=== PATIENT | male | born 1940 | race Caucasian/White ===

== ENCOUNTER 2019-01-10 16:59 | Inpatient (IN) | payer OTHER ==
--- NOTE | 2019-01-10 18:16 | RAD REPORT ---
EXAM DESCRIPTION: CT - Head Brain Wo Cont - 01/10/2019 5:53 pm CLINICAL HISTORY: declining state/confusion COMPARISON: None TECHNIQUE: Computed axial tomography of the head was obtained. IV contrast was not requested. All CT scans are performed using dose optimization technique as appropriate and may include automated exposure control or mA/KV adjustment according to patient size. FINDINGS: An intracranial bleed is not seen . The ventricles are normal in caliber. Low-density within the left caudate/left internal capsule is co mpatible with an old lacunar infarct. No extra-axial fluid collection is noted. Mild to moderate low-density areas within periventricular, deep and subcortical white matter likely represent ischemic changes secondary to small vessel disease . Fluid within the sinuses/ mastoids is not seen. IMPRESSION: No acute intracranial abnormality is seen. If patient's symptoms persist MRI of the bra in would be recommended.
[2019-01-10] MEDS ORDERED: ASPIRIN EC 81 MG TAB PO ONE (18:43)
[2019-01-10 18:45] LABS: Absolute Lymphocytes (CBC) 0.3 K/uL (0.7-4.9); Absolute Monocytes 0.6 K/uL (0.1-1.3); Absolute Neutrophil 5.7 K/uL (1.8-8.0); Basophils % 0.4 % (0-1.3); Eosinophils % 0.1 % (0-4.4); Hematocrit 42.5 % (39.6-49.0); Lymphocytes % 4.5 % (15.3-44.8); MPV 9.5 fL (7.6-11.3); Monocytes % 9.6 % (3.3-12.3); RBC Red Blood Cell Count 4.77 M/uL (4.33-5.43)
--- NOTE | 2019-01-10 18:48 | EDPHYS ---
Physician Documentation [facility] Name: Kevin Pascual Age: 78 yrs Sex: Male : 1940 Arrival Date: 01/10/2019 Time: 17:07 Bed 28 Private MD: ED Physician Alessandro Arnold HPI: 01/10 17:20 This 78 yrs old Male presents to ER via Unassigned with complaints of snw confusion. 17:20 The patient's problem is reported as dysphasia, expressive aphasia. Onset: The snw symptoms/episode began/occurred at an unknown time. Duration: unknown. Context: the episode(s) was witnessed, unknown, symptoms became apparent at an unknown time, occurred at home, occurred while the patient was unknown. Possible contributing factors include: Pt arrives per EMS, EMS states pt is having a hard time with finding words. Pt can tell me his name. No slurred speech. Follows directions. Pt cannot come up with the words he wants. Difficulty naming objects but is able to tell a story and can read and tell me the uses of different objects.. The symptoms are alleviated by nothing. Severity of symptoms: At their worst the symptoms were moderate severe. Patient's baseline: unknown. Unable to obtain HPI due to altered mental status. It is unknown whether or not the patient has had similar symptoms in the past. It is unknown whether or not the patient has recently seen a physician. Historical: - Allergies: 17:36 No Known Allergies; mg2 - Home Meds: 22:11 amlodipine 2.5 mg tab 1 tab once daily [Active]; potassium chloride 10 mEq Oral cpER 1 mg2 cap once daily [Active]; folic acid 1 mg Oral tab 1 tab once daily [Active]; donepezil HCL 10 mg 1 tab once a day [Active]; vit B12 1000 mcg once a day [Active]; aspirin 81 mg Oral chew 1 tab once daily [Active]; Fish Oil oral oral [Active]; - PMHx: 22:11 Hypertension; mg2 - PSHx: 17:36 Unable to obtain; mg2 - Immunization history:: Flu vaccine status is unknown. - Social history:: Smoking status: unknown. - Ebola Screening: : No symptoms or risks identified at this time. ROS: 17:20 Eyes: Negative for injury, pain, redness, and discharge, ENT: Negative for injury, snw pain, and discharge, Neck: Negative for injury, pain, and swelling, Cardiovascular: Negative for chest pain, palpitations, and edema, Respiratory: Negative for shortness of breath, cough, wheezing, and pleuritic chest pain, Abdomen/GI: Negative for abdominal pain, nausea, vomiting, diarrhea, and constipation, Back: Negative for injury and pain, : Negative for injury, bleeding, discharge, and swelling, MS/Extremity: Negative for injury and deformity, Skin: Negative for injury, rash, and discoloration. 17:20 Constitutional: Positive for malaise. 17:20 Neuro: Positive for speech changes. Exam: 17:20 Head/Face: Normocephalic, atraumatic. Eyes: Pupils equal round and reactive to light, snw extra-ocular motions intact. Lids and lashes normal. Conjunctiva and sclera are non-icteric and not injected. Cornea within normal limits. Periorbital areas with no swelling, redness, or edema. ENT: Nares patent. No nasal discharge, no septal abnormalities noted. Tympanic membranes are normal and external auditory canals are clear. Oropharynx with no redness, swelling, or masses, exudates, or evidence of obstruction, uvula midline. Mucous membranes moist. Neck: Trachea midline, no thyromegaly or masses palpated, and no cervical lymphadenopathy. Supple, full range of motion without nuchal rigidity, or vertebral point tenderness. No Meningismus. Chest/axilla: Normal chest wall appearance and motion. Nontender with no deformity. No lesions are appreciated. Cardiovascular: Regular rate and rhythm with a normal S1 and S2. No gallops, murmurs, or rubs. Normal PMI, no JVD. No pulse deficits. Respiratory: Lungs have equal breath sounds bilaterally, clear to auscultation and percussion. No rales, rhonchi or wheezes noted. No increased work of breathing, no retractions or nasal flaring. Abdomen/GI: Soft, non-tender, with normal bowel sounds. No distension or tympany. No guarding or rebound. No evidence of tenderness throughout. Back: No spinal tenderness. No costovertebral tenderness. Full range of motion. Skin: Warm, dry with normal turgor. Normal color with no rashes, no lesions, and no evidence of cellulitis. MS/ Extremity: Pulses equal, no cyanosis. Neurovascular intact. Full, normal range of motion. Psych: Awake, alert, with orientation to person, place and time. Behavior, mood, and affect are within normal limits. 17:20 Constitutional: The patient appears alert, awake, unkempt. 17:20 Neuro: Orientation: to person, Mentation: able to follow commands, Cranial nerves: extraocular movements are intact, Facial palsy and sensory deficits are absent. Nystagmus is absent. Cerebellar function: heel to gongora testing is normal, Motor: is normal, Sensation: is normal, Gait: not tested. Babinski testing is normal, seizure activity, is not displayed by the patient. 18:48 Radiologist reports: old infarcts and chronic ischemic disease, no acute snw Vital Signs: 17:34 BP 159 / 77; Pulse 62; Resp 18; Temp 98(O); Pulse Ox 100% on R/A; Pain 0/10; mg2 18:56 BP 184 / 57; Pulse 80; Resp 18; Pulse Ox 100% on R/A; Pain 0/10; mg2 22:11 BP 154 / 103; Pulse 103; Resp 18; Pulse Ox 100% on R/A; Pain 0/10; mg2 NIH Stroke Scale Scores: 17:20 NIHSS Score: 2 snw 19:00 NIHSS Score: 2 mg2 MDM: 17:27 Data reviewed: vital signs, nurses notes. Data interpreted: Pulse oximetry: on room air snw is 99 %. Interpretation: normal. Counseling: I had a detailed discussion with the patient and/or guardian regarding: the historical points, exam findings, and any diagnostic results supporting the discharge/admit diagnosis. ED course: pt not a candidate for TPA, unable to get hx of last known normal. 17:29 Patient medically screened. snw 01/10 17:12 Order name: Troponin (emerg Dept Use Only); Complete Time: 19:07 snw 01/10 17:12 Order name: Basic Metabolic Panel; Complete Time: 19: snw 01/10 17:12 Order name: CT Head Brain wo Cont; Complete Time: 18:21 snw 01/10 17:12 Order name: CBC with Diff; Complete Time: 19:41 snw 01/10 17:12 Order name: Protime (+inr); Complete Time: 19:07 snw 01/10 17:12 Order name: Ptt, Activated; Complete Time: 19:07 snw 01/10 17:12 Order name: Stroke CXR 1 View snw 01/10 17:12 Order name: EKG; Complete Time: 17:23 snw 01/10 17:12 Order name: Accucheck; Complete Time: 17:25 snw 01/10 17:12 Order name: Cardiac monitoring; Complete Time: 17:25 snw 01/10 17:12 Order name: EKG - Nurse/Tech; Complete Time: 17:25 snw 01/10 18:57 Order name: RAD; Complete Time: 19:07 EDMS 01/10 17:12 Order name: IV Saline Lock; Complete Time: 17:51 snw 01/10 17:12 Order name: Labs collected and sent; Complete Time: 17:25 snw 01/10 17:12 Order name: NPO; Complete Time: 17:26 snw 01/10 17:12 Order name: O2 Per Protocol; Complete Time: 17:26 snw 01/10 17:12 Order name: O2 Sat Monitoring; Complete Time: 17:51 snw 01/10 17:12 Order name: Stroke Swallow Screen; Complete Time: 17:51 snw 01/10 18:06 Order name: Labs - recollect needed; Complete Time: 18:39 bd Administered Medications: 18:39 Drug: Aspirin 81 mg Route: PO; mg2 22:17 Follow up: Response: No adverse reaction mg2 Point of Care Testing: Blood Glucose: 18:05 Blood Glucose: 99 mg/dL; mg2 Ranges: Critical Glucose Levels:Adult <50 mg/dl or >400 mg/dl <40 mg/dl or >180 mg/dl Disposition: 01/11 06:58 Co-signature as Attending Physician, Alessandro Arnold MD I agree with the assessment and kdr plan of care. Disposition: 01/10/19 18:47 Hospitalization ordered by Mitiz King for Observation. Preliminary diagnosis are Altered mental status, unspecified, Expressive language disorder, Renal insufficiency. - Bed requested for Telemetry/MedSurg (observation). - Status is Observation. mg2 - Condition is Stable. - Problem is new. - Symptoms are unchanged. UTI on Admission? No NIH Stroke Scale - NIH Stroke Score Date: 01/10/2019 Time: 17:20 Total Score = 2 1a. Level of Consciousness (LOC) - 0(Alert) 1b. Level of Consciousness (LOC) (Year \T\ Age) - 1(One) 1c. LOC Commands (Open \T\ Closes Eyes/Recreation Facility Attendant) - 0(Both) 2. Best Gaze (Lateral Gaze Paresis) - 0(Normal) 3. Visual Field Loss - 0(No visual loss) 4. Facial Palsy - 0(Normal) 5a. Left Arm: Motor (10-second hold) - 0(No drift) 5b. Right Arm: Motor (10-second hold) - 0(No drift) 6a. Left Leg: Motor (5-second hold - always test supine) - 0(No drift) 6b. Right Leg: Motor (5-second hold - always test supine) - 0(No drift) 7. Limb Ataxia (finger/nose \T\ heel/gongora - test with eyes open) - 0(Absent) 8. Sensory Loss (pinprick arms/legs/face) - 0(Normal) 9. Best Language: Aphasia (description/naming/reading) - 1(Mild to moderate aphasia) 10. Dysarthria (speech clarity - read or repeat words) - 0(Normal) 11. Extinction and Inattention (visual/tactile/auditory/spatial/personal) - 0(No abnormality) Initials: [facility] NIH Stroke Scale - NIH Stroke Score Date: 01/10/2019 Time: 19:00 Total Score = 2 1a. Level of Consciousness (LOC) - 0(Alert) 1b. Level of Consciousness (LOC) (Year \T\ Age) - 1(One) 1c. LOC Commands (Open \T\ Closes Eyes/Recreation Facility Attendant) - 0(Both) 2. Best Gaze (Lateral Gaze Paresis) - 0(Normal) 3. Visual Field Loss - 0(No visual loss) 4. Facial Palsy - 0(Normal) 5a. Left Arm: Motor (10-second hold) - 0(No drift) 5b. Right Arm: Motor (10-second hold) - 0(No drift) 6a. Left Leg: Motor (5-second hold - always test supine) - 0(No drift) 6b. Right Leg: Motor (5-second hold - always test supine) - 0(No drift) 7. Limb Ataxia (finger/nose \T\ heel/gongora - test with eyes open) - 0(Absent) 8. Sensory Loss (pinprick arms/legs/face) - 0(Normal) 9. Best Language: Aphasia (description/naming/reading) - 1(Mild to moderate aphasia) 10. Dysarthria (speech clarity - read or repeat words) - 0(Normal) 11. Extinction and Inattention (visual/tactile/auditory/spatial/personal) - 0(No abnormality) Initials: mg2 Signatures: Dispatcher [employer] EDMS Lady Watkins Kimberly, LEON RN kl Alessandro Arnold MD MD kdr Therrien, Shelly, NEIGHBORHOOD COORDINATOR-C NEIGHBORHOOD COORDINATOR-Csnw Ethan Smith, LEON RN mg2 Corrections: (The following items were deleted from the chart) 01/10 17:27 17:23 Head Brain Wo Cont+CT.RAD.BRZ ordered. EDMS EDMS 19:08 18:47 Hospitalization Ordered by Mitzi King MD for Observation. Preliminary snw diagnosis is Altered mental status, unspecified; Expressive language disorder. Bed requested for Telemetry/MedSurg (observation). Status is Observation. Condition is Stable. Problem is new. Symptoms are unchanged. UTI on Admission? No. snw 22:02 19:08 01/10/2019 18:47 Hospitalization Ordered by Mitzi King MD for kl Observation. Preliminary diagnosis is Altered mental status, unspecified; Expressive language disorder; Renal insufficiency. Bed requested for Telemetry/MedSurg (observation). Status is Observation. Condition is Stable. Problem is new. Symptoms are unchanged. UTI on Admission? No. snw 22:11 17:36 Home Meds: Unable to obtain; mg2 mg2 22:11 17:36 PMHx: Unable to obtain; mg2 mg2 23:06 22:02 01/10/2019 18:47 Hospitalization Ordered by Mitzi King MD for mg2 Observation. Preliminary diagnosis is Altered mental status, unspecified; Expressive language disorder; Renal insufficiency. Bed requested for Telemetry/MedSurg (observation). Status is Observation. Condition is Stable. Problem is new. Symptoms are unchanged. UTI on Admission? No. kl
--- NOTE | 2019-01-10 18:48 | ER ---
Nurse's Notes [facility] Name: Kevin Pascual Age: 78 yrs Sex: Male : 1940 Arrival Date: 01/10/2019 Time: 17:07 Bed 28 Private MD: Diagnosis: Altered mental status, unspecified;Expressive language disorder;Renal insufficiency Presentation: 01/10 17:31 Presenting complaint: EMS states: patient had sudden onset of slurred speech and mg2 confusion 30 mins REFERENCE ASSISTANT probably around 1650. stroke test was done he had equal metal sprayer protective coating, no arm or leg drift, oriented to his name, birthday but no to situation, age and place. Transition of care: patient was not received from another setting of care. Onset of symptoms was January 10, 2019 at 16:40. Risk Assessment: Do you want to hurt yourself or someone else? Patient reports no desire to harm self or others. Initial Sepsis Screen: Does the patient meet any 2 criteria? No. Patient's initial sepsis screen is negative. Does the patient have a suspected source of infection? No. Patient's initial sepsis screen is negative. Care prior to arrival: None. 17:31 Method Of Arrival: EMS: [facility] mg2 17:31 Acuity: HILARY 2 mg2 Triage Assessment: 18:43 General: Appears in no apparent distress. comfortable, Behavior is calm, cooperative. mg2 Pain: Denies pain. EENT: No deficits noted. Neuro: Level of Consciousness is awake, confused, Oriented to person. Cardiovascular: Capillary refill < 3 seconds Patient's skin is warm and dry. Respiratory: Airway is patent Respiratory effort is even, unlabored, Respiratory pattern is regular, symmetrical. GI: No signs and/or symptoms were reported involving the gastrointestinal system. : No signs and/or symptoms were reported regarding the genitourinary system. Derm: Skin is intact, is healthy with good turgor, Skin is pink, warm \T\ dry. normal. Musculoskeletal: Circulation, motion, and sensation intact. Capillary refill < 3 seconds. Historical: - Allergies: 17:36 No Known Allergies; mg2 - Home Meds: 22:11 amlodipine 2.5 mg tab 1 tab once daily [Active]; potassium chloride 10 mEq Oral cpER 1 mg2 cap once daily [Active]; folic acid 1 mg Oral tab 1 tab once daily [Active]; donepezil HCL 10 mg 1 tab once a day [Active]; vit B12 1000 mcg once a day [Active]; aspirin 81 mg Oral chew 1 tab once daily [Active]; Fish Oil oral oral [Active]; - PMHx: 22:11 Hypertension; mg2 - PSHx: 17:36 Unable to obtain; mg2 - Immunization history:: Flu vaccine status is unknown. - Social history:: Smoking status: unknown. - Ebola Screening: : No symptoms or risks identified at this time. Screenin:40 Patient has been NPO before screening. The patient is alert, able to follow commands. mg2 The patient does not exhibit slurred or garbled speech The patient is not exhibiting difficulty speaking. The patient does not exhibit difficulty understanding words. The patient is able to swallow own secretions with no drooling or need for suction. Patient tolerated one teaspoon of water. No drooling, immediate coughing, gurgling, or clearing of the throat was noted. The patient tolerated 90mL of water. No drooling, immediate coughing, gurgling, or clearing of the throat was noted. The patient passed the bedside swallow screening. Oral medications may be given as ordered. Contact Physician for further diet orders. Provider notified of bedside swallow screening results: Chelly JANSEN. 18:04 Abuse screen: Denies threats or abuse. Denies injuries from another. Nutritional mg2 screening: No deficits noted. Tuberculosis screening: No symptoms or risk factors identified. Fall Risk IV access (20 points). Assessment: 18:05 Reassessment: pls see triage assessment. mg2 22:20 Reassessment: floor nurse will call me back to receive the report. mg2 22:49 Reassessment: Elian Tillman (friend) number- [phone]. mg2 22:50 Reassessment: Dr. Estrada- [phone]. mg2 Vital Signs: 17:34 BP 159 / 77; Pulse 62; Resp 18; Temp 98(O); Pulse Ox 100% on R/A; Pain 0/10; mg2 18:56 BP 184 / 57; Pulse 80; Resp 18; Pulse Ox 100% on R/A; Pain 0/10; mg2 22:11 BP 154 / 103; Pulse 103; Resp 18; Pulse Ox 100% on R/A; Pain 0/10; mg2 NIH Stroke Scale Scores: 17:20 NIHSS Score: 2 snw 19:00 NIHSS Score: 2 mg2 ED Course: 17:07 Patient arrived in ED. mg2 17:11 Ethan Smith RN is Primary Nurse. mg2 17:12 Chelly Jimenez FNP-C [facility] snw 17:12 Alessandro Arnold MD is Attending Physician. snw 17:34 Triage completed. mg2 17:35 Arm band placed on. mg2 17:52 CT Head Brain wo Cont In Process Unspecified. EDMS 18:04 No provider procedures requiring assistance completed. Maintain EMS IV. Dressing mg2 intact. Good blood return noted. Site clean \T\ dry. Gauge \T\ site: 20 \T\ LHand. 18:09 EKG done, by layout technician. reviewed by Chelly JANSEN. sm3 18:30 Radiology exam delayed due to IV insertion attempt and/or patient not having ls3 appropriate IV at this time. 18:47 Mitzi King MD is Hospitalizing Provider. snw 18:57 Placed in gown. Bed in low position. Pulse ox on. NIBP on. Door closed. Warm blanket mg2 given. 22:11 Patient admitted, IV remains in place. mg2 Administered Medications: 18:39 Drug: Aspirin 81 mg Route: PO; mg2 22:17 Follow up: Response: No adverse reaction mg2 Point of Care Testing: Blood Glucose: 18:05 Blood Glucose: 99 mg/dL; mg2 Ranges: Outcome: 18:47 Decision to Hospitalize by Provider. snw 23:05 Admitted to Tele accompanied by gokul, via wheelchair, room 412, with chart, Report mg2 called to LEON Gore 23:05 Condition: stable 23:05 Instructed on the need for admit, Demonstrated understanding of instructions. 23:06 Patient left the ED. mg2 NIH Stroke Scale - NIH Stroke Score Date: 01/10/2019 Time: 17:20 Total Score = 2 1a. Level of Consciousness (LOC) - 0(Alert) 1b. Level of Consciousness (LOC) (Year \T\ Age) - 1(One) 1c. LOC Commands (Open \T\ Closes Eyes/Aviation Electrical Technician) - 0(Both) 2. Best Gaze (Lateral Gaze Paresis) - 0(Normal) 3. Visual Field Loss - 0(No visual loss) 4. Facial Palsy - 0(Normal) 5a. Left Arm: Motor (10-second hold) - 0(No drift) 5b. Right Arm: Motor (10-second hold) - 0(No drift) 6a. Left Leg: Motor (5-second hold - always test supine) - 0(No drift) 6b. Right Leg: Motor (5-second hold - always test supine) - 0(No drift) 7. Limb Ataxia (finger/nose \T\ heel/gongora - test with eyes open) - 0(Absent) 8. Sensory Loss (pinprick arms/legs/face) - 0(Normal) 9. Best Language: Aphasia (description/naming/reading) - 1(Mild to moderate aphasia) 10. Dysarthria (speech clarity - read or repeat words) - 0(Normal) 11. Extinction and Inattention (visual/tactile/auditory/spatial/personal) - 0(No abnormality) Initials: [facility] NIH Stroke Scale - NIH Stroke Score Date: 01/10/2019 Time: 19:00 Total Score = 2 1a. Level of Consciousness (LOC) - 0(Alert) 1b. Level of Consciousness (LOC) (Year \T\ Age) - 1(One) 1c. LOC Commands (Open \T\ Closes Eyes/Aviation Electrical Technician) - 0(Both) 2. Best Gaze (Lateral Gaze Paresis) - 0(Normal) 3. Visual Field Loss - 0(No visual loss) 4. Facial Palsy - 0(Normal) 5a. Left Arm: Motor (10-second hold) - 0(No drift) 5b. Right Arm: Motor (10-second hold) - 0(No drift) 6a. Left Leg: Motor (5-second hold - always test supine) - 0(No drift) 6b. Right Leg: Motor (5-second hold - always test supine) - 0(No drift) 7. Limb Ataxia (finger/nose \T\ heel/gongora - test with eyes open) - 0(Absent) 8. Sensory Loss (pinprick arms/legs/face) - 0(Normal) 9. Best Language: Aphasia (description/naming/reading) - 1(Mild to moderate aphasia) 10. Dysarthria (speech clarity - read or repeat words) - 0(Normal) 11. Extinction and Inattention (visual/tactile/auditory/spatial/personal) - 0(No abnormality) Initials: mg2 Signatures: Dispatcher [employer] EDMS Chelly Jimenez, CAN MACHINE OPERATOR-C CAN MACHINE OPERATOR-Csnw Ethan Smith, RN RN mg2 Rossana Romero sm3 Cindy Andrews ls3 Corrections: (The following items were deleted from the chart) 17:36 Home Meds: Unable to obtain; mg2 mg2 : 17:36 PMHx: Unable to obtain; mg2 mg2
[2019-01-10 18:53] LABS: Protime INR 0.99
--- NOTE | 2019-01-10 18:57 | RAD REPORT ---
EXAM DESCRIPTION: Aaron Single View01/10/2019 6:39 pm CLINICAL HISTORY: Chest pain COMPARISON: none FINDINGS: Small nodular opacities overlying each lung base. Upper lobes appear clear Heart is normal size IMPRESSION: Small nodular opacity overlying each lung base probably representing nipple shadows. As pulmonary nodules could have this appearance it is recommended that the patient have frontal obliq ue views of the chest with nipple markers for further evaluation
[2019-01-10 19:04] LABS: Potassium 4.6 mmol/L (3.5-5.1); Troponin (Emerg Dept Use Only) 0.03 ng/mL (0.0-0.045)
[2019-01-10 19:31] LABS: Blood Morphology Comment NOTED (NOT SEEN); Hypochromasia 1+; Platelet Estimate ADEQ; Urine White Blood Cell Casts OK
--- NOTE | 2019-01-10 23:08 | P.HP ---
Certification for Inpatient Patient admitted to: Inpatient With expected LOS: >2 Midnights Practitioner: I am a practitioner with admitting privileges, knowledge of patient current condition, hospital course, and medical plan of care. Services: Services provided to patient in accordance with Admission requirements found in Title 42 Section 412.3 of the Code of Federal Regulations Patient History Date of Service: 01/10/19 Reason for admission: CVA History of Present Illness: Mr Pascual is a 78 years old male who was brought by EMS due to expressive aphasia. There is no previous admission of this patient in this facility, he is by himself. Unknown when symptoms start. He has no weakness. The patient seems very frustrated because is not able to communicate. At physical exam there are no other neurologic deficit than his aphasia. BP 184/57. CT head shows no acute abnormalities, but has old lacunar infarct on left internal capsule and caudate. Home medications list reviewed: Yes - Past Medical/Surgical History Past Medical History: Unable to obtain Past Surgical History: Unable to obtain - Family History Family History: Reviewed- Non-Contributory - Social History Smoking Status: Unknown if ever smoked Alcohol use: No Place of Residence: Home Review of Systems 10-point ROS is otherwise unremarkable Physical Examination - Physical Exam General: Alert, In no apparent distress HEENT: Atraumatic, PERRLA, Mucous membr. moist/pink, EOMI, Sclerae nonicteric Neck: Supple, 2+ carotid pulse no bruit, No LAD, Without JVD or thyroid abnormality Respiratory: Clear to auscultation bilaterally, Normal air movement Cardiovascular: Regular rate/rhythm, Normal S1 S2 Gastrointestinal: Normal bowel sounds, No tenderness Musculoskeletal: No tenderness Integumentary: No rashes Neurological: Normal strength at 5/5 x4 extr, Normal tone, Normal affect, Abnormal speech (expressive aphasia) Lymphatics: No axilla or inguinal lymphadenopathy - Studies Laboratory Data (last 24 hrs) 01/10/19 18:15: PT 11.7, INR 0.99, APTT 25.0 01/10/19 18:15: WBC 6.6, Hgb 14.4, Hct 42.5, Plt Count 125 L Assessment and Plan - Problems (Diagnosis) (1) CVA (cerebral vascular accident) Current Visit: Yes Status: Acute Qualifiers: CVA mechanism: unspecified Qualified Code(s): I63.9 - Cerebral infarction, unspecified (2) Expressive aphasia Current Visit: Yes Status: Acute (3) HTN (hypertension) Current Visit: Yes Status: Acute Qualifiers: Hypertension type: unspecified Qualified Code(s): I10 - Essential (primary ) hypertension - Plan The patient will be admitted to the hospital due to CVA. He has expressive aphasia without other focal deficit. The time of beginning of his symptoms in unkown, for that reason he did not receive TPA. Will continue with stroke protocol orders, including brain MRI, ECHO, carotid doppler, consult speech and physical therapy. Consult neurologist. Start ASA, Statins, lovenox for DVT prophylaxis. - Advance Directives Does patient have a Living Will: No Does patient have a Durable POA for Healthcare: No - Code Status/Comfort Care Code Status Assessed: Yes Code Status: Full Code
[2019-01-10] MEDS ORDERED: NA CHLORIDE 0.9% 1,000 ML IV SCH (23:15)
[2019-01-10] MEDS ORDERED: ONDANSETRON 4 MG/2 ML VIAL IV PRN (23:15)
[2019-01-11 00:16] VITALS: BMI 24.0
--- NOTE | 2019-01-11 05:50 | EKG ---
Test Date: 2019-01-10 Test Time: 17:40:17 Machine Operator Slitter Technician: ARTHUR MEASUREMENT RESULTS: Intervals: Rate: 104 PA: 120 QRSD: 74 QT: 324 QTc: 426 [place]: P: 31 PA: 120 QRS: -68 T: 35 INTERPRETIVE STATEMENTS: Sinus tachycardia Left axis deviation Nonspecific ST abnormality Abnormal ECG No previous ECG available for comparison Electronically Signed On 01-11-19 05:49:29 PHOTOGRAPHY MANAGER by Wai Gramajo
[2019-01-11 06:42] LABS: Absolute Lymphocytes (CBC) 0.4 K/uL (0.7-4.9); Absolute Monocytes 0.6 K/uL (0.1-1.3); Absolute Neutrophil 3.6 K/uL (1.8-8.0); Basophils % 0.3 % (0-1.3); Eosinophils % 0.1 % (0-4.4); Hematocrit 40.8 % (39.6-49.0); Lymphocytes % 8.8 % (15.3-44.8); MPV 9.5 fL (7.6-11.3); Monocytes % 12.9 % (3.3-12.3); RBC Red Blood Cell Count 4.62 M/uL (4.33-5.43)
[2019-01-11 07:25] LABS: Potassium 3.7 mmol/L (3.5-5.1)
[2019-01-11 08:17] LABS: Thyroid Stimulating Hormone 0.674 uIU/mL (0.360-3.740)
--- NOTE | 2019-01-11 08:41 | RAD REPORT ---
EXAM DESCRIPTION: US - CP - 01/11/2019 8:30 am CLINICAL HISTORY: cva Headache, CVA COMPARISON: No comparisons TECHNIQUE: Real-time sonographic evaluation of both carotid systems was performed. Doppler interroga tion was performed with waveform tracing bilaterally. FINDINGS: Normal high resistance waveforms are noted in both external carotid arteries. The common c arotid arteries and internal carotid arteries show normal low resistance waveforms. Mild hard plaquing is seen in both proximal internal carotid arteries. Peak systolic and end diastoli c velocity values and the ICA/CCA ratios are in the non-hemodynamically significant range. Antegrade flow seen in both vertebral arteries. IMPRESSION: Mild hard plaquing is seen in both proximal internal carotid arteries. No evidence of a hemodynamically significant stenosis.
--- NOTE | 2019-01-11 08:43 | RAD REPORT ---
EXAM DESCRIPTION: US - Renal Ultrasound-Complete - 01/11/2019 8:30 am CLINICAL HISTORY: Evaluate for CRD Flank pain COMPARISON: No comparisons FINDINGS: Both kidneys are quite echogenic and small in size. The right kidney measures 9.7 x 4.9 x 4.9 cm. No hydronephrosis. Small benign cysts are present. The left kidney measures 10.7 x 6.1 x 4.6 cm. No hydronephrosis. Small benign cysts noted. The urinary bladder is incompletely distended without gross abnormality seen. Prostatomegaly is suspe cted. IMPRESSION: Both kidneys are small in size and highly echogenic, compatible with medical renal disea se.
[2019-01-11] MEDS ORDERED: ENOXAPARIN 40 MG/0.4 ML SQ SCH (09:00)
[2019-01-11] MEDS: ASPIRIN EC 81 MG TAB PO SCH (09:22)
[2019-01-11] MEDS: AMLODIPINE 2.5 MG TAB PO SCH (09:22)
[2019-01-11] MEDS: NACHLORIDE 0.45% 1,000 ML IV SCH (09:22)
[2019-01-11] MEDS: ENOXAPARIN 30 MG/0.3 ML SQ SCH (09:23)
[2019-01-11] MEDS: FOLIC ACID 1 MG TABLET PO SCH (09:23)
[2019-01-11] MEDS ORDERED: POTASSIUM 25 MEQ EFFERV TAB PO ONE (11:33)
[2019-01-11] MEDS: TRIAMCINOLONE 0.1% CREAM 15GM TOP SCH ×2 (11:50→20:39)
--- NOTE | 2019-01-11 11:55 | P.PN ---
Subjective Date of Service: 01/11/19 Primary Care Provider: [facility]([place], [place]) Chief Complaint: CVA Subjective: Improving (Patient appears improved. No aphasia noted.) Physical Examination - Vital Signs Temperature: 99.7 F Blood Pressure: 161/89 Pulse: 83 Respirations: 16 Pulse Ox (%): 93 - Physical Exam General: Alert, In no apparent distress, Oriented x3, Cooperative, Demented ( Mild), Other (Patient not well kept) HEENT: Atraumatic Neck: Supple Respiratory: Clear to auscultation bilaterally, Normal air movement Cardiovascular: Normal pulses, Regular rate/rhythm Gastrointestinal: Normal bowel sounds, Soft and benign, Non-distended, No masses , No rebound, No guarding Integumentary: No tenderness/swelling, No erythema, No warmth, No cyanosis Neurological: Normal speech, Normal strength at 5/5 x4 extr, Normal tone, Normal affect - Studies Laboratory Data (last 24 hrs) 01/10/19 18:15: PT 11.7, INR 0.99, APTT 25.0 01/10/19 18:15: WBC 6.6, Hgb 14.4, Hct 42.5, Plt Count 125 L 01/10/19 18:15: Sodium 138, Potassium 4.6, BUN 17, Creatinine 2.69 H, Glucose 100 Medications List Reviewed: Yes Assessment & Plan Discharge Plan: Other (nursing home facility placement) Plan to discharge in: Greater than 2 days Physician Review Additional Text: Impression: Expressive aphasia likely acute CVA Hypertension Hyperlipidemia Dementia Chronic renal disease, stage IV Poor social situation Plan: Expressive aphasia likely acute CVA: Patient to have MRI, carotid Doppler and echocardiogram. Await findings. Neurology consulted to further assess. Physical therapy, occupational therapy and speech therapy to assess. Patient is not well kept. Patient would benefit with inpatient rehab if positive for CVA. If negative patient would benefit with skilled placement. Case discussed with web content & social media manager. Await CVA workup. Hypertension: Restart home medication. Will maintain blood pressures around 160-180 systolic. Hyperlipidemia: Continue medication Dementia: Restart home medication. Chronic renal disease, stage IV: This appears chronic. Will monitor closely. Continue IV fluids at low dose. Nephrology consulted. Poor social situation: Social work to investigate home situation. Patient would benefit with inpatient rehab if CVA positive. If CVA negative then the patient would require skilled placement. Time Spent Managing Pts Care (In Minutes): 55
--- NOTE | 2019-01-11 14:32 | ECHO ---
HEIGHT: 5 ft 7 in WEIGHT: 153 lb 11.2 oz DATE OF STUDY: 01/11/[address]: Mitzi Robertson MD 2-DIMENSIONAL: YES M.MODE: YES DOPPLER: YES COLOR FLOW: YES TDS: PORTABLE: DEFINITY: BUBBLE STUDY: DIAGNOSIS: STROKE CARDIAC HISTORY: CATHERIZATION: SURGERY: PROSTHETIC VALVE: NO PACEMAKER: NO MEASUREMENTS (cm) DIASTOLIC (NORMALS) SYSTOLIC (NORMALS) IVSd 1.0 (0.6-1.2) LVIDs 2.6 (2.0-3.5) LVEF 55% LVIDd 3.5 (3.5-5.7) %FS 28% LVPWd 1.2 (0.6-1.2) Ao Diam 3.2 (2.0-3.7) 2 DIMENSIONAL ASSESSMENT: RIGHT ATRIUM: NORMAL LEFT ATRIUM: NORMAL RIGHT VENTRICLE: NORMAL LEFT VENTRICLE: NORMAL TRICUSPID VALVE: NORMAL MITRAL VALVE: NORMAL PULMONIC VALVE: NORMAL AORTIC VALVE: NORMAL PERICARDIAL EFFUSION: NONE AORTIC ROOT: NORMAL LEFT VENTRICULAR WALL MOTION: NORMAL DOPPLER/COLOR FLOW: MILD TRICUSPID REGURGITATION. NORMAL RIGHT VENTRICULAR SYSTOLIC PRESSURE. COMMENTS: NORMAL TWO DIMENSIONAL ECHOCARDIOGRAM. MILD TRICUSPID REGURGITATION. TECHNOLOGIST: CHRISTINA LYLES
[2019-01-11] MEDS: DONEPEZIL HCL 5 MG TAB PO SCH (20:38)
[2019-01-11] MEDS: ATORVASTATIN 20 MG TAB PO SCH (20:38)
[2019-01-11 21:08] LABS: Urine Appearance CLEAR; Urine Bilirubin NEGATIVE (NEG); Urine Blood 2+ (NEG); Urine Color YELLOW; Urine Glucose NEGATIVE (NEG); Urine Protein 1+ (NEG); Urine Urobilinogen 0.2 mg/dL (0.2-1.0)
[2019-01-11 21:16] LABS: Urine Protein/Creatinine Ratio 0.84 ratio (<0.15)
[2019-01-11 21:38] LABS: Urine Bacteria <20 /HPF (NONE SEEN); Urine RBC <5 /HPF (NONE SEEN)
[2019-01-11 21:39] LABS: Urine Culture Reflex Order NOT NEEDED
--- NOTE | 2019-01-11 21:47 | P.CNS ---
Date of Consult: 01/11/19 Reason for Consult: CKD Primary Care Provider: [facility]([place], [place]) Chief Complaint: CVA History of Present Illness: Pt is AAOx1, no avilable family members, Hx obtained from chart A 78 years old male with unknown past medical Hx, presented to the ER with speech difficulty pt stated he didnt see a doctor for a long time , cant provide further detalis currently asymptomatic , ambulate freely no chest pain, palpitation, nausea or vomiting Allergies No Known Allergies Allergy (Unverified 01/10/19 22:16) Home Medications: Amlodipine [Norvasc*] 2.5 mg PO DAILY 01/11/19 Donepezil HCl 10 mg PO DAILY 01/11/19 Folic Acid 1 mg PO DAILY 01/11/19 Potassium Oral Tab [Klor-Con 10 mEq Tab*] 10 meq PO DAILY 01/11/19 Triamcinolone 0.1% Crm [Kenalog 0.1% Cream*] 1 roma TOP BID 01/11/19 - Past Medical/Surgical History Diabetic: No - Family History Father History Unknown: Yes Mother History Unknown: Yes - Social History Smoking Status: Unknown if ever smoked Alcohol use: No CD- Drugs: No Caffeine use: No Place of Residence: Home Physical Examination Temp Pulse Resp BP Pulse Ox 99.2 F 77 18 173/82 H 96 01/11/19 20:00 01/11/19 20:00 01/11/19 20:00 01/11/19 20:00 01/11/19 20:00 General: In no apparent distress, Oriented x1 HEENT: Atraumatic Neck: Supple, Without JVD or thyroid abnormality Respiratory: Clear to auscultation bilaterally, Normal air movement Cardiovascular: No edema, Normal pulses, Regular rate/rhythm, No rubs, No murmurs Gastrointestinal: Normal bowel sounds, Soft and benign Musculoskeletal: No swelling Integumentary: No rashes Laboratory Data (last 24 hrs) 01/10/19 18:15: WBC 6.6, Hgb 14.4, Hct 42.5, Plt Count 125 L 01/10/19 18:15: Sodium 138, Potassium 4.6, BUN 17, Creatinine 2.69 H, Glucose 100 - Problems (1) CVA (cerebral vascular accident) Current Visit: Yes Status: Acute Qualifiers: CVA mechanism: unspecified Qualified Code(s): I63.9 - Cerebral infarction, unspecified (2) HTN (hypertension) Current Visit: Yes Status: Chronic Qualifiers: Hypertension type: unspecified Qualified Code(s): I10 - Essential (primary ) hypertension Conclusions/Impression: ESVIN vs Esvin on CKD Unkown baseline Cr US: echogenic kidneys pt likely to have US finding are compatible with CKD CKD likely due to HTN nephrosclerosis and atherosclerotic disease real dose meds will order UA and UPC CVA Cont PT/OT asa and statin Dc IVF , if able to swallow HTN IV hydralazine if BP >210/110 in the first 24hrs will start BP meds tomorrow Thrombocytopenia stable
[2019-01-12] MEDS: NACHLORIDE 0.45% 1,000 ML IV SCH (03:01)
--- NOTE | 2019-01-12 03:50 | CON ---
Reason For Consultation: Called for evaluation of a possible stroke versus transient ischemic attack . History Of Present Illness: Mr. Kevin Pascual is a 78-year-old patient who lives alone. The patient reports having difficulty with ability to express himself and came into [facility] for an ev aluation. His head CT scan showed a low density area in the left caudate, left internal capsule comp atible with an old ischemic infarct. No acute findings were identified and there was mild to moderat e small-vessel ischemic disease in the periventricular region. The patient did have a urinalysis vivian wing 2+ blood but no nitrites, esterase, normal bacteria. 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 He had no evidence of systemic infections or abnormal white count. The patient's expressive aphasia has not changed significantly since his admission though yareli ntaining some difficulty with his ability to express himself. He comprehends well. He was treated w ith aspirin 162 mg daily and put on DVT prophylaxis with Norvasc and folate 1 mg daily. Continued on his donepezil. Past Medical History: Hypertension. Allergies: NO KNOWN DRUG ALLERGIES. Medications: At home amlodipine 2.5 mg daily, potassium chloride 10 mEq daily, folic acid 1 mg daily , donepezil 10 mg daily, vitamin B12 of 1000 mcg daily, fish oil daily, aspirin 81 mg daily. Family History: Unknown. Surgical History: Unknown. Social History: No recent alcohol, tobacco, or IV drug abuse. Review of Systems: No recent fevers, chills, nausea, vomiting, myalgias or arthralgias, rash, headache, weight change or psychiatric issues. Physical Examination: Vital Signs: Blood pressure up to 173/82 to 87, pulse 74 to 80, respiratory rate 16 to 20, temperatu re 99.2, oxygen saturation 96%, weight 153 pounds, height 5 feet 7 inches, BMI 24.1. Neurologic: Mr. Pascual is resting in bed. He does have some difficulty getting his thoughts out. He has mild difficulty with his labial, lingual and guttural sounds but they are heard very clearly. In terms of the rest of his cranial nerve examination, he has no obvious focal deficits there. On jean r examination, he has mild increased tone in the upper and lower extremities. Some difficulty with i nitiation of movement. No focal weakness noted in the upper and lower extremities. Sensory exam; st ocking-glove loss to light touch, temperature. Reflexes are depressed. Coordination, he has mild dy smetria in upper and lower extremities. Assessment: Mr. Pascual is a 78-year-old patient with evidence of chronic stroke and renal insufficien cy on chronic renal disease. 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 However, the patient does not have a brain MRI and cannot rule o ut an ischemic stroke as a contributing factor to his expressive aphasia. Plan: The patient to have brain MRI once he is available to be done. He should be continued on the a spirin and continued on high dose statin for stroke risk reduction. Also, continue with folate 1 mg daily and mild permissive hypertension the next 3 to 5 days. He should be evaluated by physical, occ upational and speech therapy for potential transfer to inpatient rehabilitation for aggressive rehabi litation. PARAS/LASHANDA Voice ID: [id number] Report ID: [id number]
[2019-01-12 06:24] LABS: Absolute Lymphocytes (CBC) 0.3 K/uL (0.7-4.9); Absolute Monocytes 0.5 K/uL (0.1-1.3); Absolute Neutrophil 3.1 K/uL (1.8-8.0); Basophils % 0.4 % (0-1.3); Eosinophils % 1.2 % (0-4.4); Hematocrit 39.8 % (39.6-49.0); Lymphocytes % 6.6 % (15.3-44.8); MPV 9.7 fL (7.6-11.3); Monocytes % 12.1 % (3.3-12.3); RBC Red Blood Cell Count 4.48 M/uL (4.33-5.43)
[2019-01-12 06:44] LABS: Potassium 3.6 mmol/L (3.5-5.1)
--- NOTE | 2019-01-12 08:14 | RAD REPORT ---
EXAM DESCRIPTION: MRI - Brain Wo Cont - 01/12/2019 12:21 am CLINICAL HISTORY: CVA, confusion, aphasia COMPARISON: CT head January 10 TECHNIQUE: Sagittal T1-weighted images were obtained along with axial PD, heavily T2-weighted and T2 -FLAIR images. Axial DWI and ADC mapping sequences were also obtained along with coronal heavily T2-w eighted images. FINDINGS: No intracranial hemorrhage, mass or acute infarction. There is no edema or shift of midlin e structures. No extra-axial fluid collections. Lozoya-matter/white matter junction is preserved. Signa l voids are seen as a normal finding in the major intracranial vessels. Prominent for age atrophy and moderate severity chronic ischemic changes are present. Ventricles are in proportion to the amount o f volume loss. No globe or orbital content abnormality. No sella or supra sella abnormality. Mastoid air cells and paranasal sinuses are clear. IMPRESSION: No acute infarction changes. No hemorrhage, mass or acute intracranial finding seen. Prominent for age atrophy and chronic ischemic change. Ventricles are in proportion.
[2019-01-12] MEDS: AMLODIPINE 2.5 MG TAB PO SCH (09:00)
[2019-01-12] MEDS ORDERED: POTASSIUM 25 MEQ EFFERV TAB PO ONE (11:00)
[2019-01-12] MEDS: ENOXAPARIN 30 MG/0.3 ML SQ SCH (11:13)
[2019-01-12] MEDS: AMLODIPINE 10 MG TAB PO SCH (11:14)
[2019-01-12] MEDS: ASPIRIN EC 81 MG TAB PO SCH (11:16)
[2019-01-12] MEDS: FOLIC ACID 1 MG TABLET PO SCH (11:17)
[2019-01-12] MEDS: TRIAMCINOLONE 0.1% CREAM 15GM TOP SCH ×2 (11:17→21:51)
--- NOTE | 2019-01-12 13:17 | P.PN ---
Subjective Date of Service: 01/12/19 Primary Care Provider: [facility]([place], [place]) Chief Complaint: CVA Subjective: Doing well Physical Examination - Vital Signs Temperature: 98.4 F Blood Pressure: 154/84 Pulse: 79 Respirations: 20 Pulse Ox (%): 94 - Physical Exam General: Alert, In no apparent distress, Oriented x3, Cooperative HEENT: Atraumatic Neck: Supple Respiratory: Clear to auscultation bilaterally, Normal air movement Cardiovascular: Normal pulses, Regular rate/rhythm Gastrointestinal: Normal bowel sounds, Soft and benign, Non-distended Integumentary: No cyanosis Neurological: Normal speech, Normal strength at 5/5 x4 extr, Normal tone, Normal affect - Studies Medications List Reviewed: Yes Assessment & Plan Discharge Plan: Other (Skilled placement facility) Plan to discharge in: 48 Hours Physician Review Additional Text: Impression: Expressive aphasia likely secondary to TIA Hypertension Hyperlipidemia Dementia Chronic renal disease, stage IV Poor social situation Plan: Expressive aphasia likely secondary to TIA: MRI he negative for acute stroke. Patient likely had TIA. Will continue with physical, occupational and speech therapy. Patient not well kept. Will recommend skilled placement. Patient agreeable to this. Continue with aspirin, folic acid and statin medication. Continue DVT prophylaxis. Hypertension: Medication Norvasc started Hyperlipidemia: Continue medication Dementia: Continue the medication Chronic renal disease, stage IV: This appears chronic. Will monitor closely. Will discontinue IV fluids. Nephrology added blood pressure medication. Poor social situation: Social work to investigate home situation. Patient would benefit skilled placement. Patient agreeable. Will have public health social worker look in to placement. Time Spent Managing Pts Care (In Minutes): 55
--- NOTE | 2019-01-12 16:02 | PN ---
Date of Progress Note: 01/12/2019 Subjective: The patient doing well. Still blood pressure not controlled. Physical Examination: Vital Signs: Blood pressure 180/87, pulse of 79. The patient had good urine output. Chest: Clear to auscultation. Heart: S1, S2 regular. Abdomen: Soft, nontender. Extremities: No edema. Laboratory Data: H and H 13.3/39.8. Sodium 143, potassium 3.6, bicarb 26, BUN 28, creatinine down t o 2.4. GFR is 96, calcium 7.9, magnesium of 2. Current Medications: 1.Aspirin. 2.Amlodipine. 3.Atorvastatin. 4.Zofran. 5.IV fluid normal saline 50 per hour. Assessment And Plan: 1.Acute kidney injury secondary to prerenal, recovered, trending down. The patient with good p.o. i ntake. I am going to discontinue IV fluid and we will continue to monitor the patient. 2.Hypertension, not controlled in the presence of transient ischemic attack. I going to go ahead an d increase his Norvasc to 10 mg and we will discontinue IV fluid. We will monitor. 3.Transient ischemic attack as by primary. PINEDA/LASHANDA Voice ID: [id number] Report ID: [id number]
[2019-01-12] MEDS: ATORVASTATIN 20 MG TAB PO SCH (21:49)
[2019-01-12] MEDS: DONEPEZIL HCL 5 MG TAB PO SCH (21:50)
[2019-01-12] MEDS: JUVEN PACKET PO SCH (21:51)
[2019-01-13 06:39] LABS: Magnesium 2.1 mg/dL (1.8-2.4)
[2019-01-13 06:44] LABS: Absolute Lymphocytes (CBC) 0.4 K/uL (0.7-4.9); Absolute Monocytes 0.4 K/uL (0.1-1.3); Absolute Neutrophil 2.3 K/uL (1.8-8.0); Basophils % 0.2 % (0-1.3); Eosinophils % 0.2 % (0-4.4); Hematocrit 39.3 % (39.6-49.0); Lymphocytes % 12.6 % (15.3-44.8); MPV 9.6 fL (7.6-11.3); Monocytes % 13.8 % (3.3-12.3); RBC Red Blood Cell Count 4.45 M/uL (4.33-5.43)
[2019-01-13] MEDS: AMLODIPINE 10 MG TAB PO SCH (08:56)
[2019-01-13] MEDS: ASPIRIN EC 81 MG TAB PO SCH (08:57)
[2019-01-13] MEDS: ENOXAPARIN 30 MG/0.3 ML SQ SCH (08:58)
[2019-01-13] MEDS: FOLIC ACID 1 MG TABLET PO SCH (08:58)
[2019-01-13] MEDS: TRIAMCINOLONE 0.1% CREAM 15GM TOP SCH ×2 (08:59→21:00)
[2019-01-13] MEDS: JUVEN PACKET PO SCH ×2 (09:00→21:18)
--- NOTE | 2019-01-13 10:30 | P.PN ---
Subjective Date of Service: 01/13/19 Primary Care Provider: [facility]([place], [place]) Chief Complaint: CVA Subjective: Demented Physical Examination - Vital Signs Temperature: 98.5 F Blood Pressure: 176/88 Pulse: 70 Respirations: 17 Pulse Ox (%): 94 - Physical Exam General: Alert, Cooperative, Demented (Moderate to severe) HEENT: Atraumatic Neck: Supple Respiratory: Clear to auscultation bilaterally, Normal air movement Cardiovascular: Normal pulses, Regular rate/rhythm Gastrointestinal: Normal bowel sounds, Soft and benign, Non-distended Neurological: Normal speech, Normal strength at 5/5 x4 extr, Normal tone, Dementia - Studies Medications List Reviewed: Yes Assessment & Plan Discharge Plan: Other (shelter facility) Plan to discharge in: 24 Hours Physician Review Additional Text: Impression: Expressive aphasia likely secondary to TIA complicated with moderate to severe Alzheimer's dementia Hypertension Hyperlipidemia Chronic renal disease, stage IV Poor social situation Plan: Expressive aphasia likely secondary to TIA complicated with moderate to severe Alzheimer's dementia: MRI negative for acute stroke. Patient likely had TIA. Continue with current medication including aspirin, folic acid and statin medication. Patient now on blood pressure medication-Norvasc. Will add thiamine. Patient on dementia medication. Will try to get a hold of medical power of patent attorney to discuss plan of care. Continue with physical, occupational and speech therapy for skilled placement. Patient may require long -term care but will discuss with [facility]. Will need to confirm advanced directives as well. I will turn the service over to Dr. Thornton tomorrow. I will go over the plan of care with her. Continue with DVT prophylaxis Hypertension: Patient currently on Norvasc 10 mg daily. Will provide hydralazine IV as needed. May need second agent. Hyperlipidemia: Continue medication Chronic renal disease, stage IV: This appears chronic. Nephrology added blood pressure medication. Poor social situation: Social work to investigate home situation. Patient would benefit skilled placement verses long-term care. Patient appears agreeable but with moderate dementia. Patient apparently has medical power of patent attorney. Will need to set up family meeting to discuss plan of care. Time Spent Managing Pts Care (In Minutes): 55
[2019-01-13] MEDS: THIAMINE HCL 100 MG TABLET PO SCH (12:24)
[2019-01-13] MEDS: CARVEDILOL 6.25 MG TAB PO SCH ×2 (13:33→21:17)
--- NOTE | 2019-01-13 17:29 | PN ---
Date of Progress Note: 01/13/2019 Subjective: The patient was admitted with TIA. Treated, recovered. No residual. The patient found to have elevated BUN and creatinine. Creatinine stable. No changes. Ultrasound showing chronic ch mary jo. Physical Examination: Vital Signs: Blood pressure of 176/88, pulse of 70, afebrile. The patient had good urine output of 600. Chest: Clear to auscultation. Heart: S1, S2. Regular. Abdomen: Soft, nontender. Extremities: No edema. Laboratory Data: WBC 3.1, H and H 13.5/39.3, platelets of 100. Sodium 145, potassium 4, bicarb 28, BUN 40, creatinine 2.4, GFR of 26, calcium 8.2, magnesium of 2. Medications: Current medications the patient is on include: 1.Aspirin. 2.Donepezil. 3.Amlodipine. 4.Folic acid. 5.Zofran. Renal ultrasound showing normal size kidney 9.7 x 10.7. Assessment And Plan: 1.Chronic kidney disease, mostly secondary to hypertension, nephrosclerosis, proteinuric, nonnephrot ic. I am going to go ahead and send for PTH to evaluate the chronicity of the disease. We will cont inue to monitor and keep holding any IV fluids. 2.Hypertension, not controlled given the presence of recent stroke, and he passed 48 hours. I am go ing to add Coreg to his prescription to have better control on his blood pressure, and we will follow up. 3.Cerebrovascular accident, transient ischemic attack by the primary. Continue current care, PT/OT. PINEDA/LASHANDA Voice ID: [id number] Report ID: [id number]
[2019-01-13] MEDS: DONEPEZIL HCL 5 MG TAB PO SCH (21:17)
[2019-01-13] MEDS: ATORVASTATIN 20 MG TAB PO SCH (21:18)
[2019-01-14 04:28] LABS: Absolute Lymphocytes (CBC) 0.3 K/uL (0.7-4.9); Absolute Monocytes 0.3 K/uL (0.1-1.3); Absolute Neutrophil 3.2 K/uL (1.8-8.0); Basophils % 1.3 % (0-1.3); Eosinophils % 2.3 % (0-4.4); Hematocrit 41.2 % (39.6-49.0); MPV 10.3 fL (7.6-11.3); Monocytes % 8.1 % (3.3-12.3); RBC Red Blood Cell Count 4.63 M/uL (4.33-5.43)
[2019-01-14 04:47] LABS: Magnesium 1.9 mg/dL (1.8-2.4); Phosphorus 2.2 mg/dL (2.5-4.9); Potassium 3.7 mmol/L (3.5-5.1)
[2019-01-14] MEDS: TRIAMCINOLONE 0.1% CREAM 15GM TOP SCH ×2 (09:00→21:00)
[2019-01-14] MEDS ORDERED: POTASSIUM 25 MEQ EFFERV TAB PO ONE (09:00)
[2019-01-14] MEDS: FOLIC ACID 1 MG TABLET PO SCH (09:33)
[2019-01-14] MEDS: THIAMINE HCL 100 MG TABLET PO SCH (09:33)
[2019-01-14] MEDS: ENOXAPARIN 30 MG/0.3 ML SQ SCH (09:33)
[2019-01-14] MEDS: CARVEDILOL 6.25 MG TAB PO SCH ×2 (09:33→20:59)
[2019-01-14] MEDS: AMLODIPINE 10 MG TAB PO SCH (09:33)
[2019-01-14] MEDS: JUVEN PACKET PO SCH ×2 (09:34→21:00)
[2019-01-14] MEDS: ASPIRIN EC 81 MG TAB PO SCH (09:34)
--- NOTE | 2019-01-14 18:30 | PN ---
Date of Progress Note: 01/14/2019 Subjective: The patient is seen and examined. Chart reviewed and case discussed with RN. The patie nt is confused, unable to tell us family number for his medical power of attorney recruiter. No family members present at the bedside. Code Status: Full. Medications: List reviewed. Physical Examination: Vital Signs: Temperature 97.5, heart rate 62, blood pressure 130/72, respirations 18, O2 94% on room air. General: Awake, alert, and oriented x3. Some mild confusion, elderly male. CV: S1, S2. Peripheral pulses present. Respiratory: Moving air well bilaterally. No wheezing. Gastrointestinal: Abdomen is soft, nontender, nondistended. Positive bowel sounds. Extremities: No clubbing, cyanosis, or edema. Neurologic: Nonfocal. Laboratory Data: Sodium 146, potassium 3.7, chloride 109, CO2 29, BUN 39, creatinine 2.28, glucose 1 05, calcium 7.8, phosphorus 2.2, magnesium 1.9, albumin 3, PTH 216. WBC 3.9, H and H 13.7 and 41.2, platelets 101, neutrophils 80%. Assessment And Plan: A 78-year-old male with: 1.Expressive aphasia, likely secondary to TIA, complicated with [id number] Alzheimer's demen tia. MRI was negative for acute stroke, possible TIA. Appreciate Dr. Jorgensen's input. We will con tinue with aspirin stroke guidelines. Continue thiamine. Unable to contact medical power of attorne y. The patient has given us incorrect phone number. We will discuss with social work to reach out. Continue PT, OT, likely the patient will need skilled placement. 2.Alzheimer dementia, severe, early onset without behavioral disturbance. 3.Essential hypertension, stable. We will continue to monitor. 4.Hyperlipidemia. Continue medication. 5.Chronic kidney disease, stage 4. Appreciate Nephrology input. We will continue to monitor creati nine. 6.DVT prophylaxis addressed. Plan: The patient will likely benefit from shelter facility placement or long-term placement at long-term. He has moderate dementia, has a medical power of attorney recruiter. His family apparently not available, are estranged from him. We will discuss further with Case Management. /LASHANDA Voice ID: [id number] Report ID: [id number]
[2019-01-14] MEDS: ATORVASTATIN 20 MG TAB PO SCH (20:58)
[2019-01-14] MEDS: DONEPEZIL HCL 5 MG TAB PO SCH (20:59)
--- NOTE | 2019-01-15 02:20 | PN ---
Date of Progress Note: 01/14/2019 Chief Complaint: Chronic kidney disease. The patient has multiple medical problems. He is admitted because of TIA. He was found to have elev ated BUN and creatinine. Ultrasound showed chronic changes related to chronic kidney disease. The p atient has history of hypertension, chronic kidney disease likely secondary to benign nephrosclerotic hypertensive kidney disease. There is nonnephrotic range proteinuria. Review of Systems: The patient denies complaints. Physical Examination: Lungs: Few crackles at bases. Heart: S1, S2. Abdomen: Soft, benign, nontender. Extremities: No edema. Laboratory Data: BUN 40, creatinine 2.4, calcium 8.2, magnesium 2.0, sodium 145. Impression And Plan: 1.Chronic kidney disease. Continue adequate hydration and avoid nonsteroidal anti-inflammatory medi cation. 2.Hypertension. Blood pressure is in acceptable control. Continue low-sodium diet and current bloo d pressure medication. 3.Proteinuria. The patient will need to have workup to rule out monoclonal gammopathy of unknown si gnificance. 4.Hypertensive heart and kidney disease. Continue low-sodium diet. Avoid nonsteroidal anti-inflamm atory medication. 5.Mild hypernatremia. Sodium level of 146. Advance p.o. intake and check daily weight. 6.Hyperparathyroid. His intact PTH is 216. Recommend to check vitamin D level and plan treatment a ccordingly. KE/LASHANDA Voice ID: [id number] Report ID: [id number]
[2019-01-15 05:23] LABS: Absolute Lymphocytes (CBC) 0.6 K/uL (0.7-4.9); Absolute Monocytes 0.3 K/uL (0.1-1.3); Absolute Neutrophil 2.1 K/uL (1.8-8.0); Basophils % 0.4 % (0-1.3); Eosinophils % 3.7 % (0-4.4); Hematocrit 38.1 % (39.6-49.0); Lymphocytes % 17.7 % (15.3-44.8); MPV 10.3 fL (7.6-11.3); Monocytes % 10.8 % (3.3-12.3); RBC Red Blood Cell Count 4.31 M/uL (4.33-5.43)
[2019-01-15 05:35] LABS: Albumin 2.7 g/dL (3.4-5.0); Bilirubin Total 0.3 mg/dL (0.2-1.0); Phosphorus 2.4 mg/dL (2.5-4.9); Potassium 3.7 mmol/L (3.5-5.1); Protein, Total 6.1 g/dL (6.4-8.2)
[2019-01-15] MEDS ORDERED: POTASSIUM CL SA 10 MEQ TAB PO ONE (05:39)
[2019-01-15] MEDS: TRIAMCINOLONE 0.1% CREAM 15GM TOP SCH ×3 (09:00→21:00)
[2019-01-15] MEDS: JUVEN PACKET PO SCH ×2 (09:00→21:00)
[2019-01-15] MEDS: AMLODIPINE 10 MG TAB PO SCH (09:00)
[2019-01-15] MEDS: FOLIC ACID 1 MG TABLET PO SCH (09:00)
[2019-01-15] MEDS: THIAMINE HCL 100 MG TABLET PO SCH (09:00)
[2019-01-15] MEDS: ASPIRIN EC 81 MG TAB PO SCH (09:00)
[2019-01-15] MEDS: ENOXAPARIN 30 MG/0.3 ML SQ SCH (09:00)
[2019-01-15] MEDS: CARVEDILOL 6.25 MG TAB PO SCH ×2 (09:00→21:47)
--- NOTE | 2019-01-15 18:41 | PN ---
Date of Progress Note: 01/15/2019 Subjective: The patient admitted with TIA, recovered. Physical Examination: Vital Signs: Blood pressure 155/85, pulse of 63. Chest: Clear to auscultation. Heart: S1, S2. Regular. Abdomen: Soft and nontender. Extremity: No edema. Laboratory Data: WBC 3.1, H and H 12.8/38.1. Sodium 147, potassium 3.7, bicarb 27, BUN 38, creatini ne 2.1, calcium 7.9, phosphorus 2.4. PTH 216. Current Medications: The patient on it includes: 1.Aspirin. 2.Donepezil. 3.Norvasc. 4.Atorvastatin. 5.Carvedilol 6.25. 6.Folic acid. 7.Januvia. Assessment And Plan: 1.Chronic kidney disease stage 3B, stable on baseline, normal volume. Continue current medication. 2.Hypertension, controlled. We just started the patient on carvedilol. We will follow up response for further control. 3.Transient ischemic attack. Continue supportive care. 4.Secondary hyperpara. I do not see the need to start calcitriol for the time being. MELYSSA Voice ID: [id number] Report ID: [id number]
--- NOTE | 2019-01-15 20:12 | P.PN ---
Subjective Date of Service: 01/15/19 Primary Care Provider: [facility]([place], [place]) Chief Complaint: CVA Subjective: No C/O voiced Patient seen and examined at bedside. No family at bedside. Case discussed with nursing staff. Chart reviewed Review of Systems 10-point ROS is otherwise unremarkable Physical Examination - Vital Signs Temperature: 97.3 F Blood Pressure: 139/83 Pulse: 68 Respirations: 18 Pulse Ox (%): 100 - Physical Exam General: Alert, In no apparent distress, Oriented x1 HEENT: Atraumatic, PERRLA, EOMI Neck: Supple, JVD not distended Respiratory: Clear to auscultation bilaterally, Normal air movement Cardiovascular: Regular rate/rhythm, Normal S1 S2 Gastrointestinal: Normal bowel sounds, No tenderness Musculoskeletal: No tenderness Integumentary: No rashes Neurological: Normal speech, Normal tone, Normal affect Lymphatics: No axilla or inguinal lymphadenopathy - Studies Medications List Reviewed: Yes Assessment And Plan - Plan Expressive aphasia, likely secondary to TIA, complicated with moderate-to- severe Alzheimer's dementia. MRI was negative for acute stroke, possible TIA. Appreciate Dr. Jorgensen's input. We will continue with aspirin stroke guidelines. Continue thiamine. Unable to contact medical power of environmental attorney. The patient has given us incorrect phone number. [employer] working on reaching him. Continue PT, OT, likely the patient will need skilled placement. 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 Essential hypertension, stable. We will continue to monitor. Hyperlipidemia. Continue medication. Chronic kidney disease, stage 4. Appreciate Nephrology input. We will continue to monitor creatinine. Plan: The patient will likely benefit from half-way facility placement or long-term placement at skilled nursing. He has moderate dementia, has a medical power of environmental attorney. His family apparently not available, are estranged from him. Case management involved.
[2019-01-15] MEDS: DONEPEZIL HCL 5 MG TAB PO SCH (21:47)
[2019-01-15] MEDS: ATORVASTATIN 20 MG TAB PO SCH (21:47)
[2019-01-16 04:32] LABS: Albumin 3.1 g/dL (3.4-5.0); Phosphorus 2.4 mg/dL (2.5-4.9); Potassium 3.6 mmol/L (3.5-5.1)
[2019-01-16] MEDS ORDERED: POTASSIUM CL SA 10 MEQ TAB PO ONE (04:34)
[2019-01-16] MEDS: FOLIC ACID 1 MG TABLET PO SCH (08:10)
[2019-01-16] MEDS: THIAMINE HCL 100 MG TABLET PO SCH (08:10)
[2019-01-16] MEDS: AMLODIPINE 10 MG TAB PO SCH (08:10)
[2019-01-16] MEDS: CARVEDILOL 6.25 MG TAB PO SCH (08:11)
[2019-01-16] MEDS: ASPIRIN EC 81 MG TAB PO SCH (08:11)
[2019-01-16] MEDS: ENOXAPARIN 30 MG/0.3 ML SQ SCH (08:12)
[2019-01-16] MEDS: JUVEN PACKET PO SCH (08:12)
[2019-01-16] MEDS: TRIAMCINOLONE 0.1% CREAM 15GM TOP SCH (08:12)
[2019-01-16 08:20] VITALS: O2SAT 97
[2019-01-16] MEDS ORDERED: CALCITROL 0.25 MCG CAP PO SCH (12:00)
[2019-01-16 14:40] VITALS: BP 162/83; TEMP 98.7
--- NOTE | 2019-01-16 14:42 | PN ---
Date of Progress Note: 01/16/2019 Subjective: The patient was admitted with TIA. Doing well. No nausea. No vomiting. Waiting for p lacement. Physical Examination: Vital Signs: Blood pressure 162/92, pulse of 75. Chest: Clear to auscultation. Heart: S1, S2. Regular. Abdomen: Soft, nontender. Extremities: No edema. Laboratory Data: H and H 12.8/38.1. Sodium 146, potassium 3.6, bicarb 26, BUN 35, creatinine 2.2, c alcium 8.2, phosphorus 2.4. Current Medications: The patient on include aspirin, Donepezil, Lovenox, amlodipine, atorvastatin, c arvedilol 6.25, folic acid, Zofran, KCl. Assessment And Plan: 1.Chronic kidney disease stage 4, stable, on baseline, normal volume. Continue current medication. 2.Hypertension, controlled, optimal, continue Norvasc. Increase carvedilol to 12.5 for better blood pressure control. 3.Secondary hyperparathyroidism, calcium and phosphorus are on the normal limit. I can start calcit riol every other day. We will follow up. 4.Transient ischemic attack. Continue supportive care. Continue PT, OT. PINEDA/LASHANDA Voice ID: [id number] Report ID: [id number]
[2019-01-16] MEDS ORDERED: CARVEDILOL 12.5 MG TAB PO SCH (21:00)
== END 2019-01-16 14:58 | DRG 69 ==
LOC: ER 16:59 → ERHOLD 21:40 → 4TH 22:08
PROVIDERS: ADMIT Internal Medicine; ATTEND Family Medicine
DX: G45.9 Transient cerebral ischemic attack, unspecified (principal); N18.4 Chronic kidney disease, stage 4 (severe); N17.9 Acute kidney failure, unspecified; E87.0 Hyperosmolality and hypernatremia; N25.81 Secondary hyperparathyroidism of renal origin; F80.1 Expressive language disorder; E78.5 Hyperlipidemia, unspecified; I12.9 Hypertensive chronic kidney disease with stage 1 through stage 4 chronic kidney disease, or unspecified chronic kidney disease; D69.6 Thrombocytopenia, unspecified; Z60.9 Problem related to social environment, unspecified; F02.80 Dementia in other diseases classified elsewhere, unspecified severity, without behavioral disturbance, psychotic disturbance, mood disturbance, and anxiety; G30.0 Alzheimer's disease with early onset; R80.9 Proteinuria, unspecified
CPT/HCPCS: 36415; 70450; 70551; 71045; 76770; 80048; 80053; 80061; 80069; 81001; 82570; 82962; 83735; 83970; 84156; 84439; 84443; 84484; 85025; 85610; 85730; 92526; 92610; 93005; 93306; 93880; 97116; 97163; 97166; 97530; 99285; J1650; J7030

== ENCOUNTER 2020-08-11 12:28 | Emergency (ER) | payer OTHER ==
[2020-08-11 13:13] LABS: Absolute Lymphocytes (CBC) 0.4 K/uL (0.7-4.9); Basophils % 0.3 % (0-1.3); Hematocrit 36.6 % (39.6-49.0); Lymphocytes % 7.5 % (15.3-44.8); MPV 8.3 fL (7.6-11.3); RBC Red Blood Cell Count 4.05 M/uL (4.33-5.43)
[2020-08-11 13:24] LABS: Potassium 4.3 mmol/L (3.5-5.1)
--- NOTE | 2020-08-11 13:24 | RAD REPORT ---
EXAM DESCRIPTION: CT - CTHCSPWOC - 08/11/2020 1:10 pm CLINICAL HISTORY: fall, head injury COMPARISON: No comparisons TECHNIQUE: Axial 5 mm thick images of the head were obtained. Axial 2 mm thick images of the cervic al spine were obtained with sagittal and coronal reconstruction images generated and reviewed. All CT scans are performed using dose optimization technique as appropriate and may include automated exposure control or mA/KV adjustment according to patient size. FINDINGS: No intracranial hemorrhage, mass, edema or acute intracranial finding. No suspicion for ac dilma infarction. No cortical edema or sulcal effacement. Moderate severity atrophy change with moderat e chronic ischemic change. Ventricles are in proportion to volume loss. Arterial tree calcifications are present. Mastoid air cells and paranasal sinuses are clear. No globe or orbit abnormality seen. Cervical body height and alignment are normal. C5-6 and C6-7 disc space narrowing seen with endplate spurring. No fracture or acute bony abnormality. No pathologic bone process. Mild left-side and moder ate right-sided bony foraminal encroachment at C5-6 with mild right-side and moderate left-sided fora khalif stenosis at C6-7. Central canal detail is inherently limited. No paraspinal mass or hematoma. IMPRESSION: Prominent atrophy and chronic ischemic changes are present. No acute intracranial findin g. Moderate severity C5-6 and C6-7 level degenerative change. No acute cervical spine finding.
--- NOTE | 2020-08-11 14:56 | EDPHYS ---
Physician Documentation [facility] Name: Kevin Pascual Age: 79 yrs Sex: Male : 1940 Arrival Date: 08/11/2020 Time: 12:35 Bed 20 Private MD: ED Physician Renard Peraza HPI: 08/11 13:27 This 79 yrs old Male presents to ER via EMS with complaints of Fall Injury, rn Altered Mental Status. 13:27 Details of fall: The patient fell from an upright position. Onset: The symptoms/episode rn began/occurred just prior to arrival. Associated injuries: The patient sustained injury to the head. Severity of symptoms: At their worst the symptoms were mild, in the emergency department the symptoms are unchanged. The patient has not experienced similar symptoms in the past. Family reports fell while on porch, hit head, no LOC, no seizure noticed, + bump and scrapes to left scalp, no other injury reported. Had difficulty standing up. No extremity injury. . Historical: - Allergies: 12:41 No Known Allergies; ph - Home Meds: 12:41 amlodipine 2.5 mg tab 1 tab once daily [Active]; aspirin 81 mg Oral chew 1 tab once ph daily [Active]; donepezil HCL 10 mg 1 tab once a day [Active]; Fish Oil Oral [Active]; Trazodone Oral [Active]; - PMHx: 12:41 Hypertension; Dementia; Kidney failure; CVA; ph - PSHx: 12:41 Unable to obtain; ph - Immunization history: Last tetanus immunization: unknown. - Family history:: not pertinent. - Social history:: Smoking status: Patient denies any tobacco usage or history of. - Hospitalizations: : No recent hospitalization is reported. ROS: 13:27 Constitutional: Negative for fever, chills, and weight loss, Eyes: Negative for injury, rn pain, redness, and discharge, Cardiovascular: Negative for chest pain, palpitations, and edema, Respiratory: Negative for shortness of breath, cough, wheezing, and pleuritic chest pain, Abdomen/GI: Negative for abdominal pain, nausea, vomiting, diarrhea, and constipation, MS/Extremity: Negative for injury and deformity, Skin: + scalp abrasions Neuro: Negative for weakness, numbness, tingling, and seizure. Exam: 13:27 Constitutional: This is a well developed, well nourished patient who is awake, alert, rn and in no acute distress. Head/Face: + small superficial hematoma left parietal region with small abrasions Neck: No midline tenderness Cardiovascular: Regular rate and rhythm. No pulse deficits. Respiratory: No increased work of breathing, no retractions or nasal flaring. Abdomen/GI: Soft, non-tender MS/ Extremity: Pulses equal, no cyanosis. Neuro: Awake and alert, Cranial nerves II-XII grossly intact. Motor strength 4/5 in all extremities. Sensory grossly intact. Cerebellar exam normal. Vital Signs: 12:42 BP 157 / 73; Pulse 68; Resp 18; Temp 97.8; Pulse Ox 98% on R/A; ph 13:55 BP 154 / 85; Pulse 68; Resp 18; Pulse Ox 98% on R/A; ph 14:43 BP 150 / 81; Pulse 84; Resp 18; Pulse Ox 100% on R/A; ph 15:13 BP 146 / 83 LA (auto/reg); Pulse 66; Pulse Ox 99% on R/A; jp3 [place] Coma Score: 12:42 Eye Response: spontaneous(4). Verbal Response: confused(4). Motor Response: obeys ph commands(6). Total: 14. 13:55 Eye Response: spontaneous(4). Verbal Response: confused(4). Motor Response: obeys ph commands(6). Total: 14. 14:43 Eye Response: spontaneous(4). Verbal Response: confused(4). Motor Response: obeys ph commands(6). Total: 14. Trauma Score (Adult): 12:42 Eye Response: spontaneous(1); Verbal Response: confused(1); Motor Response: obeys ph commands(2); Systolic BP: > 89 mm Hg(4); Respiratory Rate: 10 to 29 per min(4); Yvon Score: 14; Trauma Score: 12 13:55 Eye Response: spontaneous(1); Verbal Response: confused(1); Motor Response: obeys ph commands(2); Systolic BP: > 89 mm Hg(4); Respiratory Rate: 10 to 29 per min(4); Yvon Score: 14; Trauma Score: 12 14:43 Eye Response: spontaneous(1); Verbal Response: confused(1); Motor Response: obeys ph commands(2); Systolic BP: > 89 mm Hg(4); Respiratory Rate: 10 to 29 per min(4); Yvon Score: 14; Trauma Score: 12 MDM: 12:39 Patient medically screened. rn 14:46 Differential diagnosis: abrasion, closed head injury. rn 14:54 Data reviewed: vital signs, nurses notes, lab test result(s), EKG, radiologic studies, rn CT scan, and as a result, I will discharge patient. Counseling: I had a detailed discussion with the patient and/or guardian regarding: the historical points, exam findings, and any diagnostic results supporting the discharge/admit diagnosis, lab results, radiology results, the need for outpatient follow up, to return to the emergency department if symptoms worsen or persist or if there are any questions or concerns that arise at home. Special discussion: Based on the patient's history, exam and DX evaluation, there is no indication for emergent intervention or inpatient [place]. It is understood by the patient/guardian that if the SXs persist or worsen they need to return immediately for re-evaluation. I discussed with the patient/guardian in detail that at this point there is no indication for admission to the hospital. It is understood, however, that if the symptoms persist or worsen the patient needs to return immediately for re-evaluation. ED course: Pt ambulatory to bathroom, at baseline per family, ct head and cspine no acute findings, will dc home with return precautions.. 08/11 12:48 Order name: CBC with Diff; Complete Time: 13:26 rn 08/11 12:48 Order name: Basic Metabolic Panel; Complete Time: 13:26 rn 08/11 12:48 Order name: CT Head C Spine; Complete Time: 13:26 rn 08/11 12:48 Order name: IV Start; Complete Time: 13:10 rn 08/11 12:48 Order name: EKG; Complete Time: 12:49 rn 08/11 12:48 Order name: EKG - Nurse/Tech; Complete Time: 13:47 rn Administered Medications: No medications were administered Disposition: 08/11/20 14:56 Discharged to Home. Impression: Superficial injury of head. - Condition is Stable. - Discharge Instructions: Head Injury, Adult. - Medication Reconciliation Form, Thank You Letter, Antibiotic Education, Prescription Opioid Use form. - Follow up: Private Physician; When: As needed; Reason: Recheck today's complaints, Re-evaluation by your physician. - Problem is new. - Symptoms have improved. Signatures: Dispatcher [employer] Cristine Gates RN RN iw Nieto, Roman, MD MD rn Hall, LEON Cordero RN ph Corrections: (The following items were deleted from the chart) 15:15 14:56 08/11/2020 14:56 Discharged to Home. Impression: Superficial injury of head. iw Condition is Stable. Forms are Medication Reconciliation Form, Thank You Letter, Antibiotic Education, Prescription Opioid Use. Follow up: Private Physician; When: As needed; Reason: Recheck today's complaints, Re-evaluation by your physician. Problem is new. Symptoms have improved. rn
--- NOTE | 2020-08-11 14:56 | ER ---
Nurse's Notes [facility] Name: Kevin Pascual Age: 79 yrs Sex: Male : 1940 Arrival Date: 08/11/2020 Time: 12:35 Bed 20 Private MD: Diagnosis: Superficial injury of head Presentation: 08/11 12:35 Chief complaint: EMS states: Family reports witnessed fall from standing position, ph stated that pt did not attempt to get up and had to be assisted to stand back up, no LOC, does not take blood thinners, pt hx of dementia, family reports that pt is at baseline mental status but seems "slower to respond". Pitting edema noted to bilateral ankles, pt denies pain. Care prior to arrival: None. Mechanism of Injury: Fall from standing position. Trauma event details: Injury occurred in the [facility], Injury occurred: at home. Injury occurred: August 11, 2020. 12:35 Acuity: HILARY 3 ph 12:35 Method Of Arrival: EMS: [facility] ph 12:43 Coronavirus screen: Client denies travel out of the [place] in the last 14 days. At this ph time, the client does not indicate any symptoms associated with coronavirus-19. Ebola Screen: No symptoms or risks identified at this time. Initial Sepsis Screen: Does the patient meet any 2 criteria? No. Patient's initial sepsis screen is negative. Does the patient have a suspected source of infection? No. Patient's initial sepsis screen is negative. Risk Assessment: Do you want to hurt yourself or someone else? Patient reports no desire to harm self or others. Onset of symptoms was August 11, 2020. Trauma Activation: Not Applicable Physician: ED Physician; Name: ; Notified At: ; Arrived At: Physician: General Surgeon; Name: ; Notified At: ; Arrived At: Physician: Radiology; Name: ; Notified At: ; Arrived At: Physician: Respiratory; Name: ; Notified At: ; Arrived At: Physician: Lab; Name: ; Notified At: ; Arrived At: Historical: - Allergies: 12:41 No Known Allergies; ph - Home Meds: 12:41 amlodipine 2.5 mg tab 1 tab once daily [Active]; aspirin 81 mg Oral chew 1 tab once ph daily [Active]; donepezil HCL 10 mg 1 tab once a day [Active]; Fish Oil Oral [Active]; Trazodone Oral [Active]; - PMHx: 12:41 Hypertension; Dementia; Kidney failure; CVA; ph - PSHx: 12:41 Unable to obtain; ph - Immunization history: Last tetanus immunization: unknown. - Family history:: not pertinent. - Social history:: Smoking status: Patient denies any tobacco usage or history of. - Hospitalizations: : No recent hospitalization is reported. Screenin:38 Abuse screen: Denies threats or abuse. Denies injuries from another. Nutritional ph screening: No deficits noted. Tuberculosis screening: No symptoms or risk factors identified. Fall Risk Fall in past 12 months (25 points). Secondary diagnosis (15 points) dementia, IV access (20 points). Ambulatory Aid- None/Bed Rest/Nurse Assist (0 pts). Gait- Normal/Bed Rest/Wheelchair (0 pts) Mental Status- Overestimates/Forgets Limitations (15 pts.). Total Brantley Fall Scale indicates High Risk Score (45 or more points). Fall prevention measures have been instituted. Side Rails Up X 2 Placed Close to Nursing Station Frequent Obs/Assessments Occuring Family Present and informed to notify staff if the need to leave the bedside As available patient and family educated on Fall Prevention Program and Strategies. Primary Survey: 12:39 NO uncontrolled hemorrhage observed. A: The patient is alert. Airway: patent, No ph supplemental oxygen in use on arrival. Oral cavity: clear, Trachea midline. Breathing/Chest: Respiratory pattern: regular, Respiratory effort: spontaneous, unlabored, Chest inspection: symmetrical rise and fall of the chest. Circulation: Skin color: pink, Skin temperature: warm, dry. Disability Alert. Exposure/Environment: There is no evidence of uncontrolled external bleeding. No obvious injuries are noted at this time. 15:14 Reassessment Breathing/Chest Respiratory pattern. iw Assessment: 12:41 General: Appears in no apparent distress. comfortable, slender, Behavior is calm, ph cooperative, appropriate for age, quiet. Pain: Denies pain. Neuro: Level of Consciousness is awake, alert, obeys commands, Oriented to person. Cardiovascular: Capillary refill < 3 seconds in bilateral fingers Patient's skin is warm and dry. Edema is 2+ to left ankle and right ankle pitting to left ankle and right ankle. Respiratory: Airway is patent Respiratory effort is even, unlabored, Respiratory pattern is regular, symmetrical. GI: No signs and/or symptoms were reported involving the gastrointestinal system. Derm: Skin is fragile, is thin, Skin is pink, warm \\T\\ dry. Musculoskeletal: Circulation, motion, and sensation intact. Range of motion: intact in all extremities. 13:55 Reassessment: Patient appears in no apparent distress at this time. Patient and/or ph family updated on plan of care and expected duration. Pain level reassessed. Pt resting quietly, family at bedside, VSS. 14:38 Reassessment: Patient appears in no apparent distress at this time. Patient and/or ph family updated on plan of care and expected duration. Pain level reassessed. Pt awake and alert, oriented to person and place, respirations even and unlabored, provider wishes to monitor pt longer to assess for any changes in mental status. Vital Signs: 12:42 BP 157 / 73; Pulse 68; Resp 18; Temp 97.8; Pulse Ox 98% on R/A; ph 13:55 BP 154 / 85; Pulse 68; Resp 18; Pulse Ox 98% on R/A; ph 14:43 BP 150 / 81; Pulse 84; Resp 18; Pulse Ox 100% on R/A; ph 15:13 BP 146 / 83 LA (auto/reg); Pulse 66; Pulse Ox 99% on R/A; jp3 Yvon Coma Score: 12:42 Eye Response: spontaneous(4). Verbal Response: confused(4). Motor Response: obeys ph commands(6). Total: 14. 13:55 Eye Response: spontaneous(4). Verbal Response: confused(4). Motor Response: obeys ph commands(6). Total: 14. 14:43 Eye Response: spontaneous(4). Verbal Response: confused(4). Motor Response: obeys ph commands(6). Total: 14. Trauma Score (Adult): 12:42 Eye Response: spontaneous(1); Verbal Response: confused(1); Motor Response: obeys ph commands(2); Systolic BP: > 89 mm Hg(4); Respiratory Rate: 10 to 29 per min(4); [place] Score: 14; Trauma Score: 12 13:55 Eye Response: spontaneous(1); Verbal Response: confused(1); Motor Response: obeys ph commands(2); Systolic BP: > 89 mm Hg(4); Respiratory Rate: 10 to 29 per min(4); [place] Score: 14; Trauma Score: 12 14:43 Eye Response: spontaneous(1); Verbal Response: confused(1); Motor Response: obeys ph commands(2); Systolic BP: > 89 mm Hg(4); Respiratory Rate: 10 to 29 per min(4); Yvon Score: 14; Trauma Score: 12 ED Course: 12:35 Patient arrived in ED. ph 12:38 Triage completed. ph 12:39 Renard Peraza MD is Attending Physician. rn 12:43 Arm band placed on. ph 12:43 Patient has correct armband on for positive identification. Bed in low position. Call ph light in reach. Side rails up X2. Pulse ox on. NIBP on. Door closed. Noise minimized. 12:44 Patient maintains SpO2 saturation greater than 95% on room air. Thermoregulation: warm ph blanket given to patient. 12:50 Consuelo Aguila RN is Primary Nurse. ph 13:00 Inserted saline lock: 20 gauge in right antecubital area, using aseptic technique. jp3 Blood collected. 13:00 Initial lab(s) drawn, by me, sent to lab. jp3 13:10 CT Head C Spine In Process Unspecified. EDMS 13:10 Placed in gown. Warm blanket given. Pillow given. Verbal reassurance given. jp3 13:46 EKG done, by ED staff, reviewed by Renard Peraza MD. jp3 15:13 Removal of peripheral IV. Catheter intact, dressing applied. jp3 15:14 No provider procedures requiring assistance completed. IV discontinued, intact, iw bleeding controlled, No redness/swelling at site. Pressure dressing applied. Administered Medications: No medications were administered Intake: 12:42 PO: 0ml; Total: 0ml. ph Output: 12:42 Urine: 0ml; Total: 0ml. ph Outcome: 14:56 Discharge ordered by . rn 15:14 Discharged to home ambulatory, with family. iw 15:14 Condition: good 15:14 Patient's length of stay in the Emergency Department was greater than 2 hours. 15:14 Discharge instructions given to patient, Instructed on discharge instructions, follow iw up and referral plans. Demonstrated understanding of instructions, follow-up care. 15:15 Patient left the ED. iw Signatures: Dispatcher [employer] Cristine Gates RN RN iw Nieto, Roman, MD MD rn Hall, Patricia, RN RN ph Pisarski, Jacob jp3
[2020-08-11 15:48] VITALS: TEMP 97.8
[2020-08-11 15:56] VITALS: BP 146/83; O2SAT 99
--- NOTE | 2020-08-12 05:57 | EKG ---
Test Date: 2020-08-11 Test Time: 13:46:30 Mat Linker: DELPHINE MEASUREMENT RESULTS: Intervals: Rate: 63 AR: 176 QRSD: 94 QT: 444 QTc: 454 [place]: P: 42 AR: 176 QRS: -47 T: 14 INTERPRETIVE STATEMENTS: Normal sinus rhythm Left anterior fascicular block Abnormal ECG Compared to ECG 01/10/2019 17:40:17 Left anterior fascicular block now present Sinus tachycardia no longer present Left-axis deviation no longer present ST (T wave) deviation no longer present Electronically Signed On 08-12-20 05:55:32 CDT by Bharat Burroughs
--- OUTSIDE RECORDS SUMMARY | 2020-08-13 14:48 | XMS REPORT ---
:1940 Author Organization [employer] Care Team Providers Name Role Phone Edward Bindu Provider Role Unavailable Allergies, Adverse Reactions, Alerts Substance Reaction Event Type N.K.D.A. Info Not Available Non Drug Allergy Problems Problem Type Condition Code Onset Dates Condition Statu s Assessment Dementia without behavioral F03.90 Active disturbance, unspecified dementia type Assessment Onychomycosis B35.1 Active Assessment Abnormal CBC R79.89 Active Problem History of CVA (cerebrovascular Z86.73 Active accident) Assessment History of CVA (cerebrovascular Z86.73 Active accident) Problem Depression F32.9 Active Assessment Stage 4 chronic kidney disease N18.4 Active Problem Essential hypertension I10 Activ e Problem Hyperglycemia R73.9 Active Problem Hypokalemia E87.6 Active Problem Runny nose R09.89 Active Problem Onychomycosis B35.1 Active Assessment Hyperglycemia R73.9 Active Assessment Elevated vitamin B12 level R74.8 A ctive Problem Skin lesions L98.9 Active Assessment Abnormal laboratory test R89.9 Act amari Problem Elevated vitamin B12 level R74.8 A ctive Problem Abnormal laboratory test R89.9 Act amari Problem Abnormal CBC R79.89 Active Problem Stage 4 chronic kidney disease N18.4 Active Assessment Essential hypertension I10 Activ e Assessment Hypokalemia E87.6 Active Assessment Skin lesions L98.9 Active Problem Bipolar disorder F31.9 Active Problem Dementia without behavioral F03.90 Active disturbance, unspecified dementia type Problem Medication monitoring encounter Z51.81 Active Problem Memory problem R41.3 Active Medications Medication Code Code Instructions Start End Status Dosage System Date Date Fish Oil ND 89017942936 1000 MG Orally Active 1 ca psule Once a day Donepezil HCl ND 18759909305 10 MG Orally Active 1 tablet at Once a day bedtime Metoprolol ND 11906410126 25 MG Orally Active 1 ca psule Succinate Once a day for high blood pressure Potassium ND 62805747525 10 MEQ Orally Active 1 ta blet with Chloride ER Twice a day food Aspirin 81 [facility] 64949976830 81 MG Orally Active 1 ta blet Once a day Amlodipine [facility] 08348343129 10 MG Orally Active 1 ta blet Besylate Once a day Betamethasone [facility] 48339199323 0.05 % Jun 30Jul Active 1 appl ication Dipropionate Jun topically Twice 2019, to affected a day 2019 area(s) Folic Acid [facility] 01552387174 1 MG Orally Active 1 tab let Once a day Vitamin B-1 [facility] 46009524782 100 MG Orally Active 1 tablet Once a day Results No Known Results Summary Purpose eClinicalWorks Submission
--- OUTSIDE RECORDS SUMMARY | 2020-08-13 14:48 | XMS REPORT | Continuity of Care Document ---
:1940 Author Organization [facility] t Address [address] [place] [address] Care Team Providers Name Role Phone Jeannette Estrada MD Attending Clinician Doctor Unassigned, Name Attending Clinician Unavailable Problems Condition Condition Condition Status Onset Resolution Last Treating Co mments Source Name Details Category Date Date Treatment Clinician Date Essential Essential Problem Active [facility] hypertensi hypertensi Alicia kes - on on [facility] Medication Medication Problem Active [facility] monitoring monitoring Alicia kes - encounter encounter Pito nupur l Outpati ent Clinics Dementia Dementia Problem [facility] - behavioral behavioral Me moria disturbanc disturbanc l e, e, Outpati unspecifie unspecifie en t d dementia d dementia Cl inics type type History of History of Problem Active [facility] CVA CVA [facility] - (cerebrova (cerebrova Me moria scular scular l accident) accident) Outp ati ent Clinics Depression Depression Problem Active [facility] Bipolar Bipolar Problem Active [facility] disorder disorder [facility] Memory Memory Problem Active [facility] problem problem [facility] Hypokalemi Hypokalemi Problem Active [facility] Abnormal Abnormal Problem Active [facility] laboratory laboratory Alicia kes - test test [facility] Clin[facility] Hyperglyce Hyperglyce Problem Active [facility] gillian gillian [facility] Elevated Elevated Problem Active [facility] vitamin vitamin [facility] - B12 level B12 level Pito nupur l Outpati ent Clinics Abnormal Abnormal Problem Active [facility] Stage 4 Stage [address] [facility] [address] chronic chronic [facility] - kidney kidney Memoria disease disease l [facility] ent Clinics Runny nose Runny nose Problem Active [facility] kes - Memoria l [facility] ent Clinics Onychomyco Onychomyco Problem Active [facility] sis sis [facility] ent Clinics Skin Skin Problem Active [facility] lesions lesions [facility] ent Clinics Allergies, Adverse Reactions, Alerts This patient has no known allergies or adverse reactions. Medications Ordered Filled Start Stop Current Ordering Indication Dosage Frequency Signature Comments Components Source Medication Medication Date Date Medication? Clinician (SIG) Name Name Trazodone Trazodone Yes Bindu 1-[address] HCl HCl 9-02 Millender tablets at [facility] - 00:00: bedtime as Memoria 00 needed l [facility] ent Clinics Betamethaso Betamethaso 2019- Yes Bindu [address] [facility] [facility] ne ne 8 09-24 Millender applicatio Paulette es - Dipropionat Dipropionat 00:00: 00:00 n to e Jun e Jun 00 :00 affected l area(s) [facility] Metoprolol Metoprolol 2018-11 Yes Bindu [address] [facility] Succinate Succinate 0-16 Millender [facility] - 00:[facility]: Memoria 00 l [facility] ent Clinics Fish Oil Fish Oil Yes Bindu [address] Millender [facility][1] l [facility] ent Clinics Donepezil Donepezil Yes Bindu [address] [facility] HCl HCl Millender at bedtime [facility] - Memoria l [facility] ent Clinics Potassium Potassium Yes Bindu [address] Chloride ER Chloride ER Millender with food [facility][1] l [facility] ent Clinics Vitamin B-1 Vitamin B-1 Yes Bindu [address] Millender [facility] ent Clinics Aspirin 81 Aspirin 81 Yes Bindu [address] Millender [facility] ent Clinics Amlodipine Amlodipine Yes Bindu [address] [facility] [address] Besylate Besylate Millender Alicia kes - [facility] l [facility] ent Clinics Folic Acid Folic Acid Yes Binud [address] Millender [facility] l [facility] ent Clinics Immunizations Ordered Filled Immunization Date Status Comments [facility] e Immunization Name Name FLUZONE HIGH DOSE FLUZONE HIGH DOSE 2019-08-[address] [facility] OVER [facility] Procedures This patient has no known procedures. Encounters Start End Encounter Admission Attending Care Care Encounter Source Date/Time Date/Time Type Type Clinicians Facility Department ID 2020-07-06 2020-07-06 Outpatient Anderson Barront [id number] [facility] 13:00:00 13:00:00 [facility] Outpati ent Clinics 2020-07-03 2020-07-03 Outpatient [facility] [id number] 10:14:00 10:14:00 [facility] 2020-07-01 2020-07-01 [place] [id number] [address] 23:09:00 23:09:00 [facility] Outpati ent [facility] 2020-06-30 2020-06-30 [facility] [id number] [address] 15:40:00 15:40:00 [facility] 2020-04-23 2020-04-23 Telephone Bonifacio Estrada [facility] [id number] 00:00:00 00:00:00 HEALTH [id number] FAMILY [id number] MEDICINE [phone] [facility] [address] [place] [address] 2020-04-21 2020-04-21 Refill Bonifacio Estrada [facility] [id number] 00:00:00 00:00:00 HEALTH [id number] FAMILY [id number] MEDICINE [id number] [facility] 044 CLINIC 2020-04-16 2020-04-16 [facility] [id number] 13:42:00 13:42:00 [facility] Outpati ent [facility] 2020-04-08 2020-04-08 Outpatient [facility] [id number] [address] 16:20:00 16:20:00 [facility] Medicine Outpati ent Clinics 2020-04-06 2020-04-06 [facility] [id number] [address] 01:09:00 01:09:00 [facility] Outpati ent Clinics 2020-03-31 2020-03-31 [facility] [id number] [address] 16:00:00 16:00:00 [facility] Outpati ent Clinics 2020-01-23 2020-01-23 [facility] [id number] 11:28:00 11:28:00 [facility] ent Clinics 2020-01-16 2020-01-16 Pre Visit Bonifacio Estrada [facility] [id number] 00:00:00 00:00:00 [facility] [id number] [facility] [id number] [facility] [id number] [address] 2020-01-01 2020-01-01 [facility] [id number] 16:45:00 16:45:00 [facility] Outpati ent Clinics 2019 2019 [facility] [id number] 13:40:00 13:40:00 [facility] Outpati ent Clinics 2019-08-21 2019-08-21 [facility] [id number] 14:00:00 14:00:00 [facility] Outpati ent Clinics 2019-05-27 2019-05-27 Orders Doctor ALEXI [id number] 00:00:00 00:00:00 Only Unassigned, MARILIN [id number] [place] [id number] Results This patient has no known results.
--- OUTSIDE RECORDS SUMMARY | 2020-08-13 14:49 | XMS REPORT ---
:1940 Author Organization [employer] Care Team Providers Name Role Phone Edward Bindu Provider Role Unavailable Allergies, Adverse Reactions, Alerts Substance Reaction Event Type N.K.D.A. Info Not Available Non Drug Allergy Problems Problem Type Condition Code Onset Dates Condition Statu s Problem Essential hypertension I10 Activ e Problem Hyperglycemia R73.9 Active Problem Hypokalemia E87.6 Active Problem Runny nose R09.89 Active Problem Onychomycosis B35.1 Active Problem Skin lesions L98.9 Active Problem Elevated vitamin B12 level R74.8 A ctive Problem Abnormal laboratory test R89.9 Act amari Problem Abnormal CBC R79.89 Active Problem Stage 4 chronic kidney disease N18.4 Active Assessment Medicare annual wellness visit, Z00.00 Active subsequent Problem Bipolar disorder F31.9 Active Problem Dementia without behavioral F03.90 Active disturbance, unspecified dementia type Problem Medication monitoring encounter Z51.81 Active Problem History of CVA (cerebrovascular Z86.73 Active accident) Problem Memory problem R41.3 Active Problem Depression F32.9 Active Medications Medication Code Code Instructions Start End Status Dosage System Date Date Fish Oil [facility] 24927039818 1000 MG Orally Active 1 ca psule Once a day Metoprolol ND 97023234583 25 MG Orally Active 1 ca psule Succinate Once a day for high blood pressure Vitamin B-1 ND 34706643692 100 MG Orally Active 1 tablet Once a day Donepezil HCl ND 00673163161 10 MG Orally Active 1 tablet at Once a day bedtime Aspirin 81 ND 39733147743 81 MG Orally Active 1 ta blet Once a day Folic Acid [facility] 91125482119 1 MG Orally Active 1 tab let Once a day Potassium ND 40867664664 10 MEQ Orally Active 1 ta blet with Chloride ER Twice a day food Amlodipine ND 36670979417 10 MG Orally Active 1 ta blet Besylate Once a day Betamethasone [facility] 41054504202 0.05 % Aug 25, Sept Active 1 appl ication Dipropionate Aug topically Twice 2019 24, to affected a day 2019 area(s) Results No Known Results Summary Purpose [employer]Works Submission
--- OUTSIDE RECORDS SUMMARY | 2020-08-13 14:49 | XMS REPORT ---
:1940 Author Organization [employer] Care Team Providers Name Role Phone Bindu Leon Provider Role Unavailable Allergies No Known Allergies Problems Problem Type Condition Code Onset Dates [...] 4 chronic kidney disease N18.4 Active Problem Bipolar disorder F31.9 Active Problem Dementia without behavioral F03.90 Active disturbance, unspecified dementia type Problem Medication monitoring encounter Z51.81 Active Problem History of CVA (cerebrovascular Z86.73 Active accident) Problem Memory problem R41.3 Active Problem Depression F32.9 Active Medications No Known Medications Results No Known Results Summary Purpose [employer]ClinicalWorks Submission
--- OUTSIDE RECORDS SUMMARY | 2020-08-13 14:49 | XMS REPORT ---
[...] Dosage System Date Date Fish Oil ND 32126071837 1000 MG Orally Active 1 ca psule Once a day Aspirin 81 ND 33847171064 81 MG Orally Active 1 ta blet Once a day Metoprolol ND 52543396432 25 MG Orally Active 1 ca psule Succinate Once a day for high blood pressure Potassium ND 12269607613 10 MEQ Orally Active 1 ta blet with Chloride ER Twice a day food Betamethasone ND 57513933774 0.05 % Jun 30Jul Active 1 appl ication Dipropionate Aug topically Twice 2019 24, to affected a day 2020 area(s) Trazodone HCl ND 06937399368 50 MG Orally Sept Active 1 -2 tablets Once a day 02, at bedtime as 2020 needed Folic Acid ND 42389699698 1 MG Orally Active 1 tab let Once a day Amlodipine ND 36755240022 10 MG Orally Active 1 ta blet Besylate Once a day Vitamin B-1 ND 90739220479 100 MG Orally Active 1 tablet Once a day Donepezil HCl ND 60772985648 10 MG Orally Active 1 tablet at Once a day bedtime Results No Known Results Summary Purpose eClinicalWorks Submission
== END 2020-08-11 15:15 | disposition home or self-care (01) ==
LOC: ER 12:28
DX: S00.90XA Unspecified superficial injury of unspecified part of head, initial encounter (principal); W19.XXXA Unspecified fall, initial encounter; Y93.9 Activity, unspecified; Y92.89 Other specified places as the place of occurrence of the external cause; Z79.82 Long term (current) use of aspirin; Z86.73 Personal history of transient ischemic attack (TIA), and cerebral infarction without residual deficits; I10 Essential (primary) hypertension; F03.90 Unspecified dementia, unspecified severity, without behavioral disturbance, psychotic disturbance, mood disturbance, and anxiety; N19 Unspecified kidney failure
CPT/HCPCS: 36415; 70450; 72125; 80048; 85025; 93005; 99284

== ENCOUNTER 2021-01-04 12:45 | Inpatient (IN) | payer OTHER ==
--- OUTSIDE RECORDS SUMMARY | 2021-01-04 12:47 | XMS REPORT | Continuity of Care Document ---
:1940 Author Organization [facility] t Address [address] [place] [address] Care Team Providers Name Role Phone Natalie KHAN, K Attending Clinician Doctor Unassigned, Name Attending Clinician Unavailable Problems This patient has no known problems. Allergies, Adverse Reactions, Alerts This patient has no known allergies or adverse reactions. Medications Ordered Filled Start Stop Current Ordering Indication Dosage Frequency Signature Comments Components Source Medication Medication Date Date Medication? Clinician (SIG) Name Name Trazodone Trazodone 2019-0 Yes Bindu 1-[address] HCl HCl 9-02 Millender tablets at [facility] - 00:00: bedtime as Memoria 00 needed l Outpati ent Clinics Betamethaso Betamethaso 2020- No Bindu [address] [facility] [facility] ne ne 06-30 09-24 Millender applicatio Paulette es - Dipropionat Dipropionat 00:00: 00:00 n to Memoria e Jun e Jun 00 :00 affected l area(s) Outpati ent Clinics Metoprolol Metoprolol 2018-11 Yes Bindu [address] [facility] Succinate Succinate 0-16 Millender [facility] Memoria [facility] l Outpati ent Clinics Fish Oil Fish Oil Yes Bindu [address] [facility] Donepezil Donepezil Yes Bindu [address] HCl HCl Millender at bedtime [facility] Potassium Potassium Yes Bindu [address] Chloride ER Chloride ER Millender with food [facility] Vitamin B-1 Vitamin B-1 Yes Bindu [address] Millender [facility] Aspirin 81 Aspirin 81 Yes Bindu [address] Millender [facility] Clinics Amlodipine Amlodipine Yes Bindu [address] Besylate Besylate Millender Alicia kes - [facility] Folic Acid Folic Acid Yes Bindu [address] Millender [facility] Immunizations Ordered Filled Immunization Date Status Comments [facility] e Immunization Name Name FLUZONE HIGH DOSE FLUZONE HIGH DOSE 2019-08-[address] [facility] OVER [facility] 00:[facility]00 [facility] Procedures This patient has no known procedures. Encounters Start End Encounter Admission Attending Care Care Encounter Source Date/Time Date/Time Type Type Clinicians Facility Department ID 2020-12-24 2020-12-24 Outpatient [facility] [id number] [facility] 2020-10-09 2020-10-09 Outpatient [facility] [id number] [facility] 2020-09-25 2020-09-25 Outpatient [facility] [id number] [facility] 2020-09-24 2020-09-24 Outpatient [facility] [id number] [facility] 2020-09-10 2020-09-10 Outpatient [facility] [id number] [facility] 2020-09-08 2020-09-08 Outpatient [facility] [id number] [facility] 2020-08-04 2020-08-04 Outpatient [facility] [id number] [facility] 2020-07-06 2020-07-06 [facility] [id number] 13:00:00 13:00:00 [facility] Medicine Outpati ent Clinics 2020-07-03 2020-07-[address] [facility] [id number] 10:14:00 10:14:00 . [facility] Outpati ent Clinics 2020-07-01 2020-07-01 [facility] [id number] 23:09:00 23:09:00 [facility] Medicine Outpati ent Clinics 2020-06-30 2020-06-30 [facility] [id number] [address] 15:40:00 15:40:00 [facility] Medicine Outpati ent Clinics 2020-04-23 2020-04-23 [place] Bonifacio Estrada [facility] [id number] 00:00:00 00:00:00 HEALTH [id number] FAMILY [id number] MEDICINE [id number] [facility] CLINIC 2020-04-21 2020-04-21 Refill Bonifacio Estrada [facility] [id number] 00:00:00 00:00:00 HEALTH [id number] FAMILY [id number] MEDICINE [id number] [facility] CLINIC 2020-04-16 2020-04-16 [facility] [id number] 13:42:00 13:42:00 [facility] Medicine Medicine Outpati ent Clinics 2020-04-08 2020-04-08 [facility] [id number] [facility] 16:20:00 16:20:00 [facility] Medicine Medicine Outpati ent Clinics 2020-04-06 2020-04-06 [facility] [id number] 01:09:00 01:09:00 [facility] 2020-03-31 2020-03-31 [facility] [id number] 16:00:00 16:00:00 [facility] Outpati ent [facility] 2020-01-23 2020-01-23 [facility] [id number] 11:28:00 11:28:00 [facility] ent [facility] 2020-01-16 2020-01-16 Pre Visit Bonifacio Estrada [facility] [id number] 00:00:00 00:00:00 [facility] [id number] [facility] [id number] [facility] [id number] [address] 2020-01-01 2020-01-01 [facility] [id number] 16:45:00 16:45:00 [facility] ent [facility] 2019 2019 [facility] [id number] 13:40:00 13:40:00 [facility] 2019-08-21 2019-08-21 [facility] [id number] 14:00:00 14:00:00 [facility] ent [facility] 2019-05-27 2019-05-27 Orders Doctor TRUONG [id number] 00:00:00 00:00:00 Only Unassigned, MARILIN [id number] [place] [id number] [id number] Results This patient has no known results.
[2021-01-04 13:34] LABS: Absolute Lymphocytes (CBC) 0.6 K/uL (0.7-4.9); Basophils % 0.4 % (0-1.3); Hematocrit 36.2 % (39.6-49.0); Lymphocytes % 10.7 % (15.3-44.8); MPV 8.7 fL (7.6-11.3); RBC Red Blood Cell Count 4.09 M/uL (4.33-5.43)
[2021-01-04 13:43] LABS: Potassium 4.5 mmol/L (3.5-5.1)
--- NOTE | 2021-01-04 13:57 | RAD REPORT ---
EXAM DESCRIPTION: CT - CTHCSPWOC - 01/04/2021 1:27 pm CLINICAL HISTORY: Trauma, head and neck injury. fall COMPARISON: Head C Spine Mpr Wo Con dated 08/11/2020 TECHNIQUE: Axial 5 mm thick images of the head were obtained. Axial 2 mm thick images of the cervical spine were obtained with sagittal and coronal reconstruction images generated and reviewed. All CT scans are performed using dose optimization technique as appropriate and may include automated exposure control or mA/KV adjustment according to patient size. FINDINGS: CT HEAD WITHOUT CONTRAST: No acute hemorrhage, hydrocephalus or extra-axial collection is identified.Mild generalized brain atr ophy is present with mild periventricular and deep white matter chronic microvascular ischemic change s.No areas of brain edema or midline shift. The paranasal sinuses and mastoids are clear except for a small mucous retention cyst or polyp in inf erior maxillary antrum.The calvarium is intact. CT CERVICAL SPINE WITHOUT CONTRAST: No fracture or subluxation.Mild lower cervical degenerative changes are seen.No prevertebral soft tis sues swelling is identified. The upper lung pacheco are emphysematous. Spiculated lesion is present in the posterior right upper lo be measuring 14 x 9 mm. IMPRESSION: No acute intracranial or cervical spine findings.Mild lower cervical degenerative change s. Spiculated mass lesion suspected in the posterior right upper lobe measuring 14 x 9 mm. Neoplasia is a possibility. Nonemergent follow-up CT chest assessment would be recommended.
--- NOTE | 2021-01-04 14:00 | RAD REPORT ---
EXAM DESCRIPTION: RAD - Pelvis - 01/04/2021 1:54 pm CLINICAL HISTORY: BLUNT TRAUMA, pelvic and hip pain COMPARISON: No comparisonsdelete select TECHNIQUE: AP imaging of the pelvis was obtained. FINDINGS: Lower lumbar degenerative change present only partially imaged. SI joints and pubic symphy sis show no suspicious findings. No fracture of the bony pelvis. Multiple phleboliths are seen along the pelvic floor. Bilateral hip joint degenerative changes are present. Right femur finding is separately detailed. IMPRESSION: No fracture or acute finding of the pelvis. Bilateral hip joint degenerative changes are present.
--- NOTE | 2021-01-04 14:01 | RAD REPORT ---
EXAM DESCRIPTION: RAD - Hip Right 2 View - 01/04/2021 1:54 pm CLINICAL HISTORY: PAIN, trauma, hip pain COMPARISON: No comparisons FINDINGS: AP and cross-table lateral views obtained. Intertrochanteric fracture is present shortening the femoral neck- shaft angle. No pathologic bone ch mary jo seen. Lesser trochanter appears to remain attached to the main femur fracture fragment. Femoral neck does not appear to be involved. There are degenerative changes in the femoral head and joint spa ce. AVN is not suspected. No significant soft tissue finding. IMPRESSION: Right intertrochanteric hip fracture as detailed.
--- NOTE | 2021-01-04 14:02 | RAD REPORT ---
EXAM DESCRIPTION: RAD - Femur Right - 01/04/2021 1:54 pm CLINICAL HISTORY: PAIN, leg pain, trauma COMPARISON: No comparisons FINDINGS: Intertrochanteric fracture is present detailed on the hip report. No pathologic changes se en. The remainder of the femur shows no fracture or acute finding. Degenerative change at the knee joint is minimal. IMPRESSION: Right femur intertrochanteric fracture detailed on the right hip report. Remainder the femur without acute finding.
--- NOTE | 2021-01-04 14:05 | RAD REPORT ---
EXAM DESCRIPTION: RAD - Chest Single View - 01/04/2021 1:54 pm CLINICAL HISTORY: fall, tachypnea Chest pain. COMPARISON: Chest Single View dated 01/10/2019 FINDINGS: Portable technique limits examination quality. COPD is present. Ill-defined opacity is noted in the right apex, poorly visualized. Mild linear opaci ties also present in left lung base probably atelectasis. The heart is mildly enlarged in size.
[2021-01-04 14:30] LABS: Protime INR 0.97
--- NOTE | 2021-01-04 14:31 | ER ---
Nurse's Notes [facility] Name: Kevin Pascual Age: 80 yrs Sex: Male : 1940 Arrival Date: 01/04/2021 Time: 12:50 Bed 8 Private MD: Diagnosis: Intertrochanteric fracture of femur-Right;Right lung mass Presentation: 01/04 12:53 Chief complaint: EMS states: PT from home, witnessed fall, right leg pain. Pt has hx of CVA. Coronavirus screen: Client denies travel out of the [place] in the last 14 days. At this time, the client does not indicate any symptoms associated with coronavirus-19. Ebola Screen: No symptoms or risks identified at this time. Initial Sepsis Screen: Does the patient meet any 2 criteria? No. Patient's initial sepsis screen is negative. Does the patient have a suspected source of infection? No. Patient's initial sepsis screen is negative. Risk Assessment: Do you want to hurt yourself or someone else? Patient reports no desire to harm self or others. Onset of symptoms was January 04, 2021 at 12:15. Care prior to arrival: Glucose check: 120. Mechanism of Injury: Fall from standing position. 12:53 Method Of Arrival: EMS: [facility] 12:53 Acuity: HILARY 3 13:00 Trauma event details:. Trauma event details: Injury occurred: at home. Injury occurred: January 04, 2021 Injury occurred at: 12:15. Triage Assessment: 13:00 General: Appears in no apparent distress. uncomfortable, Behavior is cooperative, bw anxious. Pain: Complains of pain in right leg Unable to use pain scale. FLACC scale score is 5 out of 10. Neuro: Level of Consciousness is awake, alert, obeys commands, Oriented to person, Speech is normal, Facial symmetry appears normal. Cardiovascular: Denies chest pain, Patient's skin is warm and dry. Edema is 2+ to left ankle, left foot, right ankle and right foot pitting to left ankle, left foot, right ankle and right foot. Respiratory: Respiratory effort is even, unlabored, Respiratory pattern is tachypnea. GI: No deficits noted. No signs and/or symptoms were reported involving the gastrointestinal system. : No deficits noted. No signs and/or symptoms were reported regarding the genitourinary system. Derm: Skin is pink, warm \\T\\ dry. Musculoskeletal: Range of motion: limited in right knee and right ankle. Trauma Activation: Not Applicable Physician: ED Physician; Name: ; Notified At: ; Arrived At: Physician: General Surgeon; Name: ; Notified At: ; Arrived At: Physician: Radiology; Name: ; Notified At: ; Arrived At: Physician: Respiratory; Name: ; Notified At: ; Arrived At: Physician: Lab; Name: ; Notified At: ; Arrived At: Historical: - Allergies: 13:00 No Known Allergies; bw - Home Meds: 13:00 amlodipine 2.5 mg tab 1 tab once daily [Active]; aspirin 81 mg Oral chew 1 tab once bw daily [Active]; donepezil HCL 10 mg 1 tab once a day [Active]; Lasix Oral [Active]; quetiapine oral oral [Active]; Spironolactone Oral [Active]; - PMHx: 13:00 CVA; Dementia; Hypertension; kidney failure; bw - PSHx: 18:32 Unable to obtain; bw - Immunization history: Last tetanus immunization: unknown. - Family history:: not pertinent. - Social history:: Smoking status: unknown. - Hospitalizations: : No recent hospitalization is reported. Screenin:07 Abuse screen: Denies threats or abuse. Nutritional screening: No deficits noted. bw Tuberculosis screening: No symptoms or risk factors identified. Fall Risk Fall in past 12 months (25 points). Secondary diagnosis (15 points) dementia, CVA, IV access (20 points). Gait- Weak (10 pts.). Mental Status- Overestimates/Forgets Limitations (15 pts.). Total Brantley Fall Scale indicates High Risk Score (45 or more points). Fall prevention measures have been instituted. Side Rails Up X 2 Placed Close to Nursing Station Frequent Obs/Assessments Occuring As available patient and family educated on Fall Prevention Program and Strategies. Primary Survey: 13:00 NO uncontrolled hemorrhage observed. A: The patient is alert. Airway: patent, No bw supplemental oxygen in use on arrival. Oral cavity: clear, Trachea midline. Breathing/Chest: Respiratory pattern: tachypnea, Respiratory effort: spontaneous, unlabored, Breath sounds: clear, diminished, bilaterally. Breathing/Chest: Chest inspection: symmetrical rise and fall of the chest. Circulation: Cardiac rhythm: sinus rhythm Heart tones present. Pulses: palpable right posterior tibial artery and right leg. Disability Alert. Exposure/Environment: All clothing and personal items were removed. There is no evidence of uncontrolled external bleeding. Obvious injury(ies) are noted at this time: Right leg/knee pain A warming method has been applied: A warm blanket has been provided to the patient. Reassessment Airway Airway Patent Oxygen No O2 Oral cavity Clear Trachea Midline. Secondary Survey: 13:00 Musculoskeletal: Range of motion: limited in right knee and right leg Swelling present bw in right ankle and left ankle. Injury Description: Fall, witnessed. Right leg pain. Assessment: 13:07 General: See triage assessment. bw Vital Signs: 12:53 BP 161 / 93; Pulse 72; Resp 18; Temp 97.9; Pulse Ox 100% ; bw 13:57 BP 154 / 68; Pulse 79; Resp 20; Pulse Ox 99% on R/A; mh5 18:22 BP 156 / 84; Pulse 101; Resp 25; Pulse Ox 100% ; Height 6 ft. 3 in. (190.50 cm); bw Yvon Coma Score: 13:00 Eye Response: spontaneous(4). Verbal Response: confused(4). Motor Response: obeys bw commands(6). Total: 14. Trauma Score (Adult): 13:00 Eye Response: spontaneous(1); Verbal Response: confused(1); Motor Response: obeys bw commands(2); Systolic BP: > 89 mm Hg(4); Respiratory Rate: 10 to 29 per min(4); [place] Score: 14; Trauma Score: 12 ED Course: 12:50 Patient arrived in ED. ds1 12:52 Erinn Vidales, RN is Primary Nurse. bw 12:55 Renard Peraza MD is Attending Physician. rn 12:57 Triage completed. bw 13:00 Arm band placed on right wrist. bw 13:00 Patient maintains SpO2 saturation greater than 95% on room air. Thermoregulation: warm bw blanket given to patient. 13:07 Patient has correct armband on for positive identification. Placed in gown. Bed in low bw position. Call light in reach. Side rails up X2. telemetry monitor on. Pulse ox on. NIBP on. Warm blanket given. 13:23 Initial lab(s) drawn, sent to lab. Inserted saline lock: 20 gauge in right antecubital sr5 area, using aseptic technique. Blood collected. 13:27 CT Head C Spine In Process Unspecified. EDMS 13:54 XRAY Pelvis In Process Unspecified. EDMS 13:54 XRAY Hip RIGHT 2 view In Process Unspecified. EDMS 13:54 XRAY Femur RIGHT In Process Unspecified. EDMS 13:54 XRAY Chest (1 view) In Process Unspecified. EDMS 14:28 CORONAVIRUS Sent. 5 14:28 COVID-19 : Document "Date of Symptom Onset" if Symptomatic. Sent. 5 14:28 COVID swab sent to lab. [facility] 14:29 Bubba Peraza MD is Hospitalizing Provider. rn 16:07 IV discontinued, intact, bleeding controlled, No redness/swelling at site. Pressure bw dressing applied. 16:07 Inserted saline lock: 20 gauge in right forearm, using aseptic technique. bw 16:07 Story cath inserted, using sterile technique, 16 Fr., by me, by ED staff, balloon bw inflated, to gravity drainage, Patient tolerated well. 18:47 No provider procedures requiring assistance completed. jl7 Administered Medications: 14:30 Drug: morphine 2 mg Route: IVP; Site: right antecubital; bw 14:30 Drug: Zofran (Ondansetron) 4 mg Route: IVP; Site: right antecubital; bw 15:40 Drug: morphine 2 mg Route: IVP; Site: right forearm; bw Output: 18:22 Urine: 850ml (Story); Total: 850ml. bw Outcome: 14:30 Decision to Hospitalize by Provider. rn 18:22 Admitted to Med/surg accompanied by tech, family with patient, via stretcher, room 211, bw with chart, Report called to 2nd floor RN 18:22 Condition: unchanged 18:22 Patient's length of stay in the Emergency Department was greater than 2 hours. delay in avail room Patient's length of stay extended due to 18:47 Discharge instructions given to patient, family, Instructed on the need for admit, jl7 Demonstrated understanding of instructions. 18:47 Patient left the ED. jl7 Signatures: Dispatcher [facility] Kennedi Broderick ds1 Renard Peraza MD MD rn Resecker, Shad RN RN sr5 Jolie Bains5 Karla Neville RN RN jl7 Erinn Vidales, RN RN bw
--- NOTE | 2021-01-04 14:31 | EDPHYS ---
Physician Documentation [facility] Name: Kevin Pascual Age: 80 yrs Sex: Male : 1940 Arrival Date: 01/04/2021 Time: 12:50 Bed 8 Private MD: ED Physician Renard Peraza HPI: 01/04 14:01 This 80 yrs old Male presents to ER via EMS with complaints of Fall Injury. rn 14:01 Details of fall: The patient fell from an upright position. Onset: The symptoms/episode rn began/occurred just prior to arrival. Associated injuries: The patient sustained right leg. Severity of symptoms: At their worst the symptoms were moderate, in the emergency department the symptoms are unchanged. It is unknown whether or not the patient has had similar symptoms in the past. EMS reports witnessed fall, appears to have right leg pain, has severe dementia. . Historical: - Allergies: 13:00 No Known Allergies; bw - Home Meds: 13:00 amlodipine 2.5 mg tab 1 tab once daily [Active]; aspirin 81 mg Oral chew 1 tab once bw daily [Active]; donepezil HCL 10 mg 1 tab once a day [Active]; Lasix Oral [Active]; quetiapine oral oral [Active]; Spironolactone Oral [Active]; - PMHx: 13:00 CVA; Dementia; Hypertension; kidney failure; bw - PSHx: 18:32 Unable to obtain; bw - Immunization history: Last tetanus immunization: unknown. - Family history:: not pertinent. - Social history:: Smoking status: unknown. - Hospitalizations: : No recent hospitalization is reported. ROS: 14:01 Constitutional: Negative for fever, chills, and weight loss, Eyes: Negative for injury, rn pain, redness, and discharge, Neck: Negative for injury, pain, and swelling, Cardiovascular: Negative for chest pain, palpitations, and edema, Respiratory: Negative for shortness of breath, cough, wheezing, and pleuritic chest pain, Abdomen/GI: Negative for abdominal pain, nausea, vomiting, diarrhea, and constipation, Back: Negative for injury and pain, MS/Extremity: + right leg pain Skin: Negative for injury, rash, and discoloration, Neuro: Negative for headache, weakness, numbness, tingling, and seizure. Exam: 14:01 Constitutional: This is a well developed, well nourished patient who is awake, alert, rn and in no acute distress. Head/Face: Normocephalic, atraumatic. Neck: No cervical tenderness Chest/axilla: Normal chest wall appearance and motion. Nontender with no deformity. Cardiovascular: Regular rate and rhythm. No pulse deficits. Respiratory: Mild tachypnea, no retractions. Abdomen/GI: soft, non-tender Back: No spinal tenderness. MS/ Extremity: Pulses equal, no cyanosis. FROm left hip and knee. + painful ROM right hip, no knee tenderness. 1+ edema bilateral lower ext. Neuro: Awake and alert, not oriented to place or time. + oriented to person. moves all 4 ext. Vital Signs: 12:53 BP 161 / 93; Pulse 72; Resp 18; Temp 97.9; Pulse Ox 100% ; bw 13:57 BP 154 / 68; Pulse 79; Resp 20; Pulse Ox 99% on R/A; mh5 18:22 BP 156 / 84; Pulse 101; Resp 25; Pulse Ox 100% ; Height 6 ft. 3 in. (190.50 cm); bw Yvon Coma Score: 13:00 Eye Response: spontaneous(4). Verbal Response: confused(4). Motor Response: obeys bw commands(6). Total: 14. Trauma Score (Adult): 13:00 Eye Response: spontaneous(1); Verbal Response: confused(1); Motor Response: obeys bw commands(2); Systolic BP: > 89 mm Hg(4); Respiratory Rate: 10 to 29 per min(4); [place] Score: 14; Trauma Score: 12 MDM: 12:55 Patient medically screened. rn 14:21 Differential diagnosis: contusion, fracture, sprain, strain. Data reviewed: vital rn signs, nurses notes, lab test result(s), radiologic studies, CT scan, plain films, and as a result, I will admit patient. Counseling: I had a detailed discussion with the patient and/or guardian regarding: the historical points, exam findings, and any diagnostic results supporting the discharge/admit diagnosis, lab results, radiology results, the need for further work-up and treatment in the hospital. Response to treatment: the patient's symptoms have mildly improved after treatment, and as a result, I will admit patient. Admission orders: after a detailed discussion of the patient's condition and case, the admit orders are written by me. ED course: Pt with right intertrochanteric fx, will admit to Dr. Peraza and consult Dr. Barr, aspirin taken last night. + CKD. Will need cardiac clearance. . 14:28 ED course: Family notified of hip fracture as well as incidental right lung mass, ornament stitcher member states had a mass in lung before that was biopsied but not sure if the same one.. 01/04 13:03 Order name: CBC with Diff; Complete Time: 14:06 rn 01/04 13:03 Order name: Basic Metabolic Panel; Complete Time: 14:06 rn 01/04 13:03 Order name: Protime (+inr) rn 01/04 13:03 Order name: Ptt, Activated rn 01/04 14:19 Order name: COVID-19 : Document "Date of Symptom Onset" if Symptomatic. rn 01/04 14:19 Order name: CORONAVIRUS EDVT 01/04 13:03 Order name: CT Head C Spine; Complete Time: 14:06 rn 01/04 13:03 Order name: XRAY Pelvis; Complete Time: 14:06 rn 01/04 13:03 Order name: XRAY Hip RIGHT 2 view; Complete Time: 14:06 rn 01/04 13:03 Order name: XRAY Femur RIGHT; Complete Time: 14:06 rn 01/04 13:03 Order name: XRAY Chest (1 view); Complete Time: 14:06 rn 01/04 16:07 Order name: Liver (Hepatic) Function EDVT 01/04 16:07 Order name: NT PRO-BNP EDVT 01/04 17:10 Order name: SARS-COV-2 RT PCR EDVT 01/04 13:03 Order name: IV Start; Complete Time: 13:23 rn 01/04 15:16 Order name: CONS Physician Consult EDVT Administered Medications: 14:30 Drug: morphine 2 mg Route: IVP; Site: right antecubital; bw 14:30 Drug: Zofran (Ondansetron) 4 mg Route: IVP; Site: right antecubital; bw 15:40 Drug: morphine 2 mg Route: IVP; Site: right forearm; bw Disposition: 01/04/21 14:30 Hospitalization ordered by Bubba Peraza for Inpatient Admission. Preliminary diagnosis are Intertrochanteric fracture of femur - Right, Right lung mass. - Bed requested for Telemetry/MedSurg (Inpatient). - Status is Inpatient Admission. jl7 - Condition is Stable. - Problem is new. - Symptoms have improved. Signatures: Dispatcher [employer] EDMS Renard Peraza MD MD rn Calderon, Audri, RN RN aa5 Karla Neville RN RN jl7 Erinn Vidales RN RN Corrections: (The following items were deleted from the chart) 17:36 14:30 Hospitalization Ordered by Bubba Peraza MD for Inpatient Admission. Preliminary aa5 diagnosis is Intertrochanteric fracture of femur - Right; Right lung mass. Bed requested for Telemetry/MedSurg (Inpatient). Status is Inpatient Admission. Condition is Stable. Problem is new. Symptoms have improved. rn 18:47 17:36 01/04/2021 14:30 Hospitalization Ordered by Bubba Peraza MD for Inpatient jl7 Admission. Preliminary diagnosis is Intertrochanteric fracture of femur - Right; Right lung mass. Bed requested for Telemetry/MedSurg (Inpatient). Status is Inpatient Admission. Condition is Stable. Problem is new. Symptoms have improved. aa5
[2021-01-04] MEDS ORDERED: ONDANSETRON 4 MG/2 ML VIAL ONE (14:36)
[2021-01-04] MEDS ORDERED: MORPHINE 2 MG/ML SYR ONE ×2 (14:36→15:53)
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
[2021-01-04] MEDS ORDERED: LIDOCAINE VISCOUS 2% SOLN 15 ML UDC ONE (16:04)
[2021-01-04 16:07] LABS: Albumin 3.7 g/dL (3.4-5.0); Bilirubin Direct 0.1 mg/dL (0-0.2); Bilirubin Total 0.5 mg/dL (0.2-1.0); Protein, Total 7.4 g/dL (6.4-8.2)
[2021-01-04] MEDS ORDERED: NA CHLORIDE 0.9% 1,000 ML IV SCH (18:50)
[2021-01-04] MEDS: NACHLORIDE 0.45% 1,000 ML IV SCH (20:28)
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
[2021-01-04] MEDS: TAMSULOSIN 0.4 MG SR CAP PO SCH (21:00)
[2021-01-04] MEDS: DOCUSATE NA 100 MG CAP PO SCH (21:00)
[2021-01-04 22:04] VITALS: BMI 23.8
[2021-01-05] MEDS: ACETAMINOPHEN 650MG/RECT SUPP PR PRN ×3 (00:58→15:24)
[2021-01-05 04:48] LABS: Urine Appearance CLEAR; Urine Bilirubin NEGATIVE (NEG); Urine Blood 1+ (NEG); Urine Color YELLOW; Urine Glucose NEGATIVE (NEG); Urine Protein 1+ (NEG); Urine Specific Gravity <=1.005 (1.005-1.030); Urine Urobilinogen 0.2 mg/dL (0.2-1.0); Urine pH 7.5 (5.0-7.0)
[2021-01-05 04:49] LABS: Urine Microscopic Reflex ORDER UMIC
[2021-01-05 05:27] LABS: Urine Bacteria <20 /HPF (NONE SEEN); Urine RBC <5 /HPF (NONE SEEN)
[2021-01-05] MEDS: NACHLORIDE 0.45% 1,000 ML IV SCH ×3 (05:47→17:00)
[2021-01-05 05:56] LABS: Absolute Lymphocytes (CBC) 0.6 K/uL (0.7-4.9); Basophils % 0.2 % (0-1.3); Hematocrit 37.6 % (39.6-49.0); Lymphocytes % 7.5 % (15.3-44.8); MPV 8.6 fL (7.6-11.3)
[2021-01-05 06:21] LABS: Albumin 3.4 g/dL (3.4-5.0); Bilirubin Total 0.7 mg/dL (0.2-1.0); Magnesium 2.1 mg/dL (1.8-2.4); Phosphorus 3.1 mg/dL (2.5-4.9); Potassium 4.4 mmol/L (3.5-5.1); Protein, Total 7.1 g/dL (6.4-8.2); Uric Acid 6.7 mg/dL (3.5-7.2)
[2021-01-05] MEDS: DOCUSATE NA 100 MG CAP PO SCH ×2 (08:37→20:41)
[2021-01-05] MEDS: VITAMIN D 5,000 UNIT CAP PO SCH (08:37)
[2021-01-05] MEDS: MORPHINE 2 MG/ML SYR IV PRN ×3 (08:50→21:53)
[2021-01-05] MEDS ORDERED: ENOXAPARIN 30 MG/0.3 ML SQ SCH (09:00)
[2021-01-05] MEDS ORDERED: CEFTRIAXONE 1 GM/NS 50 ML 1 GM/50 ML BAG IV SCH (09:00)
[2021-01-05] MEDS ORDERED: CEFTRIAXONE/SWI 1gm 1 GM/10 ML SYR IV SCH (09:00)
--- NOTE | 2021-01-05 09:16 | CON ---
Date of Consultation: 01/05/2021 History Of Present Illness: This is my first time seeing this patient to my knowledge. He is a 80-y ear-old male, who unfortunately suffers from fairly significant dementia, although according to ER no arnav, they feel that he may be having more confusion than normal. He apparently was found on the floo r of his kitchen and brought to the emergency department where x-rays were taken, which demonstrated an intertrochanteric fracture on the right. Physical Examination: Today, he is really not a good historian. He is not able to say why he is in the hospital. Asked wh ere he hurts, he is not able to give a consistently detailed answer. Palpation of all his long bones and joints does not reveal any discomfort; however, he does have grimacing with movement of his righ t hip. Diagnostic Studies: Review of x-rays do reveal a slightly displaced right intertrochanteric fracture . Assessment: This is a 80-year-old male, who apparently injured his right hip. He does have a power of document review attorney. We will fill out the consent and place on the chart. I spoke with the nurse. We are g oing to have him n.p.o. Hopefully, power of document review attorney will be able to speak with this or early permis kamala for surgery. We will see if we can get this done around noon; however, at the latest, we need t o do this today with a plan being closed reduction with intramedullary juwan fixation. /LASHANDA Voice ID: [id number] Report ID: [id number]
--- NOTE | 2021-01-05 12:26 | P.PN ---
Subjective Date of Service: 01/05/21 Primary Care Provider: Dr. Leone Chief Complaint: Fall, trochanteric fracture Subjective: No new changes (febrile this morning to 104. Patient without specific complaints, but remains confused in addition to baseline dementia. AAOx1) Review of Systems is unable to be obtained Physical Examination - Vital Signs Temperature: 104 F Blood Pressure: 166/88 Pulse: 87 Respirations: 19 Pulse Ox (%): 95 - Studies Laboratory Data (last 24 hrs) 01/04/21 13:18: Total Bilirubin 0.5, AST 20, ALT 13, Alkaline Phosphatase 85 01/04/21 13:18: PT 11.1, INR 0.97, APTT 32.0 01/04/21 13:18: Sodium 141, Potassium 4.5, BUN 34 H, Creatinine 2.58 H, Glucose 103 01/04/21 13:18: WBC 6.00, Hgb 12.0 L, Hct 36.2 L, Plt Count 182 Assessment & Plan Physician Review Additional Text: Problem list: Right intertrochanteric fracture Alzheimer dementia CKD4 Febrile, ?cystitis Reported a history of heart failure, unknown type Hypertension Bipolar/depression -Dr. Barr consulted for fracture, pt will be NPO, gentle IVF given h/o possible CHF - for OR today -Cardiology consulted for cardiac clearance / optimization, echo ordered; last TTE in EMR: 2019: normal function -lovenox for DVT Prophylaxis held today for surgery; prophylaxis per ortho -patient is a poor historian and confused / severe dementia, unable to recall events -CT Head ok, nonfocal neuro exam, do not suspect stroke at this time; -failed bedside wall eval, speech consulted for further evaluation, will discuss with daughter moving forward -CKD4 - nephrology consulted, daughter states patient follows with Dr. Jade -obtain home medications and restart as appropriate after surgery -high risk for post-op delirium -febrile this morning, UA suggestive of UTI, and daughter reported recent urinary incontinence last week which was new to her knowledge -started rocephin, added flagyl to cover anaerobes - for possible aspiration pneumonia - CXR not consistent, but patient failed initial swallow screen -f/u blood/urine cultures VTE: lovenox Code: DNR per daughter Dispo: anticipate dc to SNF rehab. pt lives alone in [address] [facility] with minimal to no assistance Time Spent Managing Pts Care (In Minutes): 35
[2021-01-05] MEDS: METRONIDAZOLE 500mg IVPB 500 MG/100 ML BAG IV SCH ×2 (12:27→16:01)
--- NOTE | 2021-01-05 14:05 | ECHO ---
HEIGHT: 5 ft 11 in WEIGHT: 164 lb 11.2 oz DATE OF STUDY: 01/05/[address]: Bubba Peraza MD 2-DIMENSIONAL: YES M.MODE: YES DOPPLER: YES COLOR FLOW: YES TDS: PORTABLE: DEFINITY: BUBBLE STUDY: DIAGNOSIS: EVALUATE CARDIAC FUNCTION CARDIAC HISTORY: CATHERIZATION: SURGERY: PROSTHETIC VALVE: PACEMAKER: MEASUREMENTS (cm) DIASTOLIC (NORMALS) SYSTOLIC (NORMALS) IVSd 1.0 (0.6-1.2) LA Diam 3.9 (1.9-4.0) LVEF 64% LVIDd 4.0 (3.5-5.7) LVIDs 2.6 (2.0-3.5) %FS 35% LVPWd 0.9 (0.6-1.2) Ao Diam 3.6 (2.0-3.7) 2 DIMENSIONAL ASSESSMENT: RIGHT ATRIUM: NORMAL LEFT ATRIUM: NORMAL RIGHT VENTRICLE: NORMAL LEFT VENTRICLE: NORMAL TRICUSPID VALVE: NORMAL MITRAL VALVE: NORMAL PULMONIC VALVE: NORMAL AORTIC VALVE: NORMAL PERICARDIAL EFFUSION: NONE AORTIC ROOT: NORMAL LEFT VENTRICULAR WALL MOTION: NORMAL DOPPLER/COLOR FLOW: NORMAL COMMENTS: NORMAL 2-DIMENSIONAL ECHOCARDIOGRAM WITH DOPPLER. NO WALL MOTION ABNORMALITY. NO EFFUSION. TECHNOLOGIST: CHRISTINA LYLES
--- NOTE | 2021-01-05 15:09 | RAD REPORT ---
EXAM DESCRIPTION: RAD - Chest Single View - 01/05/2021 2:47 pm CLINICAL HISTORY: SOB COMPARISON: January 04 TECHNIQUE: AP portable chest image was obtained 01/05/2021 2:47 pmin supine position . FINDINGS: No dense mass or consolidation. Ill-defined right apex opacification is not substantially different. Left base patchy opacification has improved but not fully resolved. No developing failure or volume overload. Heart and vasculature are normal. No measurable pleural effusion and no pneumotho rax. No acute bony abnormality seen. No acute aortic findings suspected. IMPRESSION: Left lung base is slightly better aerated. Minimal right apex stranding not significantl y different.
[2021-01-05] MEDS ORDERED: Ringers Lactate 1,000 ML IV ONE (16:30)
[2021-01-05] MEDS ORDERED: TRANEXAMIC ACID 1,000 MG in NA CHLORIDE 0.9% 50 ML IV ONE (16:45)
[2021-01-05] MEDS ORDERED: CEFAZOLIN/SWI 1gm 1 GM/10 ML SYR ONE (16:57)
[2021-01-05] MEDS ORDERED: KETAMINE HCL 500 MG/5 ML VIAL ONE (17:08)
[2021-01-05] MEDS ORDERED: LIDOCAINE 2% MPF 5 ML VIAL ONE (17:08)
[2021-01-05] MEDS ORDERED: propofoL 200 MG/20 ML VIAL IV ONE (17:08)
[2021-01-05] MEDS ORDERED: ROCURONIUM 50 MG/5 ML VIAL IV ONE (17:10)
[2021-01-05] MEDS ORDERED: Phenylephrine HCl 10 MG/ML 1 ML VIAL ONE (17:36)
[2021-01-05] MEDS ORDERED: FENTANYL CITR 100 MCG/2 ML ONE (17:46)
[2021-01-05] MEDS ORDERED: ONDANSETRON 4 MG/2 ML VIAL ONE (17:57)
[2021-01-05] MEDS ORDERED: dexAMETHasone 10 MG/ML VIAL ONE (17:57)
--- NOTE | 2021-01-05 18:12 | P.BOP ---
Preoperative diagnosis: right IT fracture Postoperative diagnosis: same Primary procedure: right [place] juwan Estimated blood loss: 50 Anesthesia: General Complications: None Transferred to: Recovery Room Condition: Good
[2021-01-05] MEDS: LABETALOL 20 MG/4ML SYRINGE IV ONE ×3 (18:37→18:53)
[2021-01-05] MEDS ORDERED: MEPERIDINE HCL 25 MG/ML SYR ONE (18:41)
--- NOTE | 2021-01-05 19:19 | RAD REPORT ---
EXAM DESCRIPTION: RAD - Fluoroscopy <1 Hour - 01/05/2021 6:25 pm FINDINGS: There were 12 portable C-arm views obtained during fluoroscopic assisted placement of righ t femur fracture fixation hardware. No suspicious or unexpected bone or hardware finding. Fluoro time was 1.8 minutes with an 11.5 mGy cumulative dose.
--- NOTE | 2021-01-05 20:14 | P.PN ---
Date of Service: 01/05/21 Vital Signs Temp Pulse Resp BP Pulse Ox 98.6 F 71 16 169/83 H 95 01/05/21 18:57 01/05/21 18:57 01/05/21 18:57 01/05/21 18:57 01/05/21 15:57 Medications Acetaminophen (Acetaminophen 650mg/Rect Supp) 650 mg RI Q6H PRN PRN Reason: TEMP > 101' F Last Admin: 01/05/21 15:24 Dose: 650 mg Documented by: Cholecalciferol (Vitamin D 5,000 Unit Cap) 5,000 unit PO DAILY [facility] Last Admin: 01/05/21 08:37 Dose: Not Given Documented by: Docusate Sodium (Docusate Na 100 Mg Cap) 100 mg PO BID [facility] Last Admin: 01/05/21 08:37 Dose: Not Given Documented by: Sodium Chloride (Sodium Chloride 0.45%) 1,000 mls @ 100 mls/hr IV .Q10H [facility] Last Admin: 01/05/21 17:00 Dose: Not Given Documented by: Ceftriaxone Sodium/Sodium Chloride (Rocephin 1 Gm/10 Ml Swi Ivp) 1 gm in 10 mls @ 100 mls/hr IV DAILY [facility] Last Admin: 01/05/21 08:50 Dose: 10 mls Documented by: Metronidazole/Sodium Chloride (Flagyl 500mg/100 Ml Iv Premix) 500 mg in 100 mls @ 200 mls/hr IV Q8HR [facility]; Protocol Last Admin: 01/05/21 16:01 Dose: 100 mls Documented by: Morphine Sulfate (Morphine 2 Mg/Ml Syr) 2 mg IV Q4H PRN PRN Reason: Pain scale 5-7 (Moderate) Last Admin: 01/05/21 15:27 Dose: 2 mg Documented by: Sodium Chloride (Flush Normal Saline 10 Ml) 10 ml IV BID [facility] Last Admin: 01/05/21 08:59 Dose: Not Given Documented by: Tamsulosin HCl (Tamsulosin 0.4 Mg Sr Cap) 0.4 mg PO BEDTIME [facility] Last Admin: 01/04/21 21:00 Dose: Not Given Documented by: Assessment/ Plan: Nephrology No acute cardiac or pulmonary complaints. No CP or SOB. Limited IH/ ROS due to dementia. No acute events overnight. Vitals, medications, blood work and imaging reviewed in the chart. Physical Examination General: In no apparent distress, Cooperative HEENT: Atraumatic Neck: Supple Respiratory: Clear to auscultation bilaterally Cardiovascular: Regular rate/rhythm, Edema Gastrointestinal: Soft and benign, Non-distended Musculoskeletal: No clubbing, No contractures Integumentary: No rashes, No cyanosis Neurological: Abnormal speech Laboratory Data (last 24 hrs) 01/04/21 13:18: Total Bilirubin 0.5, AST 20, ALT 13, Alkaline Phosphatase 85 01/04/21 13:18: PT 11.1, INR 0.97, APTT 32.0 01/04/21 13:18: Sodium 141, Potassium 4.5, BUN 34 H, Creatinine 2.58 H, Glucose 103 01/04/21 13:18: WBC 6.00, Hgb 12.0 L, Hct 36.2 L, Plt Count 182 Imagings Data: EXAM DESCRIPTION: RAD - Chest Single View - 01/04/2021 1:54 pm CLINICAL HISTORY: fall, tachypnea Chest pain. COMPARISON: Chest Single View dated 01/10/2019 FINDINGS: Portable technique limits examination quality. COPD is present. Ill-defined opacity is noted in the right apex, poorly visualized. Mild linear opacities also present in left lung base probably atelectasis. The heart is mildly enlarged in size. Conclusions/Impression: A/P: Continue the current POC and Medications other than the changes listed. AM Labs PRN. Recommend daily weight. Please see the orders for complete details. CKD IV -No NSAIDs -Change IVF to D5W and reevaluate in the morning Hypernatremia -Start D5W HTN with CKD -Start IV Metoprolol q6h Anemia in chronic illness -Monitor H&H BPH with LUTS -Continue tamsulosin Alz Dementia Right IT Fracture -Ortho evaluation peding -Continue Vitamin D3
[2021-01-05] MEDS: D5W 1,000 ML IV SCH (20:40)
[2021-01-05] MEDS: TAMSULOSIN 0.4 MG SR CAP PO SCH (20:41)
[2021-01-05] MEDS ORDERED: CEFAZOLIN/SWI 1gm 1 GM/10 ML SYR IV ONE (22:30)
[2021-01-06] MEDS: METRONIDAZOLE 500mg IVPB 500 MG/100 ML BAG IV SCH ×3 (00:24→17:52)
[2021-01-06] MEDS: METOPROLOL TARTRATE 5 MG/5 ML INJ IV SCH ×3 (00:26→13:23)
--- NOTE | 2021-01-06 00:50 | OP ---
Date of Procedure: 01/05/2021 Surgeon: Sergio Barr MD Preoperative Diagnosis: Right displaced intertrochanteric fracture. Postoperative Diagnosis: Right displaced intertrochanteric fracture. Procedure: Right intertrochanteric closed reduction with intramedullary juwan fixation. Estimated Blood Loss: 50 cc. Complications: No complications. No pathology specimens sent. Indications For Operation: Mr. Pascual is a 80-year-old male who unfortunately was found on the floor in his kitchen, unable to ambulate. He was brought to the emergency department where he was ruled ou t for other injuries, however x-rays demonstrated a displaced intertrochanteric femur fracture on the right. I was then consulted to see him and I saw him this morning. I have also spoken with his fam shakira regarding risks, benefits, and alternatives of surgery. Family state they understand things as p resented and wished to proceed. Procedure In Detail: The patient was to taken to the operating room and placed in supine position. General anesthesia was obtained by staff. Following this, he was then transferred to the fracture ta ble. All his bony prominences were checked and he was properly positioned. Two good C-arm views wer e then made of the right hip to ensure good views. The right hip was then prepped and draped in usua l sterile fashion. A vertical incision was made above the greater trochanter down carefully through skin and soft tissues. The fascia was then split. A finger was placed to allow for palpation of the intraportal. Starting awl was then used and the guide pin was then placed easily. After this, a aguilar nd reamer was used to widen the entry portal down to the lesser trochanter. This was followed by ester cement of a size 9 x 125 mm Biomet nail. The guide pin was then removed and cephalomedullary screw w as then placed using biplanar C-arm radiography for appropriate positioning. This was followed by pl acement of a derotation screw. The distal interlocking screw was then placed without difficulty and the guide was removed. Wounds were irrigated. The fascia was closed in a watertight fashion and the skin was closed using Vicryl followed by shirley. The patient was then placed in Aquacel dressing, awakened and taken to recovery room in good condition. No complications. SE/MODL Voice ID: [id number] Report ID: [id number]
[2021-01-06] MEDS ORDERED: CEFAZOLIN/SWI 1gm 1 GM/10 ML SYR ONE (01:51)
[2021-01-06] MEDS: CEFAZOLIN/SWI 1gm 1 GM/10 ML SYR IV SCH ×3 (01:57→17:56)
[2021-01-06] MEDS ORDERED: CEFAZOLIN/SWI 1gm 1 GM/10 ML SYR IV SCH ×2 (02:00→09:00)
[2021-01-06] MEDS ORDERED: CEFAZOLIN/NS 1gm 1 GM/50 ML BAG IVPB SCH (02:00)
[2021-01-06 05:41] LABS: Absolute Lymphocytes (CBC) 0.3 K/uL (0.7-4.9); Basophils % 0.1 % (0-1.3); Hematocrit 33.8 % (39.6-49.0); Lymphocytes % 3.1 % (15.3-44.8); MPV 8.9 fL (7.6-11.3); RBC Red Blood Cell Count 3.81 M/uL (4.33-5.43)
[2021-01-06 05:58] LABS: Phosphorus 4.2 mg/dL (2.5-4.9); Potassium 4.5 mmol/L (3.5-5.1); Uric Acid 6.7 mg/dL (3.5-7.2)
[2021-01-06] MEDS ORDERED: D50W 25 GM/50 ML SYRINGE IV PRN (06:09)
[2021-01-06] MEDS ORDERED: GLUCAGON 1 MG/VIAL IM PRN (06:09)
[2021-01-06] MEDS: D5W 1,000 ML IV SCH ×2 (06:27→20:38)
[2021-01-06] MEDS: INSULIN -REGULAR HUMAN 50 UNIT/0.5 ML ML SQ SCH ×4 (07:30→20:38)
[2021-01-06 08:14] LABS: Blood Morphology Comment NOT SEEN (NOT SEEN); Platelet Estimate ADEQ; White Blood Cell Scan OK (OK)
[2021-01-06] MEDS: DOCUSATE NA 100 MG CAP PO SCH ×2 (09:00→20:35)
[2021-01-06] MEDS: VITAMIN D 5,000 UNIT CAP PO SCH (09:00)
--- NOTE | 2021-01-06 12:26 | P.PN ---
Subjective Date of Service: 01/06/21 Primary Care Provider: Dr. Leone Chief Complaint: Fall, trochanteric fracture Subjective: No new changes (s/p OR yesterday. no acute events overnight. remains confused. AAO to self only. generalized weakness, responds inappropriately to my questions intermittently. follows commands, denies any SOB. pointed to right hip when asked if any pain) Review of Systems is unable to be obtained Physical Examination - Vital Signs Temperature: 98.3 F Blood Pressure: 134/85 Pulse: 83 Respirations: 18 Pulse Ox (%): 93 Assessment & Plan Physician Review Additional Text: Physical Exam Gen: NAD, laying in bed, AAO to self only HEENT: PERRL, sclera anicteric, normal conjuctiva CV: RRR, no edema Pulm: diminished at bases, otherwise clear Abd: soft, NTND Ext: R surgical dressing in place - c/d/i, mild tenderness, no swelling intact distal sensation, wiggles toes bilaterally Problem list: Right intertrochanteric fracture Alzheimer dementia CKD4 Febrile, ?cystitis Reported a history of heart failure, unknown type Hypertension Bipolar/depression -Dr. Barr consulted for fracture, underwent surgical fixation on 01/05 - recommended 3 weeks anticoagulation, followed by 3 weeks aspirin -Cardiology consulted for cardiac clearance / optimization, echo ok -patient is a poor historian and confused / severe dementia, unable to recall events -failed bedside wall eval, speech consulted for further evaluation, will discuss with daughter moving forward - ok with dobhoff if needed, unsure of PEG tube at this time -CT Head ok, nonfocal neuro exam, will obtain MRI -CKD4 - nephrology consulted -high risk for post-op delirium -febrile on 01/05, UA suggestive of UTI, Urine culture no growth, daughter reported recent urinary incontinence last week which was new to her knowledge -continue rocephin / flagyl (to cover anaerobes) for possible aspiration pneumonia - CXR not consistent, but patient failed initial swallow screen, questionable R apical opacity -f/u blood cultures VTE: lovenox 1mg/kg BID Code: DNR per daughter Dispo: anticipate dc to SNF rehab. given severity of dementia and postop delirium, anticipate hospitalization >2-3 more days pt lives alone in 1 bedroom apartment at [facility] with minimal to no assistance Time Spent Managing Pts Care (In Minutes): 35
[2021-01-06] MEDS: MORPHINE 2 MG/ML SYR IV PRN ×2 (12:41→21:49)
[2021-01-06] MEDS ORDERED: ALBUTEROL 2.5 MG/3 ML NEB SOL NEB PRN (15:18)
--- NOTE | 2021-01-06 17:19 | RAD REPORT ---
EXAM DESCRIPTION: MRI - Brain Wo Cont - 01/06/2021 5:02 pm CLINICAL HISTORY: Confusion/alteration of consciousness COMPARISON: Head CT January 04, 2021 TECHNIQUE: Axial, sagittal, and coronal magnetic images of the brain were obtained. Contrast was not requested FINDINGS: No abnormal signal is present within the brain. Diffusion-weighted/ADC mapping demonstrate an 8 millimeter area of abnormal signal within the posteri or limb left internal capsule compatible with acute infarction. Mild to moderate signal within periventricular, deep and subcortical white matter likely ischemic wilfrid nges secondary to small vessel disease. 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 Cerebral atrophy is noted. . The ventricles are normal caliber. 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 Referring physician notifie d 5 p.m. January 06, 2021
[2021-01-06] MEDS ORDERED: ASPIRIN EC 81 MG TAB PO ONE (18:00)
[2021-01-06] MEDS ORDERED: CLOPIDOGREL 75 MG TABLET PO ONE (18:00)
[2021-01-06] MEDS: ENOXAPARIN 30 MG/0.3 ML SQ SCH (19:00)
--- NOTE | 2021-01-06 19:50 | P.PN ---
Date of Service: 01/06/21 Vital Signs Temp Pulse Resp BP Pulse Ox 97.9 F 81 18 127/88 94 01/06/21 16:00 01/06/21 16:00 01/06/21 16:00 01/06/21 16:00 01/06/21 16:00 Medications Acetaminophen (Acetaminophen 650mg/Rect Supp) 650 mg IA Q6H PRN PRN Reason: TEMP > 101' F Last Admin: 01/05/21 15:24 Dose: 650 mg Documented by: Cholecalciferol (Vitamin D 5,000 Unit Cap) 5,000 unit PO DAILY [facility] Last Admin: 01/06/21 09:00 Dose: Not Given Documented by: Dextrose (D50w 25 Gm/50 Ml Syringe) 12.5 gm IV PRN PRN PRN Reason: HYPOGLYCEMIA Docusate Sodium (Docusate Na 100 Mg Cap) 100 mg PO BID [facility] Last Admin: 01/06/21 09:00 Dose: Not Given Documented by: Glucagon (Glucagon 1 Mg/Vial) 1 mg IM 1X PRN PRN Reason: HYPOGLYCEMIA Metronidazole/Sodium Chloride (Flagyl 500mg/100 Ml Iv Premix) 500 mg in 100 mls @ 200 mls/hr IV Q8HR [facility]; Protocol Last Admin: 01/06/21 17:52 Dose: 100 mls Documented by: Dextrose/Water (Dextrose In Water (1-Liter)) 1,000 mls @ 100 mls/hr IV .Q10H [facility] Last Admin: 01/06/21 06:27 Dose: 1,000 mls Documented by: Cefazolin Sodium (Ancef 1 Gm/10 Ml Swi Ivp) 1 gm in 10 mls @ 100 mls/hr IV 0200,1000,1800 [facility] Stop: 01/06/21 18:05 Last Admin: 01/06/21 17:56 Dose: Not Given Documented by: Insulin Human Regular (Insulin -Regular Human 50 Unit/0.5 Ml Ml) 0 unit SQ ACHS [facility]; Protocol Last Admin: 01/06/21 16:30 Dose: Not Given Documented by: Metoprolol Tartrate (Metoprolol Tartrate 5 Mg/5 Ml Inj) 5 mg IV Q6HR [facility] Last Admin: 01/06/21 13:23 Dose: 5 mg Documented by: Morphine Sulfate (Morphine 2 Mg/Ml Syr) 2 mg IV Q4H PRN PRN Reason: Pain scale 5-7 (Moderate) Last Admin: 01/06/21 12:41 Dose: 2 mg Documented by: Sodium Chloride (Flush Normal Saline 10 Ml) 10 ml IV BID [facility] Last Admin: 01/06/21 09:00 Dose: 10 ml Documented by: Tamsulosin HCl (Tamsulosin 0.4 Mg Sr Cap) 0.4 mg PO BEDTIME [facility] Last Admin: 01/05/21 20:41 Dose: Not Given Documented by: Assessment/ Plan: Nephrology No acute cardiac or pulmonary complaints. No CP or SOB. Limited IH/ ROS due to dementia. No acute events overnight. Vitals, medications, blood work and imaging reviewed in the chart. Physical Examination General: In no apparent distress, Cooperative HEENT: Atraumatic Neck: Supple Respiratory: Clear to auscultation bilaterally Cardiovascular: Regular rate/rhythm, Edema Gastrointestinal: Soft and benign, Non-distended Musculoskeletal: No clubbing, No contractures Integumentary: No rashes, No cyanosis Neurological: Abnormal speech Laboratory Data (last 24 hrs) 01/04/21 13:18: Total Bilirubin 0.5, AST 20, ALT 13, Alkaline Phosphatase 85 01/04/21 13:18: PT 11.1, INR 0.97, APTT 32.0 01/04/21 13:18: Sodium 141, Potassium 4.5, BUN 34 H, Creatinine 2.58 H, Glucose 103 01/04/21 13:18: WBC 6.00, Hgb 12.0 L, Hct 36.2 L, Plt Count 182 Imagings Data: EXAM DESCRIPTION: RAD - Chest Single View - 01/04/2021 1:54 pm CLINICAL HISTORY: fall, tachypnea Chest pain. COMPARISON: Chest Single View dated 01/10/2019 FINDINGS: Portable technique limits examination quality. COPD is present. Ill-defined opacity is noted in the right apex, poorly visualized. Mild linear opacities also present in left lung base probably atelectasis. The heart is mildly enlarged in size. Conclusions/Impression: A/P: Continue the current POC and Medications other than the changes listed. AM Labs PRN. Recommend daily weight. Please see the orders for complete details. CKD IV -No NSAIDs -Continue D5W Hypernatremia -Continue D5W HTN with CKD -Change to oral Metoprolol 25mg BID Anemia in chronic illness -Monitor H&H BPH with LUTS -Continue tamsulosin Alz Dementia Right IT Fracture -Follow up with ortho -Continue Vitamin D3
[2021-01-06] MEDS: DONEPEZIL HCL 5 MG TAB PO SCH (20:25)
[2021-01-06] MEDS: METOPROLOL TAR 25 MG TAB PO SCH (20:25)
[2021-01-06] MEDS: TAMSULOSIN 0.4 MG SR CAP PO SCH (20:34)
[2021-01-06] MEDS ORDERED: ENOXAPARIN 80 MG/0.8 ML SQ SCH (21:00)
[2021-01-06] MEDS: ACETAMINOPHEN 650MG/RECT SUPP PR PRN (23:07)
[2021-01-07] MEDS: METRONIDAZOLE 500mg IVPB 500 MG/100 ML BAG IV SCH ×3 (00:56→16:08)
[2021-01-07] MEDS: MORPHINE 2 MG/ML SYR IV PRN ×3 (02:15→17:02)
[2021-01-07 05:33] LABS: Absolute Lymphocytes (CBC) 0.7 K/uL (0.7-4.9); Basophils % 0.2 % (0-1.3); Lymphocytes % 6.7 % (15.3-44.8); RBC Red Blood Cell Count 3.83 M/uL (4.33-5.43)
[2021-01-07 05:55] LABS: Magnesium 1.9 mg/dL (1.8-2.4); Potassium 3.6 mmol/L (3.5-5.1)
[2021-01-07] MEDS: INSULIN -REGULAR HUMAN 50 UNIT/0.5 ML ML SQ SCH ×4 (07:30→21:00)
[2021-01-07] MEDS: D5W 1,000 ML IV SCH ×4 (07:39→22:00)
[2021-01-07] MEDS ORDERED: HOME MED 1 EA UNK (Budesonide/Formoterol Fumarate [Symbicort 160-4.5 Mcg Inhaler] 10.2 GM IH SCH (09:00)
[2021-01-07] MEDS: AMLODIPINE 10 MG TAB PO SCH (09:00)
[2021-01-07] MEDS ORDERED: POTASSIUM 25 MEQ EFFERV TAB PO ONE (09:00)
[2021-01-07] MEDS: CLOPIDOGREL 75 MG TABLET PO SCH (10:15)
[2021-01-07] MEDS: VITAMIN D 5,000 UNIT CAP PO SCH (10:16)
[2021-01-07] MEDS: ASPIRIN EC 81 MG TAB PO SCH (10:16)
[2021-01-07] MEDS: SPIRONOLACTONE 25 MG TABLET PO SCH (10:16)
[2021-01-07] MEDS: METOPROLOL TAR 25 MG TAB PO SCH (10:16)
[2021-01-07] MEDS: DOCUSATE NA 100 MG CAP PO SCH ×2 (10:16→21:59)
--- NOTE | 2021-01-07 12:08 | P.PN ---
Subjective Date of Service: 01/07/21 Primary Care Provider: Dr. Leone Chief Complaint: Fall, trochanteric fracture Subjective: Other (patient reports feeling ok today, confused, more conversive but doesn't seem to understand / retain information. At times, frustrated/upset and not wanting to answer my questions / cooperate. MRI yesterday consistent with acute CVA) Review of Systems 10-point ROS is otherwise unremarkable Physical Examination - Vital Signs Temperature: 99.1 F Blood Pressure: 176/81 Pulse: 81 Respirations: 20 Pulse Ox (%): 97 Assessment & Plan Physician Review Additional Text: Physical Exam Gen: NAD, sitting up in bed, more alert, oriented to self only HEENT: PERRL, sclera anicteric, normal conjuctiva CV: RRR, trace edema Pulm: diminished at bases, otherwise clear Abd: soft, NTND Ext: R surgical dressing in place - c/d/i, mild tenderness, no swelling Neuro: oriented to self, noncompliant with neuro exam, moving upper extremities without issue. diminished vision, reported intact sensation throughout b/l upper/lower extremities Problem list: Right intertrochanteric fracture s/p repair Alzheimer dementia CKD4 Febrile, ?cystitis Reported a history of heart failure, unknown type Hypertension Bipolar/depression -Dr. 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 Jorgensen - recommended aspirin, plavix, in addition to VTE dose lovenox - started 01/06 -difficult to obtain accurate neuro exam - pt refuses several components of exam -stating he doesn't see the purpose of such tests, despite my explanation of him having a stroke ("I've had strokes in the past, what's the difference") -CKD4 - nephrology consulted -febrile on 01/05, UA suggestive of UTI, Urine culture no growth, daughter reported recent urinary incontinence last week which was new to her knowledge -continue rocephin / flagyl (to cover anaerobes) for possible aspiration pneumonia - CXR not consistent, but patient failed initial swallow screen, questionable R apical opacity -f/u blood cultures - no growth so far -restarted home antihypertensives on 01/06 VTE: lovenox Code: DNR per daughter Dispo: anticipate dc to SNF rehab. given severity of dementia, stroke, and postop deliium, anticipate hospitalization ~2 more days pt lives alone in 1 bedroom apartment at [facility] with minimal to no assistance per daughter Time Spent Managing Pts Care (In Minutes): 35
[2021-01-07] MEDS ORDERED: HYDRALAZINE HCL 20 MG/ML VIAL IV PRN (14:34)
[2021-01-07] MEDS ORDERED: WATER FOR INJ,STERILE 10 ML IM PRN (15:37)
[2021-01-07] MEDS: CEFTRIAXONE/SWI 1gm 1 GM/10 ML SYR IVP SCH (16:09)
[2021-01-07] MEDS: ENOXAPARIN 30 MG/0.3 ML SQ SCH (16:18)
[2021-01-07] MEDS ORDERED: D50W 25 GM/50 ML VIAL IV PRN (17:00)
[2021-01-07] MEDS: ZIPRASIDONE MESYLA 20 MG/VIAL IM PRN (17:40)
[2021-01-07] MEDS ORDERED: POTASSIUM 25 MEQ EFFERV TAB FT ONE ×2 (18:22→18:32)
--- NOTE | 2021-01-07 18:29 | P.PN ---
Date of Service: 01/07/21 Vital Signs Temp Pulse Resp BP Pulse Ox 99.1 F 92 H 22 H 171/77 H 97 01/07/21 16:00 01/07/21 16:00 01/07/21 17:32 01/07/21 16:00 01/07/21 17:32 Medications Acetaminophen (Acetaminophen 650mg/Rect Supp) 650 mg [place] Q6H PRN PRN Reason: TEMP > 101' F Last Admin: 01/06/21 23:07 Dose: 650 mg Documented by: Albuterol Sulfate (Albuterol 2.5 Mg/3 Ml Neb Nancy) 2.5 mg NEB Q4H PRN PRN Reason: SHORTNESS OF BREATH Amlodipine Besylate (Amlodipine 10 Mg Tab) 10 mg PO DAILY [facility] Last Admin: 01/07/21 09:00 Dose: 10 mg Documented by: Aspirin (Aspirin Ec 81 Mg Tab) 81 mg PO DAILY [facility] Last Admin: 01/07/21 10:16 Dose: 81 mg Documented by: Carvedilol (Carvedilol 12.5 Mg Tab) 12.5 mg PO BID [facility] Cholecalciferol (Vitamin D 5,000 Unit Cap) 5,000 unit PO DAILY [facility] Last Admin: 01/07/21 10:16 Dose: 5,000 unit Documented by: Clopidogrel Bisulfate (Clopidogrel 75 Mg Tablet) 75 mg PO DAILY [facility] Last Admin: 01/07/21 10:15 Dose: 75 mg Documented by: Dextrose (D50w 25 Gm/50 Ml Vial) 12.5 gm IV PRN PRN PRN Reason: HYPOGLYCEMIA Docusate Sodium (Docusate Na 100 Mg Cap) 100 mg PO BID [facility] Last Admin: 01/07/21 10:16 Dose: 100 mg Documented by: Donepezil HCl (Donepezil Hcl 5 Mg Tab) 10 mg PO BEDTIME [facility] Last Admin: 01/06/21 20:25 Dose: 10 mg Documented by: Enoxaparin Sodium (Enoxaparin 30 Mg/0.3 Ml) 30 mg SQ DAILY 5 PM [facility] Last Admin: 01/07/21 16:18 Dose: 30 mg Documented by: Glucagon (Glucagon 1 Mg/Vial) 1 mg IM 1X PRN PRN Reason: HYPOGLYCEMIA Home Med (Budesonide/Formoterol Fumarate [Symbicort 160-4.5 Mcg Inhaler]) 2 puff IH DAILY [facility] Hydralazine HCl (Hydralazine Hcl 20 Mg/Ml Vial) 5 mg IV Q6HP PRN PRN Reason: FOR SBP>160 OR DBP>100 [facility] Last Admin: 01/07/21 16:10 Dose: 5 mg Documented by: Metronidazole/Sodium Chloride (Flagyl 500mg/100 Ml Iv Premix) 500 mg in 100 mls @ 200 mls/hr IV Q8HR [facility]; Protocol Last Admin: 01/07/21 16:08 Dose: 100 mls Documented by: Dextrose/Water (Dextrose In Water (1-Liter)) 1,000 mls @ 100 mls/hr IV .Q10H [facility] Last Admin: 01/07/21 07:39 Dose: 1,000 mls Documented by: Ceftriaxone Sodium/Sodium Chloride (Rocephin 1 Gm/10 Ml Swi Ivp) 1 gm in 10 mls @ 600 mls/hr IVP DAILY [facility]; Protocol Last Admin: 01/07/21 16:09 Dose: 10 mls Documented by: Insulin Human Regular (Insulin -Regular Human 50 Unit/0.5 Ml Ml) 0 unit SQ ACHS [facility]; Protocol Last Admin: 01/07/21 16:18 Dose: Not Given Documented by: Metoprolol Tartrate (Metoprolol Tar 25 Mg Tab) 25 mg PO BID [facility] Last Admin: 01/07/21 10:16 Dose: 25 mg Documented by: Morphine Sulfate (Morphine 2 Mg/Ml Syr) 2 mg IV Q4H PRN PRN Reason: Pain scale 5-7 (Moderate) Last Admin: 01/07/21 17:02 Dose: 2 mg Documented by: Potassium Bicarbonate (Potassium 25 Meq Efferv Tab) 25 meq FT 1X ONE Stop: 01/07/21 18:23 Sodium Chloride (Flush Normal Saline 10 Ml) 10 ml IV BID [facility] Last Admin: 01/07/21 09:00 Dose: 10 ml Documented by: Spironolactone (Spironolactone 25 Mg Tablet) 25 mg PO DAILY [facility] Last Admin: 01/07/21 10:16 Dose: 25 mg Documented by: Sterile Water (Water For Inj,Sterile 10 Ml) 1.2 ml IM UD PRN PRN Reason: DILUTION OF MED Tamsulosin HCl (Tamsulosin 0.4 Mg Sr Cap) 0.4 mg PO BEDTIME [facility] Last Admin: 01/06/21 20:34 Dose: 0.4 mg Documented by: Ziprasidone (Ziprasidone Mesyla 20 Mg/Vial) 10 mg IM Q6H PRN PRN Reason: AGITATION Last Admin: 01/07/21 17:40 Dose: 10 mg Documented by: Assessment/ Plan: Nephrology No acute cardiac or pulmonary complaints. No CP or SOB. Limited IH/ ROS due to dementia. No acute events overnight. Vitals, medications, blood work and imaging reviewed in the chart. Physical Examination General: In no apparent distress, Cooperative HEENT: Atraumatic Neck: Supple Respiratory: Clear to auscultation bilaterally Cardiovascular: Regular rate/rhythm, Edema Gastrointestinal: Soft and benign, Non-distended Musculoskeletal: No clubbing, No contractures Integumentary: No rashes, No cyanosis Neurological: Abnormal speech Laboratory Data (last 24 hrs) 01/04/21 13:18: Total Bilirubin 0.5, AST 20, ALT 13, Alkaline Phosphatase 85 01/04/21 13:18: PT 11.1, INR 0.97, APTT 32.0 01/04/21 13:18: Sodium 141, Potassium 4.5, BUN 34 H, Creatinine 2.58 H, Glucose 103 01/04/21 13:18: WBC 6.00, Hgb 12.0 L, Hct 36.2 L, Plt Count 182 Imagings Data: EXAM DESCRIPTION: RAD - Chest Single View - 01/04/2021 1:54 pm CLINICAL HISTORY: fall, tachypnea Chest pain. COMPARISON: Chest Single View dated 01/10/2019 FINDINGS: Portable technique limits examination quality. COPD is present. Ill-defined opacity is noted in the right apex, poorly visualized. Mild linear opacities also present in left lung base probably atelectasis. The heart is mildly enlarged in size. Conclusions/Impression: A/P: Continue the current POC and Medications other than the changes listed. AM Labs PRN. Recommend daily weight. Please see the orders for complete details. CKD IV -No NSAIDs -Continue D5W -Check a Renal US and Urine studies Hypernatremia -Continue D5W -Agree with spironolactone Hypokalemia -Replete potassium HTN with CKD -Discontinue Metoprolol and start Coreg Anemia in chronic illness -Monitor H&H BPH with LUTS -Continue tamsulosin -Check Bladder US to evaluate for obstruction Alz Dementia Right IT Fracture -Follow up with ortho -Continue Vitamin D3
[2021-01-07] MEDS ORDERED: carvediloL 12.5 MG TAB PO SCH (21:00)
[2021-01-07] MEDS: DONEPEZIL HCL 5 MG TAB PO SCH (21:57)
[2021-01-07] MEDS: carvediloL 12.5 MG TAB PO SCH (21:57)
[2021-01-07] MEDS: TAMSULOSIN 0.4 MG SR CAP PO SCH (21:59)
[2021-01-08] MEDS: METRONIDAZOLE 500mg IVPB 500 MG/100 ML BAG IV SCH ×3 (00:10→16:40)
[2021-01-08] MEDS: D5W 1,000 ML IV SCH (05:13)
[2021-01-08 05:56] LABS: Absolute Lymphocytes (CBC) 0.6 K/uL (0.7-4.9); Basophils % 0.4 % (0-1.3); Hematocrit 37.5 % (39.6-49.0); Lymphocytes % 6.8 % (15.3-44.8); MPV 9.2 fL (7.6-11.3); RBC Red Blood Cell Count 4.18 M/uL (4.33-5.43)
[2021-01-08 06:23] LABS: Magnesium 2.1 mg/dL (1.8-2.4); Potassium 3.6 mmol/L (3.5-5.1); Uric Acid 6.3 mg/dL (3.5-7.2)
[2021-01-08 06:26] LABS: Urine Appearance CLEAR; Urine Bilirubin NEGATIVE (NEG); Urine Blood 1+ (NEG); Urine Color YELLOW; Urine Glucose NEGATIVE (NEG); Urine Protein 2+ (NEG); Urine Urobilinogen 0.2 mg/dL (0.2-1.0)
--- NOTE | 2021-01-08 07:06 | RAD REPORT ---
EXAM DESCRIPTION: US - Renal Ultrasound-Complete - 01/07/2021 10:11 pm CLINICAL HISTORY: MALLORY/ CKD. BPH/ LUTS. COMPARISON: Renal ultrasound May 2020 FINDINGS: Bilateral cortical thinning and increased cortical echogenicity noted matching prior imagi ng. Right kidney is approximately 9 x 4 x 3 cm. Left kidney is approximately 10 x 6 x 4 cm. Similar s ize asymmetry noted on prior imaging. Size measurements are approximation. Visualization of the kidne ys was limited. Bilateral renal cyst pattern is present with no suspicious characteristics. Cyst pattern is not clear ly different from May 2020. No hydronephrosis or solid mass identifiable in either kidney. Bladder is evaluated separately requested study. IMPRESSION: Bilateral medical renal disease and bilateral renal cyst pattern similar to May 2020. No hydronephrosis or solid mass lesion identifiable in either kidney.
--- NOTE | 2021-01-08 07:07 | RAD REPORT ---
EXAM DESCRIPTION: US - Urinary Bladder - 01/07/2021 10:11 pm CLINICAL HISTORY: MALLORY/ CKD. BPH/ LUTS. Check PVR. COMPARISON: Renal ultrasound same date FINDINGS: Urinary bladder is fully contracted around a Story catheter. This substantially limits the ability to detect bladder stones or small masses of the bladder wall. IMPRESSION: Urinary bladder fully contracted around a Story catheter.
[2021-01-08] MEDS: INSULIN -REGULAR HUMAN 50 UNIT/0.5 ML ML SQ SCH ×4 (07:30→21:00)
[2021-01-08 07:58] LABS: Urine Bacteria <20 /HPF (NONE SEEN)
[2021-01-08] MEDS ORDERED: D5W 1,000 ML IV SCH (08:07)
[2021-01-08] MEDS: MORPHINE 2 MG/ML SYR IV PRN (08:16)
[2021-01-08] MEDS: SPIRONOLACTONE 25 MG TABLET PO SCH (08:17)
[2021-01-08] MEDS: CLOPIDOGREL 75 MG TABLET PO SCH (08:17)
[2021-01-08] MEDS: AMLODIPINE 10 MG TAB PO SCH (08:18)
[2021-01-08] MEDS: VITAMIN D 5,000 UNIT CAP PO SCH (08:18)
[2021-01-08] MEDS: carvediloL 12.5 MG TAB PO SCH ×2 (08:18→22:01)
[2021-01-08] MEDS: DOCUSATE NA 100 MG CAP PO SCH ×2 (08:18→22:02)
[2021-01-08] MEDS: ASPIRIN EC 81 MG TAB PO SCH (08:18)
[2021-01-08] MEDS: CEFTRIAXONE/SWI 1gm 1 GM/10 ML SYR IVP SCH (08:19)
[2021-01-08] MEDS ORDERED: POTASSIUM PHOS IN 0.9 % NACL 15 MMOL/250 ML BAG IV ONE (09:00)
--- NOTE | 2021-01-08 11:24 | P.PN ---
Subjective Date of Service: 01/08/21 Primary Care Provider: Dr. Leone Chief Complaint: Fall, trochanteric fracture Subjective: No new changes (pt with some restlessness, yesterday attempting to get out of bed. does not remember he had a fracture/surgery or a stroke. diffic ult to obtain ROS from patient, he will change subject or talk about somethin different. Daughter believes patient is "seeing people not there" and talking to them) Review of Systems is unable to be obtained Physical Examination - Vital Signs Temperature: 98.4 F Blood Pressure: 127/93 Pulse: 84 Respirations: 19 Pulse Ox (%): 95 Assessment & Plan Physician Review Additional Text: Physical Exam Gen: NAD, Neuro: sitting up in bed, alert, oriented to self, noncompliant, easily startled, not willing to follow my finger with his eyes, nor count how many i have up, denies other parts of exam as well moves b/l lower extremities, L>R, appears able to move b/l upper extremities without significant issue. mumbles at times, some of his speech / matter of his speech is not sensible at times HEENT: PERRL, sclera anicteric, normal conjuctiva CV: RRR, trace edema Pulm: diminished at bases, otherwise clear Abd: soft, NTND Ext: R dressing in place - c/d/i, mild tenderness Problem list: Right intertrochanteric fracture s/p repair (01/05) Acute, Post-op delirium Alzheimer dementia CKD4 Febrile, ?cystitis Reported a history of heart failure, unknown type Hypertension Bipolar/depression -Dr. 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 Jorgensen - recommended aspirin, plavix, in addition to VTE dose lovenox - started 01/06 -CKD4 - nephrology consulted, on IVF -febrile on 01/05, UA suggestive of UTI, however urine culture had no growth, daughter reported recent urinary incontinence last week which was new to her knowledge -continue rocephin / flagyl (to cover anaerobes) for possible aspiration pneumonia - CXR not consistent (patient failed initial swallow screen, questionable R apical opacity) -repeat CXR today -f/u blood cultures - no growth so far -restarted home antihypertensives on 01/06 VTE: lovenox Code: DNR per daughter Dispo: working on dc to SNF rehab. given severity of dementia, stroke, and postop deliium, anticipate hospitalization ~2 more days pt lived alone in 1 bedroom apartment at [facility] with minimal to no assistance per daughter Time Spent Managing Pts Care (In Minutes): 35
--- NOTE | 2021-01-08 11:43 | DS ---
Hospital Course: The patient is seen today. He has a family with him. His dressing is clean, dry, and intact. He is moving into bed somewhat. He does not appear to be in significant ongoing pain; h owever, he definitely still has some degree of dementia and inability to communicate. He has Story i n place. Assessment: At this time, if discharged usually we continue with anticoagulation for 3 weeks, then t ransition to aspirin for 3 weeks. J Carlos to be removed on day 10-14. Touchdown weightbearing if po ssible. However, he cannot achieve touchdown weightbearing because of mental status, then mobility i s encouraged, however, walking distances is discouraged if he is unable to protect it. However, defi nitely transfers and [id number] are beneficial for the patient. Change dressing only as needed and he can follow up with me when desired. Would not advance his weightbearing status until 6 weeks aft er surgery. If he is placed at the facility, which is probably likely, if he is to follow up with me , would need x-rays taken at the facility, brought with him. He would like the catheter removed as s oon as possible but this is left to the hospitalist as he does have some degree of renal dysfunction and definitely may be tracking that quite closely. /IVETTL Voice ID: [id number] Report ID: [id number]
--- NOTE | 2021-01-08 12:06 | RAD REPORT ---
EXAM DESCRIPTION: RAD - Chest Single View - 01/08/2021 11:18 am CLINICAL HISTORY: cough, opacity seen on prior COMPARISON: Portable January 05, 2021, January 04, 2021 TECHNIQUE: AP portable chest image was obtained 01/08/2021 11:18 am . FINDINGS: Right apex parenchymal stranding is still present favored to be scarring and first rib sum mation. Left lung base is better aerated. Left base interstitial pattern matches the mid and lower as pects of each lung field. Heart and vasculature are normal. No measurable pleural effusion and no pne umothorax. No acute bony abnormality seen. No acute aortic findings suspected. IMPRESSION: Further clearing of left base opacification. No progressive left lung field finding. Stranding in the right apex is probably a combination of scarring and overlying first rib. No new or progressive process.
--- NOTE | 2021-01-08 14:04 | CON ---
Date of Consultation: 01/05/2021 Reason For Consultation: Cardiac clearance for right hip surgery. History Of Present Illness: Mr. Pascual is a 80-year-old white male, who is a do not resuscitate, has a history of hypertension, dementia, chronic renal disease, and CVA. Daughter had mentioned that he may have a history of congestive heart failure as well. Echocardiogram, however, that was done revea led normal ejection fraction, no wall motion abnormalities, no evidence of any congestive heart failu re. The patient denied any cardiac symptoms. He denied any chest pain, nausea, vomiting, diaphoresi s, PND, orthopnea, pedal edema, palpitations, or syncope. Past Medical History: As stated above. Allergies: NONE. Review of Systems: Negative. Social History: Negative. Family History: Noncontributory. Medications: At home include Norvasc, aspirin, Lasix, Aldactone, and benazepril. Physical Examination: Vital Signs: Stable, afebrile. HEENT: Negative. Neck: Supple with no bruit. Chest: Clear to auscultation and percussion. Cardiac: Revealed regular rhythm and rate. No murmurs, gallops, or rubs. Abdomen: Benign. Extremities: Revealed no clubbing, cyanosis, or edema. Diagnostic Data: Unremarkable. His creatinine is 2.68. His EKG is unremarkable. Chest x-ray was n egative. Echocardiogram and carotids were normal in 2019. Echocardiogram today is normal. Impression And Plan: Mr. Pascual is a patient, who has history of dementia, cerebrovascular accident, hypertension, chronic renal disease, who has a normal echocardiogram. From a cardiac standpoint, he should be clear to undergo a hip surgery. aspirin, Norvasc, Lasix, Aldactone, and benazep ril. His renal function needs to be followed carefully. I would definitely hold his Lasix unless it is absolutely indicated, maybe even hold the Aldactone temporarily and see how his kidney function d oes. Nephrology consultation may be reasonable. We will continue to follow him along. TRAY/LASHANDA Voice ID: [id number] Report ID: [id number]
[2021-01-08] MEDS: FOLIC ACID 1 MG TABLET PO SCH (16:36)
[2021-01-08] MEDS: ENOXAPARIN 30 MG/0.3 ML SQ SCH (17:00)
--- NOTE | 2021-01-08 20:46 | CON ---
Reason For Consultation: Consultation called because of the stroke. History Of Present Illness: Mr. Pascual is a 80-year-old right-handed patient, who fell on M arch 2020 with injury to his right hip and it was determined that he had a fracture after he was n ot able to bear weight. He was seen by Dr. Barr of the Orthopedic service and had a right intra medullary juwan placed addressing the fracture. However, the patient did have more than expected right -sided weakness following surgery and a brain MRI done on the 06 of January identified an 8 mm acute i nfarct in the left internal capsule. There was also an old infarct in the left internal capsule and moderate small-vessel ischemic disease noted and this is throughout. Given the patient's more advanc ed dementia, it was difficult to determine how much of his weakness was related to the fracture and h is postop state along with his stroke. He has had some actual episodes of delirium with disorientati on, confusion, and inability to clearly follow instructions and even track objects. He has remained afebrile throughout and has had a normal white count throughout his hospitalization with stable hemog lobin around 12.3. Kidney function is chronically elevated with creatinine around 2.5. Earlier toda y, blood sugars ranged 110s to low 130s. Procalcitonin was slightly elevated today at 0.21 with no o ther significant evidence of infection. His chest x-ray showed further clearing of a left base opaci ty and there was stranding noted in the right apex, probably due to scarring and overlying first rib. The patient was evaluated by physical therapy; however, he was maximum assistance with sit to stand , maximum assistance with the inability to maintain static standing for more than 20 seconds, unstead y on his feet, and had significant difficulty following instructions, very lethargic, and was appeari ng confused and not able to follow visually. Past Medical History: Hypertension, dyslipidemia in addition to advanced Alzheimer's disease. Allergies: NO KNOWN DRUG ALLERGIES. Medications: At home, amlodipine 2.5 mg daily, donepezil 10 mg daily, folic acid 1 mg daily, potassi um 10 mEq daily, Kenalog cream apply topically twice daily, Lipitor 80 mg at bedtime, thiamine 100 mg daily, Coreg 12.5 mg twice daily. Past Surgical History: Right hip intertrochanteric fracture repair. Family History: Noncontributory. Social History: He has smoked in the past. No recent alcohol, tobacco, or IV drug use. Review of Systems: Unable to give a reliable review of systems. Physical Examination: Vital Signs: Blood pressure 143/86, pulse 79, respiratory rate 16, temperature 98.6, oxygen saturati on 94%. Weight 165 pounds, height 5 feet 11 inches, BMI 23. General: Mr. Pascual is resting in bed. He appears to be in no significant distress. HEENT: He is normocephalic and atraumatic. His sclerae are anicteric. He does have poor dentition, however, and his oropharynx does appear to be pink and moist. Neck: Supple. Chest: Clear. Abdomen: Soft. Extremities: Some trace to moderate edema in the right lower extremity compared to the left. Neurological: He has difficulty following instructions and actually did not get him to follow instru ctions. When he was asked to count fingers and I held up 1 finger, he counted his own fingers 1 thro ugh 5. He did track my face visually, but did not track fingers. He did move both upper extremities equally well. He did move the lower extremities, but less so on the right compared to the left side . His reflexes were depressed in the extremities. Coordination in the upper extremities was smooth and he requires maximal assistance to stand and transfer and highly unstable with his balance. Assessment: Mr. 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 He is not able to withstand a cute inpatient rehabilitation. Plan: He may benefit from his prolonged stay at a assisted to allow him to recover both his s trength and from the standpoint of his fracture. While he also should be on DVT prophylaxis in addit ion to stroke risk reduction, medication for his dyslipidemia should be continued, hypertension shoul d be managed aggressively, and his nutrition should be addressed as well as his slight anemia. The p atient again may be discharged to a long-term facility for his recovery. LB/MODL Voice ID: [id number] Report ID: [id number]
[2021-01-08] MEDS: DONEPEZIL HCL 5 MG TAB PO SCH (22:00)
[2021-01-08] MEDS: TAMSULOSIN 0.4 MG SR CAP PO SCH (22:01)
--- NOTE | 2021-01-08 22:17 | P.PN ---
Date of Service: 01/08/21 Vital Signs Temp Pulse Resp BP Pulse Ox 97.5 F 78 18 149/80 H 96 01/08/21 20:00 01/08/21 20:00 01/08/21 20:00 01/08/21 20:00 01/08/21 20:00 Medications Acetaminophen (Acetaminophen 650mg/Rect Supp) 650 mg [place] Q6H PRN PRN Reason: TEMP > 101' F Last Admin: 01/06/21 23:07 Dose: 650 mg Documented by: Albuterol Sulfate (Albuterol 2.5 Mg/3 Ml Neb Nancy) 2.5 mg NEB Q4H PRN PRN Reason: SHORTNESS OF BREATH Amlodipine Besylate (Amlodipine 10 Mg Tab) 10 mg PO DAILY [facility] Last Admin: 01/08/21 08:18 Dose: 10 mg Documented by: Aspirin (Aspirin Ec 81 Mg Tab) 81 mg PO DAILY [facility] Last Admin: 01/08/21 08:18 Dose: 81 mg Documented by: Carvedilol (Carvedilol 12.5 Mg Tab) 25 mg PO BID [facility] Last Admin: 01/08/21 22:01 Dose: 25 mg Documented by: Cholecalciferol (Vitamin D 5,000 Unit Cap) 5,000 unit PO DAILY [facility] Last Admin: 01/08/21 08:18 Dose: 5,000 unit Documented by: Clopidogrel Bisulfate (Clopidogrel 75 Mg Tablet) 75 mg PO DAILY [facility] Last Admin: 01/08/21 08:17 Dose: 75 mg Documented by: Dextrose (D50w 25 Gm/50 Ml Vial) 12.5 gm IV PRN PRN PRN Reason: HYPOGLYCEMIA Docusate Sodium (Docusate Na 100 Mg Cap) 100 mg PO BID [facility] Last Admin: 01/08/21 22:02 Dose: 100 mg Documented by: Donepezil HCl (Donepezil Hcl 5 Mg Tab) 10 mg PO BEDTIME [facility] Last Admin: 01/08/21 22:00 Dose: 10 mg Documented by: Enoxaparin Sodium (Enoxaparin 30 Mg/0.3 Ml) 30 mg SQ DAILY 5 PM [facility] Last Admin: 01/08/21 17:00 Dose: 30 mg Documented by: Folic Acid (Folic Acid 1 Mg Tablet) 1 mg PO DAILY [facility] Last Admin: 01/08/21 16:36 Dose: 1 mg Documented by: Glucagon (Glucagon 1 Mg/Vial) 1 mg IM 1X PRN PRN Reason: HYPOGLYCEMIA Home Med (Budesonide/Formoterol Fumarate [Symbicort 160-4.5 Mcg Inhaler]) 2 puff IH DAILY [facility] Last Admin: 01/08/21 09:00 Dose: Not Given Documented by: Home Med (Fluticasone Furoate [Arnuity Ellipta]) 50 mcg IH DAILY [facility] Home Med (Clobetasol/Niacinamide [Clobetasol 0.05%-Niacinamid 4%]) 1 appl TOP DAILY [facility] Hydralazine HCl (Hydralazine Hcl 20 Mg/Ml Vial) 5 mg IV Q6HP PRN PRN Reason: FOR SBP>160 OR DBP>100 MMHG Last Admin: 01/07/21 16:10 Dose: 5 mg Documented by: Metronidazole/Sodium Chloride (Flagyl 500mg/100 Ml Iv Premix) 500 mg in 100 mls @ 200 mls/hr IV Q8HR [facility]; Protocol Last Admin: 01/08/21 16:40 Dose: 100 mls Documented by: Dextrose/Water (Dextrose In Water (1-Liter)) 1,000 mls @ 125 mls/hr IV .Q8H [facility] Ceftriaxone Sodium/Sodium Chloride (Rocephin 1 Gm/10 Ml Swi Ivp) 1 gm in 10 mls @ 600 mls/hr IVP DAILY [facility]; Protocol Insulin Human Regular (Insulin -Regular Human 50 Unit/0.5 Ml Ml) 0 unit SQ ACHS [facility]; Protocol Last Admin: 01/08/21 21:00 Dose: Not Given Documented by: Sodium Chloride (Flush Normal Saline 10 Ml) 10 ml IV BID [facility] Last Admin: 01/08/21 21:00 Dose: 10 ml Documented by: Spironolactone (Spironolactone 25 Mg Tablet) 25 mg PO DAILY [facility] Last Admin: 01/08/21 08:17 Dose: 25 mg Documented by: Sterile Water (Water For Inj,Sterile 10 Ml) 1.2 ml IM UD PRN PRN Reason: DILUTION OF MED Tamsulosin HCl (Tamsulosin 0.4 Mg Sr Cap) 0.4 mg PO BEDTIME [facility] Last Admin: 01/08/21 22:01 Dose: 0.4 mg Documented by: Tramadol HCl (Tramadol Hcl 50 Mg Tab) 50 mg PO Q6H PRN PRN Reason: Pain scale 5-7 (Moderate) Ziprasidone (Ziprasidone Mesyla 20 Mg/Vial) 10 mg IM Q6H PRN PRN Reason: AGITATION Last Admin: 01/07/21 17:40 Dose: 10 mg Documented by: Assessment/ Plan: Nephrology No acute cardiac or pulmonary complaints. No CP or SOB. Limited IH/ ROS due to dementia. No acute events overnight. Vitals, medications, blood work and imaging reviewed in the chart. Physical Examination General: In no apparent distress, Cooperative HEENT: Atraumatic Neck: Supple Respiratory: Clear to auscultation bilaterally Cardiovascular: Regular rate/rhythm, Edema Gastrointestinal: Soft and benign, Non-distended Musculoskeletal: No clubbing, No contractures Integumentary: No rashes, No cyanosis Neurological: Abnormal speech Laboratory Data (last 24 hrs) 01/04/21 13:18: Total Bilirubin 0.5, AST 20, ALT 13, Alkaline Phosphatase 85 01/04/21 13:18: PT 11.1, INR 0.97, APTT 32.0 01/04/21 13:18: Sodium 141, Potassium 4.5, BUN 34 H, Creatinine 2.58 H, Glucose 103 01/04/21 13:18: WBC 6.00, Hgb 12.0 L, Hct 36.2 L, Plt Count 182 Imagings Data: EXAM DESCRIPTION: RAD - Chest Single View - 01/04/2021 1:54 pm CLINICAL HISTORY: fall, tachypnea Chest pain. COMPARISON: Chest Single View dated 01/10/2019 FINDINGS: Portable technique limits examination quality. COPD is present. Ill-defined opacity is noted in the right apex, poorly visualized. Mild linear opacities also present in left lung base probably atelectasis. The heart is mildly enlarged in size. Conclusions/Impression: A/P: Continue the current POC and Medications other than the changes listed. AM Labs PRN. Recommend daily weight. Please see the orders for complete details. CKD IV -No NSAIDs -Increase D5W -Renal and Bladder US reviewed. Hypernatremia -Continue D5W -Continue spironolactone Hypokalemia -Replete potassium HypoPO4 -Encourage nutrition HTN with CKD -Continue Coreg Anemia in chronic illness -Monitor H&H BPH with LUTS -Continue tamsulosin Alz Dementia Right IT Fracture -Follow up with ortho -Continue Vitamin D3
[2021-01-09] MEDS: METRONIDAZOLE 500mg IVPB 500 MG/100 ML BAG IV SCH ×2 (00:03→09:56)
[2021-01-09] MEDS: ZIPRASIDONE MESYLA 20 MG/VIAL IM PRN (01:48)
[2021-01-09 05:56] LABS: Urine Protein/Creatinine Ratio 1.96 ratio (<0.15)
[2021-01-09 06:04] LABS: Magnesium 1.8 mg/dL (1.8-2.4); Phosphorus 2.7 mg/dL (2.5-4.9); Potassium 3.4 mmol/L (3.5-5.1)
[2021-01-09] MEDS: INSULIN -REGULAR HUMAN 50 UNIT/0.5 ML ML SQ SCH ×4 (07:30→21:00)
[2021-01-09] MEDS ORDERED: MAGNESIUM SULFATE 1 gm IVPB 1 GM/100 ML BAG IV ONE (07:48)
[2021-01-09] MEDS: AMLODIPINE 10 MG TAB PO SCH (08:27)
[2021-01-09] MEDS: FOLIC ACID 1 MG TABLET PO SCH (08:28)
[2021-01-09] MEDS: VITAMIN D 5,000 UNIT CAP PO SCH (08:28)
[2021-01-09] MEDS: CLOPIDOGREL 75 MG TABLET PO SCH (08:28)
[2021-01-09] MEDS: SPIRONOLACTONE 25 MG TABLET PO SCH (08:28)
[2021-01-09] MEDS: carvediloL 12.5 MG TAB PO SCH ×2 (08:28→20:18)
[2021-01-09] MEDS: ASPIRIN EC 81 MG TAB PO SCH (08:28)
[2021-01-09] MEDS: DOCUSATE NA 100 MG CAP PO SCH ×2 (08:29→20:18)
[2021-01-09] MEDS: FLUTICASONE FUROATE 50 MCG IH SCH (08:29)
[2021-01-09] MEDS: NIACINAMIDE TOP SCH (08:29)
[2021-01-09] MEDS: CLOBETASOL TOP SCH (08:29)
[2021-01-09] MEDS ORDERED: CEFTRIAXONE/SWI 1gm 1 GM/10 ML SYR IVP SCH (09:00)
[2021-01-09] MEDS ORDERED: POTASSIUM 25 MEQ EFFERV TAB PO ONE ×2 (09:00→18:27)
[2021-01-09] MEDS: TRAMADOL HCL 50 MG TAB PO PRN ×2 (09:56→17:17)
--- NOTE | 2021-01-09 11:00 | P.PN ---
Subjective Date of Service: 01/10/21 Primary Care Provider: Dr. Leone Chief Complaint: Fall, trochanteric fracture Subjective: Improving (more alert/oriented, not as confused today, making more sense, responding more appropriately today) Review of Systems 10-point ROS is otherwise unremarkable Physical Examination - Vital Signs Temperature: 97.6 F Blood Pressure: 157/82 Pulse: 73 Respirations: 20 Pulse Ox (%): 96 Assessment & Plan Physician Review Additional Text: Physical Exam Gen: NAD, AAO x1 Neuro: moves b/l lower extremities, L>R, appears able to move b/l upper extremities without significant issue. EOMI - tracks me across room, speaking more clearly today HEENT: sclera anicteric, normal conjuctiva CV: RRR, trace edema bilaterally Pulm: diminished at bases, otherwise clear Abd: soft, NTND Ext: R dressing in place - c/d/i, minimal tenderness Problem list: Right intertrochanteric fracture s/p repair (01/05) Acute, Post-op delirium Alzheimer dementia CKD4 Febrile, ?cystitis Reported a history of heart failure, unknown type Hypertension Bipolar/depression -Dr. 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 Jorgensen - recommended aspirin, plavix, in addition to VTE dose lovenox - started 01/06 -CKD4 - nephrology consulted, on IVF -Febrile on 01/05, UA suggestive of UTI, however urine culture had no growth, daughter reported recent urinary incontinence last week which was new to her knowledge. possible atelectasis -will discontinue antibiotics was on rocephin/flagyl for possible aspiration pneumonia - CXR not consistent (patient failed initial swallow screen, questionable R apical opacity) -f/u blood cultures - no growth so far -restarted home antihypertensives on 01/06 VTE: lovenox Code: DNR per daughter Dispo: dc to SNF rehab. likely dc in 1-2 days pt lived alone in 1 bedroom apartment at [facility] with minimal to no assistance per daughter Time Spent Managing Pts Care (In Minutes): 35
--- NOTE | 2021-01-09 11:38 | P.PN ---
Subjective Date of Service: 01/09/21 Primary Care Provider: Dr. Leone Chief Complaint: Fall, trochanteric fracture seen/examined. discussed with RN, Linn, and hospitalist, Dr. Peraza. sodium improved. patient is more alert but still confused. creatinine stablilizing. bp fluctuates but reasonable at 140s/low 150s systolic. no edema. skin dry. vs stable lungs cta cvs regular abd soft ext no edema Labs reviewed. a/p: ckd/maki/hypernatremia: improving. more alert. creatinine seems to be stable. continue d5w at 75 ccs /hour for 1 more litre. bmp in am. supportive care. seems to be comfortable with breathing. Physical Examination - Vital Signs Temperature: 97.6 F Blood Pressure: 157/82 Pulse: 73 Respirations: 20 Pulse Ox (%): 96 Assessment And Plan Physician Review Additional Text: Physical Exam Gen: NAD, AAO x1 Neuro: moves b/l lower extremities, L>R, appears able to move b/l upper extremities without significant issue. EOMI - tracks me across room, speaking more clearly today HEENT: sclera anicteric, normal conjuctiva CV: RRR, trace edema bilaterally Pulm: diminished at bases, otherwise clear Abd: soft, NTND Ext: R dressing in place - c/d/i, minimal tenderness Problem list: Right intertrochanteric fracture s/p repair (01/05) Acute, Post-op delirium Alzheimer dementia CKD4 Febrile, ?cystitis Reported a history of heart failure, unknown type Hypertension Bipolar/depression -Dr. 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 Jorgensen - recommended aspirin, plavix, in addition to VTE dose lovenox - started 01/06 -CKD4 - nephrology consulted, on IVF -Febrile on 01/05, UA suggestive of UTI, however urine culture had no growth, daughter reported recent urinary incontinence last week which was new to her knowledge. possible atelectasis -continue rocephin / flagyl (to cover anaerobes) for possible aspiration pneumonia - CXR not consistent (patient failed initial swallow screen, questionable R apical opacity) -repeat CXR today -f/u blood cultures - no growth so far -restarted home antihypertensives on 01/06 VTE: lovenox Code: DNR per daughter Dispo: working on dc to SNF rehab. given severity of dementia, stroke, and postop deliium, anticipate hospitalization ~2 more days pt lived alone in 1 bedroom apartment at [facility] with minimal to no assistance per daughter
[2021-01-09] MEDS: D5W 1,000 ML IV SCH (12:12)
[2021-01-09] MEDS: ENOXAPARIN 30 MG/0.3 ML SQ SCH (16:11)
[2021-01-09] MEDS: TAMSULOSIN 0.4 MG SR CAP PO SCH (20:18)
[2021-01-09] MEDS: DONEPEZIL HCL 5 MG TAB PO SCH (20:18)
[2021-01-10 06:30] LABS: Absolute Lymphocytes (CBC) 0.7 K/uL (0.7-4.9); Basophils % 0.3 % (0-1.3); Hematocrit 32.3 % (39.6-49.0); Lymphocytes % 9.1 % (15.3-44.8); MPV 9.1 fL (7.6-11.3); RBC Red Blood Cell Count 3.67 M/uL (4.33-5.43)
[2021-01-10 06:39] LABS: Magnesium 2.1 mg/dL (1.8-2.4); Potassium 3.9 mmol/L (3.5-5.1)
[2021-01-10] MEDS: INSULIN -REGULAR HUMAN 50 UNIT/0.5 ML ML SQ SCH ×4 (07:30→21:00)
[2021-01-10] MEDS: FLUTICASONE FUROATE 50 MCG IH SCH (09:00)
[2021-01-10] MEDS: NIACINAMIDE TOP SCH (09:00)
[2021-01-10] MEDS: CLOBETASOL TOP SCH (09:00)
--- NOTE | 2021-01-10 09:34 | P.PN ---
Subjective Date of Service: 01/10/21 Primary Care Provider: Dr. Leone Chief Complaint: Fall, trochanteric fracture Subjective: Improving (no acute events overnight. patient reports feeling ok, no pain, no SOB ,no chest pain. remains with confusion / dementia. alert, oriented x1. more calm/pleasant this morning) Review of Systems 10-point ROS is otherwise unremarkable Physical Examination - Vital Signs Temperature: 97.6 F Blood Pressure: 157/82 Pulse: 73 Respirations: 20 Pulse Ox (%): 96 Assessment & Plan Physician Review Additional Text: Physical Exam Gen: NAD, AAO x1 Neuro: moves b/l upper/lower extremities, wiggles b/l toes HEENT: sclera anicteric, normal conjuctiva CV: RRR, trace edema bilateral lower extremities Pulm: diminished at bases, otherwise clear Abd: soft, NTND Ext: R dressing in place - c/d/i, nontender. R foot warm, perfused Problem list: Right intertrochanteric fracture s/p repair (01/05) Acute encephalopathy secondary to Post-op delirium Alzheimer dementia CKD4 Reported a history of heart failure, unknown type, possibly diastolic Hypertension Bipolar/depression -Dr. 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 Jorgensen - recommended aspirin, plavix, in addition to VTE dose lovenox - started 01/06 -CKD4 - nephrology consulted, on IVF, improving slightly, caldera catheter for accurate I/Os, possible removal today/tomorrow. mild acidosis -Febrile on 01/05, Ur Cx negative, CXR: initially with questionable apical opacity, was covered with antibiotics, however pro calcitonin has remained low, afebrile. Antibiotics discontinued on 01/09 -restarted home antihypertensives on 01/06 VTE: lovenox Code: DNR per daughter Dispo: dc to SNF rehab. likely tomorrow, improving prior to admission pt lived alone in 1 bedroom apartment at [facility] with minimal to no assistance per daughter, baseline is AAOx1 sometimes x2 Time Spent Managing Pts Care (In Minutes): 35
[2021-01-10] MEDS: carvediloL 12.5 MG TAB PO SCH ×2 (11:15→22:23)
[2021-01-10] MEDS: FOLIC ACID 1 MG TABLET PO SCH (11:15)
[2021-01-10] MEDS: SPIRONOLACTONE 25 MG TABLET PO SCH (11:15)
[2021-01-10] MEDS: DOCUSATE NA 100 MG CAP PO SCH ×2 (11:15→21:00)
[2021-01-10] MEDS: ASPIRIN EC 81 MG TAB PO SCH (11:15)
[2021-01-10] MEDS: VITAMIN D 5,000 UNIT CAP PO SCH (11:15)
[2021-01-10] MEDS: CLOPIDOGREL 75 MG TABLET PO SCH (11:16)
[2021-01-10] MEDS: AMLODIPINE 10 MG TAB PO SCH (11:16)
[2021-01-10] MEDS: D5W 1,000 ML IV SCH ×2 (11:19→14:52)
[2021-01-10] MEDS ORDERED: POTASSIUM CL SA 10 MEQ TAB PO ONE (14:00)
[2021-01-10] MEDS: ENOXAPARIN 30 MG/0.3 ML SQ SCH (17:13)
[2021-01-10] MEDS: DONEPEZIL HCL 5 MG TAB PO SCH (22:23)
[2021-01-10] MEDS: TAMSULOSIN 0.4 MG SR CAP PO SCH (22:24)
[2021-01-11 05:43] LABS: Magnesium 2.3 mg/dL (1.8-2.4); Phosphorus 3.1 mg/dL (2.5-4.9); Potassium 4.2 mmol/L (3.5-5.1)
[2021-01-11] MEDS: INSULIN -REGULAR HUMAN 50 UNIT/0.5 ML ML SQ SCH ×4 (07:30→21:00)
[2021-01-11] MEDS: CLOBETASOL TOP SCH (09:00)
[2021-01-11] MEDS: FLUTICASONE FUROATE 50 MCG IH SCH (09:00)
[2021-01-11] MEDS: NIACINAMIDE TOP SCH (09:00)
[2021-01-11] MEDS: AMLODIPINE 10 MG TAB PO SCH (11:16)
[2021-01-11] MEDS: TRAMADOL HCL 50 MG TAB PO PRN (11:16)
[2021-01-11] MEDS: carvediloL 12.5 MG TAB PO SCH ×2 (11:17→21:42)
[2021-01-11] MEDS: ASPIRIN EC 81 MG TAB PO SCH (11:17)
[2021-01-11] MEDS: CLOPIDOGREL 75 MG TABLET PO SCH (11:17)
[2021-01-11] MEDS: DOCUSATE NA 100 MG CAP PO SCH ×2 (11:17→21:42)
[2021-01-11] MEDS: VITAMIN D 5,000 UNIT CAP PO SCH (11:17)
[2021-01-11] MEDS: FOLIC ACID 1 MG TABLET PO SCH (11:17)
[2021-01-11] MEDS: SPIRONOLACTONE 25 MG TABLET PO SCH (11:17)
--- NOTE | 2021-01-11 12:28 | PN ---
Date of Progress Note: 01/06/2021 Subjective: Mr. Pascual is a 80-year-old male. Has had a history of dementia, chronic renal disease, CVA, and hypertension. He is a do not resuscitate. I cleared him for hip surgery by Dr. Barr. He underwent a right intertrochanteric closed reduction with intramedullary juwan fixation on 01/07/20 21. Postoperatively, he does not have any arrhythmia. No signs of congestive heart failure. No kita st pain. Physical Examination: Vital Signs: Stable. He is afebrile. Chest: Clear. He remains in sinus rhythm. Abdomen: Benign. Extremities: Revealed no clubbing, cyanosis, or edema. Assessment And Plan: He is presently on Norvasc, aspirin, Coreg, and Plavix. I will continue his pr esent regimen. No further input from my standpoint. I will see him as needed. TRAY/LASHANDA Voice ID: [id number] Report ID: [id number]
--- NOTE | 2021-01-11 16:25 | P.PN ---
Subjective Date of Service: 01/11/21 Primary Care Provider: Dr. Leone Chief Complaint: Fall, trochanteric fracture Subjective: No new changes (doing well, alert/oriented x1-2, pleasant, appetite improved, voiding without issue) Review of Systems 10-point ROS is otherwise unremarkable Physical Examination - Vital Signs Temperature: 98.4 F Blood Pressure: 118/84 Pulse: 91 Respirations: 20 Pulse Ox (%): 99 Assessment & Plan Physician Review Additional Text: Physical Exam Gen: NAD, AAO x1 Neuro: moves b/l upper/lower extremities, wiggles b/l toes HEENT: sclera anicteric, normal conjuctiva CV: RRR, trace edema bilateral lower extremities Pulm: clear to auscultation bilaterally Abd: soft, NTND Ext: R dressing in place - c/d/i, nontender. R foot warm, perfused Problem list: Right intertrochanteric fracture s/p repair (01/05) Acute encephalopathy secondary to Post-op delirium Alzheimer dementia CKD4 Reported a history of heart failure, unknown type, possibly diastolic Hypertension Bipolar/depression -Dr. 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 Jorgensen - recommended aspirin, plavix, in addition to VTE dose lovenox - started 01/06 -CKD4 - nephrology consulted, improved with IVF, dc'd 01/10, Cr stable, voiding without issue -Febrile on 01/05, Ur Cx negative, CXR: initially with questionable apical opacity, was covered with antibiotics, however pro calcitonin has remained low, afebrile. Antibiotics discontinued on 01/09 -restarted home antihypertensives on 01/06 VTE: lovenox Code: DNR per daughter Dispo: dc to SNF rehab. pending insurance approval prior to admission pt lived alone in 1 bedroom apartment at [facility] with minimal to no assistance per daughter, baseline is AAOx1 sometimes x2 Time Spent Managing Pts Care (In Minutes): 35
[2021-01-11] MEDS: ENOXAPARIN 30 MG/0.3 ML SQ SCH (17:03)
--- NOTE | 2021-01-11 21:19 | P.PN ---
Date of Service: 01/11/21 Vital Signs Temp Pulse Resp BP Pulse Ox 98.4 F 91 H 20 118/84 99 01/11/21 16:24 01/11/21 16:24 01/11/21 16:24 01/11/21 16:24 01/11/21 16:24 Medications Acetaminophen (Acetaminophen 650mg/Rect Supp) 650 mg [place] Q6H PRN PRN Reason: TEMP > 101' F Last Admin: 01/06/21 23:07 Dose: 650 mg Documented by: Albuterol Sulfate (Albuterol 2.5 Mg/3 Ml Neb Nancy) 2.5 mg NEB Q4H PRN PRN Reason: SHORTNESS OF BREATH Amlodipine Besylate (Amlodipine 10 Mg Tab) 10 mg PO DAILY [facility] Last Admin: 01/11/21 11:16 Dose: 10 mg Documented by: Aspirin (Aspirin Ec 81 Mg Tab) 81 mg PO DAILY [facility] Last Admin: 01/11/21 11:17 Dose: 81 mg Documented by: Carvedilol (Carvedilol 12.5 Mg Tab) 25 mg PO BID [facility] Last Admin: 01/11/21 11:17 Dose: 25 mg Documented by: Cholecalciferol (Vitamin D 5,000 Unit Cap) 5,000 unit PO DAILY [facility] Last Admin: 01/11/21 11:17 Dose: 5,000 unit Documented by: Clopidogrel Bisulfate (Clopidogrel 75 Mg Tablet) 75 mg PO DAILY [facility] Last Admin: 01/11/21 11:17 Dose: 75 mg Documented by: Dextrose (D50w 25 Gm/50 Ml Vial) 12.5 gm IV PRN PRN PRN Reason: HYPOGLYCEMIA Docusate Sodium (Docusate Na 100 Mg Cap) 100 mg PO BID [facility] Last Admin: 01/11/21 11:17 Dose: 100 mg Documented by: Donepezil HCl (Donepezil Hcl 5 Mg Tab) 10 mg PO BEDTIME [facility] Last Admin: 01/10/21 22:23 Dose: 10 mg Documented by: Enoxaparin Sodium (Enoxaparin 30 Mg/0.3 Ml) 30 mg SQ DAILY 5 PM [facility] Last Admin: 01/11/21 17:03 Dose: 30 mg Documented by: Folic Acid (Folic Acid 1 Mg Tablet) 1 mg PO DAILY [facility] Last Admin: 01/11/21 11:17 Dose: 1 mg Documented by: Glucagon (Glucagon 1 Mg/Vial) 1 mg IM 1X PRN PRN Reason: HYPOGLYCEMIA Home Med (Budesonide/Formoterol Fumarate [Symbicort 160-4.5 Mcg Inhaler]) 2 puff IH DAILY [facility] Last Admin: 01/11/21 11:18 Dose: 2 puff Documented by: Home Med (Fluticasone Furoate [Arnuity Ellipta]) 50 mcg IH DAILY [facility] Last Admin: 01/11/21 09:00 Dose: Not Given Documented by: Home Med (Clobetasol/Niacinamide [Clobetasol 0.05%-Niacinamid 4%]) 1 appl TOP DAILY [facility] Last Admin: 01/11/21 09:00 Dose: Not Given Documented by: Hydralazine HCl (Hydralazine Hcl 20 Mg/Ml Vial) 5 mg IV Q6HP PRN PRN Reason: FOR SBP>160 OR DBP>100 MMHG Last Admin: 01/07/21 16:10 Dose: 5 mg Documented by: Insulin Human Regular (Insulin -Regular Human 50 Unit/0.5 Ml Ml) 0 unit SQ [facility]; Protocol Last Admin: 01/11/21 16:30 Dose: Not Given Documented by: Sodium Chloride (Flush Normal Saline 10 Ml) 10 ml IV BID [facility] Last Admin: 01/11/21 11:19 Dose: 10 ml Documented by: Spironolactone (Spironolactone 25 Mg Tablet) 25 mg PO DAILY [facility] Last Admin: 01/11/21 11:17 Dose: 25 mg Documented by: Sterile Water (Water For Inj,Sterile 10 Ml) 1.2 ml IM UD PRN PRN Reason: DILUTION OF MED Tamsulosin HCl (Tamsulosin 0.4 Mg Sr Cap) 0.4 mg PO BEDTIME [facility] Last Admin: 01/10/21 22:24 Dose: 0.4 mg Documented by: Tramadol HCl (Tramadol Hcl 50 Mg Tab) 50 mg PO Q6H PRN PRN Reason: Pain scale 5-7 (Moderate) Last Admin: 01/11/21 11:16 Dose: 50 mg Documented by: Ziprasidone (Ziprasidone Mesyla 20 Mg/Vial) 10 mg IM Q6H PRN PRN Reason: AGITATION Last Admin: 01/09/21 01:48 Dose: 10 mg Documented by: Assessment/ Plan: Nephrology No acute cardiac or pulmonary complaints. No CP or SOB. Limited IH/ ROS due to dementia. No acute events overnight. Vitals, medications, blood work and imaging reviewed in the chart. Physical Examination General: In no apparent distress, Cooperative HEENT: Atraumatic Neck: Supple Respiratory: Clear to auscultation bilaterally Cardiovascular: Regular rate/rhythm, Edema Gastrointestinal: Soft and benign, Non-distended Musculoskeletal: No clubbing, No contractures Integumentary: No rashes, No cyanosis Neurological: Abnormal speech Laboratory Data (last 24 hrs) 01/04/21 13:18: Total Bilirubin 0.5, AST 20, ALT 13, Alkaline Phosphatase 85 01/04/21 13:18: PT 11.1, INR 0.97, APTT 32.0 01/04/21 13:18: Sodium 141, Potassium 4.5, BUN 34 H, Creatinine 2.58 H, Glucose 103 01/04/21 13:18: WBC 6.00, Hgb 12.0 L, Hct 36.2 L, Plt Count 182 Imagings Data: EXAM DESCRIPTION: RAD - Chest Single View - 01/04/2021 1:54 pm CLINICAL HISTORY: fall, tachypnea Chest pain. COMPARISON: Chest Single View dated 01/10/2019 FINDINGS: Portable technique limits examination quality. COPD is present. Ill-defined opacity is noted in the right apex, poorly visualized. Mild linear opacities also present in left lung base probably atelectasis. The heart is mildly enlarged in size. Conclusions/Impression: A/P: Continue the current POC and Medications other than the changes listed. AM Labs PRN. Recommend daily weight. Please see the orders for complete details. CKD IV -No NSAIDs Hypernatremia -Continue spironolactone Hypokalemia -Replete potassium prn -Continue spironolactone HypoPO4 -Encourage nutrition HTN with CKD -Continue Coreg Anemia in chronic illness -Monitor H&H BPH with LUTS -Continue tamsulosin Alz Dementia Right IT Fracture -Follow up with ortho -Continue Vitamin D3
[2021-01-11] MEDS: TAMSULOSIN 0.4 MG SR CAP PO SCH (21:42)
[2021-01-11] MEDS: DONEPEZIL HCL 5 MG TAB PO SCH (21:42)
[2021-01-12 05:33] LABS: Absolute Lymphocytes (CBC) 0.8 K/uL (0.7-4.9); Basophils % 0.5 % (0-1.3); Lymphocytes % 11.9 % (15.3-44.8); MPV 9.4 fL (7.6-11.3); RBC Red Blood Cell Count 3.91 M/uL (4.33-5.43)
[2021-01-12 05:46] LABS: Magnesium 2.3 mg/dL (1.8-2.4); Potassium 4.3 mmol/L (3.5-5.1)
[2021-01-12] MEDS: INSULIN -REGULAR HUMAN 50 UNIT/0.5 ML ML SQ SCH ×4 (07:30→20:27)
[2021-01-12] MEDS ORDERED: D5W 1,000 ML IV SCH (08:00)
[2021-01-12] MEDS: carvediloL 12.5 MG TAB PO SCH ×2 (08:45→20:45)
[2021-01-12] MEDS: ASPIRIN EC 81 MG TAB PO SCH (08:45)
[2021-01-12] MEDS: AMLODIPINE 10 MG TAB PO SCH (08:46)
[2021-01-12] MEDS: VITAMIN D 5,000 UNIT CAP PO SCH (08:46)
[2021-01-12] MEDS: FOLIC ACID 1 MG TABLET PO SCH (08:46)
[2021-01-12] MEDS: SPIRONOLACTONE 25 MG TABLET PO SCH (08:46)
[2021-01-12] MEDS: DOCUSATE NA 100 MG CAP PO SCH ×2 (08:47→20:27)
[2021-01-12] MEDS: CLOPIDOGREL 75 MG TABLET PO SCH (08:47)
[2021-01-12] MEDS: TRAMADOL HCL 50 MG TAB PO PRN (08:48)
[2021-01-12] MEDS: FLUTICASONE FUROATE 50 MCG IH SCH (09:00)
[2021-01-12] MEDS: NIACINAMIDE TOP SCH (09:00)
[2021-01-12] MEDS: CLOBETASOL TOP SCH (09:00)
--- NOTE | 2021-01-12 14:03 | P.PN ---
Subjective Date of Service: 01/12/21 Primary Care Provider: Dr. Leone Chief Complaint: Fall, trochanteric fracture No new complain. Patient is awake, he obeys commands. He is tolerating pureed diet. Physical Examination - Vital Signs Temperature: 96.7 F Blood Pressure: 158/80 Pulse: 80 Respirations: 18 Pulse Ox (%): 99 - Physical Exam General: In no apparent distress, Other (Awake) HEENT: Atraumatic Neck: Supple Respiratory: Clear to auscultation bilaterally, Normal air movement Cardiovascular: No edema, Regular rate/rhythm, Normal S1 S2 Gastrointestinal: Normal bowel sounds, Soft and benign Musculoskeletal: No clubbing, No tenderness Neurological: Other (Patient moves all extremities.) Assessment And Plan Physician Review Additional Text: Physical Exam Gen: NAD, AAO x1 Neuro: moves b/l upper/lower extremities, wiggles b/l toes HEENT: sclera anicteric, normal conjuctiva CV: RRR, trace edema bilateral lower extremities Pulm: clear to auscultation bilaterally Abd: soft, NTND Ext: R dressing in place - c/d/i, nontender. R foot warm, perfused Problem list: Right intertrochanteric fracture s/p repair (01/05) Acute encephalopathy secondary to Post-op delirium Alzheimer dementia CKD4 Reported a history of heart failure, unknown type, possibly diastolic Hypertension Bipolar/depression -Dr. 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 Jorgensen -who recommended aspirin, plavix, in addition to VTE dose lovenox - started 01/06 -CKD4 - nephrology consulted, patient treated briefly with IV fluid. Cr stable, patient voiding without issue -Febrile on 01/05, Ur Cx negative, CXR: initially with questionable apical opacity, was covered with antibiotics, however pro calcitonin has remained low, afebrile. Antibiotics discontinued on 01/09 -restarted home antihypertensives on 01/06. Continue home antihypertensives. VTE: lovenox Code: DNR per daughter Dispo: dc to SNF rehab. pending insurance approval prior to admission pt lived alone in 1 bedroom apartment at [facility] with minimal to no assistance per daughter, baseline is AAOx1.
[2021-01-12] MEDS: ENOXAPARIN 30 MG/0.3 ML SQ SCH (17:12)
--- NOTE | 2021-01-12 18:12 | P.PN ---
Date of Service: 01/12/21 Vital Signs Temp Pulse Resp BP Pulse Ox 96.7 F L 80 18 158/80 H 99 01/12/21 16:00 01/12/21 16:00 01/12/21 16:00 01/12/21 16:00 01/12/21 16:00 Medications Acetaminophen (Acetaminophen 650mg/Rect Supp) 650 mg [place] Q6H PRN PRN Reason: TEMP > 101' F Last Admin: 01/06/21 23:07 Dose: 650 mg Documented by: Albuterol Sulfate (Albuterol 2.5 Mg/3 Ml Neb Nancy) 2.5 mg NEB Q4H PRN PRN Reason: SHORTNESS OF BREATH Aspirin (Aspirin Ec 81 Mg Tab) 81 mg PO DAILY [facility] Last Admin: 01/12/21 08:45 Dose: 81 mg Documented by: Carvedilol (Carvedilol 12.5 Mg Tab) 25 mg PO BID [facility] Last Admin: 01/12/21 08:45 Dose: 25 mg Documented by: Cholecalciferol (Vitamin D 5,000 Unit Cap) 5,000 unit PO DAILY [facility] Last Admin: 01/12/21 08:46 Dose: 5,000 unit Documented by: Clopidogrel Bisulfate (Clopidogrel 75 Mg Tablet) 75 mg PO DAILY [facility] Last Admin: 01/12/21 08:47 Dose: 75 mg Documented by: Dextrose (D50w 25 Gm/50 Ml Vial) 12.5 gm IV PRN PRN PRN Reason: HYPOGLYCEMIA Docusate Sodium (Docusate Na 100 Mg Cap) 100 mg PO BID [facility] Last Admin: 01/12/21 08:47 Dose: Not Given Documented by: Donepezil HCl (Donepezil Hcl 5 Mg Tab) 10 mg PO BEDTIME [facility] Last Admin: 01/11/21 21:42 Dose: 10 mg Documented by: Enoxaparin Sodium (Enoxaparin 30 Mg/0.3 Ml) 30 mg SQ DAILY 5 PM [facility] Last Admin: 01/12/21 17:12 Dose: 30 mg Documented by: Enteral Nutritional Formula (Ensure Surgery 237 Ml Can) 237 ml PO BID [facility] Folic Acid (Folic Acid 1 Mg Tablet) 1 mg PO DAILY [facility] Last Admin: 01/12/21 08:46 Dose: 1 mg Documented by: Glucagon (Glucagon 1 Mg/Vial) 1 mg IM 1X PRN PRN Reason: HYPOGLYCEMIA Home Med (Budesonide/Formoterol Fumarate [Symbicort 160-4.5 Mcg Inhaler]) 2 puff IH DAILY [facility] Last Admin: 01/12/21 12:01 Dose: 2 puff Documented by: Home Med (Fluticasone Furoate [Arnuity Ellipta]) 50 mcg IH DAILY [facility] Last Admin: 01/12/21 09:00 Dose: Not Given Documented by: Home Med (Clobetasol/Niacinamide [Clobetasol 0.05%-Niacinamid 4%]) 1 appl TOP DAILY [facility] Last Admin: 01/12/21 09:00 Dose: Not Given Documented by: Hydralazine HCl (Hydralazine Hcl 20 Mg/Ml Vial) 5 mg IV Q6HP PRN PRN Reason: FOR SBP>160 OR DBP>100 MMHG Last Admin: 01/07/21 16:10 Dose: 5 mg Documented by: Insulin Human Regular (Insulin -Regular Human 50 Unit/0.5 Ml Ml) 0 unit SQ ACHS [facility]; Protocol Last Admin: 01/12/21 16:30 Dose: Not Given Documented by: Sodium Chloride (Flush Normal Saline 10 Ml) 10 ml IV BID [facility] Last Admin: 01/12/21 09:00 Dose: 10 ml Documented by: Spironolactone (Spironolactone 25 Mg Tablet) 25 mg PO DAILY [facility] Last Admin: 01/12/21 08:46 Dose: 25 mg Documented by: Sterile Water (Water For Inj,Sterile 10 Ml) 1.2 ml IM UD PRN PRN Reason: DILUTION OF MED Tamsulosin HCl (Tamsulosin 0.4 Mg Sr Cap) 0.4 mg PO BEDTIME [facility] Last Admin: 01/11/21 21:42 Dose: 0.4 mg Documented by: Tramadol HCl (Tramadol Hcl 50 Mg Tab) 50 mg PO Q6H PRN PRN Reason: Pain scale 5-7 (Moderate) Last Admin: 01/12/21 08:48 Dose: 50 mg Documented by: Ziprasidone (Ziprasidone Mesyla 20 Mg/Vial) 10 mg IM Q6H PRN PRN Reason: AGITATION Last Admin: 01/09/21 01:48 Dose: 10 mg Documented by: Assessment/ Plan: Nephrology No acute cardiac or pulmonary complaints. No CP or SOB. Limited IH/ ROS due to dementia. No acute events overnight. Vitals, medications, blood work and imaging reviewed in the chart. Physical Examination General: In no apparent distress, Cooperative HEENT: Atraumatic Neck: Supple Respiratory: Clear to auscultation bilaterally Cardiovascular: Regular rate/rhythm, Edema Gastrointestinal: Soft and benign, Non-distended Musculoskeletal: No clubbing, No contractures Integumentary: No rashes, No cyanosis Neurological: Abnormal speech Laboratory Data (last 24 hrs) 01/04/21 13:18: Total Bilirubin 0.5, AST 20, ALT 13, Alkaline Phosphatase 85 01/04/21 13:18: PT 11.1, INR 0.97, APTT 32.0 01/04/21 13:18: Sodium 141, Potassium 4.5, BUN 34 H, Creatinine 2.58 H, Glucose 103 01/04/21 13:18: WBC 6.00, Hgb 12.0 L, Hct 36.2 L, Plt Count 182 Imagings Data: EXAM DESCRIPTION: RAD - Chest Single View - 01/04/2021 1:54 pm CLINICAL HISTORY: fall, tachypnea Chest pain. COMPARISON: Chest Single View dated 01/10/2019 FINDINGS: Portable technique limits examination quality. COPD is present. Ill-defined opacity is noted in the right apex, poorly visualized. Mild linear opacities also present in left lung base probably atelectasis. The heart is mildly enlarged in size. Conclusions/Impression: A/P: Continue the current POC and Medications other than the changes listed. AM Labs PRN. Recommend daily weight. Please see the orders for complete details. CKD IV -No NSAIDs Hypernatremia -Continue spironolactone -Give a liter of D5W today. -Encourage water intake at the bedside Hypokalemia -Replete potassium prn -Continue spironolactone HypoPO4 -Encourage nutrition HTN with CKD -Continue Coreg -Change Amlodipine to Nifedipine ER 30 BID Anemia in chronic illness -Monitor H&H BPH with LUTS -Continue tamsulosin Alz Dementia Right IT Fracture -Follow up with ortho -Continue Vitamin D3
[2021-01-12] MEDS: NIFEDIPINE XL 30 MG TABLET PO SCH (20:26)
[2021-01-12] MEDS: TAMSULOSIN 0.4 MG SR CAP PO SCH (20:27)
[2021-01-12] MEDS: ENSURE SURGERY 237 ML CAN PO SCH (20:27)
[2021-01-12] MEDS: ZIPRASIDONE MESYLA 20 MG/VIAL IM PRN (20:27)
[2021-01-12] MEDS: DONEPEZIL HCL 5 MG TAB PO SCH (20:27)
[2021-01-12] MEDS ORDERED: LORazepam 2 MG/ML VIAL IV ONE (22:49)
[2021-01-13] MEDS ORDERED: ZIPRASIDONE MESYLA 20 MG/VIAL IM ONE (00:27)
[2021-01-13] MEDS ORDERED: WATER FOR INJ,STERILE 10 ML IM PRN (00:27)
[2021-01-13] MEDS ORDERED: DIPHENOX/ATROP SULF 1 TAB PO PRN (00:32)
[2021-01-13 06:57] LABS: Potassium 4.5 mmol/L (3.5-5.1)
[2021-01-13] MEDS: INSULIN -REGULAR HUMAN 50 UNIT/0.5 ML ML SQ SCH ×4 (07:30→20:49)
[2021-01-13] MEDS: CLOBETASOL TOP SCH (09:00)
[2021-01-13] MEDS: NIACINAMIDE TOP SCH (09:00)
[2021-01-13] MEDS: FLUTICASONE FUROATE 50 MCG IH SCH (09:00)
[2021-01-13] MEDS: ENSURE SURGERY 237 ML CAN PO SCH ×2 (09:00→20:49)
[2021-01-13] MEDS: carvediloL 12.5 MG TAB PO SCH ×2 (09:21→20:48)
[2021-01-13] MEDS: CLOPIDOGREL 75 MG TABLET PO SCH (09:22)
[2021-01-13] MEDS: FOLIC ACID 1 MG TABLET PO SCH (09:22)
[2021-01-13] MEDS: NIFEDIPINE XL 30 MG TABLET PO SCH ×2 (09:22→20:49)
[2021-01-13] MEDS: SPIRONOLACTONE 25 MG TABLET PO SCH (09:22)
[2021-01-13] MEDS: VITAMIN D 5,000 UNIT CAP PO SCH (09:22)
[2021-01-13] MEDS: ASPIRIN EC 81 MG TAB PO SCH (09:22)
--- NOTE | 2021-01-13 11:33 | P.PN ---
Subjective Date of Service: 01/13/21 Primary Care Provider: Dr. Leone Chief Complaint: Fall, trochanteric fracture No new complain. Patient to be more confused today. He is tolerating pureed diet. Physical Examination - Vital Signs Temperature: 97.3 F Blood Pressure: 163/80 Pulse: 81 Respirations: 20 Pulse Ox (%): 97 - Physical Exam General: In no apparent distress, Confused HEENT: Mucous membr. moist/pink Neck: Supple Respiratory: Clear to auscultation bilaterally, Normal air movement Cardiovascular: No edema, Regular rate/rhythm, Normal S1 S2 Gastrointestinal: Normal bowel sounds, Soft and benign, Non-distended, No tenderness Musculoskeletal: No swelling, No tenderness Integumentary: No rashes Neurological: Other (Patient moves all extremities.) Assessment And Plan Physician Review Additional Text: Problem list: Right intertrochanteric fracture s/p repair (01/05) Acute encephalopathy secondary to Post-op delirium Alzheimer dementia CKD4 Reported a history of heart failure, unknown type, possibly diastolic Hypertension Bipolar/depression -Dr. 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 Jorgensen -who recommended aspirin, plavix, in addition to VTE dose lovenox - started 01/06 -CKD4 - nephrology consulted, patient treated briefly with IV fluid. Cr stable, patient voiding without issue -Febrile on 01/05, Ur Cx negative, CXR: initially with questionable apical opacity, was covered with antibiotics, however pro calcitonin has remained low, afebrile. Antibiotics discontinued on 01/09 -restarted home antihypertensives on 01/06. Continue home antihypertensives. -Haldol p.r.n. for agitation VTE: lovenox Code: DNR per daughter Dispo: dc to SNF rehab. pending insurance approval prior to admission pt lived alone in 1 bedroom apartment at [facility] with minimal to no assistance per daughter, baseline is AAOx1.
--- NOTE | 2021-01-13 13:16 | PN ---
Date of Progress Note: 01/13/2021 Subjective: The patient was seen and examined at bedside. He is doing well. Denies any complaints. He is very confused. Physical Examination: Vital Signs: Have been reviewed and are stable. General: He appears in no acute distress. HEENT: Atraumatic head. Lungs: Clear to auscultation. Extremities: Showed no evidence of edema. Laboratory Data: Showing creatinine of 2.3, which is overall improving from before. Other electroly arnav showing acidosis with a bicarb of 19. CBC showing stable hemoglobin, hematocrit, and platelet co unt. Current Medications: Have been reviewed in detail. Impression: 1.Acute on chronic renal insufficiency secondary to possibly from acute tubular necrosis and dehydra tion, currently improving. We will continue the same. 2.Right intertrochanteric fracture, status post repair. 3.Encephalopathy and postop delirium. 4.Underlying Alzheimer dementia. 5.History of congestive heart failure, currently with stable volume status. Plan: Overall, the patient is doing okay at this time. Renal function is improving and stable. Ove rall, we are holding off any further IV fluid administration because of concern for volume overload. Continue all other medications the same and we will follow up closely. VV/MODL Voice ID: [id number] Report ID: [id number]
[2021-01-13] MEDS: ENOXAPARIN 30 MG/0.3 ML SQ SCH (17:51)
[2021-01-13] MEDS: ZIPRASIDONE MESYLA 20 MG/VIAL IM PRN (19:27)
[2021-01-13] MEDS: DONEPEZIL HCL 5 MG TAB PO SCH (20:48)
[2021-01-13] MEDS: TAMSULOSIN 0.4 MG SR CAP PO SCH (20:49)
[2021-01-14] MEDS ORDERED: LORazepam 2 MG/ML VIAL IV ONE (00:24)
[2021-01-14] MEDS ORDERED: LORazepam 2 MG/ML VIAL ONE (00:43)
[2021-01-14] MEDS: ZIPRASIDONE MESYLA 20 MG/VIAL IM PRN (02:38)
[2021-01-14 06:41] LABS: Potassium 4.3 mmol/L (3.5-5.1)
[2021-01-14] MEDS: INSULIN -REGULAR HUMAN 50 UNIT/0.5 ML ML SQ SCH ×4 (07:30→21:00)
[2021-01-14] MEDS: DOCUSATE NA 100 MG CAP PO SCH ×2 (09:00→21:25)
[2021-01-14] MEDS: NIACINAMIDE TOP SCH (09:00)
[2021-01-14] MEDS: FLUTICASONE FUROATE 50 MCG IH SCH (09:00)
[2021-01-14] MEDS ORDERED: D5W 1,000 ML IV SCH (09:00)
[2021-01-14] MEDS: CLOBETASOL TOP SCH (09:00)
[2021-01-14] MEDS: ENSURE SURGERY 237 ML CAN PO SCH ×2 (09:00→21:00)
--- NOTE | 2021-01-14 11:19 | P.PN ---
Subjective Date of Service: 01/14/21 Primary Care Provider: Dr. Leone Chief Complaint: Fall, trochanteric fracture No new complain. Patient appear confused He is tolerating pureed diet. Physical Examination - Vital Signs Temperature: 96.7 F Blood Pressure: 140/72 Pulse: 86 Respirations: 20 Pulse Ox (%): 96 - Physical Exam General: Confused HEENT: Mucous membr. moist/pink Neck: Supple Respiratory: Clear to auscultation bilaterally, Normal air movement Cardiovascular: No edema, Regular rate/rhythm, Normal S1 S2 Gastrointestinal: Soft and benign, Non-distended Musculoskeletal: No swelling, No tenderness Integumentary: No rashes Neurological: Other (No focal motor deficit) Assessment And Plan Physician Review Additional Text: Problem list: Right intertrochanteric fracture s/p repair (01/05) Acute encephalopathy secondary to Post-op delirium Alzheimer dementia CKD4 Reported a history of heart failure, unknown type, possibly diastolic Hypertension Bipolar/depression -patient underwent surgical fixation on 01/[address] 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 Jorgensen -who recommended aspirin, plavix, in addition to VTE dose lovenox - started 01/06 -CKD4 - nephrology consulted, patient treated briefly with IV fluid. Cr stable, patient voiding without issue -Febrile on 01/05, Ur Cx negative, CXR: initially with questionable apical opacity, was covered with antibiotics, however pro calcitonin has remained low, afebrile. Antibiotics discontinued on 01/09 -restarted home antihypertensives on 01/06. Continue home antihypertensives. -Haldol p.r.n. for agitation -patient participating in physical therapy with bed mobility for now. VTE: lovenox Code: DNR per daughter Dispo: dc to SNF rehab. pending insurance approval prior to admission pt lived alone in 1 bedroom apartment at [facility] with minimal to no assistance per daughter, baseline is AAOx1.
[2021-01-14] MEDS: carvediloL 12.5 MG TAB PO SCH ×2 (12:03→21:24)
[2021-01-14] MEDS: FOLIC ACID 1 MG TABLET PO SCH (12:04)
[2021-01-14] MEDS: CLOPIDOGREL 75 MG TABLET PO SCH (12:04)
[2021-01-14] MEDS: SPIRONOLACTONE 25 MG TABLET PO SCH (12:04)
[2021-01-14] MEDS: ASPIRIN EC 81 MG TAB PO SCH (12:05)
[2021-01-14] MEDS: NIFEDIPINE XL 30 MG TABLET PO SCH ×2 (12:05→21:25)
[2021-01-14] MEDS: VITAMIN D 5,000 UNIT CAP PO SCH (12:07)
--- NOTE | 2021-01-14 17:24 | P.PN ---
Date of Service: 01/14/21 Vital Signs Temp Pulse Resp BP Pulse Ox 96.9 F 85 20 142/90 H 99 01/14/21 12:00 01/14/21 12:05 01/14/21 12:00 01/14/21 12:05 01/14/21 12:00 Medications Acetaminophen (Acetaminophen 650mg/Rect Supp) 650 mg [place] Q6H PRN PRN Reason: TEMP > 101' F Last Admin: 01/06/21 23:07 Dose: 650 mg Documented by: Albuterol Sulfate (Albuterol 2.5 Mg/3 Ml Neb Nancy) 2.5 mg NEB Q4H PRN PRN Reason: SHORTNESS OF BREATH Aspirin (Aspirin Ec 81 Mg Tab) 81 mg PO DAILY [facility] Last Admin: 01/14/21 12:05 Dose: 81 mg Documented by: Carvedilol (Carvedilol 12.5 Mg Tab) 25 mg PO BID [facility] Last Admin: 01/14/21 12:03 Dose: 25 mg Documented by: Cholecalciferol (Vitamin D 5,000 Unit Cap) 5,000 unit PO DAILY [facility] Last Admin: 01/14/21 12:07 Dose: 5,000 unit Documented by: Clopidogrel Bisulfate (Clopidogrel 75 Mg Tablet) 75 mg PO DAILY [facility] Last Admin: 01/14/21 12:04 Dose: 75 mg Documented by: Dextrose (D50w 25 Gm/50 Ml Vial) 12.5 gm IV PRN PRN PRN Reason: HYPOGLYCEMIA Diphenoxylate HCl/Atropine (Diphenox/Atrop Sulf 1 Tab) 1 tab PO QID PRN PRN Reason: DIARRHEA Docusate Sodium (Docusate Na 100 Mg Cap) 100 mg PO BID [facility] Last Admin: 01/14/21 09:00 Dose: Not Given Documented by: Donepezil HCl (Donepezil Hcl 5 Mg Tab) 10 mg PO BEDTIME [facility] Last Admin: 01/13/21 20:48 Dose: 10 mg Documented by: Enoxaparin Sodium (Enoxaparin 30 Mg/0.3 Ml) 30 mg SQ DAILY 5 PM [facility] Last Admin: 01/13/21 17:51 Dose: 30 mg Documented by: Enteral Nutritional Formula (Ensure Surgery 237 Ml Can) 237 ml PO BID [facility] Last Admin: 01/14/21 09:00 Dose: Not Given Documented by: Folic Acid (Folic Acid 1 Mg Tablet) 1 mg PO DAILY [facility] Last Admin: 01/14/21 12:04 Dose: 1 mg Documented by: Glucagon (Glucagon 1 Mg/Vial) 1 mg IM 1X PRN PRN Reason: HYPOGLYCEMIA Home Med (Budesonide/Formoterol Fumarate [Symbicort 160-4.5 Mcg Inhaler]) 2 puff IH DAILY [facility] Last Admin: 01/13/21 09:00 Dose: Not Given Documented by: Home Med (Fluticasone Furoate [Arnuity Ellipta]) 50 mcg IH DAILY [facility] Last Admin: 01/13/21 09:00 Dose: Not Given Documented by: Home Med (Clobetasol/Niacinamide [Clobetasol 0.05%-Niacinamid 4%]) 1 appl TOP DAILY [facility] Last Admin: 01/13/21 09:00 Dose: Not Given Documented by: Hydralazine HCl (Hydralazine Hcl 20 Mg/Ml Vial) 5 mg IV Q6HP PRN PRN Reason: FOR SBP>160 OR DBP>100 MMHG Last Admin: 01/07/21 16:10 Dose: 5 mg Documented by: Dextrose (Dextrose 5%/Water/[place] Con) 500 mls @ 125 mls/hr IV .Q4H [facility] Last Admin: 01/14/21 12:32 Dose: 500 mls Documented by: Insulin Human Regular (Insulin -Regular Human 50 Unit/0.5 Ml Ml) 0 unit SQ ACHS [facility]; Protocol Last Admin: 01/14/21 16:30 Dose: Not Given Documented by: Nifedipine (Nifedipine Xl 30 Mg Tablet) 30 mg PO BID [facility] Last Admin: 01/14/21 12:05 Dose: 30 mg Documented by: Sodium Chloride (Flush Normal Saline 10 Ml) 10 ml IV BID [facility] Last Admin: 01/14/21 09:00 Dose: 10 ml Documented by: Spironolactone (Spironolactone 25 Mg Tablet) 25 mg PO DAILY [facility] Last Admin: 01/14/21 12:04 Dose: 25 mg Documented by: Sterile Water (Water For Inj,Sterile 10 Ml) 1.2 ml IM UD PRN PRN Reason: DILUTION OF MED Sterile Water (Water For Inj,Sterile 10 Ml) 1.2 ml IM UD PRN PRN Reason: DILUTION OF MED Tamsulosin HCl (Tamsulosin 0.4 Mg Sr Cap) 0.4 mg PO BEDTIME [facility] Last Admin: 01/13/21 20:49 Dose: 0.4 mg Documented by: Ziprasidone (Ziprasidone Mesyla 20 Mg/Vial) 10 mg IM Q6H PRN PRN Reason: AGITATION Last Admin: 01/14/21 02:38 Dose: 10 mg Documented by: Assessment/ Plan: Nephrology No acute cardiac or pulmonary complaints. No CP or SOB. Limited IH/ ROS due to dementia. No acute events overnight. Vitals, medications, blood work and imaging reviewed in the chart. Physical Examination General: In no apparent distress, Cooperative HEENT: Atraumatic Neck: Supple Respiratory: Clear to auscultation bilaterally Cardiovascular: Regular rate/rhythm, Edema Gastrointestinal: Soft and benign, Non-distended Musculoskeletal: No clubbing, No contractures Integumentary: No rashes, No cyanosis Neurological: Abnormal speech Laboratory Data (last 24 hrs) 01/04/21 13:18: Total Bilirubin 0.5, AST 20, ALT 13, Alkaline Phosphatase 85 01/04/21 13:18: PT 11.1, INR 0.97, APTT 32.0 01/04/21 13:18: Sodium 141, Potassium 4.5, BUN 34 H, Creatinine 2.58 H, Glucose 103 01/04/21 13:18: WBC 6.00, Hgb 12.0 L, Hct 36.2 L, Plt Count 182 Imagings Data: EXAM DESCRIPTION: RAD - Chest Single View - 01/04/2021 1:54 pm CLINICAL HISTORY: fall, tachypnea Chest pain. COMPARISON: Chest Single View dated 01/10/2019 FINDINGS: Portable technique limits examination quality. COPD is present. Ill-defined opacity is noted in the right apex, poorly visualized. Mild linear opacities also present in left lung base probably atelectasis. The heart is mildly enlarged in size. Conclusions/Impression: A/P: Continue the current POC and Medications other than the changes listed. AM Labs PRN. Recommend daily weight. Please see the orders for complete details. CKD IV -No NSAIDs Hypernatremia -Continue spironolactone -Restart D5W IV -Encourage water intake at the bedside Hypokalemia -Replete potassium prn -Continue spironolactone HypoPO4 -Encourage nutrition HTN with CKD -Continue Coreg -Continue Nifedipine ER 30 BID Anemia in chronic illness -Monitor H&H BPH with LUTS -Continue tamsulosin Alz Dementia Right IT Fracture -Follow up with ortho -Continue Vitamin D3
[2021-01-14] MEDS: ENOXAPARIN 30 MG/0.3 ML SQ SCH (17:31)
[2021-01-14] MEDS: TAMSULOSIN 0.4 MG SR CAP PO SCH (21:24)
[2021-01-14] MEDS: DONEPEZIL HCL 5 MG TAB PO SCH (21:25)
[2021-01-15] MEDS: ZIPRASIDONE MESYLA 20 MG/VIAL IM PRN ×2 (02:05→11:11)
[2021-01-15] MEDS: INSULIN -REGULAR HUMAN 50 UNIT/0.5 ML ML SQ SCH ×2 (07:30→11:30)
[2021-01-15] MEDS: DOCUSATE NA 100 MG CAP PO SCH (09:00)
[2021-01-15] MEDS: ENSURE SURGERY 237 ML CAN PO SCH (09:00)
[2021-01-15] MEDS: SPIRONOLACTONE 25 MG TABLET PO SCH (09:56)
[2021-01-15] MEDS: ASPIRIN EC 81 MG TAB PO SCH (09:56)
[2021-01-15] MEDS: FOLIC ACID 1 MG TABLET PO SCH (09:56)
[2021-01-15] MEDS: VITAMIN D 5,000 UNIT CAP PO SCH (09:56)
[2021-01-15] MEDS: CLOPIDOGREL 75 MG TABLET PO SCH (09:56)
[2021-01-15] MEDS: carvediloL 12.5 MG TAB PO SCH (09:57)
--- NOTE | 2021-01-15 12:34 | P.DS ---
Admission Date: 01/04/21 Discharge Date: 01/15/21 Primary Care Provider: Dr. Leone Disposition: TRANSFER TO SKILLED NURSING Discharge Condition: FAIR Reason for Admission: Fall, trochanteric fracture Consultations: Orthopedics-Dr. Barr Procedures: right [place] juwan Brief History of Present Illness: 80-year-old male was brought to the emergency department after he was found on the floor in his kitchen. Patient has a history of Alzheimer dementia. He complained of right hip pain. X-ray done in the emergency department reported right trochanteric fracture. Blood work showed elevated creatinine. Patient has a baseline history of CKD stage 4. Orthopedic surgery was consulted and patient admitted for further management. Hospital Course: Patient admitted to the medical floor. He was seen and evaluated by cardiology- Dr. Burroughs will cleared him for surgery. ORIF was performed. Patient had intermittent episodes of delirium and agitation during the postop period. Patient received a few doses of Geodon for agitation. He was seen and evaluated by physical therapy. Patient underwent PT session which included mostly bed mobility with PT. -patient underwent surgical fixation on 01/[address] 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 Jorgensen -who recommended aspirin, plavix, in addition to VTE dose lovenox - started 01/06 -CKD4 - nephrology consulted, patient treated briefly with IV fluid. Cr stable, patient voiding without issue -Febrile on 01/05, Ur Cx negative, CXR: initially with questionable apical opacity, was covered with antibiotics, however pro calcitonin has remained low, afebrile. Antibiotics discontinued on 01/09 -restarted home antihypertensives on 01/06. -patient clinically stable for discharge to SNF for skilled rehab. Vital Signs/Physical Exam: Temp Pulse Resp BP Pulse Ox 97.1 F 73 16 114/74 98 01/15/21 08:00 01/15/21 09:57 01/15/21 08:00 01/15/21 09:57 01/15/21 08:00 General: In no apparent distress, Confused Neck: Supple Respiratory: Clear to auscultation bilaterally, Normal air movement Cardiovascular: No edema, Regular rate/rhythm, Normal S1 S2 Gastrointestinal: Soft and benign, Non-distended, No tenderness Musculoskeletal: No swelling, No tenderness Integumentary: No rashes Neurological: Other (No focal motor deficit.) Laboratory Data at Discharge: WBC 6.30 K/uL (4.3-10.9) 01/12/21 05:10 Hgb 11.6 g/dL (13.6-17.9) L 01/12/21 05:10 Hct 35.0 % (39.6-49.0) L 01/12/21 05:10 Plt Count 218 K/uL (152-406) D 01/12/21 05:10 PT 11.1 SECONDS (9.5-12.5) 01/04/21 13:18 INR 0.97 01/04/21 13:18 APTT 32.0 SECONDS (24.3-36.9) 01/04/21 13:18 Sodium 147 mmol/L (136-145) H 01/14/21 05:48 Potassium 4.3 mmol/L (3.5-5.1) 01/14/21 05:48 BUN 43 mg/dL (7-18) H 01/14/21 05:48 Creatinine 2.65 mg/dL (0.55-1.3) H 01/14/21 05:48 Glucose 129 mg/dL (74-106) H 01/14/21 05:48 Uric Acid 6.3 mg/dL (3.5-7.2) 01/08/21 05:23 Phosphorus 3.1 mg/dL (2.5-4.9) 01/11/21 05:02 Magnesium 2.3 mg/dL (1.8-2.4) 01/12/21 05:10 Total Bilirubin 0.7 mg/dL (0.2-1.0) 01/05/21 05:31 AST 22 U/L (15-37) 01/05/21 05:31 ALT 10 U/L (12-78) L 01/05/21 05:31 Alkaline Phosphatase 86 U/L (45-117) 01/05/21 05:31 Home Medications: Budesonide/Formoterol Fumarate [Symbicort 160-4.5 Mcg Inhaler] 2 puff DAILY 01/05/21 Donepezil HCl 10 mg PO BEDTIME 01/05/21 Fluticasone Furoate [Arnuity Ellipta] 50 mcg NS DAILY 01/05/21 Spironolactone [Aldactone*] 25 mg PO DAILY 01/05/21 Clobetasol/Niacinamide [Clobetasol 0.05%-Niacinamid 4%] 1 appl TOP DAILY 01/07/21 Tacrolimus/Vehicle Base No.238 [Tacrolimus 0.1%-Pseudocatalase] 1 roma TOP DAILY 01/07/21 Albuterol Neb [Proventil 0.083% Neb Soln] 2.5 mg NEB Q4H PRN amp 01/15/21 Aspirin [Aspirin EC] 81 mg PO DAILY #42 tablet. 01/15/21 Cholecalciferol (Vitamin D3) [Vitamin D 5,000 IU Cap*] 5,000 unit PO DAILY cap 01/15/21 Clopidogrel Bisulfate [Plavix*] 75 mg PO DAILY tablet 01/15/21 Enoxaparin Sodium [Lovenox 40 MG INJ] 40 mg SQ DAILY #21 syr 01/15/21 Folic Acid 1 mg PO DAILY #30 tablet 01/15/21 Nifedipine Xl [Procardia Xl*] 30 mg PO BID tab 01/15/21 Nut.tx.comp. Immune Systm,Reg [Ensure Surgery] 237 ml PO BID can 01/15/21 Tamsulosin [Flomax*] 0.4 mg PO BEDTIME cap 01/15/21 carvediloL [Coreg*] 25 mg PO BID tab 01/15/21 New Medications: Aspirin [Aspirin EC] 81 mg PO DAILY #42 tablet. Folic Acid 1 mg PO DAILY #30 tablet Enoxaparin Sodium [Lovenox 40 MG INJ] 40 mg SQ DAILY #21 syr Physician Discharge Instructions: J Carlos to be removed on day 10-14. Touchdown weightbearing if possible. However, he cannot achieve touchdown weightbearing because of mental status, then mobility is encouraged, however, walking distances is discouraged if he is unable to protect it. However, definitely transfers and ucz-[id number] are beneficial for the patient. Change dressing only as needed and he can follow up with me when desired. Would not advance his weightbearing status until 6 weeks after surgery. , if he is to follow up with Dr. Barr, would need x-rays taken at the facility, and brought with him. Diet: ADA Activity: Fall precautions Followup: OOT,OOT [Primary Care Provider] - Sergio Barr MD [ACTIVE - CAN ADMIT] - (Within 1 month.) Time spent managing pt's care (in minutes): 40
[2021-01-15 12:51] VITALS: O2SAT 98
[2021-01-15 14:36] VITALS: BP 126/65; TEMP 97.7
--- NOTE | 2021-01-15 20:20 | P.PN ---
Date of Service: 01/15/21 Vital Signs Temp Pulse Resp BP Pulse Ox 97.7 F 68 18 126/65 100 01/15/21 12:00 01/15/21 12:00 01/15/21 12:00 01/15/21 12:00 01/15/21 12:00 Assessment/ Plan: Nephrology No acute cardiac or pulmonary complaints. No CP or SOB. Limited IH/ ROS due to dementia. No acute events overnight. Vitals, medications, blood work and imaging reviewed in the chart. Physical Examination General: In no apparent distress, Cooperative HEENT: Atraumatic Neck: Supple Respiratory: Clear to auscultation bilaterally Cardiovascular: Regular rate/rhythm, Edema Gastrointestinal: Soft and benign, Non-distended Musculoskeletal: No clubbing, No contractures Integumentary: No rashes, No cyanosis Neurological: Abnormal speech Laboratory Data (last 24 hrs) 01/04/21 13:18: Total Bilirubin 0.5, AST 20, ALT 13, Alkaline Phosphatase 85 01/04/21 13:18: PT 11.1, INR 0.97, APTT 32.0 01/04/21 13:18: Sodium 141, Potassium 4.5, BUN 34 H, Creatinine 2.58 H, Glucose 103 01/04/21 13:18: WBC 6.00, Hgb 12.0 L, Hct 36.2 L, Plt Count 182 Imagings Data: EXAM DESCRIPTION: RAD - Chest Single View - 01/04/2021 1:54 pm CLINICAL HISTORY: fall, tachypnea Chest pain. COMPARISON: Chest Single View dated 01/10/2019 FINDINGS: Portable technique limits examination quality. COPD is present. Ill-defined opacity is noted in the right apex, poorly visualized. Mild linear opacities also present in left lung base probably atelectasis. The heart is mildly enlarged in size. Conclusions/Impression: A/P: Continue the current POC and Medications other than the changes listed. AM Labs PRN. Recommend daily weight. Please see the orders for complete details. CKD IV -No NSAIDs Hypernatremia -Continue spironolactone -Encourage water intake at the bedside Hypokalemia -Replete potassium prn -Continue spironolactone HypoPO4 -Encourage nutrition HTN with CKD -Continue Coreg -Continue Nifedipine ER 30 BID Anemia in chronic illness -Monitor H&H BPH with LUTS -Continue tamsulosin Alz Dementia Right IT Fracture -Follow up with ortho -Continue Vitamin D3
== END 2021-01-15 15:34 | DRG 480 ==
LOC: ER 12:45 → ERHOLD 15:26 → 2ND 18:19
PROVIDERS: ADMIT Hospitalist; ATTEND Internal Medicine
PROC: 0QS636Z Reposition Right Upper Femur with Intramedullary Internal Fixation Device, Percutaneous Approach (ICD-10-PCS; principal; 2021-01-05 14:30)
DX: S72.141A Displaced intertrochanteric fracture of right femur, initial encounter for closed fracture (principal); I63.9 Cerebral infarction, unspecified; I13.0 Hypertensive heart and chronic kidney disease with heart failure and stage 1 through stage 4 chronic kidney disease, or unspecified chronic kidney disease; I50.32 Chronic diastolic (congestive) heart failure; N18.4 Chronic kidney disease, stage 4 (severe); E87.0 Hyperosmolality and hypernatremia; F05 Delirium due to known physiological condition; N17.9 Acute kidney failure, unspecified; G93.40 Encephalopathy, unspecified; G81.91 Hemiplegia, unspecified affecting right dominant side; D63.8 Anemia in other chronic diseases classified elsewhere; G30.9 Alzheimer's disease, unspecified; F02.80 Dementia in other diseases classified elsewhere, unspecified severity, without behavioral disturbance, psychotic disturbance, mood disturbance, and anxiety; F31.9 Bipolar disorder, unspecified; N40.1 Benign prostatic hyperplasia with lower urinary tract symptoms; E87.6 Hypokalemia; E78.5 Hyperlipidemia, unspecified; E83.39 Other disorders of phosphorus metabolism; W18.30XA Fall on same level, unspecified, initial encounter; Z66 Do not resuscitate; Z60.2 Problems related to living alone; Z79.82 Long term (current) use of aspirin; Z79.899 Other long term (current) drug therapy; Z87.891 Personal history of nicotine dependence; Z86.73 Personal history of transient ischemic attack (TIA), and cerebral infarction without residual deficits; Z20.822 Contact with and (suspected) exposure to COVID-19
CPT/HCPCS: 36415; 51702; 70450; 70551; 71045; 72125; 72170; 76000; 76770; 76857; 80048; 80053; 80069; 80076; 81001; 81003; 81015; 82550; 82570; 82947; 83735; 83880; 84100; 84132; 84145; 84156; 84300; 84550; 85025; 85610; 85730; 87040; 87086; 87088; 92610; 93306; 94010; 94760; 97110; 97112; 97161; 97530; 99285; J0360; J0690; J0696; J1100; J1650; J2175; J2270; J2370; J2405; J2704; J3010; J3475; J3486; J7030; J7060; J7120; U0003

== ENCOUNTER 2021-01-20 15:39 | Inpatient (IN) | payer OTHER ==
--- OUTSIDE RECORDS SUMMARY | 2021-01-20 15:42 | XMS REPORT | Continuity of Care Document ---
:1940 Author Organization [facility] t Address [address] [place] [address] Care Team Providers Name Role Phone Natalie [...] at bedtime [facility] Potassium Potassium Yes Bindu [address] [facility] Millender with food [facility] Vitamin B-1 Vitamin B-1 Yes Bindu [address] [facility] Millender [facility] Aspirin 81 Aspirin 81 Yes Bindu [address] [facility] Amlodipine Amlodipine Yes Bindu [address] [facility] Besylate Besylate Millender [facility] Folic Acid Folic Acid Yes Bindu [address] [facility] Mill[facility] Immunizations Ordered Filled Immunization Date Status Comments [facility] e Immunization Name Name FLUZONE HIGH DOSE FLUZONE HIGH DOSE 2019-08-[address] [facility] OVER 65 00:00:00 [facility] Procedures This patient has no known procedures. Encounters Start End Encounter Admission Attending Care Care Encounter Source Date/Time Date/Time Type Type Clinicians Facility Department ID 2020-12-24 2020-12-[address] [facility] [id number] [facility] 2020-10-09 2020-10-09 [facility] [id number] [facility] 2020-09-25 2020-09-25 [facility] [id number] [facility] 2020-09-24 2020-09-24 [facility] [id number] [facility] 2020-09-10 2020-09-10 [facility] [id number] [facility] 2020-09-08 2020-09-08 [facility] [id number] [facility] 2020-08-04 2020-08-04 [facility] [id number] [facility] 2020-07-06 2020-07-06 [facility] [id number] 13[facility]00:00 13:00:00 [facility] Medicine Outpati ent Clinics 2020-07-03 2020-07-[address] [id number] 10[facility]14:00 10:14:00 . [facility] Outpat[facility] Clinics 2020-07-01 2020-07-01 [facility] [id number] 23:09:00 23:09:00 [facility] Medicine Outpati ent Clinics 2020-06-30 2020-06-30 [facility] [id number] [address] 15:40:00 15:40:00 [facility] Medicine Outpati ent Clinics 2020-04-23 2020-04-23 [place] Bonifacio Estrada [facility] [id number] 00:00:00 00:00:00 HEALTH [id number] FAMILY [id number] [facility] 2020-04-21 2020-04-21 Refill Bonifacio Estrada [facility] [id number] 00:00:00 00:00:00 HEALTH [id number] FAMILY [id number] [facility] 2020-04-16 2020-04-16 [facility] [id number] 13:42:00 13:42:00 [facility] Medicine Medicine Outpati ent Clinics 2020-04-08 2020-04-08 [facility] [id number] 16:20:00 16:20:00 [facility] Medicine Medicine Outpati ent Clinics 2020-04-06 2020-04-06 [facility] [id number] 01:09:00 01:09:00 [facility] Medicine [facility] 2020-03-31 2020-03-31 [facility] [id number] 16:00:00 16:00:00 [facility] Outpati ent [facility] 2020-01-23 2020-01-23 [facility] [id number] 11:28:00 11:28:00 [facility] 2020-01-16 2020-01-16 Pre Visit Bonifacio Estrada [facility] [id number] 00:00:00 00:00:00 [facility] [id number] [facility] [id number] [facility] [id number] [address] 2020-01-01 2020-01-01 [facility] [id number] 16:45:00 16:45:00 [facility] 2019 2019 [facility] [id number] 13:40:00 13:40:00 [facility] Clinics 2019-08-21 2019-08-21 [facility] [id number] 14:00:00 14:00:00 [facility] 2019-05-27 2019-05-27 Orders Doctor TRUONG [id number] 00:00:00 00:00:00 Only Unassigned, MARILIN [id number] [place] [id number] Results This patient has no known results.
[2021-01-20 16:42] LABS: Absolute Lymphocytes (CBC) 0.9 K/uL (0.7-4.9); Basophils % 0.6 % (0-1.3); Hematocrit 31.8 % (39.6-49.0); Lymphocytes % 11.5 % (15.3-44.8); MPV 9.3 fL (7.6-11.3); RBC Red Blood Cell Count 3.59 M/uL (4.33-5.43)
[2021-01-20 16:46] LABS: Protime INR 1.08
[2021-01-20 16:54] LABS: Magnesium 2.6 mg/dL (1.8-2.4); Potassium 4.7 mmol/L (3.5-5.1)
[2021-01-20] MEDS ORDERED: NA CHLORIDE 0.9% 500 ML ONE ×2 (16:55→18:44)
[2021-01-20] MEDS ORDERED: NACHLORIDE 0.45% 1,000 ML IV ONE (19:28)
--- NOTE | 2021-01-20 19:36 | P.HP ---
Certification for Inpatient Patient admitted to: Observation With expected LOS: <2 Midnights Patient will require the following post-hospital care: None Practitioner: I am a practitioner with admitting privileges, knowledge of patient current condition, hospital course, and medical plan of care. Services: Services provided to patient in accordance with Admission requirements found in Title 42 Section 412.3 of the Code of Federal Regulations Patient History Date of Service: 01/20/21 Primary Care Provider: halfway doctor Reason for admission: MALLORY History of Present Illness: 80-year-old male with history of Alzheimer's dementia, stroke, hypertension, CKD 4 presents emergency department for worsening renal function. Patient currently staying at [facility] after sustaining a right hip fracture with repair on January 05. During patient's hospitalization. MRI was obtained which demonstrated acute CVA in the left internal capsule possibly affecting the right lower extremity strength. Neurology was consulted who recommended aspirin, Plavix in addition to the Lovenox recommended by Orthopedics. Patient is also seen by a nephrology, renal function remained stable throughout hospitalization. Labs in the skilled nursing revealed worsening of renal function with creatinine of 4 in GFR 14, patient was evaluated in the emergency department creatinine here 3.83 GFR 15. Patient's baseline appears to be GFR around 25. ED provider wishes to admit patient under observation for further evaluation and management. Allergies No Known Allergies Allergy (Verified 01/04/21 18:48) Home Medications: Budesonide/Formoterol Fumarate [Symbicort 160-4.5 Mcg Inhaler] 2 puff DAILY 01/05/21 Donepezil HCl 10 mg PO BEDTIME 01/05/21 Fluticasone Furoate [Arnuity Ellipta] 50 mcg NS DAILY 01/05/21 Spironolactone [Aldactone*] 25 mg PO DAILY 01/05/21 Clobetasol/Niacinamide [Clobetasol 0.05%-Niacinamid 4%] 1 appl TOP DAILY 01/07/21 Tacrolimus/Vehicle Base No.238 [Tacrolimus 0.1%-Pseudocatalase] 1 roma TOP DAILY 01/07/21 Albuterol Neb [Proventil 0.083% Neb Soln] 2.5 mg NEB Q4H PRN amp 01/15/21 Aspirin [Aspirin EC] 81 mg PO DAILY #42 tablet. 01/15/21 Cholecalciferol (Vitamin D3) [Vitamin D 5,000 IU Cap*] 5,000 unit PO DAILY cap 01/15/21 Clopidogrel Bisulfate [Plavix*] 75 mg PO DAILY tablet 01/15/21 Enoxaparin Sodium [Lovenox 40 MG INJ] 40 mg SQ DAILY #21 syr 01/15/21 Folic Acid 1 mg PO DAILY #30 tablet 01/15/21 Nifedipine Xl [Procardia Xl*] 30 mg PO BID tab 01/15/21 Nut.tx.comp. Immune Systm,Reg [Ensure Surgery] 237 ml PO BID can 01/15/21 Tamsulosin [Flomax*] 0.4 mg PO BEDTIME cap 01/15/21 carvediloL [Coreg*] 25 mg PO BID tab 01/15/21 - Past Medical/Surgical History Diabetic: No -: HTN -: Alzheimer's Dementia -: Depression -: CKD4 -: Right hip fracture with repair January 2021 Psychosocial/ Personal History: Patient currently staying in a senior living facility for rehab after a hip fracture - Family History Family History: Reviewed- Non-Contributory - Social History Smoking Status: Unknown if ever smoked Alcohol use: No CD- Drugs: No Caffeine use: No Place of Residence: Custodial Review of Systems is unable to be obtained Physical Examination - Physical Exam General: Alert, In no apparent distress, Demented, Confused HEENT: Atraumatic, Other (Mucous membranes very dry) Neck: Supple Respiratory: Clear to auscultation bilaterally, Normal air movement Cardiovascular: No edema, Regular rate/rhythm, Normal S1 S2 Capillary refill: <2 Seconds Gastrointestinal: Normal bowel sounds, Soft and benign, No tenderness, No masses, No rebound Musculoskeletal: No contractures, No erythema, No tenderness Integumentary: No breakdown, No significant lesion, No tenderness/swelling Neurological: Normal speech, Normal tone, Sensation intact, Other (Difficult neurological exam, patient awake, alert, disoriented confused moving all extremities can cooperate some with exam. No gross neurological deficits noted.), Dementia - Studies Laboratory Data (last 24 hrs) 01/20/21 16:33: PT 12.4, INR 1.08 01/20/21 16:33: WBC 7.80, Hgb 10.6 L, Hct 31.8 L, Plt Count 270 01/20/21 16:33: Sodium 145, Potassium 4.7, BUN 77 H, Creatinine 3.83 H, Glucose 97, Magnesium 2.6 H Assessment and Plan - Plan Assessment Acute kidney injury superimposed on CKD 4 History of CVA with right-sided weakness Recent right hip repair with [place] Alzheimer's dementia Hypertension Plan Acute kidney injury superimposed on CKD 4: Decreasing GFR from baseline around 25-15, patient appears very dry clinically. Continue with, half-normal saline as sodium is currently 145, may need to switch to D5 W sodium rises. Nephrology consulted. Will avoid nephrotoxic agents and contrast. DVT prophylaxis with Lovenox 40 mg as patient had recent hip fracture and is still to be taking Lovenox per orthopedics. History of CVA with right-sided weakness: Currently on aspirin, Plavix, Lovenox. Appear stable. Recent right hip repair with [place] : Wound site to the right hip appears to be healing well without any significant surrounding cellulitis, purulent drainage. Continue Lovenox at this time. Alzheimer's dementia: Patient very confused, demented, may need medications for sedation throughout the evening as he did require this during previous hospitalization. Will attempt to keep this to a minimum. Hypertension: Continue home medications. Discharge Plan: Custodial Plan to discharge in: 24 Hours - Advance Directives Does patient have a Living Will: No Does patient have a Durable POA for Healthcare: Yes - Code Status/Comfort Care Code Status Assessed: Yes (Full code) Critical Care: No Time Spent Managing Pts Care (In Minutes): 55
--- NOTE | 2021-01-20 19:59 | ER ---
Nurse's Notes [facility] Name: Kevin Pascual Age: 80 yrs Sex: Male : 1940 Arrival Date: 01/20/2021 Time: 15:54 Bed 20 Private MD: Diagnosis: Acute kidney failure, unspecified-Acute on Chronic;Dehydration Presentation: 01/20 15:54 Chief complaint: EMS states: Toned out for high creatinine. Coronavirus screen: Client jl7 denies travel out of the [place] in the last 14 days. At this time, the client does not indicate any symptoms associated with coronavirus-19. Ebola Screen: No symptoms or risks identified at this time. Initial Sepsis Screen: Does the patient meet any 2 criteria? No. Patient's initial sepsis screen is negative. Does the patient have a suspected source of infection? No. Patient's initial sepsis screen is negative. Risk Assessment: Do you want to hurt yourself or someone else? Patient reports no desire to harm self or others. Care prior to arrival: None. Transition of care: patient was received from another setting of care (long-term care facility), [facility]. 15:54 Method Of Arrival: EMS: [facility] jl7 16:43 Onset of symptoms was January 20, 2021. tw2 16:43 Acuity: HILARY 3 tw2 Triage Assessment: 15:54 General: Appears in no apparent distress. uncomfortable, Behavior is calm, cooperative, jl7 appropriate for age. Pain: Denies pain. Neuro: Level of Consciousness is awake, alert, obeys commands, Oriented to person. Cardiovascular: Patient's skin is warm and dry. Respiratory: Airway is patent Respiratory effort is even, unlabored, Respiratory pattern is regular, symmetrical. Derm: Skin is pink, warm \T\ dry. Historical: - Allergies: 19:12 No Known Allergies; tw2 - PMHx: 16:45 CVA; Dementia; Hypertension; kidney failure; Alzheimers; ESRD; jl7 - PSHx: 16:45 Unable to obtain; jl7 - Immunization history:: Adult Immunizations Adult Immunizations unknown. - Social history:: Smoking status: unknown Smoking status: . Screenin:55 Abuse screen: Denies threats or abuse. Nutritional screening: No deficits noted. tw2 Tuberculosis screening: No symptoms or risk factors identified. Fall Risk Secondary diagnosis (15 points) impaired mobility. Assessment: 15:54 General: Appears in no apparent distress. slender, Behavior is cooperative, fussy. tw2 Pain: Denies pain. Neuro: Level of Consciousness is awake, alert, obeys commands, Oriented to person, place. Cardiovascular: Capillary refill is > 3 seconds. Respiratory: Airway is patent Respiratory effort is even, unlabored, Respiratory pattern is regular, symmetrical. GI: No signs and/or symptoms were reported involving the gastrointestinal system. : No signs and/or symptoms were reported regarding the genitourinary system. Derm: Skin is dry, Skin is jaundiced, Skin temperature is warm sacrum appears to be red, and unblanchable Decubitus located on sacrum. Musculoskeletal: Range of motion: intact in all extremities. 16:36 Reassessment: Patient appears in no apparent distress at this time. No changes from tw2 previously documented assessment. Patient and/or family updated on plan of care and expected duration. Pain level reassessed. 17:38 Reassessment: Patient appears in no apparent distress at this time. No changes from tw2 previously documented assessment. Patient and/or family updated on plan of care and expected duration. Pain level reassessed. Vital Signs: 15:54 Temp 97.6(O); tw2 16:36 BP 113 / 95; Pulse 70; Resp 22; Pulse Ox 97% on R/A; tw2 17:37 BP 140 / 95; Pulse 64; Resp 17; Pulse Ox 99% on R/A; tw2 19:10 BP 120 / 85; Pulse 63; Resp 18; Temp 97.9; Pulse Ox 100% on R/A; mg2 ED Course: 15:54 Patient arrived in ED. jl7 15:55 Nora Arriola, RN is Primary Nurse. tw2 15:55 Bed in low position. Call light in reach. Side rails up X2. Pulse ox on. NIBP on. tw2 15:58 Fransico Acosta PA is PHCP. cp 15:58 Tone Dorado MD is Attending Physician. cp 16:35 Inserted saline lock: 20 gauge in right forearm, using aseptic technique. Blood tw2 collected. 16:36 Arm band placed on. tw2 16:44 Triage completed. tw2 17:29 Manoj Hinds DO is Hospitalizing Provider. cp 19:12 Report given to LEON Toscano. tw2 19:37 No provider procedures requiring assistance completed. Patient admitted, IV remains in mg2 place. Administered Medications: Discontinued: NS 0.9% 1000 ml IV at 75 ml/hr continuous 16:42 Drug: NS 0.9% 500 ml Route: IV; Rate: 500 ml/hr; Site: right forearm; tw2 17:50 Follow up: Response: No adverse reaction; IV Status: Completed infusion; IV Intake: tw2 500ml 17:55 CANCELLED (Duplicate Order): NS 0.45 % 1000 ml IV at 75 ml/hr continuous tw2 18:42 Drug: NS 0.9% 1000 ml Route: IV; Rate: 75 ml/hr; Site: right forearm; tw2 19:10 Drug: NS 0.45 % 1000 ml Route: IV; Rate: 75 ml/hr; Site: right antecubital; mg2 19:38 Follow up: IV Status: Infusion continued upon admission mg2 Intake: 17:50 IV: 500ml; Total: 500ml. tw2 Outcome: 17:30 Decision to Hospitalize by Provider. cp 19:37 Admitted to Med/surg accompanied by tech, via stretcher, room 205, with chart, Report mg2 called to LEON Wood 19:37 Condition: stable 19:37 Instructed on the need for admit, Demonstrated understanding of instructions. 19:59 Patient left the ED. mg2 Signatures: Fransico Acosta PA PA cp Wise, Tara, RN RN tw2 Karla Neville RN RN jl7 Ethan Smith, LEON RN mg2 Corrections: (The following items were deleted from the chart) 17:38 15:54 Neuro: Level of Consciousness is awake, alert, obeys commands, Oriented to tw2 person, place, time, situation, tw2 19:13 15:54 Derm: Skin is dry, Skin is jaundiced, Skin temperature is warm tw2 tw2
--- NOTE | 2021-01-20 19:59 | EDPHYS ---
Physician Documentation [facility] Name: Kevin Pascual Age: 80 yrs Sex: Male : 1940 Arrival Date: 01/20/2021 Time: 15:54 Bed 20 Private MD: ED Physician Tone Dorado HPI: 01/20 16:05 This 80 yrs old Male presents to ER via EMS with complaints of High cp Creatinine. 16:05 Patient is a resident of [facility] and was referred to ED for worsening cp kidney creatine level. No complaints expressed by patient. Historical: - Allergies: 19:12 No Known Allergies; tw2 - PMHx: 16:45 CVA; Dementia; Hypertension; kidney failure; Alzheimers; ESRD; jl7 - PSHx: 16:45 Unable to obtain; jl7 - Immunization history:: Adult Immunizations Adult Immunizations unknown. - Social history:: Smoking status: unknown Smoking status: . ROS: 16:10 Constitutional: Negative for fever. cp 16:10 Eyes: Negative for injury, pain, redness, and discharge. cp 16:10 Cardiovascular: Negative for chest pain, edema. 16:10 Respiratory: Negative for cough, shortness of breath. 16:10 Abdomen/GI: Negative for abdominal pain, nausea, vomiting, and diarrhea, black/tarry stool, rectal bleeding. 16:10 Neuro: Negative for altered mental status. 16:10 All other systems are negative. Exam: 16:15 Head/Face: Normocephalic, atraumatic. cp 16:15 Constitutional: The patient appears in no acute distress, alert, awake, non-diaphoretic, non-toxic, well developed, well nourished. 16:15 Eyes: Periorbital structures: appear normal, Conjunctiva: normal, no exudate, no injection, Sclera: no appreciated abnormality, Lids and lashes: appear normal, bilaterally. 16:15 ENT: External ear(s): are unremarkable, Nose: is normal, Mouth: Lips: dry, Oral mucosa: moist, Posterior pharynx: Airway: no evidence of obstruction, patent. 16:15 Chest/axilla: Inspection: normal, Palpation: is normal, no crepitus, no tenderness. 16:15 Cardiovascular: Rate: normal, Rhythm: regular, Edema: is not appreciated, JVD: is not appreciated. 16:15 Respiratory: the patient does not display signs of respiratory distress, Respirations: normal, no use of accessory muscles, no retractions, labored breathing, is not present, Breath sounds: are clear throughout, no decreased breath sounds, no stridor, no wheezing. 16:15 Abdomen/GI: Inspection: abdomen appears normal, Palpation: abdomen is soft and non-tender, in all quadrants. 16:15 Neuro: Orientation: to person, Mentation: able to follow commands, Motor: moves all fours, strength is normal. 16:25 ECG was reviewed by the Attending Physician. Vital Signs: 15:54 Temp 97.6(O); tw2 16:36 BP 113 / 95; Pulse 70; Resp 22; Pulse Ox 97% on R/A; tw2 17:37 BP 140 / 95; Pulse 64; Resp 17; Pulse Ox 99% on R/A; tw2 19:10 BP 120 / 85; Pulse 63; Resp 18; Temp 97.9; Pulse Ox 100% on R/A; mg2 MDM: 16:02 Patient medically screened. 17:30 Data reviewed: vital signs, nurses notes, lab test result(s), I have discussed the cp patient's presentation/case with the attending Emergency Department Physician; and as a result, I will admit patient. 17:30 Counseling: I had a detailed discussion with the patient and/or guardian regarding: the cp historical points, exam findings, and any diagnostic results supporting the discharge/admit diagnosis, lab results, the need for further work-up and treatment in the hospital. Physician consultation: Avi JANSEN was contacted at 17:30, regarding admission, to the medical/surgical unit. patient's condition. 01/20 16:01 Order name: Basic Metabolic Panel; Complete Time: 17:18 cp 01/20 17:18 Interpretation: Normal except: CL 114; CO2 19; BUN 77; CRE 3.83; GFR 15. cp 01/20 16:01 Order name: CBC with Diff; Complete Time: 17:18 cp 01/20 17:18 Interpretation: Normal except: RBC 3.59; HGB 10.6; HCT 31.8; CHENTE% 74.9; LYM% 11.5. cp 01/20 16:01 Order name: Magnesium; Complete Time: 17:18 cp 01/20 17:18 Interpretation: Abnormal: MG 2.6. cp 01/20 16:01 Order name: PT-INR; Complete Time: 17:18 cp 01/20 16:01 Order name: Urine Microscopic Only cp 01/20 16:01 Order name: EKG; Complete Time: 16:01 cp 01/20 16:01 Order name: Cardiac monitoring; Complete Time: 16:42 cp 01/20 16:01 Order name: EKG - Nurse/Tech; Complete Time: 16:42 cp 01/20 19:03 Order name: SARS-COV-2 RT PCR EDMS 01/20 16:01 Order name: IV Saline Lock; Complete Time: 16:42 cp 01/20 16:01 Order name: Labs collected and sent; Complete Time: 16:42 cp 01/20 16:01 Order name: O2 Per Protocol; Complete Time: 16:42 cp 01/20 16:01 Order name: O2 Sat Monitoring; Complete Time: 16:42 cp EC:25 Rate is 64 beats/min. Rhythm is regular. [place] interval is normal. QRS interval is normal. cp QT interval is normal. T waves are Inverted in lead aVR. Interpreted by me. Reviewed by me. Administered Medications: Discontinued: NS 0.9% 1000 ml IV at 75 ml/hr continuous 16:42 Drug: NS 0.9% 500 ml Route: IV; Rate: 500 ml/hr; Site: right forearm; tw2 17:50 Follow up: Response: No adverse reaction; IV Status: Completed infusion; IV Intake: tw2 500ml 17:55 CANCELLED (Duplicate Order): NS 0.45 % 1000 ml IV at 75 ml/hr continuous tw2 18:42 Drug: NS 0.9% 1000 ml Route: IV; Rate: 75 ml/hr; Site: right forearm; tw2 19:10 Drug: NS 0.45 % 1000 ml Route: IV; Rate: 75 ml/hr; Site: right antecubital; mg2 19:38 Follow up: IV Status: Infusion continued upon admission mg2 Disposition: 01/20/21 17:30 Hospitalization ordered by Manoj Hinds for Observation. Preliminary diagnosis are Acute kidney failure, unspecified - Acute on Chronic, Dehydration. - Bed requested for Telemetry/MedSurg (observation). - Status is Observation. mg2 - Condition is Stable. - Problem is new. - Symptoms have improved. Addendum: 01/21/2021 21:45 Available for consultation at all times. Did not see or evaluate patient unless p s1 otherwise noted. . Signatures: Dispatcher [employer] EDND Jennyfer Disla, LEON RN dw Avi Boo, DIRECTOR STRATEGIC PLANNING-C DIRECTOR STRATEGIC PLANNING-Cla1 Fransico Acosta PA PA cp Nora Arriola RN RN tw2 Karla Neville RN RN jl7 Tone Dorado MD MD ps1 Ethan Smith RN RN mg2 Corrections: (The following items were deleted from the chart) 01/20 17:55 17:42 NS 0.45 % 1000 ml IV at 75 ml/hr continuous ordered. la1 tw2 18:22 17:44 CORONAVIRUS+MR.LAB.BRZ ordered. [facility] EDND 19:14 17:30 Hospitalization Ordered by Manoj Hinds DO for Observation. Preliminary dw diagnosis is Acute kidney failure, unspecified - Acute on Chronic; Dehydration. Bed requested for Telemetry/MedSurg (observation). Status is Observation. Condition is Stable. Problem is new. Symptoms have improved. cp 19:59 19:14 01/20/2021 17:30 Hospitalization Ordered by Manoj iHnds DO for Observation. mg2 Preliminary diagnosis is Acute kidney failure, unspecified - Acute on Chronic; Dehydration. Bed requested for Telemetry/MedSurg (observation). Status is Observation. Condition is Stable. Problem is new. Symptoms have improved. dw 01/21 02:45 01/19 16:15 Constitutional: The patient appears in no acute distress, alert, awake, cp non-diaphoretic, non-toxic, well developed, well nourished, cp 01/21 02:45 01/19 16:15 Head/Face: Normocephalic, atraumatic. cp cp 01/21 02:45 01/19 16:15 Eyes: Periorbital structures: appear normal, Conjunctiva: normal, no cp exudate, no injection, Sclera: no appreciated abnormality, Lids and lashes: appear normal, bilaterally, cp 01/21 02:45 01/19 16:15 ENT: External ear(s): are unremarkable, Nose: is normal, Mouth: Lips: dry, cp Oral mucosa: moist, Posterior pharynx: Airway: no evidence of obstruction, patent, cp 01/21 02:45 01/19 16:15 Chest/axilla: Inspection: normal, Palpation: is normal, no crepitus, no cp tenderness, cp 01/21 02:45 01/19 16:15 Cardiovascular: Rate: normal, Rhythm: regular, Edema: is not appreciated, cp JVD: is not appreciated, cp 01/21 02:45 01/19 16:15 Respiratory: the patient does not display signs of respiratory distress, cp Respirations: normal, no use of accessory muscles, no retractions, labored breathing, is not present, Breath sounds: are clear throughout, no decreased breath sounds, no stridor, no wheezing, cp 01/21 02:45 01/19 16:15 Abdomen/GI: Inspection: abdomen appears normal, Palpation: abdomen is soft cp and non-tender, in all quadrants, cp 01/21 02:45 01/19 16:15 Neuro: Orientation: to person, Mentation: able to follow commands, Motor: cp moves all fours, strength is normal, cp
[2021-01-20] MEDS ORDERED: NACHLORIDE 0.45% 1,000 ML IV SCH (20:04)
[2021-01-20] MEDS ORDERED: ONDANSETRON 4 MG/2 ML VIAL IV PRN (20:04)
[2021-01-20 21:27] VITALS: BMI 23.1
[2021-01-21] MEDS: ACETAMINOPHEN 500 MG TAB PO PRN (01:53)
[2021-01-21 06:18] LABS: Absolute Lymphocytes (CBC) 0.8 K/uL (0.7-4.9); Basophils % 0.4 % (0-1.3); Lymphocytes % 13.5 % (15.3-44.8); MPV 9.5 fL (7.6-11.3); RBC Red Blood Cell Count 3.28 M/uL (4.33-5.43)
[2021-01-21 06:36] LABS: ALT/SGPT 11 U/L (12-78); AST/SGOT 13 U/L (15-37); Albumin 2.8 g/dL (3.4-5.0); BUN Blood Urea Nitrogen 67 mg/dL (7-18); Bicarbonate 18 mmol/L (21-32); Bilirubin Total 0.4 mg/dL (0.2-1.0); Glucose Level 97 mg/dL (74-106); Magnesium 2.4 mg/dL (1.8-2.4); Potassium 4.5 mmol/L (3.5-5.1); Protein, Total 6.3 g/dL (6.4-8.2); Sodium Level 146 mmol/L (136-145)
--- NOTE | 2021-01-21 08:05 | P.CNS ---
Date of Consult: 01/21/21 Reason for Consult: MALLORY/ CKD Requesting Physician: Manoj Hinds Primary Care Provider: intermediate doctor Chief Complaint: MALLORY History of Present Illness: 80-year-old male with history of Alzheimer's dementia, stroke, hypertension, CKD 4 presents emergency department for worsening renal function. Patient currently staying at [facility] after sustaining a right hip fracture with repair on January 05. During patient's hospitalization. MRI was obtained which demonstrated acute CVA in the left internal capsule possibly affecting the right lower extremity strength. Neurology was consulted who recommended aspirin, Plavix in addition to the Lovenox recommended by Orthopedics. Patient is also seen by a nephrology, renal function remained stable throughout hospitalization. [facility] in the jail revealed worsening of renal function with creatinine of 4 in GFR 14, patient was evaluated in the emergency department creatinine here 3.83 GFR 15. Patient's baseline appears to be GFR around 25. ED provider wishes to admit patient under observation for further evaluation and management. Allergies No Known Allergies Allergy (Verified 01/21/21 01:18) Home medications list reviewed: Yes Home Medications: Budesonide/Formoterol Fumarate [Symbicort 160-4.5 Mcg Inhaler] 2 puff IH DAILY 01/05/21 Donepezil HCl 10 mg PO BEDTIME 01/05/21 Fluticasone Furoate [Arnuity Ellipta] 1 spray IH DAILY 01/05/21 Aspirin [Aspirin EC] 81 mg PO DAILY #42 tablet. 01/15/21 Acetaminophen 650 mg PO Q6HP PRN MDD \ 01/20/21 Carvedilol [Coreg] 25 mg PO BID 01/20/21 Cholecalciferol (Vitamin D3) [Vitamin D 5,000 IU Cap*] 5,000 unit PO DAILY 01/20/21 Clopidogrel Bisulfate [Plavix*] 75 mg PO DAILY 01/20/21 Enoxaparin Sodium [Lovenox 40 MG INJ*] 40 mg SQ DAILY 01/20/21 Folic Acid 1 mg PO DAILY 01/20/21 Nifedipine Xl [Procardia Xl*] 30 mg PO BID 01/20/21 Tamsulosin [Flomax*] 0.4 mg PO BEDTIME 01/20/21 - Past Medical/Surgical History Diabetic: No -: HTN -: Alzheimer's Dementia -: Depression -: CKD4 -: Right hip fracture with repair January 2021 Psychosocial/ Personal History: [facility] after a hip fracture - Social History Smoking Status: Unknown if ever smoked Alcohol use: No CD- Drugs: No Caffeine use: No Place of Residence: Retirement Review of Systems 10-point ROS is otherwise unremarkable General: Weakness Physical Examination Temp Pulse Resp BP Pulse Ox 97.2 F 61 16 158/69 H 97 01/21/21 04:00 01/21/21 04:00 01/21/21 04:00 01/21/21 04:00 01/21/21 04:00 General: In no apparent distress, Cooperative HEENT: Atraumatic Neck: Supple Respiratory: Clear to auscultation bilaterally Cardiovascular: No edema, Regular rate/rhythm Gastrointestinal: Soft and benign, Non-distended Musculoskeletal: No clubbing, No contractures Integumentary: No rashes, No cyanosis Neurological: Normal speech Laboratory Data (last 24 hrs) 01/20/21 16:33: PT 12.4, INR 1.08 01/20/21 16:33: WBC 7.80, Hgb 10.6 L, Hct 31.8 L, Plt Count 270 01/20/21 16:33: Sodium 145, Potassium 4.7, BUN 77 H, Creatinine 3.83 H, Glucose 97, Magnesium 2.6 H Imagings Data: EXAM DESCRIPTION: RAD - Chest Single View - 01/08/2021 11:18 am CLINICAL HISTORY: cough, opacity seen on prior COMPARISON: Portable January 05, 2021, January 04, 2021 TECHNIQUE: AP portable chest image was obtained 01/08/2021 11:18 am . FINDINGS: Right apex parenchymal stranding is still present favored to be scarring and first rib summation. Left lung base is better aerated. Left base interstitial pattern matches the mid and lower aspects of each lung field. Heart and vasculature are normal. No measurable pleural effusion and no pneumothorax. No acute bony abnormality seen. No acute aortic findings suspected. IMPRESSION: Further clearing of left base opacification. No progressive left lung field finding. Stranding in the right apex is probably a combination of scarring and overlying first rib. No new or progressive process. Conclusions/Impression: A/P: Continue the current POC and Medications other than the changes listed. AM Labs PRN. Recommend daily weight. Please see the orders for complete det ails. MALLORY/ CKD IV -Start D5W at 125 ml/hr Hypernatremia/ Dehydration -Start D5W Acidosis -Start oral bicarb Hypocalcemia -Start Vitamin D3 HTN with CKD -Continue Coreg Moderate malnutrition -Encourage nutrition BPH/ LUTS -Continue Flomax Thank you kindly for the consultation Case reviewed with Dr. Hinds
[2021-01-21] MEDS ORDERED: D5W 1,000 ML IV SCH (09:00)
--- NOTE | 2021-01-21 09:20 | P.DS ---
Admission Date: 01/20/21 Discharge Date: 01/21/21 Primary Care Provider: [facility] doctor Disposition: TRANSFER TO CUSTODIAL Discharge Condition: GOOD Reason for Admission: MALLORY Consultations: Nephrology-Dr. Shaikh Procedures: COVID: Negative Medical Problem List: Acute on chronic renal disease stage IV likely from dehydration History of CVA with right-sided weakness Recent right intratrochanteric fracture status post right intertrochanteric closed reduction with intra medullary juwan fixation Alzheimer's dementia Hypertension BPH COPD Brief History of Present Illness: 80-year-old male with history of Alzheimer's dementia, stroke, hypertension, CKD 4 presents to the emergency room with dehydration. Patient had worsening renal function. Patient currently at half-way for skilled placement due to recent right hip fracture repair on January 05. At that hospitalization he also was found to have an acute stroke. Patient was admitted for further evaluation and treatment. Hospital Course: Patient presented with acute on chronic renal disease stage IV likely from dehydration. Patient was given IV fluids with improvement. Case discussed in detail with nephrology. Aldactone has been held. Patient not getting enough water. Recommend to continue to hold Aldactone at discharge. Recommend for the patient to receive water as needed. This will be addressed in detail. At discharge patient will return back to the half-way. Patient will continue with rehab. Plan of care discussed in detail with cousin who takes care the patient. Advanced care planning address in detail.-30 min. Recommend to recheck lab-BMP in 1 week. Recommend follow up with nephrology in 1 week to further monitor and address. Will inform half-way to allowed patient to have access to water for hydration. Patient with recent history of right intertrochanteric fracture status post right intertrochanteric close reduction with intra medullary juwan fixation. Physical therapy to evaluate patient. Continue with physical therapy recommendations at the half-way. Continue follow up with Orthopedic surgery as directed. Patient with recent history of CVA. This appears stable. At discharge patient will continue with aspirin 81 mg daily, folic acid 1 mg daily, and Plavix 75 mg daily. Recommend follow up with neurology as directed. Patient with Alzheimer's dementia. This appears stable. Patient appears to be at his baseline. At discharge patient will continue with Aricept 10 mg daily. Patient with hypertension. Medications have been adjusted. Aldactone has been discontinued. Patient will continue with carvedilol 25 mg 1 pill twice daily and Procardia XL 30 mg 1 pill twice daily. Recommend to maintain blood pressure less than 130/80. Further adjustment can be done by his PCP. Patient with COPD. At discharge patient will continue with Symbicort 2 puffs twice daily and Arnuity 1 puff daily. Recommend follow up with pulmonology as directed. Patient with BPH. At discharge patient will continue with Flomax 0.4 mg daily. Vital Signs/Physical Exam: Temp Pulse Resp BP Pulse Ox 97.2 F 61 16 158/69 H 97 01/21/21 04:00 01/21/21 04:00 01/21/21 04:00 01/21/21 04:00 01/21/21 04:00 General: Alert, In no apparent distress, Demented HEENT: Atraumatic Neck: Supple Respiratory: Clear to auscultation bilaterally, Normal air movement Cardiovascular: Normal pulses, Regular rate/rhythm Gastrointestinal: Normal bowel sounds, No tenderness, No masses, No rebound, No guarding Neurological: Normal speech, Normal strength at 5/5 x4 extr, Normal tone, Demen tia Laboratory Data at Discharge: WBC 6.20 K/uL (4.3-10.9) D 01/21/21 05:56 Hgb 9.8 g/dL (13.6-17.9) L 01/21/21 05:56 Hct 29.0 % (39.6-49.0) L 01/21/21 05:56 Plt Count 249 K/uL (152-406) 01/21/21 05:56 PT 12.4 SECONDS (9.5-12.5) 01/20/21 16:33 INR 1.08 01/20/21 16:33 Sodium 146 mmol/L (136-145) H 01/21/21 05:56 Potassium 4.5 mmol/L (3.5-5.1) 01/21/21 05:56 BUN 67 mg/dL (7-18) H 01/21/21 05:56 Creatinine 3.44 mg/dL (0.55-1.3) H 01/21/21 05:56 Glucose 97 mg/dL (74-106) 01/21/21 05:56 Magnesium 2.4 mg/dL (1.8-2.4) 01/21/21 05:56 Total Bilirubin 0.4 mg/dL (0.2-1.0) 01/21/21 05:56 AST 13 U/L (15-37) L 01/21/21 05:56 ALT 11 U/L (12-78) L 01/21/21 05:56 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 01/15/21 Acetaminophen 650 mg PO Q6HP PRN MDD \ 01/20/21 Carvedilol [Coreg] 25 mg PO BID 01/20/21 Cholecalciferol (Vitamin D3) [Vitamin D 5,000 IU Cap*] 5,000 unit PO DAILY 01/20/21 Clopidogrel Bisulfate [Plavix*] 75 mg PO DAILY 01/20/21 Enoxaparin Sodium [Lovenox 40 MG INJ*] 40 mg SQ DAILY 01/20/21 Folic Acid 1 mg PO DAILY 01/20/21 Nifedipine Xl [Procardia Xl*] 30 mg PO BID 01/20/21 Tamsulosin [Flomax*] 0.4 mg PO BEDTIME 01/20/21 Physician Discharge Instructions: Patient presented with acute on chronic renal disease stage IV likely from dehydration. Patient was given IV fluids with improvement. Case discussed in detail with nephrology. Aldactone has been held. Patient not getting enough water. Recommend to continue to hold Aldactone at discharge. Recommend for the patient to receive water as needed. This will be addressed in detail. At discharge patient will return back to the half-way. Patient will continue with rehab. Plan of care discussed in detail with cousin who takes care the patient. Advanced care planning address in detail.-30 min. Recommend to recheck lab-BMP in 1 week. Recommend follow up with nephrology in 1 week to further monitor and address. Will inform half-way to allowed patient to have access to water for hydration. Patient with recent history of right intertrochanteric fracture status post right intertrochanteric close reduction with intra medullary juwan fixation. Physical therapy to evaluate patient. Continue with physical therapy recommendations at the half-way. Continue follow up with Orthopedic surgery as directed. Patient with recent history of CVA. This appears stable. At discharge patient will continue with aspirin 81 mg daily, folic acid 1 mg daily, and Plavix 75 mg daily. Recommend follow up with neurology as directed. Patient with Alzheimer's dementia. This appears stable. Patient appears to be at his baseline. At discharge patient will continue with Aricept 10 mg daily. Patient with hypertension. Medications have been adjusted. Aldactone has been discontinued. Patient will continue with carvedilol 25 mg 1 pill twice daily and Procardia XL 30 mg 1 pill twice daily. Recommend to maintain blood pressure less than 130/80. Further adjustment can be done by his PCP. Patient with COPD. At discharge patient will continue with Symbicort 2 puffs twice daily and Arnuity 1 puff daily. Recommend follow up with pulmonology as directed. Patient with BPH. At discharge patient will continue with Flomax 0.4 mg daily. Diet: pureed Activity: as recommended by PT/Ortho Followup: TACHO TITUS [Primary Care Provider] - Time spent managing pt's care (in minutes): 55
[2021-01-21] MEDS: NIFEDIPINE XL 30 MG TABLET PO SCH ×2 (10:41→20:24)
[2021-01-21] MEDS: ENOXAPARIN 30 MG/0.3 ML SQ SCH (10:42)
[2021-01-21] MEDS: FOLIC ACID 1 MG TABLET PO SCH (10:42)
[2021-01-21] MEDS: carvediloL 25 MG TAB PO SCH ×2 (10:42→20:23)
[2021-01-21] MEDS: CLOPIDOGREL 75 MG TABLET PO SCH (10:42)
[2021-01-21] MEDS: ASPIRIN EC 81 MG TAB PO SCH (10:42)
[2021-01-21] MEDS: VITAMIN D 5,000 UNIT CAP PO SCH (10:42)
[2021-01-21] MEDS: DONEPEZIL HCL 5 MG TAB PO SCH (20:23)
[2021-01-21] MEDS: TAMSULOSIN 0.4 MG SR CAP PO SCH (20:23)
[2021-01-22] MEDS ORDERED: LORazepam 2 MG/ML VIAL IV ONE (00:50)
[2021-01-22 05:57] LABS: RBC Red Blood Cell Count 3.42 M/uL (4.33-5.43)
[2021-01-22 05:58] LABS: Absolute Lymphocytes (CBC) 0.6 K/uL (0.7-4.9); Basophils % 0.5 % (0-1.3); Hematocrit 30.7 % (39.6-49.0); Lymphocytes % 10.4 % (15.3-44.8); MPV 8.9 fL (7.6-11.3)
[2021-01-22 06:30] LABS: BUN Blood Urea Nitrogen 59 mg/dL (7-18); Bicarbonate 19 mmol/L (21-32); Glucose Level 115 mg/dL (74-106); Potassium 4.5 mmol/L (3.5-5.1); Sodium Level 147 mmol/L (136-145)
[2021-01-22 06:31] LABS: ALT/SGPT 12 U/L (12-78); AST/SGOT 15 U/L (15-37); Albumin 2.9 g/dL (3.4-5.0); Bilirubin Total 0.4 mg/dL (0.2-1.0); Protein, Total 6.6 g/dL (6.4-8.2)
[2021-01-22 06:33] LABS: Magnesium 2.2 mg/dL (1.8-2.4)
[2021-01-22 07:20] LABS: Alkaline Phosphatase ND U/L (45-117)
--- NOTE | 2021-01-22 07:36 | P.PN ---
Date of Service: 01/22/21 Vital Signs Temp Pulse Resp BP Pulse Ox 97.7 F 59 16 128/73 99 01/22/21 04:00 01/22/21 04:00 01/22/21 04:00 01/22/21 04:00 01/22/21 04:00 Medications Acetaminophen (Acetaminophen 500 Mg Tab) 500 mg PO Q4HP PRN PRN Reason: TEMP > 100' F Last Admin: 01/21/21 01:53 Dose: 500 mg Documented by: Aspirin (Aspirin Ec 81 Mg Tab) 81 mg PO DAILY [facility] Last Admin: 01/21/21 10:42 Dose: 81 mg Documented by: Carvedilol (Carvedilol 25 Mg Tab) 25 mg PO BID [facility] Last Admin: 01/21/21 20:23 Dose: 25 mg Documented by: Cholecalciferol (Vitamin D 5,000 Unit Cap) 5,000 unit PO DAILY [facility] Last Admin: 01/21/21 10:42 Dose: 5,000 unit Documented by: Clopidogrel Bisulfate (Clopidogrel 75 Mg Tablet) 75 mg PO DAILY [facility] Last Admin: 01/21/21 10:42 Dose: 75 mg Documented by: Desmopressin Acetate (Desmopressin 4 Mcg/Ml Amp) 1 mcg SQ BID [facility] Donepezil HCl (Donepezil Hcl 5 Mg Tab) 10 mg PO BEDTIME [facility] Last Admin: 01/21/21 20:23 Dose: 10 mg Documented by: Enoxaparin Sodium (Enoxaparin 30 Mg/0.3 Ml) 30 mg SQ DAILY [facility] Last Admin: 01/21/21 10:42 Dose: 30 mg Documented by: Folic Acid (Folic Acid 1 Mg Tablet) 1 mg PO DAILY [facility] Last Admin: 01/21/21 10:42 Dose: 1 mg Documented by: Home Med (Budesonide/Formoterol Fumarate [Symbicort 160-4.5 Mcg Inhaler]) 2 puff IH DAILY [facility] Last Admin: 01/21/21 09:00 Dose: Not Given Documented by: Home Med (Fluticasone Furoate [Arnuity Ellipta]) 1 spray IH DAILY [facility] Last Admin: 01/21/21 09:00 Dose: Not Given Documented by: Dextrose (Dextrose 5%/Water/[place] Con) 500 mls @ 125 mls/hr IV .Q4H [facility] Last Admin: 01/22/21 05:05 Dose: 500 mls Documented by: Nifedipine (Nifedipine Xl 30 Mg Tablet) 30 mg PO BID [facility] Last Admin: 01/21/21 20:24 Dose: 30 mg Documented by: Ondansetron HCl (Ondansetron 4 Mg/2 Ml Vial) 4 mg IV Q6HP PRN PRN Reason: NAUSEA / VOMITING Sodium Bicarbonate (Sodium Bicarb 325 Mg Tab) 650 mg PO BIDWM [facility] Sodium Chloride (Flush Normal Saline 10 Ml) 10 ml IV BID [facility] Last Admin: 01/21/21 20:24 Dose: 10 ml Documented by: Tamsulosin HCl (Tamsulosin 0.4 Mg Sr Cap) 0.4 mg PO BEDTIME [facility] Last Admin: 01/21/21 20:23 Dose: 0.4 mg Documented by: Assessment/ Plan: Nephrology No acute cardiac or pulmonary complaints. No CP or SOB. No acute events overnight. Limited IH/ ROS due to dementia Vitals, medications, blood work and imaging reviewed in the chart. General: In no apparent distress, Cooperative HEENT: Atraumatic Neck: Supple Respiratory: Clear to auscultation bilaterally Cardiovascular: No edema, Regular rate/rhythm Gastrointestinal: Soft and benign, Non-distended Musculoskeletal: No clubbing, No contractures Integumentary: No rashes, No cyanosis Neurological: Normal speech Laboratory Data (last 24 hrs) 01/20/21 16:33: PT 12.4, INR 1.08 01/20/21 16:33: WBC 7.80, Hgb 10.6 L, Hct 31.8 L, Plt Count 270 01/20/21 16:33: Sodium 145, Potassium 4.7, BUN 77 H, Creatinine 3.83 H, Glucose 97, Magnesium 2.6 H Imagings Data: EXAM DESCRIPTION: RAD - Chest Single View - 01/08/2021 11:18 am CLINICAL HISTORY: cough, opacity seen on prior COMPARISON: Portable January 05, 2021, January 04, 2021 TECHNIQUE: AP portable chest image was obtained 01/08/2021 11:18 am . FINDINGS: Right apex parenchymal stranding is still present favored to be scarring and first rib summation. Left lung base is better aerated. Left base interstitial pattern matches the mid and lower aspects of each lung field. Heart and vasculature are normal. No measurable pleural effusion and no pneumothorax. No acute bony abnormality seen. No acute aortic findings suspected. IMPRESSION: Further clearing of left base opacification. No progressive left lung field finding. Stranding in the right apex is probably a combination of scarring and overlying first rib. No new or progressive process. Conclusions/Impression: A/P: Continue the current POC and Medications other than the changes listed. AM Labs PRN. Recommend daily weight. Please see the orders for complete details. MALLORY/ CKD IV -Continue D5W at 125 ml/hr Hypernatremia/ Dehydration -Continue D5W -Start DDAVP 1mcg BID Acidosis -Continue oral bicarb Hypocalcemia -Continue Vitamin D3 HTN with CKD -Continue Coreg Moderate malnutrition -Encourage nutrition BPH/ LUTS -Continue Flomax Case reviewed with Dr. Hinds
--- NOTE | 2021-01-22 08:36 | P.PN ---
Subjective Date of Service: 01/22/21 Primary Care Provider: half-way doctor Chief Complaint: MALLORY Subjective: Improving, Doing well Physical Examination - Vital Signs Temperature: 97.7 F Blood Pressure: 128/73 Pulse: 59 Respirations: 16 Pulse Ox (%): 99 Assessment & Plan Discharge Plan: Other (half-way with skilled placement) Plan to discharge in: 24 Hours Physician Review Additional Text: Physical exam: Patient alert, cooperative. Dementia noted. Heart: Regular rate rhythm Lungs: Clear to auscultation Abdomen: Soft nontender nondistended Extremities: Good range of motion. J Carlos in place to the right hip region. Mentation: Patient stable and alert. Appropriate. Patient with dementia. Impression: Acute on chronic renal disease stage IV likely from dehydration with hypernatremia/metabolic acidosis History of CVA with right-sided weakness Recent right intratrochanteric fracture status post right intertrochanteric closed reduction with intra medullary juwan fixation Alzheimer's dementia Hypertension BPH COPD Plan: Acute on chronic renal disease stage IV likely from dehydration with hypernatremia/metabolic acidosis: Continue IV fluids. Patient also receiving sodium bicarb. Spoke with nephrology. Nephrology to start desmopressin. Will need to monitor lab closely over the next day. Anticipate improvement. Recheck lab tomorrow. Social work working to send patient back to skilled facility to continue rehab. Will continue physical therapy at this time. Will discuss with family. Likely discharge back to the half-way for skilled placement tomorrow. History of CVA with right-sided weakness: Continue with current medications. DVT prophylaxis in place. Recent right intratrochanteric fracture status post right intertrochanteric closed reduction with intra medullary juwan fixation: Continue physical therapy. Fall precaution in place. Alzheimer's dementia: Continue medication. Hypertension: Continue medication. BPH: Continue medication COPD:Continue medication. Time Spent Managing Pts Care (In Minutes): 55
[2021-01-22] MEDS: DESMOPRESSIN 4 MCG/ML AMP SQ SCH ×2 (09:00→20:49)
[2021-01-22] MEDS: NIFEDIPINE XL 30 MG TABLET PO SCH ×2 (09:59→20:48)
[2021-01-22] MEDS: FOLIC ACID 1 MG TABLET PO SCH (09:59)
[2021-01-22] MEDS: carvediloL 25 MG TAB PO SCH ×2 (10:00→20:49)
[2021-01-22] MEDS: SODIUM BICARB 325 MG TAB PO SCH ×2 (10:01→16:49)
[2021-01-22] MEDS: VITAMIN D 5,000 UNIT CAP PO SCH (10:01)
[2021-01-22] MEDS: CLOPIDOGREL 75 MG TABLET PO SCH (10:01)
[2021-01-22] MEDS: ASPIRIN EC 81 MG TAB PO SCH (10:03)
[2021-01-22] MEDS: ENOXAPARIN 30 MG/0.3 ML SQ SCH (16:49)
[2021-01-22] MEDS: DONEPEZIL HCL 5 MG TAB PO SCH (20:49)
[2021-01-22] MEDS: TAMSULOSIN 0.4 MG SR CAP PO SCH (20:51)
[2021-01-22] MEDS ORDERED: LORAZEPAM 0.5 MG TABLET PO PRN (22:30)
[2021-01-22] MEDS: LORazepam 2 MG/ML VIAL IV PRN (22:57)
[2021-01-23 07:01] LABS: Absolute Lymphocytes (CBC) 0.6 K/uL (0.7-4.9); Basophils % 0.7 % (0-1.3); Lymphocytes % 12.8 % (15.3-44.8); MPV 9.4 fL (7.6-11.3); RBC Red Blood Cell Count 3.26 M/uL (4.33-5.43)
[2021-01-23 07:11] LABS: Albumin 2.9 g/dL (3.4-5.0); Bilirubin Total 0.5 mg/dL (0.2-1.0); Magnesium 1.9 mg/dL (1.8-2.4); Potassium 4.3 mmol/L (3.5-5.1); Protein, Total 6.6 g/dL (6.4-8.2)
--- NOTE | 2021-01-23 08:14 | P.PN ---
Subjective Date of Service: 01/23/21 Primary Care Provider: prison doctor Chief Complaint: MALLORY Subjective: Doing well, Demented Physical Examination - Vital Signs Temperature: 96.8 F Blood Pressure: 142/74 Pulse: 69 Respirations: 19 Pulse Ox (%): 100 Assessment & Plan Discharge Plan: Correction Plan to discharge in: 48 Hours Physician Review Additional Text: Physical exam: Patient alert, cooperative. Dementia noted. Patient doing well. When I saw the patient this morning. After a left in the morning nurses reported that he got out of bed. Patient had fallen. Skin tear noted to the right forearm. No other deficits noted. Patient has been moved to a bed near nurses station. Patient stable. Heart: Regular rate rhythm Lungs: Clear to auscultation Abdomen: Soft nontender nondistended Extremities: Good range of motion. J Carlos in place to the right hip region. Patient was reassessed. Patient had skin tear noted to the right forearm. Mentation: Patient stable and alert. Appropriate. Patient with dementia. Impression: Acute on chronic renal disease stage IV likely from dehydration with hypernatremia/metabolic acidosis History of CVA with right-sided weakness Recent right intratrochanteric fracture status post right intertrochanteric closed reduction with intra medullary juwan fixation Alzheimer's dementia Hypertension BPH COPD Plan: Acute on chronic renal disease stage IV likely from dehydration with hypernatremia/metabolic acidosis: Sodium level now normal. Patient appears to be at his baseline renal function. Will discontinue IV fluids. Patient had fallen and got not a bed. Will move patient to a bed closer to the nurse station. Will request a sitter. Skin care to be address with Steri-Strips. Fall precautions in place. Patient remains on sodium bicarb min. Patient also on desmopressin. Continue with nephrology recommendation. Spoke with social services director yesterday. Patient being reassess to go back to the skilled facility. Will likely be made aware of approval on Monday. Continue physical therapy while here. Will discuss with family with plan of care. History of CVA with right-sided weakness: Continue with current medications. DVT prophylaxis in place. Recent right intratrochanteric fracture status post right intertrochanteric closed reduction with intra medullary juwan fixation: Continue physical therapy. Fall precaution in place. Will move patient closer to the nurse's station. Will order for sitter. Alzheimer's dementia: Continue medication. Hypertension: Continue medication. BPH: Continue medication COPD:Continue medication. Time Spent Managing Pts Care (In Minutes): 55
[2021-01-23] MEDS: CLOPIDOGREL 75 MG TABLET PO SCH (09:32)
[2021-01-23] MEDS: VITAMIN D 5,000 UNIT CAP PO SCH (09:33)
[2021-01-23] MEDS: NIFEDIPINE XL 30 MG TABLET PO SCH ×2 (09:33→21:08)
[2021-01-23] MEDS: SODIUM BICARB 325 MG TAB PO SCH ×2 (09:34→17:35)
[2021-01-23] MEDS: ASPIRIN EC 81 MG TAB PO SCH (09:34)
[2021-01-23] MEDS: FOLIC ACID 1 MG TABLET PO SCH (09:34)
[2021-01-23] MEDS: DESMOPRESSIN 4 MCG/ML AMP SQ SCH ×2 (09:34→21:00)
[2021-01-23] MEDS: ENOXAPARIN 30 MG/0.3 ML SQ SCH (09:34)
[2021-01-23] MEDS: carvediloL 25 MG TAB PO SCH ×2 (09:35→21:08)
--- NOTE | 2021-01-23 13:58 | PN ---
Date of Progress Note: 01/23/2021 Subjective: The patient is seen and examined at bedside. No issues noted overnight. Objective: Vital Signs: Have been reviewed. Blood pressures tend to be on the lower side. General: He appears weak and cachectic. HEENT: Atraumatic head. Lungs: Clear to auscultation. Extremities: Without any edema. Laboratory Data: Showing sodium improving to 140, potassium of 4.3, BUN of 49 and creatinine of 2.83 . CBC showing stable hemoglobin, hematocrit, and platelet count. Current Medications: Have been reviewed. The patient is on DDAVP for hypernatremia. Impression: 1.Hyponatremia, possibly from diabetes insipidus versus decreased free water intake. The patient is on DDAVP and is improving well. He is not on any IV fluids at this time. 2.Metabolic acidosis, improving. 3.History of cerebrovascular accident with right-sided weakness. 4.Recent right intertrochanteric fracture status post closed reduction. 5.Alzheimer dementia. Plan: Overall, the patient is doing okay. At this time, his hyponatremia is improving with DDAVP. We will continue to monitor and if his sodium drops, we need to back off on the DDAVP. For now, we will continue to encourage water intake and monitor him closely. VV/MODL Voice ID: [id number] Report ID: [id number]
[2021-01-23] MEDS: LORazepam 2 MG/ML VIAL IV PRN (21:08)
[2021-01-23] MEDS: DONEPEZIL HCL 5 MG TAB PO SCH (21:08)
[2021-01-23] MEDS: TAMSULOSIN 0.4 MG SR CAP PO SCH (21:08)
[2021-01-24 06:55] LABS: Absolute Lymphocytes (CBC) 0.6 K/uL (0.7-4.9); Basophils % 0.4 % (0-1.3); Hematocrit 28.6 % (39.6-49.0); Lymphocytes % 11.4 % (15.3-44.8); MPV 9.2 fL (7.6-11.3); RBC Red Blood Cell Count 3.22 M/uL (4.33-5.43)
[2021-01-24 07:52] LABS: Magnesium 1.9 mg/dL (1.8-2.4); Potassium 4.3 mmol/L (3.5-5.1)
[2021-01-24] MEDS: ENOXAPARIN 30 MG/0.3 ML SQ SCH (08:22)
[2021-01-24] MEDS: CLOPIDOGREL 75 MG TABLET PO SCH (08:23)
[2021-01-24] MEDS: ASPIRIN EC 81 MG TAB PO SCH (08:23)
[2021-01-24] MEDS: FOLIC ACID 1 MG TABLET PO SCH (08:23)
[2021-01-24] MEDS: carvediloL 25 MG TAB PO SCH ×2 (08:23→22:26)
[2021-01-24] MEDS: SODIUM BICARB 325 MG TAB PO SCH ×2 (08:23→17:16)
[2021-01-24] MEDS: VITAMIN D 5,000 UNIT CAP PO SCH (08:23)
[2021-01-24] MEDS: NIFEDIPINE XL 30 MG TABLET PO SCH ×2 (08:24→22:31)
[2021-01-24] MEDS: LORazepam 2 MG/ML VIAL IV PRN (08:24)
[2021-01-24] MEDS: DESMOPRESSIN 4 MCG/ML AMP SQ SCH ×2 (10:02→21:00)
--- NOTE | 2021-01-24 10:45 | P.PN ---
Subjective Date of Service: 01/24/21 Primary Care Provider: intermediate doctor Chief Complaint: MALLORY Subjective: Improving (Slight agitation noted. Patient has required some IV Ativan.) Physical Examination - Vital Signs Temperature: 97.9 F Blood Pressure: 142/78 Pulse: 89 Respirations: 18 Pulse Ox (%): 97 Assessment & Plan Discharge Plan: [facility] Plan to discharge in: 24 Hours Physician Review Additional Text: Physical exam: Patient alert, cooperative. Dementia noted. Patient doing well. Patient required some agitation medication Overnite. Heart: Regular rate rhythm Lungs: Clear to auscultation Abdomen: Soft nontender nondistended Extremities: Good range of motion. Mentation: Patient stable and alert. Appropriate. Patient with dementia. Patient was given medication earlier for agitation. Some mild somnolence noted. Impression: Acute on chronic renal disease stage IV likely from dehydration with hypernatremia/metabolic acidosis History of CVA with right-sided weakness Recent right intratrochanteric fracture status post right intertrochanteric closed reduction with intra medullary juwan fixation Alzheimer's dementia Hypertension BPH COPD Plan: Acute on chronic renal disease stage IV likely from dehydration with hypernatremia/metabolic acidosis: Sodium level now normal. Patient appears to be at his baseline renal function. Some agitation due to his dementia. Will add Risperdal for agitation. Continue with IV Ativan as needed. For precaution in place. Patient may require sitter if with increase agitation. Will consider Geodon if with increased agitation. IV fluids discontinued. Continue with desmopressin. Continue with nephrology recommendation. Spoke with social cintia hernandez yesterday. Patient awaiting to go back to residential to continue with SNF. Anticipate back to the residential tomorrow. Will discuss with family. I will turn the service over to the hospitalist team tomorrow. I will go plan of care with him. History of CVA with right-sided weakness: Continue with current medications. DVT prophylaxis in place. Recent right intratrochanteric fracture status post right intertrochanteric closed reduction with intra medullary juwan fixation: Continue physical therapy. Fall precaution in place. Hopefully patient will be put after per dissipate with his dementia. Alzheimer's dementia: Continue medication. Hypertension: Continue medication. BPH: Continue medication COPD:Continue medication. Time Spent Managing Pts Care (In Minutes): 55
[2021-01-24] MEDS: RISPERIDONE 0.25 MG TABLET PO PRN (17:26)
[2021-01-24] MEDS: DONEPEZIL HCL 5 MG TAB PO SCH (22:26)
[2021-01-24] MEDS: TAMSULOSIN 0.4 MG SR CAP PO SCH (22:27)
[2021-01-25 05:42] LABS: Absolute Lymphocytes (CBC) 0.6 K/uL (0.7-4.9); Basophils % 0.5 % (0-1.3); Hematocrit 28.1 % (39.6-49.0); Lymphocytes % 15.2 % (15.3-44.8); MPV 9.3 fL (7.6-11.3); RBC Red Blood Cell Count 3.18 M/uL (4.33-5.43)
[2021-01-25] MEDS: VITAMIN D 5,000 UNIT CAP PO SCH (08:08)
[2021-01-25] MEDS: CLOPIDOGREL 75 MG TABLET PO SCH (08:08)
[2021-01-25] MEDS: ASPIRIN EC 81 MG TAB PO SCH (08:08)
[2021-01-25] MEDS: FOLIC ACID 1 MG TABLET PO SCH (08:08)
[2021-01-25] MEDS: SODIUM BICARB 325 MG TAB PO SCH ×2 (08:08→16:39)
[2021-01-25] MEDS: carvediloL 25 MG TAB PO SCH ×2 (08:08→22:11)
[2021-01-25] MEDS: NIFEDIPINE XL 30 MG TABLET PO SCH ×2 (08:09→21:51)
[2021-01-25] MEDS: DESMOPRESSIN 4 MCG/ML AMP SQ SCH ×2 (08:20→21:00)
[2021-01-25] MEDS: ENOXAPARIN 30 MG/0.3 ML SQ SCH (08:20)
[2021-01-25] MEDS: RISPERIDONE 0.25 MG TABLET PO PRN (08:31)
[2021-01-25] MEDS: LORazepam 2 MG/ML VIAL IV PRN (11:19)
--- NOTE | 2021-01-25 19:16 | P.PN ---
Date of Service: 01/25/21 Vital Signs Temp Pulse Resp BP Pulse Ox 97.0 F 74 18 105/57 L 98 01/25/21 16:00 01/25/21 16:00 01/25/21 16:00 01/25/21 16:00 01/25/21 16:00 Medications Acetaminophen (Acetaminophen 500 Mg Tab) 500 mg PO Q4HP PRN PRN Reason: TEMP > 100' F Last Admin: 01/21/21 01:53 Dose: 500 mg Documented by: Aspirin (Aspirin Ec 81 Mg Tab) 81 mg PO DAILY [facility] Last Admin: 01/25/21 08:08 Dose: 81 mg Documented by: Carvedilol (Carvedilol 25 Mg Tab) 25 mg PO BID [facility] Last Admin: 01/25/21 08:08 Dose: 25 mg Documented by: Cholecalciferol (Vitamin D 5,000 Unit Cap) 5,000 unit PO DAILY [facility] Last Admin: 01/25/21 08:08 Dose: 5,000 unit Documented by: Clopidogrel Bisulfate (Clopidogrel 75 Mg Tablet) 75 mg PO DAILY [facility] Last Admin: 01/25/21 08:08 Dose: 75 mg Documented by: Desmopressin Acetate (Desmopressin 4 Mcg/Ml Amp) 1 mcg SQ BID [facility] Last Admin: 01/25/21 08:20 Dose: 1 mcg Documented by: Donepezil HCl (Donepezil Hcl 5 Mg Tab) 10 mg PO BEDTIME [facility] Last Admin: 01/24/21 22:26 Dose: 10 mg Documented by: Enoxaparin Sodium (Enoxaparin 30 Mg/0.3 Ml) 30 mg SQ DAILY [facility] Last Admin: 01/25/21 08:20 Dose: 30 mg Documented by: Folic Acid (Folic Acid 1 Mg Tablet) 1 mg PO DAILY [facility] Last Admin: 01/25/21 08:08 Dose: 1 mg Documented by: Home Med (Budesonide/Formoterol Fumarate [Symbicort 160-4.5 Mcg Inhaler]) 2 puff IH DAILY [facility] Last Admin: 01/25/21 08:10 Dose: Not Given Documented by: Home Med (Fluticasone Furoate [Arnuity Ellipta]) 1 spray IH DAILY [facility] Last Admin: 01/25/21 08:09 Dose: Not Given Documented by: Lorazepam (Lorazepam 2 Mg/Ml Vial) 0.5 mg IV Q6H PRN PRN Reason: AGITATION Last Admin: 01/25/21 11:19 Dose: 0.5 mg Documented by: Nifedipine (Nifedipine Xl 30 Mg Tablet) 30 mg PO BID [facility] Last Admin: 01/25/21 08:09 Dose: 30 mg Documented by: Ondansetron HCl (Ondansetron 4 Mg/2 Ml Vial) 4 mg IV Q6HP PRN PRN Reason: NAUSEA / VOMITING Risperidone (Risperidone 0.25 Mg Tablet) 0.25 mg PO BID PRN PRN Reason: AGITATION Last Admin: 01/25/21 08:31 Dose: 0.25 mg Documented by: Sodium Bicarbonate (Sodium Bicarb 325 Mg Tab) 650 mg PO BIDWM [facility] Last Admin: 01/25/21 16:39 Dose: 650 mg Documented by: Sodium Chloride (Flush Normal Saline 10 Ml) 10 ml IV BID [facility] Last Admin: 01/25/21 08:10 Dose: 10 ml Documented by: Tamsulosin HCl (Tamsulosin 0.4 Mg Sr Cap) 0.4 mg PO BEDTIME [facility] Last Admin: 01/24/21 22:27 Dose: 0.4 mg Documented by: Assessment/ Plan: Nephrology No acute cardiac or pulmonary complaints. No CP or SOB. No acute events overnight. 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 Limited IH/ ROS due to dementia Vitals, medications, blood work and imaging reviewed in the chart. General: In no apparent distress, Cooperative HEENT: Atraumatic Neck: Supple Respiratory: Clear to auscultation bilaterally Cardiovascular: No edema, Regular rate/rhythm Gastrointestinal: Soft and benign, Non-distended Musculoskeletal: No clubbing, No contractures Integumentary: No rashes, No cyanosis Neurological: Normal speech Laboratory Data (last 24 hrs) 01/20/21 16:33: PT 12.4, INR 1.08 01/20/21 16:33: WBC 7.80, Hgb 10.6 L, Hct 31.8 L, Plt Count 270 01/20/21 16:33: Sodium 145, Potassium 4.7, BUN 77 H, Creatinine 3.83 H, Glucose 97, Magnesium 2.6 H Imagings Data: EXAM DESCRIPTION: RAD - Chest Single View - 01/08/2021 11:18 am CLINICAL HISTORY: cough, opacity seen on prior COMPARISON: Portable January 05, 2021, January 04, 2021 TECHNIQUE: AP portable chest image was obtained 01/08/2021 11:18 am . FINDINGS: Right apex parenchymal stranding is still present favored to be scarring and first rib summation. Left lung base is better aerated. Left base interstitial pattern matches the mid and lower aspects of each lung field. Heart and vasculature are normal. No measurable pleural effusion and no pneumothorax. No acute bony abnormality seen. No acute aortic findings suspected. IMPRESSION: Further clearing of left base opacification. No progressive left lung field finding. Stranding in the right apex is probably a combination of scarring and overlying first rib. No new or progressive process. Conclusions/Impression: A/P: Continue the current POC and Medications other than the changes listed. AM Labs PRN. Recommend daily weight. Please see the orders for complete details. MALLORY/ CKD IV -No NSAIDs Hypernatremia/ Dehydration -Continue DDAVP 1mcg BID Acidosis -Continue oral bicarb Hypocalcemia -Continue Vitamin D3 HTN with CKD -Continue Coreg Moderate malnutrition -Encourage nutrition Anemia in chronic illness -Monitor H&H BPH/ LUTS -Continue Flomax
[2021-01-25] MEDS: DONEPEZIL HCL 5 MG TAB PO SCH (21:50)
[2021-01-25] MEDS: TAMSULOSIN 0.4 MG SR CAP PO SCH (21:50)
[2021-01-26] MEDS: LORazepam 2 MG/ML VIAL IV PRN (03:43)
[2021-01-26 05:46] LABS: Absolute Lymphocytes (CBC) 0.7 K/uL (0.7-4.9); Basophils % 0.6 % (0-1.3); Hematocrit 30.6 % (39.6-49.0); Lymphocytes % 13.3 % (15.3-44.8); MPV 9.1 fL (7.6-11.3); RBC Red Blood Cell Count 3.41 M/uL (4.33-5.43)
[2021-01-26] MEDS: SODIUM BICARB 325 MG TAB PO SCH ×2 (08:00→17:00)
[2021-01-26] MEDS: CLOPIDOGREL 75 MG TABLET PO SCH (10:15)
[2021-01-26] MEDS: VITAMIN D 5,000 UNIT CAP PO SCH (10:15)
[2021-01-26] MEDS: FOLIC ACID 1 MG TABLET PO SCH (10:15)
[2021-01-26] MEDS: NIFEDIPINE XL 30 MG TABLET PO SCH ×2 (10:16→20:18)
[2021-01-26] MEDS: ENOXAPARIN 30 MG/0.3 ML SQ SCH (10:16)
[2021-01-26] MEDS: carvediloL 25 MG TAB PO SCH ×2 (10:16→20:19)
[2021-01-26] MEDS: ASPIRIN EC 81 MG TAB PO SCH (10:16)
[2021-01-26] MEDS: DESMOPRESSIN 4 MCG/ML AMP SQ SCH ×2 (10:20→20:19)
[2021-01-26] MEDS: TAMSULOSIN 0.4 MG SR CAP PO SCH (20:18)
[2021-01-26] MEDS: DONEPEZIL HCL 5 MG TAB PO SCH (20:19)
--- NOTE | 2021-01-26 20:35 | P.PN ---
Date of Service: 01/26/21 Vital Signs Temp Pulse Resp BP Pulse Ox 97.7 F 81 16 179/100 H 96 01/26/21 16:00 01/26/21 20:19 01/26/21 16:00 01/26/21 20:19 01/26/21 16:00 Medications Acetaminophen (Acetaminophen 500 Mg Tab) 500 mg PO Q4HP PRN PRN Reason: TEMP > 100' F Last Admin: 01/21/21 01:53 Dose: 500 mg Documented by: Aspirin (Aspirin Ec 81 Mg Tab) 81 mg PO DAILY [facility] Last Admin: 01/26/21 10:16 Dose: 81 mg Documented by: Carvedilol (Carvedilol 25 Mg Tab) 25 mg PO BID [facility] Last Admin: 01/26/21 20:19 Dose: 25 mg Documented by: Cholecalciferol (Vitamin D 5,000 Unit Cap) 5,000 unit PO DAILY [facility] Last Admin: 01/26/21 10:15 Dose: 5,000 unit Documented by: Clopidogrel Bisulfate (Clopidogrel 75 Mg Tablet) 75 mg PO DAILY [facility] Last Admin: 01/26/21 10:15 Dose: 75 mg Documented by: Desmopressin Acetate (Desmopressin 4 Mcg/Ml Amp) 1 mcg SQ BID [facility] Last Admin: 01/26/21 20:19 Dose: 1 mcg Documented by: Donepezil HCl (Donepezil Hcl 5 Mg Tab) 10 mg PO BEDTIME [facility] Last Admin: 01/26/21 20:19 Dose: 10 mg Documented by: Enoxaparin Sodium (Enoxaparin 30 Mg/0.3 Ml) 30 mg SQ DAILY [facility] Last Admin: 01/26/21 10:16 Dose: 30 mg Documented by: Folic Acid (Folic Acid 1 Mg Tablet) 1 mg PO DAILY [facility] Last Admin: 01/26/21 10:15 Dose: 1 mg Documented by: Home Med (Budesonide/Formoterol Fumarate [Symbicort 160-4.5 Mcg Inhaler]) 2 puff IH DAILY [facility] Last Admin: 01/26/21 09:00 Dose: Not Given Documented by: Home Med (Fluticasone Furoate [Arnuity Ellipta]) 1 spray IH DAILY [facility] Last Admin: 01/26/21 09:00 Dose: Not Given Documented by: Lorazepam (Lorazepam 2 Mg/Ml Vial) 0.5 mg IV Q6H PRN PRN Reason: AGITATION Last Admin: 01/26/21 03:43 Dose: 0.5 mg Documented by: Nifedipine (Nifedipine Xl 30 Mg Tablet) 60 mg PO BID [facility] Ondansetron HCl (Ondansetron 4 Mg/2 Ml Vial) 4 mg IV Q6HP PRN PRN Reason: NAUSEA / VOMITING Risperidone (Risperidone 0.25 Mg Tablet) 0.25 mg PO BID PRN PRN Reason: AGITATION Last Admin: 01/25/21 08:31 Dose: 0.25 mg Documented by: Sodium Bicarbonate (Sodium Bicarb 325 Mg Tab) 650 mg PO BIDWM [facility] Last Admin: 01/26/21 17:00 Dose: Not Given Documented by: Sodium Chloride (Flush Normal Saline 10 Ml) 10 ml IV BID [facility] Last Admin: 01/26/21 20:20 Dose: 10 ml Documented by: Tamsulosin HCl (Tamsulosin 0.4 Mg Sr Cap) 0.4 mg PO BEDTIME [facility] Last Admin: 01/26/21 20:18 Dose: 0.4 mg Documented by: Assessment/ Plan: Nephrology No acute cardiac or pulmonary complaints. No CP or SOB. No acute events overnight. 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 Limited IH/ ROS due to dementia Vitals, medications, blood work and imaging reviewed in the chart. General: In no apparent distress, Cooperative HEENT: Atraumatic Neck: Supple Respiratory: Clear to auscultation bilaterally Cardiovascular: No edema, Regular rate/rhythm Gastrointestinal: Soft and benign, Non-distended Musculoskeletal: No clubbing, No contractures Integumentary: No rashes, No cyanosis Neurological: Normal speech Laboratory Data (last 24 hrs) 01/20/21 16:33: PT 12.4, INR 1.08 01/20/21 16:33: WBC 7.80, Hgb 10.6 L, Hct 31.8 L, Plt Count 270 01/20/21 16:33: Sodium 145, Potassium 4.7, BUN 77 H, Creatinine 3.83 H, Glucose 97, Magnesium 2.6 H Imagings Data: EXAM DESCRIPTION: RAD - Chest Single View - 01/08/2021 11:18 am CLINICAL HISTORY: cough, opacity seen on prior COMPARISON: Portable January 05, 2021, January 04, 2021 TECHNIQUE: AP portable chest image was obtained 01/08/2021 11:18 am . FINDINGS: Right apex parenchymal stranding is still present favored to be scarring and first rib summation. Left lung base is better aerated. Left base interstitial pattern matches the mid and lower aspects of each lung field. Heart and vasculature are normal. No measurable pleural effusion and no pneumothorax. No acute bony abnormality seen. No acute aortic findings suspected. IMPRESSION: Further clearing of left base opacification. No progressive left lung field finding. Stranding in the right apex is probably a combination of scarring and overlying first rib. No new or progressive process. Conclusions/Impression: A/P: Continue the current POC and Medications other than the changes listed. AM Labs PRN. Recommend daily weight. Please see the orders for complete details. MALLORY/ CKD IV -No NSAIDs Hypernatremia/ Dehydration -Continue DDAVP 1mcg BID -Maintain hydration Acidosis -Continue oral bicarb Hypocalcemia -Continue Vitamin D3 HTN with CKD -Continue Coreg -Increase Nifedipine ER 60mg BID Moderate malnutrition -Encourage nutrition Anemia in chronic illness -Monitor H&H BPH/ LUTS -Continue Flomax
[2021-01-26] MEDS ORDERED: NIFEDIPINE XL 30 MG TABLET PO SCH (21:00)
[2021-01-27] MEDS: LORazepam 2 MG/ML VIAL IV PRN (04:29)
[2021-01-27 06:08] LABS: Magnesium 2.1 mg/dL (1.8-2.4); Phosphorus 3.5 mg/dL (2.5-4.9); Potassium 3.9 mmol/L (3.5-5.1)
[2021-01-27] MEDS ORDERED: D5W 1,000 ML IV SCH (08:00)
[2021-01-27] MEDS: DESMOPRESSIN 4 MCG/ML AMP SQ SCH ×2 (09:00→20:22)
[2021-01-27] MEDS: SODIUM BICARB 325 MG TAB PO SCH ×2 (10:04→17:00)
[2021-01-27] MEDS: ACETAMINOPHEN 500 MG TAB PO PRN (10:04)
[2021-01-27] MEDS: ENOXAPARIN 30 MG/0.3 ML SQ SCH (10:04)
[2021-01-27] MEDS: carvediloL 25 MG TAB PO SCH ×2 (10:04→20:22)
[2021-01-27] MEDS: NIFEDIPINE XL 60 MG TABLET PO SCH ×2 (10:04→20:22)
[2021-01-27] MEDS: VITAMIN D 5,000 UNIT CAP PO SCH (10:05)
[2021-01-27] MEDS: CLOPIDOGREL 75 MG TABLET PO SCH (10:05)
[2021-01-27] MEDS: FOLIC ACID 1 MG TABLET PO SCH (10:05)
[2021-01-27] MEDS: ASPIRIN EC 81 MG TAB PO SCH (10:05)
[2021-01-27] MEDS: DONEPEZIL HCL 5 MG TAB PO SCH (20:22)
[2021-01-27] MEDS: TAMSULOSIN 0.4 MG SR CAP PO SCH (20:22)
--- NOTE | 2021-01-27 20:49 | P.PN ---
Date of Service: 01/27/21 Vital Signs Temp Pulse Resp BP Pulse Ox 96.9 F 72 16 129/60 100 01/27/21 16:00 01/27/21 20:22 01/27/21 16:00 01/27/21 20:22 01/27/21 16:00 Medications Acetaminophen (Acetaminophen 500 Mg Tab) 500 mg PO Q4HP PRN PRN Reason: TEMP > 100' F Last Admin: 01/27/21 10:04 Dose: 500 mg Documented by: Aspirin (Aspirin Ec 81 Mg Tab) 81 mg PO DAILY [facility] Last Admin: 01/27/21 10:05 Dose: 81 mg Documented by: Carvedilol (Carvedilol 25 Mg Tab) 25 mg PO BID [facility] Last Admin: 01/27/21 20:22 Dose: 25 mg Documented by: Cholecalciferol (Vitamin D 5,000 Unit Cap) 5,000 unit PO DAILY [facility] Last Admin: 01/27/21 10:05 Dose: 5,000 unit Documented by: Clopidogrel Bisulfate (Clopidogrel 75 Mg Tablet) 75 mg PO DAILY [facility] Last Admin: 01/27/21 10:05 Dose: 75 mg Documented by: Desmopressin Acetate (Desmopressin 4 Mcg/Ml Amp) 2 mcg SQ BID [facility] Last Admin: 01/27/21 20:22 Dose: 2 mcg Documented by: Donepezil HCl (Donepezil Hcl 5 Mg Tab) 10 mg PO BEDTIME [facility] Last Admin: 01/27/21 20:22 Dose: 10 mg Documented by: Enoxaparin Sodium (Enoxaparin 30 Mg/0.3 Ml) 30 mg SQ DAILY [facility] Last Admin: 01/27/21 10:04 Dose: 30 mg Documented by: Folic Acid (Folic Acid 1 Mg Tablet) 1 mg PO DAILY [facility] Last Admin: 01/27/21 10:05 Dose: 1 mg Documented by: Home Med (Budesonide/Formoterol Fumarate [Symbicort 160-4.5 Mcg Inhaler]) 2 puff IH DAILY [facility] Last Admin: 01/27/21 09:00 Dose: Not Given Documented by: Home Med (Fluticasone Furoate [Arnuity Ellipta]) 1 spray IH DAILY [facility] Last Admin: 01/27/21 09:00 Dose: Not Given Documented by: Dextrose (Dextrose 5%/Water/[place] Con) 500 mls @ 130 mls/hr IV .Q3H51M [facility] Last Admin: 01/27/21 16:42 Dose: 500 mls Documented by: Lorazepam (Lorazepam 2 Mg/Ml Vial) 0.5 mg IV Q6H PRN PRN Reason: AGITATION Last Admin: 01/27/21 04:29 Dose: 0.5 mg Documented by: Nifedipine (Nifedipine Xl 60 Mg Tablet) 60 mg PO BID [facility] Last Admin: 01/27/21 20:22 Dose: 60 mg Documented by: Ondansetron HCl (Ondansetron 4 Mg/2 Ml Vial) 4 mg IV Q6HP PRN PRN Reason: NAUSEA / VOMITING Risperidone (Risperidone 0.25 Mg Tablet) 0.25 mg PO BID PRN PRN Reason: AGITATION Last Admin: 01/25/21 08:31 Dose: 0.25 mg Documented by: Sodium Bicarbonate (Sodium Bicarb 325 Mg Tab) 650 mg PO BIDWM [facility] Last Admin: 01/27/21 17:00 Dose: 650 mg Documented by: Sodium Chloride (Flush Normal Saline 10 Ml) 10 ml IV BID [facility] Last Admin: 01/27/21 20:23 Dose: 10 ml Documented by: Tamsulosin HCl (Tamsulosin 0.4 Mg Sr Cap) 0.4 mg PO BEDTIME [facility] Last Admin: 01/27/21 20:22 Dose: 0.4 mg Documented by: Assessment/ Plan: Nephrology No acute cardiac or pulmonary complaints. No CP or SOB. No acute events overnight. Limited IH/ ROS due to dementia Vitals, medications, blood work and imaging reviewed in the chart. General: In no apparent distress, Cooperative HEENT: Atraumatic Neck: Supple Respiratory: Clear to auscultation bilaterally Cardiovascular: No edema, Regular rate/rhythm Gastrointestinal: Soft and benign, Non-distended Musculoskeletal: No clubbing, No contractures Integumentary: No rashes, No cyanosis Neurological: Normal speech Laboratory Data (last 24 hrs) 01/20/21 16:33: PT 12.4, INR 1.08 01/20/21 16:33: WBC 7.80, Hgb 10.6 L, Hct 31.8 L, Plt Count 270 01/20/21 16:33: Sodium 145, Potassium 4.7, BUN 77 H, Creatinine 3.83 H, Glucose 97, Magnesium 2.6 H Imagings Data: EXAM DESCRIPTION: RAD - Chest Single View - 01/08/2021 11:18 am CLINICAL HISTORY: cough, opacity seen on prior COMPARISON: Portable January 05, 2021, January 04, 2021 TECHNIQUE: AP portable chest image was obtained 01/08/2021 11:18 am . FINDINGS: Right apex parenchymal stranding is still present favored to be scarring and first rib summation. Left lung base is better aerated. Left base interstitial pattern matches the mid and lower aspects of each lung field. Heart and vasculature are normal. No measurable pleural effusion and no pneumothorax. No acute bony abnormality seen. No acute aortic findings suspected. IMPRESSION: Further clearing of left base opacification. No progressive left lung field finding. Stranding in the right apex is probably a combination of scarring and overlying first rib. No new or progressive process. Conclusions/Impression: A/P: Continue the current POC and Medications other than the changes listed. AM Labs PRN. Recommend daily weight. Please see the orders for complete details. MALLORY/ CKD IV -No NSAIDs Hypernatremia/ Dehydration suspicious for DI -Increase DDAVP 2mcg BID -Maintain hydration -Restart IVF D5W @130ml/hr -Start oral HCTZ Acidosis due to hyperchloremia -Discontinue oral bicarb Hypocalcemia -Continue Vitamin D3 HTN with CKD -Continue Coreg -Continue Nifedipine ER 60mg BID Moderate malnutrition -Encourage nutrition Anemia in chronic illness -Monitor H&H BPH/ LUTS -Continue Flomax
[2021-01-28] MEDS: LORazepam 2 MG/ML VIAL IV PRN (02:30)
[2021-01-28] MEDS: hydroCHLOROthiazide 12.5 MG CAP PO SCH (09:32)
[2021-01-28] MEDS: FOLIC ACID 1 MG TABLET PO SCH (09:32)
[2021-01-28] MEDS: VITAMIN D 5,000 UNIT CAP PO SCH (09:33)
[2021-01-28] MEDS: ASPIRIN EC 81 MG TAB PO SCH (09:33)
[2021-01-28] MEDS: DESMOPRESSIN 4 MCG/ML AMP SQ SCH ×2 (09:33→21:21)
[2021-01-28] MEDS: ACETAMINOPHEN 500 MG TAB PO PRN (09:33)
[2021-01-28] MEDS: carvediloL 25 MG TAB PO SCH ×2 (09:33→21:09)
[2021-01-28] MEDS: CLOPIDOGREL 75 MG TABLET PO SCH (09:33)
[2021-01-28] MEDS: ENOXAPARIN 30 MG/0.3 ML SQ SCH (09:33)
[2021-01-28] MEDS: NIFEDIPINE XL 60 MG TABLET PO SCH ×2 (09:33→21:09)
--- NOTE | 2021-01-28 20:28 | P.PN ---
Date of Service: 01/28/21 Vital Signs Temp Pulse Resp BP Pulse Ox 97.0 F 67 16 118/73 98 01/28/21 16:00 01/28/21 16:00 01/28/21 16:00 01/28/21 16:00 01/28/21 16:00 Medications Acetaminophen (Acetaminophen 500 Mg Tab) 500 mg PO Q4HP PRN PRN Reason: TEMP > 100' F Last Admin: 01/28/21 09:33 Dose: 500 mg Documented by: Aspirin (Aspirin Ec 81 Mg Tab) 81 mg PO DAILY [facility] Last Admin: 01/28/21 09:33 Dose: 81 mg Documented by: Carvedilol (Carvedilol 25 Mg Tab) 25 mg PO BID [facility] Last Admin: 01/28/21 09:33 Dose: 25 mg Documented by: Cholecalciferol (Vitamin D 5,000 Unit Cap) 5,000 unit PO DAILY [facility] Last Admin: 01/28/21 09:33 Dose: 5,000 unit Documented by: Clopidogrel Bisulfate (Clopidogrel 75 Mg Tablet) 75 mg PO DAILY [facility] Last Admin: 01/28/21 09:33 Dose: 75 mg Documented by: Desmopressin Acetate (Desmopressin 4 Mcg/Ml Amp) 2 mcg SQ BID [facility] Last Admin: 01/28/21 09:33 Dose: 2 mcg Documented by: Donepezil HCl (Donepezil Hcl 5 Mg Tab) 10 mg PO BEDTIME [facility] Last Admin: 01/27/21 20:22 Dose: 10 mg Documented by: Enoxaparin Sodium (Enoxaparin 30 Mg/0.3 Ml) 30 mg SQ DAILY [facility] Last Admin: 01/28/21 09:33 Dose: 30 mg Documented by: Folic Acid (Folic Acid 1 Mg Tablet) 1 mg PO DAILY [facility] Last Admin: 01/28/21 09:32 Dose: 1 mg Documented by: Home Med (Budesonide/Formoterol Fumarate [Symbicort 160-4.5 Mcg Inhaler]) 2 puff IH DAILY [facility] Last Admin: 01/28/21 09:00 Dose: Not Given Documented by: Home Med (Fluticasone Furoate [Arnuity Ellipta]) 1 spray IH DAILY [facility] Last Admin: 01/28/21 09:00 Dose: Not Given Documented by: Hydrochlorothiazide (Hydrochlorothiazide 12.5 Mg Cap) 12.5 mg PO DAILY [facility] Last Admin: 01/28/21 09:32 Dose: 12.5 mg Documented by: Dextrose (Dextrose 5%/Water/[place] Con) 500 mls @ 130 mls/hr IV .Q3H51M [facility] Last Admin: 01/28/21 11:57 Dose: 500 mls Documented by: Lorazepam (Lorazepam 2 Mg/Ml Vial) 0.5 mg IV Q6H PRN PRN Reason: AGITATION Last Admin: 01/28/21 02:30 Dose: 0.5 mg Documented by: Nifedipine (Nifedipine Xl 60 Mg Tablet) 60 mg PO BID [facility] Last Admin: 01/28/21 09:33 Dose: 60 mg Documented by: Ondansetron HCl (Ondansetron 4 Mg/2 Ml Vial) 4 mg IV Q6HP PRN PRN Reason: NAUSEA / VOMITING Risperidone (Risperidone 0.25 Mg Tablet) 0.25 mg PO BID PRN PRN Reason: AGITATION Last Admin: 01/25/21 08:31 Dose: 0.25 mg Documented by: Sodium Chloride (Flush Normal Saline 10 Ml) 10 ml IV BID [facility] Last Admin: 01/28/21 09:00 Dose: Not Given Documented by: Tamsulosin HCl (Tamsulosin 0.4 Mg Sr Cap) 0.4 mg PO BEDTIME [facility] Last Admin: 01/27/21 20:22 Dose: 0.4 mg Documented by: Assessment/ Plan: Nephrology No acute cardiac or pulmonary complaints. No CP or SOB. No acute events overnight. Limited IH/ ROS due to dementia Vitals, medications, blood work and imaging reviewed in the chart. General: In no apparent distress, Cooperative HEENT: Atraumatic Neck: Supple Respiratory: Clear to auscultation bilaterally Cardiovascular: No edema, Regular rate/rhythm Gastrointestinal: Soft and benign, Non-distended Musculoskeletal: No clubbing, No contractures Integumentary: No rashes, No cyanosis Neurological: Normal speech Laboratory Data (last 24 hrs) 01/20/21 16:33: PT 12.4, INR 1.08 01/20/21 16:33: WBC 7.80, Hgb 10.6 L, Hct 31.8 L, Plt Count 270 01/20/21 16:33: Sodium 145, Potassium 4.7, BUN 77 H, Creatinine 3.83 H, Glucose 97, Magnesium 2.6 H Imagings Data: EXAM DESCRIPTION: RAD - Chest Single View - 01/08/2021 11:18 am CLINICAL HISTORY: cough, opacity seen on prior COMPARISON: Portable January 05, 2021, January 04, 2021 TECHNIQUE: AP portable chest image was obtained 01/08/2021 11:18 am . FINDINGS: Right apex parenchymal stranding is still present favored to be scarring and first rib summation. Left lung base is better aerated. Left base interstitial pattern matches the mid and lower aspects of each lung field. Heart and vasculature are normal. No measurable pleural effusion and no pneumothorax. No acute bony abnormality seen. No acute aortic findings suspected. IMPRESSION: Further clearing of left base opacification. No progressive left lung field finding. Stranding in the right apex is probably a combination of scarring and overlying first rib. No new or progressive process. Conclusions/Impression: A/P: Continue the current POC and Medications other than the changes listed. AM Labs PRN. Recommend daily weight. Please see the orders for complete details. MALLORY/ CKD IV -No NSAIDs Hypernatremia/ Dehydration suspicious for DI -Continue DDAVP 2mcg BID -Maintain hydration -Continue IVF D5W @130ml/hr -Continue HCTZ Acidosis due to hyperchloremia -Discontinue oral bicarb Hypocalcemia -Continue Vitamin D3 HTN with CKD -Continue Coreg -Continue Nifedipine ER 60mg BID Moderate malnutrition -Encourage nutrition Anemia in chronic illness -Monitor H&H BPH/ LUTS -Continue Flomax
[2021-01-28] MEDS: DONEPEZIL HCL 5 MG TAB PO SCH (21:10)
[2021-01-28] MEDS: TAMSULOSIN 0.4 MG SR CAP PO SCH (21:10)
[2021-01-29] MEDS: RISPERIDONE 0.25 MG TABLET PO PRN (01:54)
[2021-01-29] MEDS: ACETAMINOPHEN 500 MG TAB PO PRN ×2 (04:20→09:35)
[2021-01-29 06:18] LABS: Potassium 3.8 mmol/L (3.5-5.1)
--- NOTE | 2021-01-29 06:39 | P.PN ---
Subjective Date of Service: 01/25/21 Patient was some baseline confusion. Patient has a history of dementia. 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 Patient on DDAVP. Continue with current treatment plan. Possible discharge to half-way over the next 24-48 hr. Review of Systems 10-point ROS is otherwise unremarkable Physical Examination - Vital Signs Temperature: 97.1 F Blood Pressure: 90/53 Pulse: 69 Respirations: 17 Pulse Ox (%): 97 - Physical Exam General: Alert, In no apparent distress, Demented Respiratory: Clear to auscultation bilaterally, Normal air movement Cardiovascular: Regular rate/rhythm, Normal S1 S2 Gastrointestinal: Normal bowel sounds, Soft and benign, Non-distended, No tenderness Musculoskeletal: No clubbing, No swelling, No tenderness Neurological: Sensation intact - Studies Medications List Reviewed: Yes Assessment & Plan - Problems (Diagnosis) (1) Vascular dementia Current Visit: Yes Status: Acute (2) Hypernatremia Current Visit: Yes Status: Acute (3) Altered mental status Current Visit: Yes Status: Acute - Plan Plan: 1. Continue DDAVP 2. Monitor electrolytes 3. Continue monitoring neuro status with neuro checks q.4 hr 4. Physical therapy evaluation 5. Supportive care for dementia 6. Feed with assistance 7. Encourage free water intake 8. GI and DVT prophylaxis Discharge Plan: Longterm - Advance Directives Does patient have a Living Will: No Does patient have a Durable POA for Healthcare: Yes Critical Care: No Time Spent Managing PTS Care (In Minutes): 45
--- NOTE | 2021-01-29 06:42 | P.PN ---
Date of Service: 01/26/21 Subjective Patient clinically stable. Anticipate discharge back to snf in a.m. if okay with Nephrology. Continue with DDAVP. May change it to intranasal Review of Systems 10-point ROS is otherwise unremarkable Physical Examination - Vital Signs reviewed - Physical Exam General: Alert, In no apparent distress, Demented Respiratory: Clear to auscultation bilaterally, Normal air movement Cardiovascular: Regular rate/rhythm, Normal S1 S2 Gastrointestinal: Normal bowel sounds, Soft and benign, Non-distended, No tenderness Musculoskeletal: No clubbing, No swelling, No tenderness Neurological: Sensation intact - Studies Medications List Reviewed: Yes Assessment & Plan - Problems (Diagnosis) (1) Vascular dementia Current Visit: Yes Status: Acute (2) Hypernatremia Current Visit: Yes Status: Acute (3) Altered mental status Current Visit: Yes Status: Acute - Plan Plan: Continue with current plan of care 1. Continue DDAVP 2. Monitor electrolytes 3. Continue monitoring neuro status with neuro checks q.4 hr 4. Physical therapy evaluation 5. Supportive care for dementia 6. Feed with assistance 7. Encourage free water intake 8. GI and DVT prophylaxis Discharge Plan: [facility]
--- NOTE | 2021-01-29 06:51 | P.PN ---
Date of Service: 01/27/21 Subjective Patient continues to do well with no new complaints. Sodium level did however go back up. Will discuss with Nephrology regarding plan of care. Review of Systems 10-point ROS is otherwise unremarkable Physical Examination - Vital Signs reviewed - Physical Exam General: Alert, In no apparent distress, Demented Respiratory: Clear to auscultation bilaterally, Normal air movement Cardiovascular: Regular rate/rhythm, Normal S1 S2 Gastrointestinal: Normal bowel sounds, Soft and benign, Non-distended, No tenderness Musculoskeletal: No clubbing, No swelling, No tenderness Neurological: Sensation intact - Studies Medications List Reviewed: Yes Assessment & Plan - Problems (Diagnosis) (1) Vascular dementia Current Visit: Yes Status: Acute (2) Hypernatremia Current Visit: Yes Status: Acute (3) Altered mental status Current Visit: Yes Status: Acute - Plan Plan: Continue with current plan of care 1. Continuing hydrochlorothiazide. Continue E increased free water intake. Resume DDAVP 2. Monitor electrolytes 3. Continue monitoring neuro status with neuro checks q.4 hr 4. Physical therapy evaluation 5. Supportive care for dementia 6. Feed with assistance 7. Encourage free water intake 8. GI and DVT prophylaxis Discharge Plan: [facility]
--- NOTE | 2021-01-29 06:54 | P.PN ---
Date of Service: 01/28/21 Subjective Patient is doing ok; no new complaints; baseline dementia Review of Systems 10-point ROS is otherwise unremarkable Physical Examination - Vital Signs reviewed - Physical Exam General: Alert, In no apparent distress, Demented Respiratory: Clear to auscultation bilaterally, Normal air movement Cardiovascular: Regular rate/rhythm, Normal S1 S2 Gastrointestinal: Normal bowel sounds, Soft and benign, Non-distended, No tenderness Musculoskeletal: No clubbing, No swelling, No tenderness Neurological: Sensation intact Assessment & Plan - Problems (Diagnosis) (1) Vascular dementia Current Visit: Yes Status: Acute (2) Hypernatremia Current Visit: Yes Status: Acute (3) Altered mental status Current Visit: Yes Status: Acute - Plan Plan: Continue with current plan of care 1. Continuing hydrochlorothiazide. Continue increased free water intake. Resume DDAVP 2. Monitor electrolytes 3. Continue monitoring neuro status with neuro checks q.4 hr 4. Physical therapy evaluation appreciated 5. Supportive care for dementia 6. Feed with assistance 7. Encourage free water intake-2-3L daily; monitor electrolytes closely 8. GI and DVT prophylaxis Discharge Plan: Retirement
[2021-01-29] MEDS: CLOPIDOGREL 75 MG TABLET PO SCH (09:35)
[2021-01-29] MEDS: FOLIC ACID 1 MG TABLET PO SCH (09:35)
[2021-01-29] MEDS: ASPIRIN EC 81 MG TAB PO SCH (09:35)
[2021-01-29] MEDS: hydroCHLOROthiazide 12.5 MG CAP PO SCH (09:35)
[2021-01-29] MEDS: VITAMIN D 5,000 UNIT CAP PO SCH (09:35)
[2021-01-29] MEDS: carvediloL 6.25 MG TAB PO SCH ×2 (09:35→19:56)
[2021-01-29] MEDS: ENOXAPARIN 30 MG/0.3 ML SQ SCH (09:35)
[2021-01-29] MEDS: DESMOPRESSIN 4 MCG/ML AMP SQ SCH ×2 (09:36→19:58)
[2021-01-29] MEDS: NIFEDIPINE XL 30 MG TABLET PO SCH (09:37)
--- NOTE | 2021-01-29 12:22 | P.DS ---
Discharge Date: 01/29/21 Primary Care Provider: shelter doctor Disposition: ROUTINE DISCHARGE Discharge Condition: GOOD Reason for Admission: MALLORY - Problems (1) Vascular dementia Current Visit: Yes Status: Acute (2) Hypernatremia Current Visit: Yes Status: Acute (3) Altered mental status Current Visit: Yes Status: Acute Brief History of Present Illness: Pt is a 80-year-old male with history of Alzheimer's dementia, stroke, hypertension, CKD 4 presents emergency department for worsening renal function. Patient currently staying at [facility] after sustaining a right hip fracture with repair on January 05. During patient's hospitalization. MRI was obtained which demonstrated acute CVA in the left internal capsule possibly affecting the right lower extremity strength. Neurology was consulted who recommended aspirin, Plavix in addition to the Lovenox recommended by Orthopedics. Patient is also seen by a nephrology, renal function remained stable throughout hospitalization. Labs in the halfway revealed worsening of renal function with creatinine of 4 in GFR 14, patient was evaluated in the emergency department creatinine here 3.83 GFR 15. Patient's baseline appears to be GFR around 25. ED provider wishes to admit patient under observation for further evaluation and management. Vital Signs/Physical Exam: Temp Pulse Resp BP Pulse Ox 97.6 F 75 18 147/73 H 99 01/29/21 08:00 01/29/21 08:00 01/29/21 08:00 01/29/21 08:00 01/29/21 08:00 General: Alert, In no apparent distress, Demented Laboratory Data at Discharge: WBC 5.00 K/uL (4.3-10.9) D 01/26/21 05:23 Hgb 10.1 g/dL (13.6-17.9) L 01/26/21 05:23 Hct 30.6 % (39.6-49.0) L 01/26/21 05:23 Plt Count 192 K/uL (152-406) 01/26/21 05:23 PT 12.4 SECONDS (9.5-12.5) 01/20/21 16:33 INR 1.08 01/20/21 16:33 Sodium 139 mmol/L (136-145) 01/29/21 05:32 Potassium 3.8 mmol/L (3.5-5.1) 01/29/21 05:32 BUN 43 mg/dL (7-18) H 01/29/21 05:32 Creatinine 2.54 mg/dL (0.55-1.3) H 01/29/21 05:32 Glucose 116 mg/dL (74-106) H 01/29/21 05:32 Uric Acid 7.0 mg/dL (3.5-7.2) 01/27/21 05:13 Phosphorus 3.5 mg/dL (2.5-4.9) 01/27/21 05:13 Magnesium 2.1 mg/dL (1.8-2.4) 01/27/21 05:13 Total Bilirubin 0.5 mg/dL (0.2-1.0) 01/23/21 06:18 AST 13 U/L (15-37) L 01/23/21 06:18 ALT 12 U/L (12-78) 01/23/21 06:18 Alkaline Phosphatase 112 U/L (45-117) 01/23/21 06:18 Home Medications: Budesonide/Formoterol Fumarate [Symbicort 160-4.5 Mcg Inhaler] 2 puff IH DAILY 01/05/21 Donepezil HCl 10 mg PO BEDTIME 01/05/21 Fluticasone Furoate [Arnuity Ellipta] 1 spray IH DAILY 01/05/21 Aspirin [Aspirin EC] 81 mg PO DAILY #42 tablet. 01/15/21 Acetaminophen 650 mg PO Q6HP PRN MDD \ 01/20/21 Carvedilol [Coreg] 25 mg PO BID 01/20/21 Cholecalciferol (Vitamin D3) [Vitamin D 5,000 IU Cap*] 5,000 unit PO DAILY 01/20/21 Clopidogrel Bisulfate [Plavix*] 75 mg PO DAILY 01/20/21 Enoxaparin Sodium [Lovenox 40 MG INJ*] 40 mg SQ DAILY 01/20/21 Folic Acid 1 mg PO DAILY 01/20/21 Nifedipine Xl [Procardia Xl*] 30 mg PO BID 01/20/21 Tamsulosin [Flomax*] 0.4 mg PO BEDTIME 01/20/21 Na Bicarb Tab [Sodium Bicarb 325 MG Tab*] 650 mg PO BIDWM #60 tab 01/26/21 risperiDONE [Risperdal 0.25 MG TAB*] 0.25 mg PO BID PRN #60 tab 01/26/21 New Medications: risperiDONE [Risperdal 0.25 MG TAB*] 0.25 mg PO BID PRN #60 tab PRN Reason: Agitation Na Bicarb Tab [Sodium Bicarb 325 MG Tab*] 650 mg PO BIDWM #60 tab Physician Discharge Instructions: PROBLEM: Acute kidney injury, chronic kidney disease GOAL: Clear understanding of disease process INSTRUCTIONS: Diet: pureed Activity: as recommended by PT/Ortho Patient presented with acute on chronic renal disease stage IV likely from dehydration. Patient was given IV fluids with improvement. Case discussed in detail with nephrology. Aldactone has been held. Patient not getting enough water. Recommend to continue to hold Aldactone at discharge. Recommend for the patient to receive water as needed. This will be addressed in detail. At discharge patient will return back to the halfway. Patient will continue with rehab. Plan of care discussed in detail with cousin who takes care the patient. Advanced care planning address in detail.-30 min. Recommend to recheck lab-BMP in 1 week. Recommend follow up with nephrology in 1 week to further monitor and address. Will inform halfway to allowed patient to have access to water for hydration. Patient with recent history of right intertrochanteric fracture status post right intertrochanteric close reduction with intra medullary juwan fixation. Physical therapy to evaluate patient. Continue with physical therapy recommendations at the halfway. Continue follow up with Orthopedic surgery as directed. Patient with recent history of CVA. This appears stable. At discharge patient will continue with aspirin 81 mg daily, folic acid 1 mg daily, and Plavix 75 mg daily. Recommend follow up with neurology as directed. Patient with Alzheimer's dementia. This appears stable. Patient appears to be at his baseline. At discharge patient will continue with Aricept 10 mg daily. Patient with hypertension. Medications have been adjusted. Aldactone has been discontinued. Patient will continue with carvedilol 25 mg 1 pill twice daily and Procardia XL 30 mg 1 pill twice daily. Recommend to maintain blood pressure less than 130/80. Further adjustment can be done by his PCP. Patient with COPD. At discharge patient will continue with Symbicort 2 puffs twice daily and Arnuity 1 puff daily. Recommend follow up with pulmonology as directed. Patient with BPH. At discharge patient will continue with Flomax 0.4 mg daily. [place]: [phone] Diet: pureed Activity: as recommended by PT/Ortho Followup: Luís Shaikh DO [ACTIVE - CAN ADMIT] - OOT,OOT [Primary Care Provider] - Time spent managing pt's care (in minutes): 35
[2021-01-29] MEDS: TAMSULOSIN 0.4 MG SR CAP PO SCH (19:56)
[2021-01-29] MEDS: DONEPEZIL HCL 5 MG TAB PO SCH (19:57)
[2021-01-29] MEDS: ENSURE ENLIVE 237 ML CAN PO SCH (19:58)
--- NOTE | 2021-01-29 20:55 | P.PN ---
Date of Service: 01/29/21 Vital Signs Temp Pulse Resp BP Pulse Ox 97.1 F 84 18 140/75 100 01/29/21 16:00 01/29/21 19:56 01/29/21 16:00 01/29/21 19:56 01/29/21 16:00 Medications Acetaminophen (Acetaminophen 500 Mg Tab) 500 mg PO Q4HP PRN PRN Reason: TEMP > 100' F Last Admin: 01/29/21 09:35 Dose: 500 mg Documented by: Aspirin (Aspirin Ec 81 Mg Tab) 81 mg PO DAILY [facility] Last Admin: 01/29/21 09:35 Dose: 81 mg Documented by: Carvedilol (Carvedilol 6.25 Mg Tab) 6.25 mg PO BID [facility] Last Admin: 01/29/21 19:56 Dose: 6.25 mg Documented by: Cholecalciferol (Vitamin D 5,000 Unit Cap) 5,000 unit PO DAILY [facility] Last Admin: 01/29/21 09:35 Dose: 5,000 unit Documented by: Clopidogrel Bisulfate (Clopidogrel 75 Mg Tablet) 75 mg PO DAILY [facility] Last Admin: 01/29/21 09:35 Dose: 75 mg Documented by: Desmopressin Acetate (Desmopressin 4 Mcg/Ml Amp) 2 mcg SQ BID [facility] Last Admin: 01/29/21 19:58 Dose: 2 mcg Documented by: Donepezil HCl (Donepezil Hcl 5 Mg Tab) 10 mg PO BEDTIME [facility] Last Admin: 01/29/21 19:57 Dose: 10 mg Documented by: Enoxaparin Sodium (Enoxaparin 30 Mg/0.3 Ml) 30 mg SQ DAILY [facility] Last Admin: 01/29/21 09:35 Dose: 30 mg Documented by: Folic Acid (Folic Acid 1 Mg Tablet) 1 mg PO DAILY [facility] Last Admin: 01/29/21 09:35 Dose: 1 mg Documented by: Home Med (Budesonide/Formoterol Fumarate [Symbicort 160-4.5 Mcg Inhaler]) 2 puff IH DAILY [facility] Last Admin: 01/29/21 09:00 Dose: Not Given Documented by: Home Med (Fluticasone Furoate [Arnuity Ellipta]) 1 spray IH DAILY [facility] Last Admin: 01/29/21 09:00 Dose: Not Given Documented by: Hydrochlorothiazide (Hydrochlorothiazide 12.5 Mg Cap) 12.5 mg PO DAILY [facility] Last Admin: 01/29/21 09:35 Dose: 12.5 mg Documented by: Nifedipine (Nifedipine Xl 30 Mg Tablet) 30 mg PO DAILY [facility] Last Admin: 01/29/21 09:37 Dose: 30 mg Documented by: Nutritional Formula (Ensure Enlive 237 Ml Can) 237 ml PO BID [facility] Last Admin: 01/29/21 19:58 Dose: 237 ml Documented by: Ondansetron HCl (Ondansetron 4 Mg/2 Ml Vial) 4 mg IV Q6HP PRN PRN Reason: NAUSEA / VOMITING Risperidone (Risperidone 0.25 Mg Tablet) 0.25 mg PO BID PRN PRN Reason: AGITATION Last Admin: 01/29/21 01:54 Dose: 0.25 mg Documented by: Sodium Chloride (Flush Normal Saline 10 Ml) 10 ml IV BID [facility] Last Admin: 01/29/21 19:58 Dose: 10 ml Documented by: Tamsulosin HCl (Tamsulosin 0.4 Mg Sr Cap) 0.4 mg PO BEDTIME [facility] Last Admin: 01/29/21 19:56 Dose: 0.4 mg Documented by: Assessment/ Plan: Nephrology No acute cardiac or pulmonary complaints. No CP or SOB. No acute events overnight. Limited IH/ ROS due to dementia Vitals, medications, blood work and imaging reviewed in the chart. General: In no apparent distress, Cooperative HEENT: Atraumatic Neck: Supple Respiratory: Clear to auscultation bilaterally Cardiovascular: No edema, Regular rate/rhythm Gastrointestinal: Soft and benign, Non-distended Musculoskeletal: No clubbing, No contractures Integumentary: No rashes, No cyanosis Neurological: Normal speech Laboratory Data (last 24 hrs) 01/20/21 16:33: PT 12.4, INR 1.08 01/20/21 16:33: WBC 7.80, Hgb 10.6 L, Hct 31.8 L, Plt Count 270 01/20/21 16:33: Sodium 145, Potassium 4.7, BUN 77 H, Creatinine 3.83 H, Glucose 97, Magnesium 2.6 H Imagings Data: EXAM DESCRIPTION: RAD - Chest Single View - 01/08/2021 11:18 am CLINICAL HISTORY: cough, opacity seen on prior COMPARISON: Portable January 05, 2021, January 04, 2021 TECHNIQUE: AP portable chest image was obtained 01/08/2021 11:18 am . FINDINGS: Right apex parenchymal stranding is still present favored to be scarring and first rib summation. Left lung base is better aerated. Left base interstitial pattern matches the mid and lower aspects of each lung field. Heart and vasculature are normal. No measurable pleural effusion and no pneumothorax. No acute bony abnormality seen. No acute aortic findings suspected. IMPRESSION: Further clearing of left base opacification. No progressive left lung field finding. Stranding in the right apex is probably a combination of scarring and overlying first rib. No new or progressive process. Conclusions/Impression: A/P: Continue the current POC and Medications other than the changes listed. AM Labs PRN. Recommend daily weight. Please see the orders for complete details. MALLORY/ CKD IV -No NSAIDs Hypernatremia/ Dehydration suspicious for DI -Continue DDAVP 2mcg BID -Maintain hydration -Discontinue IVF -Continue HCTZ Acidosis due to hyperchloremia Hypocalcemia -Continue Vitamin D3 HTN with CKD -Continue Coreg -Continue Nifedipine ER 60mg BID Moderate malnutrition -Encourage nutrition Anemia in chronic illness -Monitor H&H BPH/ LUTS -Continue Flomax
--- NOTE | 2021-01-30 09:51 | P.PN ---
Subjective Date of Service: 01/30/21 Primary Care Provider: [facility] doctor Chief Complaint: MALLORY Subjective: No new changes (-seen ,. still confused , tolerating po well) Review of Systems Unremarkable Physical Examination - Vital Signs Temperature: 97.6 F Blood Pressure: 120/71 Pulse: 77 Respirations: 17 Pulse Ox (%): 96 - Physical Exam General: Alert, In no apparent distress, Confused HEENT: Atraumatic, Normocephalic, PERRLA Neck: Supple, 2+ carotid pulse no bruit, JVD not distended Respiratory: Clear to auscultation bilaterally, Normal air movement Cardiovascular: No edema, Normal pulses, Regular rate/rhythm, Normal S1 S2 Gastrointestinal: Normal bowel sounds, Soft and benign, Non-distended Musculoskeletal: No clubbing, No swelling, No contractures Neurological: Dementia - Studies Medications List Reviewed: Yes Assessment And Plan - Current Problems (Diagnosis) (1) Altered mental status Current Visit: Yes Status: Acute (2) Hypernatremia Current Visit: Yes Status: Acute (3) Vascular dementia Current Visit: Yes Status: Acute (4) CVA (cerebral vascular accident) Current Visit: No Status: Acute Qualifiers: CVA mechanism: unspecified Qualified Code(s): I63.9 - Cerebral infarction, unspecified (5) HTN (hypertension) Current Visit: No Status: Chronic Qualifiers: Hypertension type: unspecified Qualified Code(s): I10 - Essential (primary) hypertension Physician Review Additional Text: Physical exam: Patient alert, cooperative. but confused . Heart: Regular rate rhythm Lungs: Clear to auscultation Abdomen: Soft nontender nondistended Extremities: Good range of motion. Mentation: confused but easily re-oriented , Appropriate. Patient with dementia. Impression: Acute on chronic renal disease stage IV likely from dehydration with hypernatremia/metabolic acidosis History of CVA with right-sided weakness Recent right intratrochanteric fracture status post right intertrochanteric closed reduction with intra medullary juwan fixation Alzheimer's dementia Hypertension BPH COPD Plan: Acute on chronic renal disease stage IV likely from dehydration with hypernatremia/metabolic acidosis: Creatinine improved to basleine of 2.54 with eGFR of 25 mls/min -serum sodium controlled now - c/w with desmopressin. Continue with nephrology recommendation. - Patient awaiting to go back to snf to continue with SNF. Paperwork re-sent yesterday , Expected discharge on Monday or prn when acceped at [place] History of CVA with right-sided weakness: Continue with current medications. DVT prophylaxis in place. Recent right intratrochanteric fracture status post right intertrochanteric closed reduction with intra medullary juwan fixation: Continue physical therapy. Fall precaution in place. Hopefully patient will be put after per dissipate with his dementia. Alzheimer's dementia: Continue medication. Hypertension: Continue medication. BPH: Continue medication COPD:Continue medication.
[2021-01-30] MEDS: ENOXAPARIN 30 MG/0.3 ML SQ SCH (11:08)
[2021-01-30] MEDS: DESMOPRESSIN 4 MCG/ML AMP SQ SCH ×2 (11:08→20:41)
[2021-01-30] MEDS: ASPIRIN EC 81 MG TAB PO SCH (11:09)
[2021-01-30] MEDS: carvediloL 6.25 MG TAB PO SCH ×2 (11:09→20:39)
[2021-01-30] MEDS: hydroCHLOROthiazide 12.5 MG CAP PO SCH (11:09)
[2021-01-30] MEDS: NIFEDIPINE XL 30 MG TABLET PO SCH (11:09)
[2021-01-30] MEDS: FOLIC ACID 1 MG TABLET PO SCH (11:09)
[2021-01-30] MEDS: VITAMIN D 5,000 UNIT CAP PO SCH (11:10)
[2021-01-30] MEDS: ENSURE ENLIVE 237 ML CAN PO SCH ×2 (11:10→20:39)
[2021-01-30] MEDS: CLOPIDOGREL 75 MG TABLET PO SCH (11:10)
[2021-01-30] MEDS: TAMSULOSIN 0.4 MG SR CAP PO SCH (20:39)
[2021-01-30] MEDS: DONEPEZIL HCL 5 MG TAB PO SCH (20:40)
[2021-01-31 06:43] LABS: Albumin 2.7 g/dL (3.4-5.0); Bilirubin Total 0.3 mg/dL (0.2-1.0); Potassium 3.6 mmol/L (3.5-5.1); Protein, Total 6.4 g/dL (6.4-8.2)
[2021-01-31] MEDS: NIFEDIPINE XL 30 MG TABLET PO SCH (09:00)
[2021-01-31] MEDS: carvediloL 6.25 MG TAB PO SCH ×2 (09:03→20:57)
[2021-01-31] MEDS: VITAMIN D 5,000 UNIT CAP PO SCH (09:03)
[2021-01-31] MEDS: CLOPIDOGREL 75 MG TABLET PO SCH (09:05)
[2021-01-31] MEDS: FOLIC ACID 1 MG TABLET PO SCH (09:05)
[2021-01-31] MEDS: ASPIRIN EC 81 MG TAB PO SCH (09:06)
[2021-01-31] MEDS: DESMOPRESSIN 4 MCG/ML AMP SQ SCH ×2 (09:09→21:06)
[2021-01-31] MEDS: ENOXAPARIN 30 MG/0.3 ML SQ SCH (09:10)
[2021-01-31] MEDS: hydroCHLOROthiazide 12.5 MG CAP PO SCH (09:10)
[2021-01-31] MEDS: ENSURE ENLIVE 237 ML CAN PO SCH ×2 (10:56→20:58)
--- NOTE | 2021-01-31 12:27 | P.PN ---
Subjective Date of Service: 01/31/21 Primary Care Provider: long term doctor Chief Complaint: MALLORY Subjective: No new changes (-feels fine) Physical Examination - Vital Signs Temperature: 98.3 F Blood Pressure: 149/66 Pulse: 75 Respirations: 17 Pulse Ox (%): 97 - Studies Medications List Reviewed: Yes Assessment And Plan - Current Problems (Diagnosis) (1) Altered mental status Current Visit: Yes Status: Acute (2) Hypernatremia Current Visit: Yes Status: Acute (3) Vascular dementia Current Visit: Yes Status: Acute (4) CVA (cerebral vascular accident) Current Visit: No Status: Acute Qualifiers: CVA mechanism: unspecified Qualified Code(s): I63.9 - Cerebral infarction, unspecified (5) HTN (hypertension) Current Visit: No Status: Chronic Qualifiers: Hypertension type: unspecified Qualified Code(s): I10 - Essential (primary) hypertension Physician Review Additional Text: Physical exam: Patient alert, cooperative. but confused . Heart: Regular rate rhythm Lungs: Clear to auscultation Abdomen: Soft nontender nondistended Extremities: Good range of motion. Mentation: awake , oriented , Appropriate. Patient with dementia. Impression: Acute on chronic renal disease stage IV likely from dehydration with hypernatremia/metabolic acidosis History of CVA with right-sided weakness Recent right intratrochanteric fracture status post right intertrochanteric closed reduction with intra medullary juwan fixation Alzheimer's dementia Hypertension BPH COPD Plan: Acute on chronic renal disease stage IV likely from dehydration with hypernatremia/metabolic acidosis: Creatinine improved to baseline of 2.6 with eGFR of 25 mls/min -serum sodium controlled now - c/w with desmopressin. will switch to po now and follow - Continue with nephrology recommendation. - [facility] with [facility]. Paperwork re-sent yesterday , Expected discharge on Monday or prn when accepted at [facility] History of CVA with right-sided weakness: Continue with current medications. DVT prophylaxis in place. Recent right intratrochanteric fracture status post right intertrochanteric closed reduction with intra medullary juwan fixation: Continue physical therapy. Fall precaution in place. Hopefully patient will be put after per dissipate with his dementia. Alzheimer's dementia: Continue medication. Hypertension: Continue medication. BPH: Continue medication COPD:Continue medication.
[2021-01-31] MEDS: RISPERIDONE 0.25 MG TABLET PO PRN (20:57)
[2021-01-31] MEDS: DONEPEZIL HCL 5 MG TAB PO SCH (20:57)
[2021-01-31] MEDS: TAMSULOSIN 0.4 MG SR CAP PO SCH (20:57)
[2021-02-01] MEDS ORDERED: LORazepam 2 MG/ML VIAL IV PRN ×2 (01:38→16:01)
[2021-02-01 06:24] LABS: Albumin 2.9 g/dL (3.4-5.0); Bilirubin Total 0.4 mg/dL (0.2-1.0); Potassium 3.5 mmol/L (3.5-5.1); Protein, Total 6.8 g/dL (6.4-8.2)
[2021-02-01] MEDS: ENSURE ENLIVE 237 ML CAN PO SCH ×2 (09:00→20:34)
[2021-02-01] MEDS: NIFEDIPINE XL 30 MG TABLET PO SCH (09:37)
[2021-02-01] MEDS: CLOPIDOGREL 75 MG TABLET PO SCH (09:38)
[2021-02-01] MEDS: ASPIRIN EC 81 MG TAB PO SCH (09:38)
[2021-02-01] MEDS: FOLIC ACID 1 MG TABLET PO SCH (09:38)
[2021-02-01] MEDS: VITAMIN D 5,000 UNIT CAP PO SCH (09:39)
[2021-02-01] MEDS: hydroCHLOROthiazide 12.5 MG CAP PO SCH (09:39)
[2021-02-01] MEDS: ENOXAPARIN 30 MG/0.3 ML SQ SCH (09:40)
[2021-02-01] MEDS: carvediloL 6.25 MG TAB PO SCH ×2 (09:41→20:31)
[2021-02-01] MEDS: DESMOPRESSIN 4 MCG/ML AMP SQ SCH ×2 (09:41→20:31)
[2021-02-01] MEDS ORDERED: POTASSIUM CL SA 10 MEQ TAB PO ONE (11:03)
--- NOTE | 2021-02-01 11:08 | P.PN ---
Date of Service: 02/01/21 Vital Signs Temp Pulse Resp BP Pulse Ox 97.8 F 71 18 143/73 H 99 02/01/21 08:00 02/01/21 09:41 02/01/21 08:00 02/01/21 09:41 02/01/21 08:00 Medications Acetaminophen (Acetaminophen 500 Mg Tab) 500 mg PO Q4HP PRN PRN Reason: TEMP > 100' F Last Admin: 01/29/21 09:35 Dose: 500 mg Documented by: Aspirin (Aspirin Ec 81 Mg Tab) 81 mg PO DAILY [facility] Last Admin: 02/01/21 09:38 Dose: 81 mg Documented by: Carvedilol (Carvedilol 6.25 Mg Tab) 6.25 mg PO BID [facility] Last Admin: 02/01/21 09:41 Dose: 6.25 mg Documented by: Cholecalciferol (Vitamin D 5,000 Unit Cap) 5,000 unit PO DAILY [facility] Last Admin: 02/01/21 09:39 Dose: 5,000 unit Documented by: Clopidogrel Bisulfate (Clopidogrel 75 Mg Tablet) 75 mg PO DAILY [facility] Last Admin: 02/01/21 09:38 Dose: 75 mg Documented by: Desmopressin Acetate (Desmopressin 4 Mcg/Ml Amp) 2 mcg SQ BID [facility] Last Admin: 02/01/21 09:41 Dose: 2 mcg Documented by: Donepezil HCl (Donepezil Hcl 5 Mg Tab) 10 mg PO BEDTIME [facility] Last Admin: 01/31/21 20:57 Dose: 10 mg Documented by: Enoxaparin Sodium (Enoxaparin 30 Mg/0.3 Ml) 30 mg SQ DAILY [facility] Last Admin: 02/01/21 09:40 Dose: 30 mg Documented by: Folic Acid (Folic Acid 1 Mg Tablet) 1 mg PO DAILY [facility] Last Admin: 02/01/21 09:38 Dose: 1 mg Documented by: Home Med (Budesonide/Formoterol Fumarate [Symbicort 160-4.5 Mcg Inhaler]) 2 puff IH DAILY [facility] Last Admin: 02/01/21 09:00 Dose: Not Given Documented by: Home Med (Fluticasone Furoate [Arnuity Ellipta]) 1 spray IH DAILY [facility] Last Admin: 02/01/21 09:00 Dose: Not Given Documented by: Hydrochlorothiazide (Hydrochlorothiazide 12.5 Mg Cap) 12.5 mg PO DAILY [facility] Last Admin: 02/01/21 09:39 Dose: 12.5 mg Documented by: Lorazepam (Lorazepam 2 Mg/Ml Vial) 0.5 mg IV 1X PRN PRN Reason: AGITATION Nifedipine (Nifedipine Xl 30 Mg Tablet) 30 mg PO DAILY [facility] Last Admin: 02/01/21 09:37 Dose: 30 mg Documented by: Nutritional Formula (Ensure Enlive 237 Ml Can) 237 ml PO BID [facility] Last Admin: 02/01/21 09:00 Dose: 237 ml Documented by: Ondansetron HCl (Ondansetron 4 Mg/2 Ml Vial) 4 mg IV Q6HP PRN PRN Reason: NAUSEA / VOMITING Potassium Chloride (Potassium Cl Sa 10 Meq Tab) 20 meq PO 1X ONE Stop: 02/01/21 11:04 Potassium Chloride (Potassium Cl Sa 10 Meq Tab) 10 meq PO DAILY [facility] Risperidone (Risperidone 0.25 Mg Tablet) 0.25 mg PO BID PRN PRN Reason: AGITATION Last Admin: 01/31/21 20:57 Dose: 0.25 mg Documented by: Sodium Chloride (Flush Normal Saline 10 Ml) 10 ml IV BID [facility] Last Admin: 02/01/21 09:00 Dose: 10 ml Documented by: Tamsulosin HCl (Tamsulosin 0.4 Mg Sr Cap) 0.4 mg PO BEDTIME [facility] Last Admin: 01/31/21 20:57 Dose: 0.4 mg Documented by: Assessment/ Plan: Nephrology No acute cardiac or pulmonary complaints. No CP or SOB. No acute events overnight. Limited IH/ ROS due to dementia Vitals, medications, blood work and imaging reviewed in the chart. General: In no apparent distress, Cooperative HEENT: Atraumatic Neck: Supple Respiratory: Clear to auscultation bilaterally Cardiovascular: No edema, Regular rate/rhythm Gastrointestinal: Soft and benign, Non-distended Musculoskeletal: No clubbing, No contractures Integumentary: No rashes, No cyanosis Neurological: Normal speech Laboratory Data (last 24 hrs) 01/20/21 16:33: PT 12.4, INR 1.08 01/20/21 16:33: WBC 7.80, Hgb 10.6 L, Hct 31.8 L, Plt Count 270 01/20/21 16:33: Sodium 145, Potassium 4.7, BUN 77 H, Creatinine 3.83 H, Glucose 97, Magnesium 2.6 H Imagings Data: EXAM DESCRIPTION: RAD - Chest Single View - 01/08/2021 11:18 am CLINICAL HISTORY: cough, opacity seen on prior COMPARISON: Portable January 05, 2021, January 04, 2021 TECHNIQUE: AP portable chest image was obtained 01/08/2021 11:18 am . FINDINGS: Right apex parenchymal stranding is still present favored to be scarring and first rib summation. Left lung base is better aerated. Left base interstitial pattern matches the mid and lower aspects of each lung field. Heart and vasculature are normal. No measurable pleural effusion and no pneumothorax. No acute bony abnormality seen. No acute aortic findings suspected. IMPRESSION: Further clearing of left base opacification. No progressive left lung field finding. Stranding in the right apex is probably a combination of scarring and overlying first rib. No new or progressive process. Conclusions/Impression: A/P: Continue the current POC and Medications other than the changes listed. AM Labs PRN. Recommend daily weight. Please see the orders for complete detai ls. MALLORY/ CKD IV -No NSAIDs Hypernatremia/ Dehydration suspicious for DI -Continue DDAVP 2mcg BID (Change to PO as an outpt) -Encourage oral hydration -Continue HCTZ Hypokalemia due to HCTZ -Start oral potassium supplementation Acidosis due to hyperchloremia Hypocalcemia -Continue Vitamin D3 HTN with CKD -Continue Coreg -Continue Nifedipine ER 60mg BID Moderate malnutrition -Encourage nutrition Anemia in chronic illness -Monitor H&H BPH/ LUTS -Continue Flomax Case reviewed with the patient's career information specialist and Dr. Hinds
[2021-02-01] MEDS ORDERED: POTASSIUM 25 MEQ EFFERV TAB PO ONE (11:52)
--- NOTE | 2021-02-01 12:24 | P.PN ---
Subjective Date of Service: 02/01/21 Primary Care Provider: custodial doctor Chief Complaint: MALLORY Subjective: Demented Physical Examination - Vital Signs Temperature: 97.8 F Blood Pressure: 143/73 Pulse: 71 Respirations: 18 Pulse Ox (%): 99 - Studies Medications List Reviewed: Yes Assessment & Plan Discharge Plan: [facility] Plan to discharge in: 24 Hours Physician Review Additional Text: Physical exam: Patient alert, cooperative. but confused. Patient with dementia. Heart: Regular rate rhythm Lungs: Clear to auscultation Abdomen: Soft nontender nondistended Extremities: Good range of motion. Mentation: awake , oriented , Appropriate. Patient with dementia. Impression: Acute on chronic renal disease stage IV likely from dehydration with hypernatremia/metabolic acidosis History of CVA with right-sided weakness Recent right intratrochanteric fracture status post right intertrochanteric closed reduction with intra medullary juwan fixation Alzheimer's dementia Hypertension BPH COPD Moderate protein malnutrition Plan: Acute on chronic renal disease stage IV likely from dehydration with hypernatremia/metabolic acidosis: Creatinine stable. Case discussed at length with nephrology. Continue IV desmopressin. Will transition to 2 mcg 1 pill twice daily along with hydrochlorothiazide 12.5 mg daily at discharge. BMP will need to be monitored at least every week for the next 4 weeks. Nephrology will decide if medication will continue indefinitely. Await approval to go back to skilled facility/snf. Case discussed with caregiver. Will discuss with high school social science teacher to help with discharge. Possible discharge as early as today if approved. History of CVA with right-sided weakness: Continue with current medications. DVT prophylaxis in place. Recent right intratrochanteric fracture status post right intertrochanteric closed reduction with intra medullary juwan fixation: Continue physical therapy. Fall precaution in place. Hopefully patient will be put after per dissipate with his dementia. Alzheimer's dementia: Continue medication. Hypertension: Continue medication. BPH: Continue medication COPD:Continue medication. Moderate protein malnutrition: Continue with supplementation. Will monitor closely. Time Spent Managing Pts Care (In Minutes): 55
[2021-02-01] MEDS: DONEPEZIL HCL 5 MG TAB PO SCH (20:31)
[2021-02-01] MEDS: TAMSULOSIN 0.4 MG SR CAP PO SCH (20:31)
--- NOTE | 2021-02-02 02:49 | P.PN ---
Date of Service: 01/29/21 Subjective Patient clinically is improving. No new complaints have been voiced. Symptoms are much better. Continued desmopressin orally at discharge. [facility] Review of Systems 10-point ROS is otherwise unremarkable Physical Examination - Vital Signs reviewed - Physical Exam General: Alert, In no apparent distress, Demented Respiratory: Clear to auscultation bilaterally, Normal air movement Cardiovascular: Regular rate/rhythm, Normal S1 S2 Gastrointestinal: Normal bowel sounds, Soft and benign, Non-distended, No tenderness Musculoskeletal: No clubbing, No swelling, No tenderness Neurological: Sensation intact Assessment & Plan - Problems (Diagnosis) (1) Vascular dementia Current Visit: Yes Status: Acute (2) Hypernatremia Current Visit: Yes Status: Acute (3) Altered mental status Current Visit: Yes Status: Acute - Plan Plan: Continue with current plan of care 1. Continuing hydrochlorothiazide. Continue increased free water intake. Resume DDAVP orally at the [facility] 2. Monitor electrolytes 3. Continue monitoring neuro status with neuro checks q.4 hr 4. Physical therapy evaluation appreciated 5. Supportive care for dementia 6. Feed with assistance 7. Encourage free water intake-2-3L daily; monitor electrolytes closely 8. GI and DVT prophylaxis Discharge Plan: Retirement
[2021-02-02 06:13] LABS: Potassium 3.9 mmol/L (3.5-5.1)
[2021-02-02] MEDS: ASPIRIN EC 81 MG TAB PO SCH (08:57)
[2021-02-02] MEDS: ENOXAPARIN 30 MG/0.3 ML SQ SCH (08:57)
[2021-02-02] MEDS: carvediloL 6.25 MG TAB PO SCH (08:57)
[2021-02-02] MEDS: CLOPIDOGREL 75 MG TABLET PO SCH (08:57)
[2021-02-02] MEDS: ACETAMINOPHEN 500 MG TAB PO PRN (08:58)
[2021-02-02] MEDS: FOLIC ACID 1 MG TABLET PO SCH (08:58)
[2021-02-02] MEDS: RISPERIDONE 0.25 MG TABLET PO PRN (08:58)
[2021-02-02] MEDS: hydroCHLOROthiazide 12.5 MG CAP PO SCH (08:58)
[2021-02-02] MEDS: VITAMIN D 5,000 UNIT CAP PO SCH (08:58)
[2021-02-02] MEDS: ENSURE ENLIVE 237 ML CAN PO SCH (08:59)
[2021-02-02] MEDS: NIFEDIPINE XL 30 MG TABLET PO SCH (08:59)
[2021-02-02] MEDS: DESMOPRESSIN 4 MCG/ML AMP SQ SCH (09:00)
[2021-02-02] MEDS ORDERED: POTASSIUM CL SA 10 MEQ TAB PO SCH (09:00)
--- NOTE | 2021-02-02 10:41 | P.PN ---
Subjective Date of Service: 02/02/21 Primary Care Provider: long term doctor Chief Complaint: MALLORY Subjective: No new changes, Demented Physical Examination - Vital Signs Temperature: 97.4 F Blood Pressure: 136/87 Pulse: 82 Respirations: 20 Pulse Ox (%): 97 - Studies Medications List Reviewed: Yes Assessment & Plan Discharge Plan: [facility] Plan to discharge in: 24 Hours Physician Review Additional Text: Physical exam: Patient alert but confused. Patient with dementia. Heart: Regular rate rhythm Lungs: Clear to auscultation Abdomen: Soft nontender nondistended Extremities: Good range of motion. Mentation: awake , oriented , Appropriate. Patient with dementia. Impression: Acute on chronic renal disease stage IV likely from dehydration with hypernatremia/metabolic acidosis History of CVA with right-sided weakness Recent right intratrochanteric fracture status post right intertrochanteric closed reduction with intra medullary juwan fixation Alzheimer's dementia Hypertension BPH COPD Moderate protein malnutrition Plan: Acute on chronic renal disease stage IV likely from dehydration with hypernatremia/metabolic acidosis: Still waiting on approval for the patient to go back to the intermediate for skilled placement. Creatinine stable. Case discussed at length with nephrology. Continue IV desmopressin. Will transition to 2 mcg 1 pill twice daily along with hydrochlorothiazide 12.5 mg daily at discharge. BMP will need to be monitored at least every week for the next 4 weeks. Nephrology will decide if medication will continue indefinitely. Await approval to go back to skilled facility/intermediate. Case discussed with caregiver. Will discuss with drug abuse social worker to help with discharge. Possible discharge as early as today if approved. History of CVA with right-sided weakness: Continue with current medications. DVT prophylaxis in place. Recent right intratrochanteric fracture status post right intertrochanteric closed reduction with intra medullary juwan fixation: Continue physical therapy. Fall precaution in place. Continue to encourage participation. This has been difficult due to his dementia. Alzheimer's dementia: Continue medication. Hypertension: Continue medication. BPH: Continue medication COPD:Continue medication. Moderate protein malnutrition: Continue with supplementation. Will monitor closely. Time Spent Managing Pts Care (In Minutes): 55
--- NOTE | 2021-02-02 13:24 | P.DS ---
Admission Date: 01/22/21 Discharge Date: 02/02/21 Primary Care Provider: residential doctor; Nephrology-Dr. Shaikh Disposition: ROUTINE DISCHARGE Discharge Condition: GOOD Reason for Admission: MALLORY Consultations: Nephrology-Dr. 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 Patient had worsening renal function. Patient currently at [facility] for skilled placement due to recent right hip fracture repair on January 05. At that hospitalization he also was found to have an acute stroke. Patient was admitted for further evaluation and treatment. Hospital Course: Patient presented with acute on chronic renal disease stage IV. Patient continued to have dehydration with metabolic acidosis. Hyponatremia was also identified. Nephrology was consulted. There was some suspicion of diabetes insipidus. Patient was placed on desmopressin. His condition improved. Sodium level now stable. At discharge the patient will return to skilled facility/fdc. The patient will continue with desmopressin 2 mcg 1 pill twice daily. Recommend to monitor BMP every week for at least 1 month. Further adjustment in medication can be done by nephrology or fdc. Patient should be able to transition from skilled placement to chronic long-term placement. Patient with recent history of right intertrochanteric fracture status post right intertrochanteric close reduction with intra medullary juwan fixation. Physical therapy to evaluate patient. Continue with physical therapy recommendations at the fdc. Continue follow up with Orthopedic surgery as directed. Patient with recent history of CVA. This appears stable. At discharge patient will continue with aspirin 81 mg daily, folic acid 1 mg daily, and Plavix 75 mg daily. Recommend follow up with neurology as directed. Patient with Alzheimer's dementia. This appears stable. Patient appears to be at his baseline. At discharge patient will continue with Aricept 10 mg daily. Patient will also continue with thiamine 100 mg daily. Risperdal 0.25 mg 1 pill twice daily as needed for agitation will be provided. Further adjustment in medication can be done by the fdc physician. Patient with hypertension. Medications have been adjusted. Aldactone has been discontinued. Carvedilol was decreased. Hydrochlorothiazide added during the course of his stay. At discharge patient will continue with carvedilol 6.25 mg 1 pill twice daily, Procardia XL 30 mg daily, and hydrochlorothiazide 12.5 mg 1 pill once daily. Recommend to maintain blood pressure less than 130/80. Further adjustment can be done by his PCP. Patient with COPD. At discharge patient will continue with Symbicort 2 puffs twice daily and Arnuity 1 puff daily. Recommend follow up with pulmonology as directed. Patient with BPH. At discharge patient will continue with Flomax 0.4 mg daily. Patient with moderate protein malnutrition. At discharge patient may continue with Ensure supplementation twice daily. Vital Signs/Physical Exam: Temp Pulse Resp BP Pulse Ox 97.4 F 82 20 136/87 97 02/02/21 10:40 02/02/21 10:40 02/02/21 10:40 02/02/21 10:40 02/02/21 10:40 General: Alert, Demented HEENT: Atraumatic Neck: Supple Respiratory: Clear to auscultation bilaterally Cardiovascular: Normal pulses, Regular rate/rhythm Gastrointestinal: Normal bowel sounds, No guarding Neurological: Normal speech, Normal strength at 5/5 x4 extr, Normal tone, Dementia Laboratory Data at Discharge: WBC 5.00 K/uL (4.3-10.9) D 01/26/21 05:23 Hgb 10.1 g/dL (13.6-17.9) L 01/26/21 05:23 Hct 30.6 % (39.6-49.0) L 01/26/21 05:23 Plt Count 192 K/uL (152-406) 01/26/21 05:23 PT 12.4 SECONDS (9.5-12.5) 01/20/21 16:33 INR 1.08 01/20/21 16:33 Sodium 140 mmol/L (136-145) 02/02/21 05:33 Potassium 3.9 mmol/L (3.5-5.1) 02/02/21 05:33 BUN 48 mg/dL (7-18) H 02/02/21 05:33 Creatinine 2.94 mg/dL (0.55-1.3) H 02/02/21 05:33 Glucose 110 mg/dL (74-106) H 02/02/21 05:33 Uric Acid 7.0 mg/dL (3.5-7.2) 01/27/21 05:13 Phosphorus 3.5 mg/dL (2.5-4.9) 01/27/21 05:13 Magnesium 2.1 mg/dL (1.8-2.4) 01/27/21 05:13 Total Bilirubin 0.4 mg/dL (0.2-1.0) 02/01/21 05:21 AST 13 U/L (15-37) L 02/01/21 05:21 ALT 12 U/L (12-78) 02/01/21 05:21 Alkaline Phosphatase 109 U/L (45-117) 02/01/21 05:21 Home Medications: Budesonide/Formoterol Fumarate [Symbicort 160-4.5 Mcg Inhaler] 2 puff IH DAILY 01/05/21 Donepezil HCl 10 mg PO BEDTIME 01/05/21 Fluticasone Furoate [Arnuity Ellipta] 1 spray IH DAILY 01/05/21 Aspirin [Aspirin EC] 81 mg PO DAILY #42 tablet. 01/15/21 Acetaminophen 650 mg PO Q6HP PRN MDD \ 01/20/21 Cholecalciferol (Vitamin D3) [Vitamin D 5,000 IU Cap*] 5,000 unit PO DAILY 01/20/21 Clopidogrel Bisulfate [Plavix*] 75 mg PO DAILY 01/20/21 Enoxaparin Sodium [Lovenox 40 MG INJ*] 40 mg SQ DAILY 01/20/21 Folic Acid 1 mg PO DAILY 01/20/21 Nifedipine Xl [Procardia Xl*] 30 mg PO BID 01/20/21 Tamsulosin [Flomax*] 0.4 mg PO BEDTIME 01/20/21 risperiDONE [Risperdal 0.25 MG TAB*] 0.25 mg PO BID PRN #60 tab 01/26/21 Desmopressin Acetate [Ddavp] 0.2 mg PO BID #60 tablet 02/02/21 Ensure Enlive 237 ml PO BID #60 can 02/02/21 carvediloL [Coreg*] 6.25 mg PO BID #60 tab 02/02/21 hydroCHLOROthiazide [Hydrochlorothiazide*] 12.5 mg PO DAILY #30 cap 02/02/21 New Medications: carvediloL [Coreg*] 6.25 mg PO BID #60 tab Desmopressin Acetate [Ddavp] 0.2 mg PO BID #60 tablet Ensure Enlive 237 ml PO BID #60 can hydroCHLOROthiazide [Hydrochlorothiazide*] 12.5 mg PO DAILY #30 cap risperiDONE [Risperdal 0.25 MG TAB*] 0.25 mg PO BID PRN #60 tab PRN Reason: Agitation Physician Discharge Instructions: Patient presented with acute on chronic renal disease stage IV. Patient continued to have dehydration with metabolic acidosis. Hyponatremia was also identified. Nephrology was consulted. There was some suspicion of diabetes insipidus. Patient was placed on desmopressin. His condition improved. Sodium level now stable. At discharge the patient will return to skilled facility/fdc. The patient will continue with desmopressin 2 mcg 1 pill twice daily. Recommend to monitor BMP every week for at least 1 month. Further adjustment in medication can be done by nephrology or fdc. Patient should be able to transition from skilled placement to chronic long-term placement. Patient with recent history of right intertrochanteric fracture status post right intertrochanteric close reduction with intra medullary juwan fixation. Physical therapy to evaluate patient. Continue with physical therapy recommendations at the fdc. Continue follow up with Orthopedic surgery as directed. Patient with recent history of CVA. This appears stable. At discharge patient will continue with aspirin 81 mg daily, folic acid 1 mg daily, and Plavix 75 mg daily. Recommend follow up with neurology as directed. Patient with Alzheimer's dementia. This appears stable. Patient appears to be at his baseline. At discharge patient will continue with Aricept 10 mg daily. Patient will also continue with thiamine 100 mg daily. Risperdal 0.25 mg 1 pill twice daily as needed for agitation will be provided. Further adjustment in medication can be done by the fdc physician. Patient with hypertension. Medications have been adjusted. Aldactone has been discontinued. Carvedilol was decreased. Hydrochlorothiazide added during the course of his stay. At discharge patient will continue with carvedilol 6.25 mg 1 pill twice daily, Procardia XL 30 mg daily, and hydrochlorothiazide 12.5 mg 1 pill once daily. Recommend to maintain blood pressure less than 130/80. F urther adjustment can be done by his PCP. Patient with COPD. At discharge patient will continue with Symbicort 2 puffs twice daily and Arnuity 1 puff daily. Recommend follow up with pulmonology as directed. Patient with BPH. At discharge patient will continue with Flomax 0.4 mg daily. Patient with moderate protein malnutrition. At discharge patient may continue with Ensure supplementation twice daily. Diet: pureed Activity: as recommended by PT/Ortho Followup: Luís Shaikh DO [ACTIVE - CAN ADMIT] - OOT,OOT [Primary Care Provider] - Time spent managing pt's care (in minutes): 55
[2021-02-02 14:16] VITALS: BP 113/62; TEMP 97.7
[2021-02-02 14:27] VITALS: O2SAT 96
[2021-02-02] MEDS ORDERED: LORAZEPAM 0.5 MG TABLET PO ONE (16:22)
--- NOTE | 2021-02-03 20:23 | P.PN ---
Date of Service: 02/02/21 Vital Signs Temp Pulse Resp BP Pulse Ox 97.7 F 80 20 113/62 98 02/02/21 12:00 02/02/21 12:00 02/02/21 12:00 02/02/21 12:00 02/02/21 12:00 Assessment/ Plan: Nephrology No acute cardiac or pulmonary complaints. No CP or SOB. No acute events overnight. Limited IH/ ROS due to dementia Vitals, medications, blood work and imaging reviewed in the chart. General: In no apparent distress, Cooperative HEENT: Atraumatic Neck: Supple Respiratory: Clear to auscultation bilaterally Cardiovascular: No edema, Regular rate/rhythm Gastrointestinal: Soft and benign, Non-distended Musculoskeletal: No clubbing, No contractures Integumentary: No rashes, No cyanosis Neurological: Normal speech Laboratory Data (last 24 hrs) 01/20/21 16:33: PT 12.4, INR 1.08 01/20/21 16:33: WBC 7.80, Hgb 10.6 L, Hct 31.8 L, Plt Count 270 01/20/21 16:33: Sodium 145, Potassium 4.7, BUN 77 H, Creatinine 3.83 H, Glucose 97, Magnesium 2.6 H Imagings Data: EXAM DESCRIPTION: RAD - Chest Single View - 01/08/2021 11:18 am CLINICAL HISTORY: cough, opacity seen on prior COMPARISON: Portable January 05, 2021, January 04, 2021 TECHNIQUE: AP portable chest image was obtained 01/08/2021 11:18 am . FINDINGS: Right apex parenchymal stranding is still present favored to be scarring and first rib summation. Left lung base is better aerated. Left base interstitial pattern matches the mid and lower aspects of each lung field. Heart and vasculature are normal. No measurable pleural effusion and no pneumothorax. No acute bony abnormality seen. No acute aortic findings suspected. IMPRESSION: Further clearing of left base opacification. No progressive left lung field finding. Stranding in the right apex is probably a combination of scarring and overlying first rib. No new or progressive process. Conclusions/Impression: A/P: Continue the current POC and Medications other than the changes listed. AM Labs PRN. Recommend daily weight. Please see the orders for complete details. MALLORY/ CKD IV -No NSAIDs Hypernatremia/ Dehydration suspicious for DI -Continue DDAVP 2mcg BID (Change to PO as an outpt) -Encourage oral hydration -Continue HCTZ Hypokalemia due to HCTZ -Continue oral potassium supplementation Acidosis due to hyperchloremia Hypocalcemia -Continue Vitamin D3 HTN with CKD -Continue Coreg -Continue Nifedipine ER 60mg BID Moderate malnutrition -Encourage nutrition Anemia in chronic illness -Monitor H&H BPH/ LUTS -Continue Flomax Case reviewed with the patient's medical care evaluation specialist and Dr. Hinds
== END 2021-02-02 17:01 | DRG 683 ==
LOC: ER 15:39 → ERHOLD 18:07 → 2ND 19:53 → OBSVTOIN 01-22 09:39 → 2ND 01-23 07:43
PROVIDERS: ADMIT Family Medicine; ATTEND Family Medicine
DX: N17.9 Acute kidney failure, unspecified (principal); I69.351 Hemiplegia and hemiparesis following cerebral infarction affecting right dominant side; E87.0 Hyperosmolality and hypernatremia; E87.2 Acidosis; E44.0 Moderate protein-calorie malnutrition; E87.1 Hypo-osmolality and hyponatremia; E23.2 Diabetes insipidus; N18.4 Chronic kidney disease, stage 4 (severe); I12.9 Hypertensive chronic kidney disease with stage 1 through stage 4 chronic kidney disease, or unspecified chronic kidney disease; G30.9 Alzheimer's disease, unspecified; F02.80 Dementia in other diseases classified elsewhere, unspecified severity, without behavioral disturbance, psychotic disturbance, mood disturbance, and anxiety; E83.51 Hypocalcemia; E86.0 Dehydration; S72.141D Displaced intertrochanteric fracture of right femur, subsequent encounter for closed fracture with routine healing; N40.1 Benign prostatic hyperplasia with lower urinary tract symptoms; Z68.23 Body mass index [BMI] 23.0-23.9, adult; Z79.82 Long term (current) use of aspirin; Z79.02 Long term (current) use of antithrombotics/antiplatelets; Z79.899 Other long term (current) drug therapy; Z20.822 Contact with and (suspected) exposure to COVID-19; J44.9 Chronic obstructive pulmonary disease, unspecified; D63.8 Anemia in other chronic diseases classified elsewhere; E87.8 Other disorders of electrolyte and fluid balance, not elsewhere classified; F01.50 Vascular dementia, unspecified severity, without behavioral disturbance, psychotic disturbance, mood disturbance, and anxiety
CPT/HCPCS: 36415; 80048; 80053; 82947; 83735; 84100; 84550; 85025; 85610; 93005; 96360; 96361; 97110; 97112; 97161; 97530; 99285; G0378; J1650; J2597; J7040; J7060; U0002; U0003

== ENCOUNTER 2021-02-16 17:26 | Inpatient (IN) | payer OTHER ==
--- OUTSIDE RECORDS SUMMARY | 2021-02-16 17:28 | XMS REPORT | Continuity of Care Document ---
:1940 Author Organization [facility] t Address [address] [place] [address] Care Team Providers Name Role Phone Natalie [...] at bedtime [facility] Potassium Potassium Yes Bindu [address] [facility] Ch[facility] Chloride ER Millender with food [facility] Vitamin B-1 Vitamin B-1 Yes Bindu [address] [facility] Aspirin 81 Aspirin 81 Yes Bindu [address] [facility] Amlodipine Amlodipine Yes Bindu [address] [facility] Besylate Besylate Millender [facility] Folic Acid Folic Acid Yes Bindu [address] [facility] Immunizations Ordered Filled Immunization Date Status Comments [facility] Immunization Name Name FLUZONE HIGH DOSE FLUZONE HIGH DOSE 2019-08-[address] [facility] OVER [facility] 00:[facility]:00 [facility] Procedures This patient has no known procedures. Encounters Start End Encounter Admission Attending Care Care Encounter Source Date/Time Date/Time Type Type Clinicians Facility Department ID 2020-12-24 2020-12-24 Outpatient [facility] [id number] [facility] 2020-10-09 2020-10-09 Outpatient [facility] [id number] [facility] 2020-09-25 2020-09-25 Out[facility] [id number] [facility] 2020-09-24 2020-09-24 Out[facility] [id number] [facility] 2020-09-10 2020-09-10 Out[facility] [id number] [facility] 2020-09-08 2020-09-08 Out[facility] [id number] [facility] 2020-08-04 2020-08-04 Out[facility] [id number] [facility] 2020-07-06 2020-07-06 [facility] [id number] [facility] 13[facility]00:00 13:00:00 [facility] Clin[facility] 2020-07-03 2020-07-[address] [id number] 10:14:00 10:14:00 . [facility] Clinics 2020-07-01 2020-07-01 [facility] [id number] 23:09:00 23:09:00 [facility] Out[facility] Clin[facility] 2020-06-30 2020-06-30 [facility] [id number] 15:40:00 15:40:00 [facility] Outpat[facility] Clinics 2020-04-23 2020-04-23 [place] Bonifacio Estrdaa [facility] [id number] 00:00:00 00:00:00 HEALTH [id number] FAMILY [id number] MEDICINE [id number] [facility] 2020-04-21 2020-04-21 Refill Bonifacio Estrada [facility] [id number] 00:00:00 00:00:00 HEALTH [id number] FAMILY [id number] MEDICINE [id number] [facility] 2020-04-16 2020-04-16 [facility] [id number] 13:42:00 13:42:00 [facility] Medicine Outpati ent Clinics 2020-04-08 2020-04-08 [facility] [id number] 16:20:00 16:20:00 [facility] Medicine Outpati ent Clinics 2020-04-06 2020-04-06 [facility] [id number] [address] 01:09:00 01:09:00 [facility] 2020-03-31 2020-03-31 [facility] [id number] [address] 16:00:00 16:00:00 [facility]pat[facility] ent [facility] 2020-01-23 2020-01-23 [facility] [id number] 11:28:00 11:28:00 [facility] 2020-01-16 2020-01-16 Pre Visit Bonifacio Estrada [facility] [id number] 00:00:00 00:00:00 [facility] [id number] [facility] [id number] [facility] [id number] [address] 2020-01-01 2020-01-01 [facility] [id number] [facility] 16:45:00 16:45:00 [facility] 2019 2019 [facility] [id number] 13:40:00 13:40:00 [facility] 2019-08-21 2019-08-21 [facility] [id number] 14:00:00 14:00:00 [facility] 2019-05-27 2019-05-27 Orders Doctor TRUONG [id number] 00:00:00 00:00:00 Only Unassigned, MARILIN [id number] [place] [id number] Results This patient has no known results.
--- NOTE | 2021-02-16 18:09 | RAD REPORT ---
EXAM DESCRIPTION: CT - Head Brain Wo Cont - 02/16/2021 6:04 pm CLINICAL HISTORY: ams COMPARISON: Head Brain Wo Cont dated 01/10/2019 TECHNIQUE: Axial 5 mm thick images of the head were obtained without IV contrast. All CT scans are performed using dose optimization technique as appropriate and may include automated exposure control or mA/KV adjustment according to patient size. FINDINGS: No intracranial hemorrhage, mass, edema or shift of mid-line structures. No acute infarcti on changes seen. Advanced atrophy and chronic ischemic changes are present. Ventricles are in proport ion to the volume loss. Arterial tree calcifications are present. Mastoid air cells and visualized portions of the paranasal sinuses are clear. No acute bony findings. IMPRESSION: Advanced atrophy and chronic ischemic change similar to comparison. No acute finding.
--- NOTE | 2021-02-16 18:54 | RAD REPORT ---
EXAM DESCRIPTION: RAD - Chest Single View - 02/16/2021 6:26 pm CLINICAL HISTORY: amsdyspnea COMPARISON: Portable January 08 TECHNIQUE: AP portable chest image was obtained 02/16/2021 6:26 pm . FINDINGS: Lungs are fibrotic but clear. Interstitial pattern is not substantially different. Lung ma rkings are accentuated by shallow inspiration on the current study. Minimal interstitial edema or inf iltrate could be masked. Heart and vasculature are normal. No measurable pleural effusion and no pneumothorax. No acute bony abnormality seen. No acute aortic findings suspected. IMPRESSION: Chronic interstitial lung disease not substantially different from comparison. Lung markings are accentuated by shallow inspiration potentially masking minimal edema or infiltrate.
[2021-02-16 19:43] LABS: Urine Blood Negative (Negative); Urine Glucose Negative (Negative); Urine Protein 2+ (Negative); Urine Specific Gravity >=1.030 (1.005-1.030); Urine pH 5.5 (5.0-7.0)
[2021-02-16 19:47] LABS: Absolute Lymphocytes (CBC) 0.8 K/uL (0.7-4.9); Basophils % 0.1 % (0-1.3); Hematocrit 34.5 % (39.6-49.0); Lymphocytes % 4.1 % (15.3-44.8); MPV 10.2 fL (7.6-11.3); RBC Red Blood Cell Count 3.84 M/uL (4.33-5.43)
[2021-02-16 20:05] LABS: Protime INR 1.3
[2021-02-16 20:12] LABS: Albumin 2.8 g/dL (3.4-5.0); Bilirubin Direct 0.1 mg/dL (0-0.2); Bilirubin Total 0.4 mg/dL (0.2-1.0); Potassium 3.8 mmol/L (3.5-5.1); Protein, Total 7.6 g/dL (6.4-8.2); Troponin (Emerg Dept Use Only) 0.03 ng/mL (0.0-0.045)
[2021-02-16 20:29] LABS: Urine Amorphous Sediment 1+ /HPF (NONE SEEN); Urine Bacteria <20 /HPF (NONE SEEN); Urine RBC <5 /HPF (NONE SEEN); Urine Urothelial Cells <5 /HPF (NONE SEEN)
[2021-02-16 20:42] LABS: Blood Morphology Comment NOT SEEN (NOT SEEN); Platelet Estimate ADEQ; White Blood Cell Scan OK (OK)
--- NOTE | 2021-02-16 20:57 | ER ---
Nurse's Notes [facility] Name: Kevin Psacual Age: 80 yrs Sex: Male : 1940 Arrival Date: 02/16/2021 Time: 17:32 Bed 3 Private MD: Diagnosis: Dehydration;Acute Kidney Injury;Hyperglycemia Presentation: 02/16 17:32 Chief complaint: EMS states: "pt was sent to the doctor's office today from [address] and upon arrival the pt appear more altered than he normally is. pt with history of dementia and Alzheimer.". Coronavirus screen: At this time, the client does not indicate any symptoms associated with coronavirus-19. Ebola Screen: Patient negative for fever greater than or equal to 101.5 degrees Fahrenheit, and additional compatible Ebola Virus Disease symptoms. Initial Sepsis Screen: Does the patient meet any 2 criteria? Yes Does the patient have a suspected source of infection? No. Patient's initial sepsis screen is negative. Risk Assessment: Do you want to hurt yourself or someone else? Patient reports no desire to harm self or others. Onset of symptoms was February 16, 2021. 17:32 Method Of Arrival: EMS: [facility] 17:32 Acuity: HILARY [address] [facility] 19:05 Transition of care: patient was received from another setting of care (long-term care [facility] facility), [facility]. Historical: - Allergies: 17:38 No Known Allergies; jd3 - Home Meds: 17:38 amlodipine 2.5 mg tab 1 tab once daily [Active]; aspirin 81 mg Oral chew 1 tab once jd3 daily [Active]; donepezil HCL 10 mg 1 tab once a day [Active]; Lasix Oral [Active]; quetiapine Oral [Active]; Spironolactone Oral [Active]; - PMHx: 17:38 Alzheimers; CVA; Dementia; ESRD; Hypertension; kidney failure; jd3 - PSHx: 17:38 Unable to obtain; jd3 - Immunization history:: Adult Immunizations unknown. - Social history:: Smoking status: unknown. Screenin:44 Abuse screen: Denies threats or abuse. Nutritional screening: No deficits noted. jd3 Tuberculosis screening: No symptoms or risk factors identified. Fall Risk Secondary diagnosis (15 points) Alzheimer's, dementia, impaired mobility, Mental Status- Overestimates/Forgets Limitations (15 pts.). Total Brantley Fall Scale indicates Low Risk Score (25-44 pts). Fall prevention measures have been instituted. Side Rails Up X 2 Placed close to Nursing Station Frequent Obs/Assesments occuring. Assessment: 17:39 General: Appears in no apparent distress. comfortable, Behavior is lethargic . Pain: jd3 Denies pain. Neuro: Level of Consciousness is awake, confused, lethargic, Oriented to none. Cardiovascular: Heart tones present Capillary refill < 3 seconds Patient's skin is warm and dry. Respiratory: Airway is patent Respiratory effort is even, unlabored, Respiratory pattern is regular, symmetrical, Breath sounds are clear bilaterally. GI: No signs and/or symptoms were reported involving the gastrointestinal system. : No signs and/or symptoms were reported regarding the genitourinary system. EENT: No signs and/or symptoms were reported regarding the EENT system. Derm: Skin is intact, Skin is dry, Skin is normal, Skin temperature is warm. 18:36 Reassessment: No changes from previously documented assessment. Patient and/or family jd3 updated on plan of care and expected duration. Pain level reassessed. 18:45 Reassessment: family at bedside and updated on plan of care. jd3 19:30 General: Appears in no apparent distress. Behavior is lethargic. rr5 19:30 Neuro: Level of Consciousness is awake, confused, lethargic, Oriented to none. rr5 Cardiovascular: Capillary refill < 3 seconds Patient's skin is warm and dry. Respiratory: Airway is patent Respiratory effort is even, unlabored, Respiratory pattern is regular, symmetrical. Derm: Skin is normal, Skin temperature is warm Bruising that is dark purple, on right lateral anterior chest. Musculoskeletal: Capillary refill < 3 seconds. 20:15 Reassessment: Patient appears in no apparent distress at this time. Patient and/or rr5 family updated on plan of care and expected duration. Pain level reassessed. awaiting for results. 20:53 Reassessment: Patient and/or family updated on plan of care and expected duration. Pain ea level reassessed. Pt returned from CT. 21:30 Reassessment: pulling his BP and SPO2 wire. keeps on turning side to side on the bed. rr5 family member at the bedside. 22:20 Reassessment: Patient appears in no apparent distress at this time. No changes from rr5 previously documented assessment. for admission awaiting for room assignment. 23:30 Reassessment: Patient appears in no apparent distress at this time. No changes from rr5 previously documented assessment. Vital Signs: 17:38 BP 113 / 70; Pulse 87; Resp 18 S; Temp 97.5(TE); Pulse Ox 100% on R/A; Weight 79.38 kg jd3 (R); 18:35 BP 106 / 63; Pulse 88; Resp 17 S; Pulse Ox 100% on R/A; jd3 20:00 BP 110 / 75; Pulse 80; Resp 16; Pulse Ox 98% ; rr5 21:20 BP 116 / 95; Pulse 101; Resp 20; Pulse Ox 97% ; rr5 22:30 BP 136 / 110; Pulse 99; Resp 22; Pulse Ox 98% on R/A; rr5 23:30 BP 121 / 103; Pulse 90; Resp 24; Pulse Ox 99% on R/A; rr5 02/17 00:30 BP 123 / 95; Pulse 95; Resp 20; Temp 97.5; Pulse Ox 100% ; rr5 ED Course: 02/16 17:32 Patient arrived in ED. jd3 17:35 Triage completed. jd3 17:37 Joel Vieira PA is PHCP. jm 17:37 Alessandro Arnold MD is Attending Physician. jmm 17:39 Arm band placed on. jd3 17:45 Patient has correct armband on for positive identification. Placed in gown. Bed in low jd3 position. Call light in reach. Side rails up X2. hunting and fishing guide on. Pulse ox on. NIBP on. 18:03 CT Head Brain wo Cont In Process Unspecified. EDMS 18:19 Trae Savage, RN is Primary Nurse. jd3 18:26 Chest Single View XRAY In Process Unspecified. EDMS 18:35 Inserted saline lock: 22 gauge in left antecubital area, using aseptic technique. jd3 19:06 Primary Nurse role handed off by Trae Savage, RN jd3 19:43 Bubba Salas, LEON is Primary Nurse. rr5 19:44 Straight cath inserted, using sterile technique, 16 Fr. Specimen obtained. rr5 20:17 Notified Nurse Practitioner and/or Physician Billet Checker of a critical lab result(s), Cl rr5 122, creatinine 6.17, amylase 703. 20:43 CT Chest Abdomen Pelvis W/O Contrast In Process Unspecified. EDMS 20:55 Bubba Peraza MD is Hospitalizing Provider. john 21:17 Manoj Hinds DO is Hospitalizing Provider. la1 21:50 Inserted saline lock: 22 gauge in right hand, using aseptic technique. ,using aseptic rr5 technique. inserted by alexsandra QUINTERO. 21:58 Inserted saline lock: 20 gauge in right forearm, using aseptic technique. rr5 02/17 00:10 IV discontinued, patient pulled the IV on his left AC and right hand, pressure dressing rr5 applied. loan wrap covered the right forearm line. 00:30 No provider procedures requiring assistance completed. Patient admitted, IV remains in rr5 place. intact, No redness/swelling at site. Administered Medications: 02/16 20:52 Drug: NS 0.9% 1000 ml Route: IV; Rate: 1 bolus; Site: left antecubital; ea 22:10 Follow up: Response: No adverse reaction; IV Status: Completed infusion; IV Intake: rr5 1000ml 20:53 Drug: Rocephin (cefTRIAXone) 1 grams Route: IV; Rate: calculated rate; Site: left ea antecubital; Intake: 22:10 IV: 1000ml; Total: 1000ml. rr5 Output: 02/17 00:35 Other: 1 (Diapers) ; Total: 0ml. rr5 Outcome: 02/16 20:57 Decision to Hospitalize by Provider. [facility] 02/17 00:33 Admitted to Med/surg accompanied by tech, via stretcher, room 427, with chart, Report ea called to Receiving nurse on fourth floor Condition: stable Instructed on the need for admit. 00:33 Patient left the ED. ea Signatures: Dispatcher [employer] EDMS Joel Vieira PA PA jmm Attema, Lee, BLOOD SPLATTER ANALYST-C BLOOD SPLATTER ANALYST-Cla1 Alexsandra Miles, RN RN Trae Orosco RN RN jd3 Roque, Raymond, RN RN rr5
--- NOTE | 2021-02-16 20:57 | EDPHYS ---
Physician Documentation [facility] Name: Kevin Pascual Age: 80 yrs Sex: Male : 1940 Arrival Date: 02/16/2021 Time: 17:32 Bed 3 Private MD: ED Physician Alessandro Arnold HPI: 02/16 19:34 This 80 yrs old Male presents to ER via EMS with complaints of AMS. [facility] 19:34 The patient presents with decreased mental status. Onset: The symptoms/episode jmm began/occurred today. Possible causes: unknown. Associated signs and symptoms: Pertinent positives: confusion, weakness. Current symptoms: In the emergency department the patient's symptoms are unchanged from the initial presentation. This is a 80 year old male with a history of alzheimers, CVA, dementia that presents to the ED with ams according to the senior care. Patient is normally combatitve, and has eaten well. Today the patient has not eaten well and has not been combatitive. . Historical: - Allergies: 17:38 No Known Allergies; jd3 - Home Meds: 17:38 amlodipine 2.5 mg tab 1 tab once daily [Active]; aspirin 81 mg Oral chew 1 tab once jd3 daily [Active]; donepezil HCL 10 mg 1 tab once a day [Active]; Lasix Oral [Active]; quetiapine Oral [Active]; Spironolactone Oral [Active]; - PMHx: 17:38 Alzheimers; CVA; Dementia; ESRD; Hypertension; kidney failure; jd3 - PSHx: 17:38 Unable to obtain; jd3 - Immunization history:: Adult Immunizations unknown. - Social history:: Smoking status: unknown. ROS: 19:34 Unable to obtain ROS due to altered mental status. [facility] Exam: 19:34 Eyes: EOMI, no conjunctival erythema appreciated ENT: Moist Mucus Membranes Neck: jmm Trachea midline, Supple Chest/axilla: Normal chest wall appearance and motion. Cardiovascular: Regular rate and rhythm. No edema appreciated Respiratory: Normal respirations, no respiratory distress appreciated Abdomen/GI: Non distended, soft Back: Normal ROM 19:34 Constitutional: The patient appears emaciated, frail. 19:34 Skin: Appearance: Color: normal in color. 19:34 Neuro: Orientation: Not oriented to person, place, time. Vital Signs: 17:38 BP 113 / 70; Pulse 87; Resp 18 S; Temp 97.5(TE); Pulse Ox 100% on R/A; Weight 79.38 kg jd3 (R); 18:35 BP 106 / 63; Pulse 88; Resp 17 S; Pulse Ox 100% on R/A; jd3 20:00 BP 110 / 75; Pulse 80; Resp 16; Pulse Ox 98% ; rr5 21:20 BP 116 / 95; Pulse 101; Resp 20; Pulse Ox 97% ; rr5 22:30 BP 136 / 110; Pulse 99; Resp 22; Pulse Ox 98% on R/A; rr5 23:30 BP 121 / 103; Pulse 90; Resp 24; Pulse Ox 99% on R/A; rr5 02/17 00:30 BP 123 / 95; Pulse 95; Resp 20; Temp 97.5; Pulse Ox 100% ; rr5 MDM: 02/16 17:39 Patient medically screened. [facility] 20:51 Data reviewed: vital signs, nurses notes. Counseling: I had a detailed discussion with john the patient and/or guardian regarding: the historical points, exam findings, and any diagnostic results supporting the discharge/admit diagnosis, lab results, radiology results, the need for further work-up and treatment in the hospital. ED course: I discussed the patient with Dr. Aaron and Avi Boo whom accepted the patient to Dr. Peraza's service. 02/16 17:38 Order name: Amylase, Serum; Complete Time: 20:20 [facility] 02/16 17:38 Order name: Basic Metabolic Panel; Complete Time: 20:20 [facility] 02/16 17:38 Order name: Blood Culture Adult (2) [facility] 02/16 17:38 Order name: CBC with Diff; Complete Time: 20:45 [facility] 02/16 17:38 Order name: Ckmb; Complete Time: 20:20 [facility] 02/16 17:38 Order name: CPK; Complete Time: 20:20 [facility] 02/16 17:38 Order name: Lactate; Complete Time: 20:14 [facility] 02/16 17:38 Order name: LFT's; Complete Time: 20:20 [facility] 02/16 17:38 Order name: Lipase; Complete Time: 20:20 [facility] 02/16 17:38 Order name: Procalcitonin; Complete Time: 20:28 [facility] 02/16 17:38 Order name: Protime (+inr); Complete Time: 20:06 [facility] 02/16 17:38 Order name: Ptt, Activated; Complete Time: 20:06 [facility] 02/16 17:38 Order name: Troponin (emerg Dept Use Only); Complete Time: 20:20 [facility] 02/16 17:38 Order name: Urine Microscopic Only; Complete Time: 20:30 [facility] 02/16 17:38 Order name: Chest Single View XRAY; Complete Time: 18:55 [facility] 02/16 17:38 Order name: Accucheck; Complete Time: 19:43 [facility] 02/16 17:38 Order name: Cardiac monitoring; Complete Time: 18:20 [facility] 02/16 17:38 Order name: EKG - Nurse/Tech; Complete Time: 18:20 [facility] 02/16 17:38 Order name: IV Saline Lock - Large Bore; Complete Time: 18:20 [facility] 02/16 17:38 Order name: CT Head Brain wo Cont; Complete Time: 18:13 [facility] 02/16 17:45 Order name: CORONAVIRUS (COVID-19) : Document "Date of Symptom Onset" if Symptomatic. [facility] 02/16 18:44 Order name: Glucose, Ancillary Testing; Complete Time: 18:51 [facility] 02/16 19:43 Order name: Urine Dipstick-Ancillary; Complete Time: 19:43 [facility] 02/16 19:54 Order name: SARS-COV-2 RT PCR; Complete Time: 19:57 [facility] 02/16 20:05 Order name: CT Chest Abdomen Pelvis W/O Contrast; Complete Time: 21:34 [facility] 02/16 20:42 Order name: CBC Smear Scan; Complete Time: 20:45 [facility] 02/17 00:01 Order name: Lactate Sepsis 2 HR Follow-up [facility] 02/16 17:38 Order name: Labs collected and sent; Complete Time: 19:43 [facility] 02/16 17:38 Order name: O2 Per Protocol; Complete Time: 18:20 [facility] 02/16 17:38 Order name: O2 Sat Monitoring; Complete Time: 18:20 [facility] 02/16 17:38 Order name: Urine Dipstick-Ancillary (obtain specimen); Complete Time: 19:43 [facility] 02/16 19:43 Order name: Straight Cath - Urine; Complete Time: 19:44 rr5 Administered Medications: 20:52 Drug: NS 0.9% 1000 ml Route: IV; Rate: 1 bolus; Site: left antecubital; ea 22:10 Follow up: Response: No adverse reaction; IV Status: Completed infusion; IV Intake: rr5 1000ml 20:53 Drug: Rocephin (cefTRIAXone) 1 grams Route: IV; Rate: calculated rate; Site: left ea antecubital; Disposition: 02/17 06:12 Co-signature as Attending Physician, Alessandro Arnold MD I agree with the assessment and kdr plan of care. Disposition: 02/16/21 20:57 Hospitalization ordered by Manoj Hinds for Inpatient Admission. Preliminary diagnosis are Dehydration, Acute Kidney Injury, Hyperglycemia. - Bed requested for Telemetry/MedSurg (Inpatient). - Status is Inpatient Admission. ea - Condition is Stable. - Problem is new. - Symptoms are unchanged. Signatures: Dispatcher [employer] [facility] Haylee Vidales RN RN Alessandro Arnold MD MD [facility] Joel Vieira PA PA [facility] Avi Boo, SILVICULTURE PROFESSOR-C SILVICULTURE PROFESSOR-Cla1 Alexsandra Miles RN RN ea Davies, Jonathon, RN RN jBubba Hinkle RN RN rr5 Corrections: (The following items were deleted from the chart) 02/16 18:53 17:45 CORONAVIRUS ordered. [facility] 21:17 20:57 Hospitalization Ordered by Bubba Peraza MD for Inpatient Admission. Preliminary la1 diagnosis is Dehydration; Acute Kidney Injury; Hyperglycemia. Bed requested for Telemetry/MedSurg (Inpatient). Status is Inpatient Admission. Condition is Stable. Problem is new. Symptoms are unchanged. [facility] :43 21:17 02/16/2021 20:57 Hospitalization Ordered by Manoj Hinds DO for Inpatient Admission. Preliminary diagnosis is Dehydration; Acute Kidney Injury; Hyperglycemia. Bed requested for Telemetry/MedSurg (Inpatient). Status is Inpatient Admission. Condition is Stable. Problem is new. Symptoms are unchanged. la1 02/17 00:33 02/16 22:43 02/16/2021 20:57 Hospitalization Ordered by Manoj Hinds DO for Inpatient ea Admission. Preliminary diagnosis is Dehydration; Acute Kidney Injury; Hyperglycemia. Bed requested for Telemetry/MedSurg (Inpatient). Status is Inpatient Admission. Condition is Stable. Problem is new. Symptoms are unchanged. mw
[2021-02-16] MEDS ORDERED: NA CHLORIDE 0.9% 1,000 ML ONE (20:58)
[2021-02-16] MEDS ORDERED: CEFTRIAXONE/SWI 1gm 1 GM/10 ML SYR ONE (20:59)
--- NOTE | 2021-02-16 21:30 | RAD REPORT ---
EXAM DESCRIPTION: CT - Chest Abd Pelvis Wo Con - 02/16/2021 8:44 pm CLINICAL HISTORY: ams, chest pain, abdomen pain COMPARISON: Head C Spine Mpr Wo Con dated 01/04/2021; Head C Spine Mpr Wo Con dated 08/11/2020 TECHNIQUE: During dynamic enhancement using 100 milliliters nonionic IV contrast, axial 5 millimeter thick images of the chest, abdomen and pelvis were obtained. Biphasic technique was utilized through the abdomen. Oral contrast was administered. All CT scans are performed using dose optimization technique as appropriate and may include automated exposure control or mA/KV adjustment according to patient size. FINDINGS: Significant underlying emphysema changes are present with bulla and bleb formation in the upper lung p[place]co. In the right apex there is a 13 millimeter spiculated density present. In the ante romedial left upper lobe at the aortic arch level (image 18/143) there is a 12 millimeter nodule. No other masses the lung parenchyma. No acute infiltrate. Scattered scarring changes are present. No pneumothorax or pleural effusion. No chest wall mass or abnormal axillary lymphadenopathy seen. Mediastinal and hilar regions show no mass or lymphadenopathy. No significant cardiac finding. Abdomen and pelvis imaging has significant motion degradation limitation. The liver, spleen and pancreas show no significant findings. Gallbladder and biliary tree are normal . No hydronephrosis or suspicious renal mass. There is an upper pole left renal cyst. No adrenal abnorm alities. Contracted urinary bladder shows no gross abnormality. No significant prostate abnormality seen. No dilated bowel loops or focal ball bowel wall thickening. No free air, free fluid or inflammatory stranding. No hernia, mass or bulky lymphadenopathy. Disc and bone degenerative changes are present. No pathologic finding identifiable. IMPRESSION: Spiculated mass in the right apex and pulmonary nodule in the left upper lobe cannot be confirmed as having long-term stability. Malignant etiologies cannot be excluded. Scarring etiologies are possible given the level of COPD present. Short-term follow-up is recommended if no outside imaging can establish a long-term stability. Follow -up CT imaging in 3 months or follow-up PET-CT imaging could be performed to assure no growth or abno rmal metabolic activity. No pneumonia in the chest. Abdomen and pelvis imaging shows no acute or emergent finding. CT abdomen and pelvis imaging shows no significant or suspicious finding.
--- NOTE | 2021-02-16 22:59 | P.HP ---
Certification for Inpatient Patient admitted to: Inpatient With expected LOS: >2 Midnights Patient will require the following post-hospital care: Halfway Practitioner: I am a practitioner with admitting privileges, knowledge of patient current condition, hospital course, and medical plan of care. Services: Services provided to patient in accordance with Admission requirements found in Title 42 Section 412.3 of the Code of Federal Regulations Patient History Date of Service: 02/16/21 Primary Care Provider: [facility] doctor, nephrology- Dr. 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 Patient evaluated in the emergency department found to be in acute renal failure superimposed on CKD 4 with creatinine 6.17, GFR 9 compared to baseline creatinine of around 3, sodium of 158, also noted to have elevated white blood cell count 19.8 hemoglobin 11.2 hematocrit 34.5 amylase 703 but lipase is within normal limits no UTI noted on cath urine, CT chest abdomen pelvis without contrast demonstrates spiculated mass in the right apex and pulmonary nodule in the left upper lobe which cannot be confirmed as having long-term stability, malignant etiologies cannot be excluded, scarring etiologies also possible. No pneumonia noted abdomen pelvis no acute or emergent findings. Patient alert but disoriented, oriented times 0, reported baseline is oriented x1. Case was discussed with nephrology by ED provider who recommended D5W at 125 cc/hour throughout the night and will see patient tomorrow. Allergies No Known Allergies Allergy (Verified 01/21/21 01:18) Home Medications: Budesonide/Formoterol Fumarate [Symbicort 160-4.5 Mcg Inhaler] 2 puff IH DAILY 01/05/21 Donepezil HCl 10 mg PO BEDTIME 01/05/21 Fluticasone Furoate [Arnuity Ellipta] 1 spray IH DAILY 01/05/21 Aspirin [Aspirin EC] 81 mg PO DAILY #42 tablet. 01/15/21 Acetaminophen 650 mg PO Q6HP PRN MDD \ 01/20/21 Cholecalciferol (Vitamin D3) [Vitamin D 5,000 IU Cap*] 5,000 unit PO DAILY 01/04 05/26 Clopidogrel Bisulfate [Plavix*] 75 mg PO DAILY 01/20/21 Enoxaparin Sodium [Lovenox 40 MG INJ*] 40 mg SQ DAILY 01/20/21 Folic Acid 1 mg PO DAILY 01/20/21 Nifedipine Xl [Procardia Xl*] 30 mg PO BID 01/20/21 Tamsulosin [Flomax*] 0.4 mg PO BEDTIME 01/20/21 risperiDONE [Risperdal 0.25 MG TAB*] 0.25 mg PO BID PRN #60 tab 01/26/21 Desmopressin Acetate [Ddavp] 0.2 mg PO BID #60 tablet 02/02/21 Ensure Enlive 237 ml PO BID #60 can 02/02/21 carvediloL [Coreg*] 6.25 mg PO BID #60 tab 02/02/21 hydroCHLOROthiazide [Hydrochlorothiazide*] 12.5 mg PO DAILY #30 cap 02/02/21 - Past Medical/Surgical History Diabetic: No -: HTN -: Alzheimer's Dementia -: Depression -: CKD4 -: CVA -: Diabetes insipidus? -: Right hip fracture with repair January 2021 Psychosocial/ Personal History: Patient currently staying in a [facility] facility for rehab after a hip fracture - Family History Family History: Reviewed- Non-Contributory - Social History Smoking Status: Unknown if ever smoked Alcohol use: No CD- Drugs: No Caffeine use: No Place of Residence: Home Review of Systems is unable to be obtained Physical Examination - Physical Exam General: Alert, Confused HEENT: Normocephalic, PERRLA, Other (Mucous membranes dry) Neck: Supple Respiratory: Diminished (Bilaterally) Cardiovascular: No edema, Normal pulses, Normal S1 S2 Capillary refill: <2 Seconds Gastrointestinal: Normal bowel sounds Musculoskeletal: No contractures, No erythema, No tenderness Integumentary: No significant lesion, No tenderness/swelling, No erythema Neurological: Dementia - Studies Laboratory Data (last 24 hrs) 02/16/21 19:27: PT 15.0 H, INR 1.30, APTT 34.0 02/16/21 19:27: WBC 19.80 H, Hgb 11.2 L, Hct 34.5 L, Plt Count 185 02/16/21 19:27: Sodium 158 H, Potassium 3.8, BUN 115 H, Creatinine 6.17 H* D, Glucose 142 H, Total Bilirubin 0.4, AST 19, ALT 10 L, Alkaline Phosphatase 115, Amylase 703 H*, Lipase 159 Assessment and Plan - Plan Assessment Metabolic encephalopathy secondary to Acute renal failure, uremia superimposed on CKD 4 Hypernatremia with suspected underlying diabetes insipidus History of CVA with right-sided weakness Alzheimer's dementia Hypertension BPH COPD Plan Metabolic encephalopathy secondary to Acute renal failure, uremia superimposed on CKD 4: Nephrology has been consulted, patient received 1 L normal saline bolus in the emergency department, now on D5 W at 125 cc/hour. Daily labs, concern for progression to ESRD. Appreciate further input from nephrology. Hypernatremia with suspected underlying diabetes insipidus: Continue D5 W, patient taking desmopressin 2 mcg p.o. b.i.d., will need to discuss case further with nephrology, may need adjustment in medications, could be related to dehydration. History of CVA with right-sided weakness: Appears stable this time, patient demented, difficult to perform neurological exam, is moving all 4 extremities Alzheimer's dementia: Some worsening and mental status at this time likely related to uremia and acute renal failure. Hypertension: Blood pressure stable this time, obtain and continue home medications as appropriate BPH: Continue home meds COPD: Stable, continue home meds. Discharge Plan: [facility] Plan to discharge in: Greater than 2 days - Advance Directives Does patient have a Living Will: No Does patient have a Durable POA for Healthcare: Yes - Code Status/Comfort Care Code Status Assessed: Yes (Full code) Critical Care: No Time Spent Managing Pts Care (In Minutes): 55
[2021-02-17] MEDS ORDERED: ONDANSETRON 4 MG/2 ML VIAL IV PRN (01:11)
[2021-02-17] MEDS: D5W 1,000 ML IV SCH ×3 (01:34→17:06)
[2021-02-17 03:10] VITALS: BMI 23.1
[2021-02-17 04:04] LABS: Absolute Lymphocytes (CBC) 0.7 K/uL (0.7-4.9); Basophils % 0.2 % (0-1.3); Hematocrit 31.1 % (39.6-49.0); Lymphocytes % 3.7 % (15.3-44.8); MPV 10.1 fL (7.6-11.3); RBC Red Blood Cell Count 3.48 M/uL (4.33-5.43)
[2021-02-17 04:51] LABS: Albumin 2.6 g/dL (3.4-5.0); Bilirubin Total 0.3 mg/dL (0.2-1.0); Potassium 3.6 mmol/L (3.5-5.1); Protein, Total 6.8 g/dL (6.4-8.2); Uric Acid 13.7 mg/dL (3.5-7.2)
--- NOTE | 2021-02-17 07:32 | P.CNS ---
Date of Consult: 02/17/21 Reason for Consult: Hypernatremia/ MALLORY Requesting Physician: Manoj Hinds Primary Care Provider: half-way doctor, nephrology- Dr. 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 Patient evaluated in the emergency department found to be in acute renal failure superimposed on CKD 4 with creatinine 6.17, GFR 9 com pared to baseline creatinine of around 3, sodium of 158, also noted to have elevated white blood cell count 19.8 hemoglobin 11.2 hematocrit 34.5 amylase 703 but lipase is within normal limits no UTI noted on cath urine, CT chest abdomen pelvis without contrast demonstrates spiculated mass in the right apex and pulmonary nodule in the left upper lobe which cannot be confirmed as having long-term stability, malignant etiologies cannot be excluded, scarring etiologies also possible. No pneumonia noted abdomen pelvis no acute or emergent findings. Patient alert but disoriented, oriented times 0, reported baseline is oriented x1. 19:34 This 80 yrs old Male presents to ER via EMS with complaints of AMS. [facility] 19:34 The patient presents with decreased mental status. Onset: The symptoms/episode jmm began/occurred today. Possible causes: unknown. Associated signs and symptoms: Pertinent positives: confusion, weakness. Current symptoms: In the emergency department the patient's symptoms are unchanged from the initial presentation. This is a 80 year old male with a history of alzheimers, CVA, dementia that presents to the ED with ams according to the long term. Patient is normally combatitve, and has eaten well. Today the patient has not eaten well and has not been combatitive. Limited HPI/ ROS due to AMS/ Dementia. Allergies No Known Allergies Allergy (Verified 01/21/21 01:18) Home medications list reviewed: Yes Home Medications: Donepezil HCl 10 mg PO BEDTIME 01/05/21 Fluticasone Furoate [Arnuity Ellipta] 1 spray IH DAILY 01/05/21 Aspirin [Aspirin EC] 81 mg PO DAILY #42 tablet. 01/15/21 Acetaminophen 650 mg PO Q6HP PRN 01/20/21 Cholecalciferol (Vitamin D3) [Vitamin D 5,000 IU Cap*] 5,000 unit PO DAILY 01/20/21 Clopidogrel Bisulfate [Plavix*] 75 mg PO DAILY 01/20/21 Folic Acid 1 mg PO DAILY 01/20/21 Tamsulosin [Flomax*] 0.4 mg PO BEDTIME 01/20/21 Desmopressin Acetate [Ddavp] 0.2 mg PO BID #60 tablet 02/02/21 carvediloL [Coreg*] 6.25 mg PO BID #60 tab 02/02/21 hydroCHLOROthiazide [Hydrochlorothiazide*] 12.5 mg PO DAILY #30 cap 02/02/21 Arginine/Ascorbate Sod/Familia AC [Arginaid Powder] 1 each PO BID 02/17/21 Ascorbic Acid 500 mg PO BID 02/17/21 Budesonide/Formoterol Fumarate [Symbicort 160-4.5 Mcg Inhaler] 2 puff IH DAILY 02/17/21 Valproic Acid (As Sodium Salt) [Valproic Acid] 10 ml PO DAILY 02/17/21 Valproic Acid (As Sodium Salt) [Valproic Acid] 20 ml PO BEDTIME 02/17/21 Zinc Sulfate [Zinc Sulfate*] 220 mg PO BID 02/17/21 dilTIAZem HCL [Diltiazem HCl] 30 mg PO TID 02/17/21 - Past Medical/Surgical History Diabetic: No -: HTN -: Alzheimer's Dementia -: Depression -: CKD4 -: CVA -: Diabetes insipidus? -: UTI -: hypocalcemia -: dysphagia -: BPH -: Right hip fracture with repair January 2021 Psychosocial/ Personal History: [facility] - Social History Smoking Status: Unknown if ever smoked Alcohol use: No CD- Drugs: No Caffeine use: No Place of Residence: Home Review of Systems is unable to be obtained Physical Examination Temp Pulse Resp BP Pulse Ox 97.0 F 71 18 108/60 100 02/17/21 04:00 02/17/21 04:00 02/17/21 04:00 02/17/21 04:00 02/17/21 04:00 General: Confused HEENT: Atraumatic Neck: JVD not distended Respiratory: Clear to auscultation bilaterally Cardiovascular: No edema, Regular rate/rhythm Gastrointestinal: Non-distended Musculoskeletal: No clubbing, No contractures Integumentary: No rashes Neurological: Abnormal speech Laboratory Data (last 24 hrs) 02/16/21 19:27: PT 15.0 H, INR 1.30, APTT 34.0 02/16/21 19:27: WBC 19.80 H, Hgb 11.2 L, Hct 34.5 L, Plt Count 185 02/16/21 19:27: Sodium 158 H, Potassium 3.8, BUN 115 H, Creatinine 6.17 H* D, Glucose 142 H, Total Bilirubin 0.4, AST 19, ALT 10 L, Alkaline Phosphatase 115, Amylase 703 H*, Lipase 159 Imagings Data: EXAM DESCRIPTION: CT - Chest Abd Pelvis Wo Con - 02/16/2021 8:44 pm CLINICAL HISTORY: ams, chest pain, abdomen pain COMPARISON: Head C Spine Mpr Wo Con dated 01/04/2021; Head C Spine Mpr Wo Con dated 08/11/2020 TECHNIQUE: During dynamic enhancement using 100 milliliters nonionic IV contrast, axial 5 millimeter thick images of the chest, abdomen and pelvis were obtained. Biphasic technique was utilized through the abdomen. Oral contrast was administered. All CT scans are performed using dose optimization technique as appropriate and may include automated exposure control or mA/KV adjustment according to patient size. FINDINGS: Significant underlying emphysema changes are present with bulla and bleb formation in the upper lung p[place]co. In the right apex there is a 13 millimeter spiculated density present. In the anteromedial left upper lobe at the aortic arch level (image 18/143) there is a 12 millimeter nodule. No other masses the lung parenchyma. No acute infiltrate. Scattered scarring changes are present. No pneumothorax or pleural effusion. No chest wall mass or abnormal axillary lymphadenopathy seen. Mediastinal and hilar regions show no mass or lymphadenopathy. No significant cardiac finding. Abdomen and pelvis imaging has significant motion degradation limitation. The liver, spleen and pancreas show no significant findings. Gallbladder and biliary tree are normal. No hydronephrosis or suspicious renal mass. There is an upper pole left renal cyst. No adrenal abnormalities. Contracted urinary bladder shows no gross abnormality. No significant prostate abnormality seen. No dilated bowel loops or focal ball bowel wall thickening. No free air, free fluid or inflammatory stranding. No hernia, mass or bulky lymphadenopathy. Disc and bone degenerative changes are present. No pathologic finding identifiable. IMPRESSION: Spiculated mass in the right apex and pulmonary nodule in the left upper lobe cannot be confirmed as having long-term stability. Malignant etiologies cannot be excluded. Scarring etiologies are possible given the level of COPD present. Short-term follow-up is recommended if no outside imaging can establish a long- term stability. Follow-up CT imaging in 3 months or follow-up PET-CT imaging could be performed to assure no growth or abnormal metabolic activity. No pneumonia in the chest. Abdomen and pelvis imaging shows no acute or emergent finding. CT abdomen and pelvis imaging shows no significant or suspicious finding. Conclusions/Impression: A/P MALLORY likely due to dehydration CKD IV -Continue IVF with D5W Hypernatremia/ Dehydration Diabetes Insipidis -Continue D5W at 125ml/hr. -Monitor BMP q12h Hypokalemia -Replete IV potassium HTN with CKD -Monitor BP BPH with LUTS -Continue Flomax Toxic metabolic encephalopathy -Continue IVF Thank you kindly for the consultation. Case reviewed with Dr. Hinds Greater than 30min patient care.
--- NOTE | 2021-02-17 08:22 | P.PN ---
Subjective Date of Service: 02/17/21 Primary Care Provider: long term doctor, nephrology- Dr. Shaikh Chief Complaint: Acute renal failure, hypernatremia Subjective: Demented (Severe dementia. Patient with confusion. Not oriented to time or place.) Physical Examination - Vital Signs Temperature: 97.0 F Blood Pressure: 108/60 Pulse: 71 Respirations: 18 Pulse Ox (%): 100 - Studies Laboratory Data (last 24 hrs) 02/16/21 19:27: PT 15.0 H, INR 1.30, APTT 34.0 02/16/21 19:27: WBC 19.80 H, Hgb 11.2 L, Hct 34.5 L, Plt Count 185 02/16/21 19:27: Sodium 158 H, Potassium 3.8, BUN 115 H, Creatinine 6.17 H* D, Glucose 142 H, Total Bilirubin 0.4, AST 19, ALT 10 L, Alkaline Phosphatase 115, Amylase 703 H*, Lipase 159 Assessment & Plan Discharge Plan: [facility] Plan to discharge in: Greater than 2 days - Code Status/Comfort Care Code Status Assessed: Yes Code Status: Do Not Attempt Resuscitat Physician Review Additional Text: CT scan: Significant underlying emphysema changes are present with bulla and bleb formation in the upper lung pacheco. In the right apex there is a 13 millimeter spiculated density present. In the anteromedial left upper lobe at the aortic arch level (image 18/143) there is a 12 millimeter nodule. No other masses the lung parenchyma. No acute infiltrate. Scattered scarring changes are present. No pneumothorax or pleural effusion. No chest wall mass or abnormal axillary lymphadenopathy seen. Mediastinal and hilar regions show no mass or lymphadenopathy. No significant cardiac finding. Abdomen and pelvis imaging has significant motion degradation limitation. The liver, spleen and pancreas show no significant findings. Gallbladder and biliary tree are normal. No hydronephrosis or suspicious renal mass. There is an upper pole left renal cyst. No adrenal abnormalities. Contracted urinary bladder shows no gross abnormality. No significant prostate abnormality seen. No dilated bowel loops or focal ball bowel wall thickening. No free air, free fluid or inflammatory stranding. No hernia, mass or bulky lymphadenopathy. Disc and bone degenerative changes are present. No pathologic finding identifiable. IMPRESSION: Spiculated mass in the right apex and pulmonary nodule in the left upper lobe cannot be confirmed as having long-term stability. Malignant etiologies cannot be excluded. Scarring etiologies are possible given the level of COPD present. Physical exam: Patient with severe dementia. Confusion noted. Patient not oriented to time, place, or person. Heart: Regular rate and rhythm Lungs: Some wheezing bilateral Abdomen: Soft nontender nondistended Extremities: No focal deficits noted. Patient appears dry. Impression: Metabolic encephalopathy secondary to Acute on chronic renal failure stage V with uremia complicated with hypernatremia likely underlying diabetes insipidus CT scan showing spiculated mass in the right apex and pulmonary nodule in the left upper lobe suspicious for neoplasm Hypernatremia with suspected underlying diabetes insipidus History of CVA with right-sided weakness End Stage Alzheimer's dementia Hypertension BPH COPD Plan Metabolic encephalopathy secondary to Acute on chronic renal failure stage V with uremia complicated with hypernatremia likely underlying diabetes insipidus: Spoke with nephrology at length concerning care. Continue with D5W IV fluid. Patient has had multiple admissions for similar issues. New finding include spiculated mass to the lung likely cancer. Consult pulmonology to address and make recommendations. I have contacted family. Advanced directives addressed in detail. Patient is DNR. Family would like recommendation from pulmonology. If cancer is likely then family would likely proceed with hospice instead of pursuing further evaluation of spiculated mass and the likely need for hemodialysis. Especially considering patient's end-stage Alzheimer's dementia. We will continue with IV fluids for now. Await recommendations from pulmonology. We will further discuss with nephrology as well. After decision has been made will discuss plan of care with family. Advance care [id number] minutes. CT scan showing spiculated mass in the right apex and pulmonary nodule in the left upper lobe suspicious for neoplasm: We will consult pulmonology to further evaluate and make recommendations. Suspect neoplasm. Will need to discuss options of care with family after seen by pulmonology.. History of CVA with right-sided weakness: Patient moving all fours. Patient with severe dementia. End-stage Alzheimer's dementia: Some worsening and mental status at this time likely related to uremia and acute renal failure. Hypertension: Blood pressure stable this time, obtain and continue home medications as appropriate BPH: Continue home meds COPD: Provide medication. Time Spent Managing Pts Care (In Minutes): 55
[2021-02-17] MEDS ORDERED: ALBUTEROL 2.5 MG/3 ML NEB SOL NEB PRN (08:33)
[2021-02-17] MEDS ORDERED: IPRATROPIUM BROM 0.5MG/2.5ML NEB PRN (08:33)
[2021-02-17] MEDS: ASCORBIC ACID 500 MG TABLET PO SCH ×2 (09:00→21:00)
[2021-02-17] MEDS: CLOPIDOGREL 75 MG TABLET PO SCH (09:00)
[2021-02-17] MEDS: VALPROIC ACID 250 MG/5 ML OSYR PO SCH ×2 (09:00→21:00)
[2021-02-17] MEDS: ASPIRIN EC 81 MG TAB PO SCH (09:00)
[2021-02-17] MEDS: ZINC SULFATE 220 MG CAP PO SCH ×2 (09:00→21:00)
[2021-02-17] MEDS: carvediloL 6.25 MG TAB PO SCH ×2 (09:00→21:00)
[2021-02-17] MEDS: FOLIC ACID 1 MG TABLET PO SCH (09:00)
[2021-02-17] MEDS: HEPARIN 5000 UNIT/ML 1 ML VIAL SQ SCH ×2 (09:00→21:00)
[2021-02-17] MEDS: VITAMIN D 5,000 UNIT CAP PO SCH (09:00)
[2021-02-17] MEDS: LORazepam 2 MG/ML VIAL IV PRN (19:54)
[2021-02-17 20:03] LABS: Potassium 3.1 mmol/L (3.5-5.1)
[2021-02-17] MEDS: ARFORMOTEROL TARTRATE 15 MCG/2 ML VIAL.NEB NEB SCH (20:08)
[2021-02-17] MEDS: TAMSULOSIN 0.4 MG SR CAP PO SCH (21:00)
[2021-02-17] MEDS: DONEPEZIL HCL 5 MG TAB PO SCH (21:00)
[2021-02-17] MEDS ORDERED: POTASSIUM CL 40 MEQ in NA CHLORIDE 0.9% 500 ML IV SCH (22:00)
[2021-02-17] MEDS ORDERED: NA CHLORIDE 0.9% 500 ML ONE (22:30)
[2021-02-17] MEDS ORDERED: KCL 20 MEQ/100 mL IVPB 40 MEQ/200 ML BAG IV ONE (22:32)
[2021-02-18] MEDS: LORazepam 2 MG/ML VIAL IV PRN ×4 (00:52→20:24)
[2021-02-18] MEDS: D5W 1,000 ML IV SCH (03:38)
[2021-02-18 05:28] LABS: Albumin 2.5 g/dL (3.4-5.0); Bilirubin Total 0.3 mg/dL (0.2-1.0); Magnesium 2.7 mg/dL (1.8-2.4); Phosphorus 3.5 mg/dL (2.5-4.9); Potassium 3.4 mmol/L (3.5-5.1); Protein, Total 6.6 g/dL (6.4-8.2); Uric Acid 13.6 mg/dL (3.5-7.2)
[2021-02-18 05:32] LABS: Absolute Lymphocytes (CBC) 0.6 K/uL (0.7-4.9); Basophils % 0.2 % (0-1.3); Hematocrit 30.3 % (39.6-49.0); Lymphocytes % 4.5 % (15.3-44.8); MPV 9.7 fL (7.6-11.3); RBC Red Blood Cell Count 3.44 M/uL (4.33-5.43)
--- NOTE | 2021-02-18 07:40 | EKG ---
Test Date: 2021-02-16 Test Time: 18:30:27 [place]: LYLE MEASUREMENT RESULTS: Intervals: Rate: 96 MO: 162 QRSD: 82 QT: 366 QTc: 462 [place]: P: 93 MO: 162 QRS: -4 T: 82 INTERPRETIVE STATEMENTS: Sinus rhythm with occasional premature ventricular complexes Nonspecific ST and T wave abnormality Prolonged QT Abnormal ECG Compared to ECG 01/20/2021 16:20:37 Ventricular premature complex(es) now present ST (T wave) deviation now present Prolonged QT interval now present Left-axis deviation no longer present Electronically Signed On 02-18-21 07:35:08 CDT by Bharat Burroughs
[2021-02-18] MEDS: carvediloL 6.25 MG TAB PO SCH ×2 (08:11→20:25)
[2021-02-18] MEDS: ASPIRIN EC 81 MG TAB PO SCH (08:11)
[2021-02-18] MEDS: FOLIC ACID 1 MG TABLET PO SCH (08:11)
[2021-02-18] MEDS: VALPROIC ACID 250 MG/5 ML OSYR PO SCH ×2 (08:11→20:26)
[2021-02-18] MEDS: HEPARIN 5000 UNIT/ML 1 ML VIAL SQ SCH ×2 (08:11→20:26)
[2021-02-18] MEDS: ZINC SULFATE 220 MG CAP PO SCH ×2 (08:12→20:27)
[2021-02-18] MEDS: ASCORBIC ACID 500 MG TABLET PO SCH ×2 (08:12→20:27)
[2021-02-18] MEDS: VITAMIN D 5,000 UNIT CAP PO SCH (08:12)
[2021-02-18] MEDS: CLOPIDOGREL 75 MG TABLET PO SCH (08:12)
--- NOTE | 2021-02-18 08:50 | P.PN ---
Subjective Date of Service: 02/18/21 Primary Care Provider: [facility] doctor, nephrology- Dr. Shaikh Chief Complaint: Acute renal failure, hypernatremia Subjective: Demented Physical Examination - Vital Signs Temperature: 96.7 F Blood Pressure: 136/89 Pulse: 80 Respirations: 18 Pulse Ox (%): 97 Assessment & Plan Discharge Plan: [facility] (with Hospice) Plan to discharge in: 24 Hours Physician Review Additional Text: CT scan: Significant underlying emphysema changes are present with bulla and bleb formation in the upper lung pacheco. In the right apex there is a 13 millimeter spiculated density present. In the anteromedial left upper lobe at the aortic arch level (image 18/143) there is a 12 millimeter nodule. No other masses the lung parenchyma. No acute infiltrate. Scattered scarring changes are present. No pneumothorax or pleural effusion. No chest wall mass or abnormal axillary lymphadenopathy seen. Mediastinal and hilar regions show no mass or lymphadenopathy. No significant cardiac finding. Abdomen and pelvis imaging has significant motion degradation limitation. The liver, spleen and pancreas show no significant findings. Gallbladder and biliary tree are normal. No hydronephrosis or suspicious renal mass. There is an upper pole left renal cyst. No adrenal abnormalities. Contracted urinary bladder shows no gross abnormality. No significant prostate abnormality seen. No dilated bowel loops or focal ball bowel wall thickening. No free air, free fluid or inflammatory stranding. No hernia, mass or bulky lymphadenopathy. Disc and bone degenerative changes are present. No pathologic finding identifiable. IMPRESSION: Spiculated mass in the right apex and pulmonary nodule in the left upper lobe cannot be confirmed as having long-term stability. Malignant etiologies cannot be excluded. Scarring etiologies are possible given the level of COPD present. Physical exam: Patient with severe dementia. Confusion still noted. Patient not oriented to time, place, or person. Heart: Regular rate and rhythm Lungs: Some wheezing bilateral Abdomen: Soft nontender nondistended Extremities: No focal deficits noted. Patient appears dry. Impression: Metabolic encephalopathy secondary to Acute on chronic renal failure stage V with uremia complicated with hypernatremia likely underlying diabetes insipidus CT scan showing spiculated mass in the right apex and pulmonary nodule in the left upper lobe suspicious for neoplasm Hypernatremia with suspected underlying diabetes insipidus History of CVA with right-sided weakness End Stage Alzheimer's dementia Hypertension BPH COPD Plan Metabolic encephalopathy secondary to Acute on chronic renal failure stage V with uremia complicated with hypernatremia likely underlying diabetes insipidus: Spoke with medical power of tax associate attorney at length concerning multiple medical issues. She understands patient's prognosis is poor especially in light of her his end-stage Alzheimer's dementia. She expressed that his condition had worsened after his CVA and hip fracture. She expressed that he would not want to be in this condition long-term. Advanced directives addressed in detail. Patient remains DO NOT RESUSCITATE. Medical power of tax associate attorney agrees with plan for hospice at the [facility]. We will continue with comfort measures at this time. Will discuss with medical social consultant to help arrange for patient to go back to the [facility] with hospice. CT scan showing spiculated mass in the right apex and pulmonary nodule in the left upper lobe suspicious for neoplasm: Spoke with pulmonology. Continue with above plan of care. Pulmonology agrees with plan. History of CVA with right-sided weakness: Patient moving all fours. Patient with severe dementia. End-stage Alzheimer's dementia: This appears to be end-stage. Continue with plan of care above. Hypertension: Blood pressure stable this time, obtain and continue home medications as appropriate BPH: Continue home meds COPD: Provide medication. Time Spent Managing Pts Care (In Minutes): 55
[2021-02-18] MEDS: ARFORMOTEROL TARTRATE 15 MCG/2 ML VIAL.NEB NEB SCH ×2 (09:00→19:45)
--- NOTE | 2021-02-18 14:55 | P.CNS ---
Date of Consult: 02/18/21 Primary Care Provider: senior care doctor, nephrology- Dr. Shaikh Chief Complaint: Pulmonary nodule History of Present Illness: Patt is 78 years of a [facility] medical problems he has also had a stroke does not communicate not eating and drinking admitted with shortness of breath patient has significant dementia he has had a stroke had a fall and has become worse since then Allergies No Known Allergies Allergy (Verified 01/21/21 01:18) Home Medications: Donepezil HCl 10 mg PO BEDTIME 01/05/21 Fluticasone Furoate [Arnuity Ellipta] 1 spray IH DAILY 01/05/21 Aspirin [Aspirin EC] 81 mg PO DAILY #42 tablet. 01/15/21 Acetaminophen 650 mg PO Q6HP PRN 01/20/21 Cholecalciferol (Vitamin D3) [Vitamin D 5,000 IU Cap*] 5,000 unit PO DAILY 01/20/21 Clopidogrel Bisulfate [Plavix*] 75 mg PO DAILY 01/20/21 Folic Acid 1 mg PO DAILY 01/20/21 Tamsulosin [Flomax*] 0.4 mg PO BEDTIME 01/20/21 Desmopressin Acetate [Ddavp] 0.2 mg PO BID #60 tablet 02/02/21 carvediloL [Coreg*] 6.25 mg PO BID #60 tab 02/02/21 hydroCHLOROthiazide [Hydrochlorothiazide*] 12.5 mg PO DAILY #30 cap 02/02/21 Arginine/Ascorbate Sod/Familia AC [Arginaid Powder] 1 each PO BID 02/17/21 Ascorbic Acid 500 mg PO BID 02/17/21 Budesonide/Formoterol Fumarate [Symbicort 160-4.5 Mcg Inhaler] 2 puff IH DAILY 02/17/21 Valproic Acid (As Sodium Salt) [Valproic Acid] 10 ml PO DAILY 02/17/21 Valproic Acid (As Sodium Salt) [Valproic Acid] 20 ml PO BEDTIME 02/17/21 Zinc Sulfate [Zinc Sulfate*] 220 mg PO BID 02/17/21 dilTIAZem HCL [Diltiazem HCl] 30 mg PO TID 02/17/21 - Past Medical/Surgical History Diabetic: No -: HTN -: Alzheimer's Dementia -: Depression -: CKD4 -: CVA -: Diabetes insipidus? -: UTI -: hypocalcemia -: dysphagia -: BPH -: Right hip fracture with repair January 2021 Psychosocial/ Personal History: Patient currently staying in a alf facility for rehab after a hip fracture - Social History Smoking Status: Unknown if ever smoked Alcohol use: No CD- Drugs: No Caffeine use: No Place of Residence: Home Review of Systems is unable to be obtained Physical Examination Temp Pulse Resp BP Pulse Ox 97.7 F 70 16 156/77 H 99 02/18/21 12:00 02/18/21 12:00 02/18/21 12:00 02/18/21 12:00 02/18/21 12:00 General: Unresponsive Respiratory: Clear to auscultation bilaterally Cardiovascular: No edema, Normal S1 S2 - Problems (1) Pulmonary nodule Current Visit: Yes Status: Acute Plan: Patient is 80 years of age these end stage status stroke dementia the triple medical problems has multiple has 2 nodules in his lungs these right and left lung fortunately he is not a candidate for any biopsies or treatment for now admitted with acute renal failure hypernatremia most likely all prerenal is white count was also elevated agree with withdrawal of care prognosis very poor
[2021-02-18] MEDS: DONEPEZIL HCL 5 MG TAB PO SCH (20:25)
[2021-02-18] MEDS: TAMSULOSIN 0.4 MG SR CAP PO SCH (20:26)
--- NOTE | 2021-02-18 20:47 | P.PN ---
Date of Service: 02/18/21 Vital Signs Temp Pulse Resp BP Pulse Ox 97.9 F 81 16 143/81 H 99 02/18/21 16:00 02/18/21 16:00 02/18/21 16:00 02/18/21 16:00 02/18/21 16:00 Medications Albuterol Sulfate (Albuterol 2.5 Mg/3 Ml Neb Nancy) 2.5 mg NEB [id number] PRN PRN Reason: SHORTNESS OF BREATH Last Admin: 02/18/21 09:00 Dose: 2.5 mg Documented by: Arformoterol Tartrate (Arformoterol Tartrate 15 Mcg/2 Ml Vial.Neb) 15 mcg NEB BIDRESP [facility] Last Admin: 02/18/21 09:00 Dose: 15 mcg Documented by: Ascorbic Acid (Ascorbic Acid 500 Mg Tablet) 500 mg PO BID [facility] Last Admin: 02/18/21 08:12 Dose: Not Given Documented by: Aspirin (Aspirin Ec 81 Mg Tab) 81 mg PO DAILY [facility] Last Admin: 02/18/21 08:11 Dose: Not Given Documented by: Carvedilol (Carvedilol 6.25 Mg Tab) 6.25 mg PO BID [facility] Last Admin: 02/18/21 08:11 Dose: Not Given Documented by: Cholecalciferol (Vitamin D 5,000 Unit Cap) 5,000 unit PO DAILY [facility] Last Admin: 02/18/21 08:12 Dose: Not Given Documented by: Clopidogrel Bisulfate (Clopidogrel 75 Mg Tablet) 75 mg PO DAILY [facility] Last Admin: 02/18/21 08:12 Dose: Not Given Documented by: Donepezil HCl (Donepezil Hcl 5 Mg Tab) 10 mg PO BEDTIME [facility] Last Admin: 02/17/21 21:00 Dose: Not Given Documented by: Folic Acid (Folic Acid 1 Mg Tablet) 1 mg PO DAILY [facility] Last Admin: 02/18/21 08:11 Dose: Not Given Documented by: Heparin Sodium (Porcine) (Heparin 5000 Unit/Ml 1 Ml Vial) 5,000 unit SQ Q12HR [facility] Last Admin: 02/18/21 08:11 Dose: Not Given Documented by: Ipratropium [place] (Ipratropium Brom 0.5mg/2.5ml) 0.5 mg NEB [id number] PRN PRN Reason: SHORTNESS OF BREATH Lorazepam (Lorazepam 2 Mg/Ml Vial) 0.5 mg IV Q4H PRN PRN Reason: AGITATION Last Admin: 02/18/21 10:24 Dose: 0.5 mg Documented by: Ondansetron HCl (Ondansetron 4 Mg/2 Ml Vial) 4 mg IV Q6HP PRN PRN Reason: NAUSEA / VOMITING Sodium Chloride (Flush Normal Saline 10 Ml) 10 ml IV BID [facility] Last Admin: 02/18/21 08:12 Dose: 10 ml Documented by: Tamsulosin HCl (Tamsulosin 0.4 Mg Sr Cap) 0.4 mg PO BEDTIME [facility] Last Admin: 02/17/21 21:00 Dose: Not Given Documented by: Valproate Sodium (Valproic Acid 250 Mg/5 Ml [place]) 500 mg PO DAILY [facility] Last Admin: 02/18/21 08:11 Dose: Not Given Documented by: Valproate Sodium (Valproic Acid 250 Mg/5 Ml [place]) 1,000 mg PO BEDTIME [facility] Last Admin: 02/17/21 21:00 Dose: Not Given Documented by: Zinc Sulfate (Zinc Sulfate 220 Mg Cap) 220 mg PO BID [facility] Last Admin: 02/18/21 08:12 Dose: Not Given Documented by: Microbiology Results 02/16/21 19:42 Blood - Blood Aerobic Blood Culture - Preliminary No growth in 24 hours. 02/16/21 19:42 Blood - Blood Anaerobic Blood Culture - Preliminary No growth in 24 hours. 02/16/21 19:27 Blood - Blood Aerobic Blood Culture - Preliminary No growth in 24 hours. 02/16/21 19:27 Blood - Blood Anaerobic Blood Culture - Preliminary No growth in 24 hours. Assessment/ Plan: Nephrology Limited IH/ ROS due to AMS/ Dementia. No acute events overnight. Vitals, medications, blood work and imaging reviewed in the chart. General: Confused HEENT: Atraumatic Neck: JVD not distended Respiratory: Clear to auscultation bilaterally Cardiovascular: No edema, Regular rate/rhythm Gastrointestinal: Non-distended Musculoskeletal: No clubbing, No contractures Integumentary: No rashes Neurological: Abnormal speech Laboratory Data (last 24 hrs) 02/16/21 19:27: PT 15.0 H, INR 1.30, APTT 34.0 02/16/21 19:27: WBC 19.80 H, Hgb 11.2 L, Hct 34.5 L, Plt Count 185 02/16/21 19:27: Sodium 158 H, Potassium 3.8, BUN 115 H, Creatinine 6.17 H* D, Glucose 142 H, Total Bilirubin 0.4, AST 19, ALT 10 L, Alkaline Phosphatase 115, Amylase 703 H*, Lipase 159 Imagings Data: EXAM DESCRIPTION: CT - Chest Abd Pelvis Wo Con - 02/16/2021 8:44 pm CLINICAL HISTORY: ams, chest pain, abdomen pain COMPARISON: Head C Spine Mpr Wo Con dated 01/04/2021; Head C Spine Mpr Wo Con dated 08/11/2020 TECHNIQUE: During dynamic enhancement using 100 milliliters nonionic IV contrast, axial 5 millimeter thick images of the chest, abdomen and pelvis were obtained. Biphasic technique was utilized through the abdomen. Oral contrast was administered. All CT scans are performed using dose optimization technique as appropriate and may include automated exposure control or mA/KV adjustment according to patient size. FINDINGS: Significant underlying emphysema changes are present with bulla and bleb formation in the upper lung p[place]co. In the right apex there is a 13 millimeter spiculated density present. In the anteromedial left upper lobe at the aortic arch level (image 18/143) there is a 12 millimeter nodule. No other masses the lung parenchyma. No acute infiltrate. Scattered scarring changes are present. No pneumothorax or pleural effusion. No chest wall mass or abnormal axillary lymphadenopathy seen. Mediastinal and hilar regions show no mass or lymphadenopathy. No significant cardiac finding. Abdomen and pelvis imaging has significant motion degradation limitation. The liver, spleen and pancreas show no significant findings. Gallbladder and biliary tree are normal. No hydronephrosis or suspicious renal mass. There is an upper pole left renal cyst. No adrenal abnormalities. Contracted urinary bladder shows no gross abnormality. No significant prostate abnormality seen. No dilated bowel loops or focal ball bowel wall thickening. No free air, free fluid or inflammatory stranding. No hernia, mass or bulky lymphadenopathy. Disc and bone degenerative changes are present. No pathologic finding identifiable. IMPRESSION: Spiculated mass in the right apex and pulmonary nodule in the left upper lobe cannot be confirmed as having long-term stability. Malignant etiologies cannot be excluded. Scarring etiologies are possible given the level of COPD present. Short-term follow-up is recommended if no outside imaging can establish a long- term stability. Follow-up CT imaging in 3 months or follow-up PET-CT imaging could be performed to assure no growth or abnormal metabolic activity. No pneumonia in the chest. Abdomen and pelvis imaging shows no acute or emergent finding. CT abdomen and pelvis imaging shows no significant or suspicious finding. Conclusions/Impression: A/P: Continue the current POC and Medications other than the changes listed. AM Labs PRN. Recommend daily weight. Please see the orders for complete details. MALLORY likely due to dehydration CKD IV -Recommend IVF with D5W Hypernatremia/ Dehydration Diabetes Insipidis -Recommend IVF with D5W Hypokalemia -Replete IV potassium HTN with CKD -Monitor BP BPH with LUTS -Continue Flomax Toxic metabolic encephalopathy -Recommend IVF Case reviewed with Dr. Hinds. Agree with withdrawal of care due to poor prognosis.
[2021-02-19] MEDS: FOLIC ACID 1 MG TABLET PO SCH (07:47)
[2021-02-19] MEDS: carvediloL 6.25 MG TAB PO SCH (07:47)
[2021-02-19] MEDS: ASPIRIN EC 81 MG TAB PO SCH (07:47)
[2021-02-19] MEDS: VALPROIC ACID 250 MG/5 ML OSYR PO SCH (07:47)
[2021-02-19] MEDS: CLOPIDOGREL 75 MG TABLET PO SCH (07:48)
[2021-02-19] MEDS: HEPARIN 5000 UNIT/ML 1 ML VIAL SQ SCH (07:48)
[2021-02-19] MEDS: ASCORBIC ACID 500 MG TABLET PO SCH (07:48)
[2021-02-19] MEDS: VITAMIN D 5,000 UNIT CAP PO SCH (07:48)
[2021-02-19] MEDS: ZINC SULFATE 220 MG CAP PO SCH (07:48)
[2021-02-19] MEDS: LORazepam 2 MG/ML VIAL IV PRN (07:49)
[2021-02-19] MEDS: ARFORMOTEROL TARTRATE 15 MCG/2 ML VIAL.NEB NEB SCH (08:20)
--- NOTE | 2021-02-19 08:52 | P.PN ---
Subjective Date of Service: 02/19/21 Primary Care Provider: half-way doctor, nephrology- Dr. Shaikh Chief Complaint: Pulmonary nodule Subjective: Other (Patient appears to worsen. [facility].) Physical Examination - Vital Signs Temperature: 97.4 F Blood Pressure: 191/93 Pulse: 113 Respirations: 16 Pulse Ox (%): 91 Assessment & Plan Discharge Plan: Other (Inpatient hospice) Plan to discharge in: 24 Hours Physician Review Additional Text: Physical exam: Patient with severe dementia. Confusion still noted. Patient not oriented to time, place, or person. Patient's condition appears worse. Heart: Regular rate and rhythm Lungs: Some wheezing bilateral Abdomen: Soft nontender nondistended Extremities: No focal deficits noted. Patient appears dry. 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 Advanced care directives addressed in detail. Patient remains DO NOT RESUSCITATE. [facility]. Case discussed with field services manager. This process may be delayed. Patient condition appears worse. Will speak to field services manager to help arrange for inpatient hospice instead. We will continue comfort measures. Provide medication for pain or anxiety. Spoke with [facility] who agrees with plan of care. CT scan showing spiculated mass in the right apex and pulmonary nodule in the left upper lobe suspicious for neoplasm: Spoke with pulmonology. Continue with plan above. History of CVA with right-sided weakness: Patient with severe dementia. Continue with plan above. Comfort measures only. End-stage Alzheimer's dementia: Patient with end-stage dementia. Continue with above plan of care. Will pursue inpatient hospice.. Hypertension: Comfort measures BPH: Comfort measures COPD: Provide medication. Time Spent Managing Pts Care (In Minutes): 55
--- NOTE | 2021-02-19 08:57 | P.DS ---
Admission Date: 02/16/21 Discharge Date: 02/19/21 Primary Care Provider: assisted doctor, nephrology- Dr. Shaikh Disposition: HOSPICE-MEDICAL FACILITY Discharge Condition: CRITICAL Reason for Admission: Pulmonary nodule Consultations: Nephrology-Dr. Shaikh Pulmonary-Dr. Jamison Procedures: COVID: Negative CT Head: FINDINGS: No intracranial hemorrhage, mass, edema or shift of mid-line structures. No acute infarction changes seen. Advanced atrophy and chronic ischemic changes are present. Ventricles are in proportion to the volume loss. Arterial tree calcifications are present. Mastoid air cells and visualized portions of the paranasal sinuses are clear. No acute bony findings. IMPRESSION: Advanced atrophy and chronic ischemic change similar to comparison. No acute finding. CT scan: FINDINGS: Significant underlying emphysema changes are present with bulla and bleb formation in the upper lung pacheco. In the right apex there is a 13 millimeter spiculated density present. In the anteromedial left upper lobe at the aortic arch level (image 18/143) there is a 12 millimeter nodule. No other masses the lung parenchyma. No acute infiltrate. Scattered scarring changes are present. No pneumothorax or pleural effusion. No chest wall mass or abnormal axillary lymphadenopathy seen. Mediastinal and hilar regions show no mass or lymphadenopathy. No significant cardiac finding. Abdomen and pelvis imaging has significant motion degradation limitation. The liver, spleen and pancreas show no significant findings. Gallbladder and biliary tree are normal. No hydronephrosis or suspicious renal mass. There is an upper pole left renal cyst. No adrenal abnormalities. Contracted urinary bladder shows no gross abnormality. No significant prostate abnormality seen. No dilated bowel loops or focal ball bowel wall thickening. No free air, free fluid or inflammatory stranding. No hernia, mass or bulky lymphadenopathy. Disc and bone degenerative changes are present. No pathologic finding identifiable. IMPRESSION: Spiculated mass in the right apex and pulmonary nodule in the left upper lobe cannot be confirmed as having long-term stability. Malignant etiologies cannot be excluded. Scarring etiologies are possible given the level of COPD present. Short-term follow-up is recommended if no outside imaging can establish a long- term stability. Follow-up CT imaging in 3 months or follow-up PET-CT imaging could be performed to assure no growth or abnormal metabolic activity. No pneumonia in the chest. Abdomen and pelvis imaging shows no acute or emergent finding. CT abdomen and pelvis imaging shows no significant or suspicious finding. 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 Patient presented with worsening altered mental status changes. Patient comes from the shelter. He was there for skilled. Patient has been hospitalized in the past for hypernatremia and acute on chronic renal failure. Patient presented with recurrent acute on chronic renal failure stage IV with hypernatremia. CT scan also revealed a spiculated mass in the right apex. Patient admitted for further evaluation and treatment. Hospital Course: Patient presented with toxic encephalopathy related to acute on chronic renal failure stage V with uremia, hypernatremia and diabetes insipidus. Patient has been hospitalized multiple times for similar condition. Patient with other major medical problems including history of CVA with right-sided weakness, end- stage Alzheimer's dementia, hypertension, BPH, COPD. Patient was started on IV fluids. Patient was seen by pulmonology and nephrology. Pulmonology was consulted due to spiculated mass to the lung. Neoplasm was suspected. Patient would require major work-up including biopsy. Advanced directives addressed in detail with [facility]. [facility] had expressed that the patient condition has significantly worsened over the past several months. Patient has had multiple admissions since his stroke and hip fracture for similar reasons. His condition has not improved. After a long discussion patient remains DO NOT RESUSCITATE. [facility] has decided to pursue hospice. This was also discussed with detail with pulmonology and nephrology. Both agree due to his underlying end-stage dementia that hospice would provide comfort measures. Hospice was to be arranged at shelter. Due to his decline will recommend inpatient hospice. [facility] has agreed. Patient will enter inpatient hospice to continue with comfort measures. Inpatient hospice to further address issues for pain and agitation. Vital Signs/Physical Exam: Temp Pulse Resp BP Pulse Ox 97.4 F 113 H 16 191/93 H 91 02/19/21 08:52 02/19/21 08:52 02/19/21 08:52 02/19/21 08:52 02/19/21 08:52 General: Other (patient confused with severe dementia.) HEENT: Other (Dry mucous membranes) Neck: Supple Respiratory: Expiratory wheezes Cardiovascular: Abnormal pulses (Sinus tachycardia) Gastrointestinal: No rebound, No guarding Integumentary: Other (Dry skin.) Neurological: Dementia (Severe end-stage dementia) Laboratory Data at Discharge: WBC 12.60 K/uL (4.3-10.9) H D 02/18/21 04:32 Hgb 10.4 g/dL (13.6-17.9) L 02/18/21 04:32 Hct 30.3 % (39.6-49.0) L 02/18/21 04:32 Plt Count 144 K/uL (152-406) L 02/18/21 04:32 PT 15.0 SECONDS (9.5-12.5) H 02/16/21 19:27 INR 1.30 02/16/21 19:27 APTT 34.0 SECONDS (24.3-36.9) 02/16/21 19:27 Sodium 156 mmol/L (136-145) H 02/18/21 04:32 Potassium 3.4 mmol/L (3.5-5.1) L 02/18/21 04:32 BUN 112 mg/dL (7-18) H 02/18/21 04:32 Creatinine 5.27 mg/dL (0.55-1.3) H* 02/18/21 04:32 Glucose 115 mg/dL (74-106) H 02/18/21 04:32 Uric Acid 13.6 mg/dL (3.5-7.2) H 02/18/21 04:32 Phosphorus 3.5 mg/dL (2.5-4.9) 02/18/21 04:32 Magnesium 2.7 mg/dL (1.8-2.4) H 02/18/21 04:32 Total Bilirubin 0.3 mg/dL (0.2-1.0) 02/18/21 04:32 AST 27 U/L (15-37) 02/18/21 04:32 ALT 12 U/L (12-78) 02/18/21 04:32 Alkaline Phosphatase 105 U/L (45-117) 02/18/21 04:32 Amylase 423 U/L (25-115) H* D 02/18/21 04:32 Lipase 452 U/L (73-393) H 02/19/21 05:40 Home Medications: Donepezil HCl 10 mg PO BEDTIME 01/05/21 Fluticasone Furoate [Arnuity Ellipta] 1 spray IH DAILY 01/05/21 Aspirin [Aspirin EC] 81 mg PO DAILY #42 tablet.dr 01/15/21 Acetaminophen 650 mg PO Q6HP PRN 01/20/21 Cholecalciferol (Vitamin D3) [Vitamin D 5,000 IU Cap*] 5,000 unit PO DAILY 01/20/21 Clopidogrel Bisulfate [Plavix*] 75 mg PO DAILY 01/20/21 Folic Acid 1 mg PO DAILY 01/20/21 Tamsulosin [Flomax*] 0.4 mg PO BEDTIME 01/20/21 Desmopressin Acetate [Ddavp] 0.2 mg PO BID #60 tablet 02/02/21 carvediloL [Coreg*] 6.25 mg PO BID #60 tab 02/02/21 hydroCHLOROthiazide [Hydrochlorothiazide*] 12.5 mg PO DAILY #30 cap 02/02/21 Arginine/Ascorbate Sod/Familia AC [Arginaid Powder] 1 each PO BID 02/17/21 Ascorbic Acid 500 mg PO BID 02/17/21 Budesonide/Formoterol Fumarate [Symbicort 160-4.5 Mcg Inhaler] 2 puff IH DAILY 02/17/21 Valproic Acid (As Sodium Salt) [Valproic Acid] 10 ml PO DAILY 02/17/21 Valproic Acid (As Sodium Salt) [Valproic Acid] 20 ml PO BEDTIME 02/17/21 Zinc Sulfate [Zinc Sulfate*] 220 mg PO BID 02/17/21 dilTIAZem HCL [Diltiazem HCl] 30 mg PO TID 02/17/21 Physician Discharge Instructions: Patient presented with toxic encephalopathy related to acute on chronic renal f ailure stage V with uremia, hypernatremia and diabetes insipidus. Patient has been hospitalized multiple times for similar condition. Patient with other major medical problems including history of CVA with right-sided weakness, end- stage Alzheimer's dementia, hypertension, BPH, COPD. Patient was started on IV fluids. Patient was seen by pulmonology and nephrology. Pulmonology was consulted due to spiculated mass to the lung. Neoplasm was suspected. Patient would require major work-up including biopsy. Advanced directives addressed in detail with [facility]. [facility] had expressed that the patient condition has significantly worsened over the past several months. Patient has had multiple admissions since his stroke and hip fracture for similar reasons. His condition has not improved. After a long discussion patient remains DO NOT RESUSCITATE. [facility] has decided to pursue hospice. This was also discussed with detail with pulmonology and nephrology. Both agree due to his underlying end-stage dementia that hospice would provide comfort measures. Hospice was to be arranged at shelter. Due to his decline will recommend inpatient hospice. [facility] has agreed. Patient will enter inpatient hospice to continue with comfort measures. Inpatient hospice to further address issues for pain and agitation. Followup: NONE,NONE [Primary Care Provider] - Time spent managing pt's care (in minutes): 55
[2021-02-19 12:11] VITALS: O2SAT 92
[2021-02-19 12:12] VITALS: BP 183/90; TEMP 97.9
--- NOTE | 2021-02-19 23:41 | P.PN ---
Date of Service: 02/19/21 Vital Signs Temp Pulse Resp BP Pulse Ox 97.9 F 107 H 16 183/90 H 92 02/19/21 12:00 02/19/21 12:00 02/19/21 12:00 02/19/21 12:00 02/19/21 12:00 Microbiology Results 02/16/21 19:42 Blood - Blood Aerobic Blood Culture - Preliminary No growth in 24 hours. 02/16/21 19:42 Blood - Blood Anaerobic Blood Culture - Preliminary No growth in 24 hours. 02/16/21 19:27 Blood - Blood Aerobic Blood Culture - Preliminary No growth in 24 hours. 02/16/21 19:27 Blood - Blood Anaerobic Blood Culture - Preliminary No growth in 24 hours. Assessment/ Plan: Nephrology Limited IH/ ROS due to AMS/ Dementia. No acute events overnight. Vitals, medications, blood work and imaging reviewed in the chart. General: Confused HEENT: Atraumatic Neck: JVD not distended Respiratory: Clear to auscultation bilaterally Cardiovascular: No edema, Regular rate/rhythm Gastrointestinal: Non-distended Musculoskeletal: No clubbing, No contractures Integumentary: No rashes Neurological: Abnormal speech Laboratory Data (last 24 hrs) 02/16/21 19:27: PT 15.0 H, INR 1.30, APTT 34.0 02/16/21 19:27: WBC 19.80 H, Hgb 11.2 L, Hct 34.5 L, Plt Count 185 02/16/21 19:27: Sodium 158 H, Potassium 3.8, BUN 115 H, Creatinine 6.17 H* D, Glucose 142 H, Total Bilirubin 0.4, AST 19, ALT 10 L, Alkaline Phosphatase 115, Amylase 703 H*, Lipase 159 Imagings Data: EXAM DESCRIPTION: CT - Chest Abd Pelvis Wo Con - 02/16/2021 8:44 pm CLINICAL HISTORY: ams, chest pain, abdomen pain COMPARISON: Head C Spine Mpr Wo Con dated 01/04/2021; Head C Spine Mpr Wo Con dated 08/11/2020 TECHNIQUE: During dynamic enhancement using 100 milliliters nonionic IV contrast, axial 5 millimeter thick images of the chest, abdomen and pelvis were obtained. Biphasic technique was utilized through the abdomen. Oral contrast was administered. All CT scans are performed using dose optimization technique as appropriate and may include automated exposure control or mA/KV adjustment according to patient size. FINDINGS: Significant underlying emphysema changes are present with bulla and bleb formation in the upper lung p[place]co. In the right apex there is a 13 millimeter spiculated density present. In the anteromedial left upper lobe at the aortic arch level (image 18/143) there is a 12 millimeter nodule. No other masses the lung parenchyma. No acute infiltrate. Scattered scarring changes are present. No pneumothorax or pleural effusion. No chest wall mass or abnormal axillary lymphadenopathy seen. Mediastinal and hilar regions show no mass or lymphadenopathy. No significant cardiac finding. Abdomen and pelvis imaging has significant motion degradation limitation. The liver, spleen and pancreas show no significant findings. Gallbladder and biliary tree are normal. No hydronephrosis or suspicious renal mass. There is an upper pole left renal cyst. No adrenal abnormalities. Contracted urinary bladder shows no gross abnormality. No significant prostate abnormality seen. No dilated bowel loops or focal ball bowel wall thickening. No free air, free fluid or inflammatory stranding. No hernia, mass or bulky lymphadenopathy. Disc and bone degenerative changes are present. No pathologic finding identi fiable. IMPRESSION: Spiculated mass in the right apex and pulmonary nodule in the left upper lobe cannot be confirmed as having long-term stability. Malignant etiologies cannot be excluded. Scarring etiologies are possible given the level of COPD present. Short-term follow-up is recommended if no outside imaging can establish a long- term stability. Follow-up CT imaging in 3 months or follow-up PET-CT imaging could be performed to assure no growth or abnormal metabolic activity. No pneumonia in the chest. Abdomen and pelvis imaging shows no acute or emergent finding. CT abdomen and pelvis imaging shows no significant or suspicious finding. Conclusions/Impression: A/P: Continue the current POC and Medications other than the changes listed. AM Labs PRN. Recommend daily weight. Please see the orders for complete details. MALLORY likely due to dehydration CKD IV -Recommend IVF with D5W Hypernatremia/ Dehydration Diabetes Insipidis -Recommend IVF with D5W Hypokalemia -Replete IV potassium HTN with CKD -Monitor BP BPH with LUTS -Continue Flomax Toxic metabolic encephalopathy -Recommend IVF Case reviewed with Dr. Hinds. Agree with withdrawal of care due to poor prognosis.
== END 2021-02-19 14:32 | disposition hospice, inpatient (51) | DRG 682 ==
LOC: ER 17:26 → ERHOLD 22:34 → 4TH 23:17
PROVIDERS: ADMIT Family Medicine; ATTEND Family Medicine
DX: N17.9 Acute kidney failure, unspecified (principal); G92 Toxic encephalopathy; I69.351 Hemiplegia and hemiparesis following cerebral infarction affecting right dominant side; E87.0 Hyperosmolality and hypernatremia; I12.0 Hypertensive chronic kidney disease with stage 5 chronic kidney disease or end stage renal disease; C34.12 Malignant neoplasm of upper lobe, left bronchus or lung; N18.5 Chronic kidney disease, stage 5; E11.22 Type 2 diabetes mellitus with diabetic chronic kidney disease; N40.1 Benign prostatic hyperplasia with lower urinary tract symptoms; E87.6 Hypokalemia; J44.9 Chronic obstructive pulmonary disease, unspecified; G30.9 Alzheimer's disease, unspecified; F02.80 Dementia in other diseases classified elsewhere, unspecified severity, without behavioral disturbance, psychotic disturbance, mood disturbance, and anxiety; Z79.82 Long term (current) use of aspirin; Z66 Do not resuscitate; Z79.899 Other long term (current) drug therapy; Z79.02 Long term (current) use of antithrombotics/antiplatelets; Z20.822 Contact with and (suspected) exposure to COVID-19
CPT/HCPCS: 36415; 51702; 70450; 71045; 71250; 74176; 80048; 80053; 80076; 81003; 81015; 82150; 82550; 82553; 82947; 83605; 83690; 83735; 84100; 84145; 84484; 84550; 85025; 85610; 85730; 87040; 93005; 94640; 96361; 96374; 99285; J0696; J1644; J3480; J7030; J7040; J7605; U0003

== ENCOUNTER 2021-02-19 15:38 | Inpatient (IN) | payer OTHER ==
--- OUTSIDE RECORDS SUMMARY | 2021-02-19 15:42 | XMS REPORT | Continuity of Care Document ---
:[address] [facility] t Address [address] [place] [address] Care Team Providers Name Role Phone Jeannette [...] 00:00: bedtime as [facility] 00 [facility] Betamethaso Betamethaso 2020- No Bindu [address] [facility] ne ne 06-30 09 Millender applicatio Paulette es - Dipropionat Dipropionat 00:00: 00:00 n to Memoria e Jun e Jun 00 :00 affected l area[facility] Metoprolol Metoprolol 2018-11 Yes Bindu [address] [facility] Succinate Succinate 0-16 [facility] Fish Oil Fish Oil Yes Bindu [address] [facility] Donepezil Donepezil Yes Bindu [address] [facility] HCl HCl [facility] at [facility] Potassium Potassium Yes Bindu [address] [facility] Chloride ER Chloride ER Millender with food [facility] Vitamin B-1 Vitamin B-1 Yes Bindu [address] [facility] Aspirin 81 Aspirin 81 Yes Bindu [address] [facility] Amlodipine Amlodipine Yes Bindu [address] [facility] Besylate Besylate [facility] Folic Acid Folic Acid Yes Bindu [address] [facility] Immunizations Ordered Filled Immunization Date Status Comments Sour e Immunization Name Name FLUZONE HIGH DOSE FLUZONE HIGH DOSE 2019-08-[address] [facility] OVER [facility]00 [facility] Procedures This patient has no known procedures. Encounters Start End Encounter Admission Attending Care Care Encounter Source Date/Time Date/Time Type Type Clinicians Facility Department ID 2020-12-24 2020-12-24 [facility] [id number] [facility] 2020-10-09 2020-10-09 [facility] [id number] [facility] 2020-09-25 2020-09-25 [facility] [id number] 2020-09-24 2020-09-24 [facility] [id number] [facility] 2020-09-10 2020-09-10 [facility] [id number] 2020-09-08 2020-09-08 [facility] [id number] [facility] 2020-08-04 2020-08-04 [facility] [id number] [facility]00 [facility] 2020-07-06 2020-07-06 [facility] [id number] [facility] 13:00:00 13:00:00 [facility] 2020-07-03 2020-07-[address] [id number] [address] 10:14:00 10:14:00 [facility] Clinics 2020-07-01 2020-07-01 [facility] [id number] 23:09:00 23:09:00 [facility] Clin[facility] 2020-06-30 2020-06-30 [facility] [id number] 15[facility]40:00 15:40:00 [facility] Clin[facility] 2020-04-23 2020-04-23 Telephone [facility] [id number] 00:00:00 00:00:00 HEALTH [id number] FAMILY [id number] MEDICINE [phone] [facility] [address] [place] [address] 2020-04-21 2020-04-21 Refill Bonifacio Estr[facility] [id number] 00:00:00 00:00:00 HEALTH [id number] FAMILY [id number] MEDICINE [id number] [facility] 2020-04-16 2020-04-16 [facility] [id number] 13:42:00 13:42:00 [facility] Outpat[facility] ent Clinics 2020-04-08 2020-04-08 [facility] [id number] 16:20:00 16:20:00 [facility] Outpati ent Clinics 2020-04-06 2020-04-06 [facility] [id number] 01:09:00 01:09:00 [facility] 2020-03-31 2020-03-31 [facility] [id number] [address] 16:00:00 16:00:00 [facility] 2020-01-23 2020-01-23 [facility] [id number] 11:28:00 11:28:00 [facility] 2020-01-16 2020-01-16 Pre Visit Bonifacio Estrada [facility] [id number] 00:00:00 00:00:00 [facility] [id number] [facility] [id number] [facility] [phone] [address] 2020-01-01 2020-01-01 [facility] [id number] 16:45:00 16:45:00 [facility] 2019 2019 [facility] [id number] 13:40:00 13:40:00 [facility] 2019-08-21 2019-08-21 [facility] [id number] 14:00:00 14:00:00 [facility] 2019-05-27 2019-05-27 Orders Doctor TRUONG [id number] 00:00:00 00:00:00 Only Unassigned, MARILIN [id number] [place] [phone] [id number] Results This patient has no known results.
[2021-02-19 16:25] VITALS: BMI 22.8
[2021-02-19] MEDS ORDERED: MORPHINE 2 MG/ML SYR IV PRN (17:25)
[2021-02-19] MEDS ORDERED: LORazepam 2 MG/ML VIAL IV PRN (17:26)
[2021-02-19] MEDS ORDERED: BISACODYL 10 MG RECTAL SUPP PR PRN (17:27)
[2021-02-19] MEDS ORDERED: ONDANSETRON 4 MG/2 ML VIAL IV PRN (17:28)
[2021-02-19] MEDS ORDERED: ACETAMINOPHEN 650MG/RECT SUPP PR PRN (17:28)
[2021-02-19] MEDS: SCOPOLAMINE HYDROBROMIDE PATCH TD SCH (17:44)
[2021-02-19] MEDS: LORazepam 2 MG/ML VIAL IV SCH (20:21)
[2021-02-19] MEDS: MORPHINE 2 MG/ML SYR IV SCH (20:22)
[2021-02-20] MEDS: MORPHINE 2 MG/ML SYR IV SCH ×6 (00:22→22:43)
[2021-02-20] MEDS: LORazepam 2 MG/ML VIAL IV SCH ×6 (00:23→22:43)
[2021-02-21] MEDS: MORPHINE 2 MG/ML SYR IV SCH ×6 (02:14→21:00)
[2021-02-21] MEDS: LORazepam 2 MG/ML VIAL IV SCH ×6 (02:14→21:00)
[2021-02-22] MEDS: LORazepam 2 MG/ML VIAL IV SCH ×3 (01:00→09:32)
[2021-02-22] MEDS: MORPHINE 2 MG/ML SYR IV SCH ×3 (01:00→09:32)
[2021-02-22 08:50] VITALS: O2SAT 94
[2021-02-22 09:02] VITALS: BP 89/55; TEMP 97.4
[2021-02-22] MEDS: SCOPOLAMINE HYDROBROMIDE PATCH TD SCH (09:31)
== END 2021-02-22 15:00 | disposition expired | DRG 951 ==
LOC: 4TH 15:38
PROVIDERS: ADMIT Internal Medicine Hematology & Oncology; ATTEND Internal Medicine Hematology & Oncology
DX: Z51.5 Encounter for palliative care (principal)
CPT/HCPCS: J2270